=== PATIENT | male | born 1935 | race Caucasian/White ===

== ENCOUNTER 2020-09-09 11:55 | Inpatient (IN) ==
--- NOTE | 2020-09-09 12:26 | Emergency Department Note ---
History of Present Illness General Chief complaint: Shortness of Breath/Dyspnea Stated complaint: SOB, WHEEZING, FEET SWOLLEN, BP 200/84 Time Seen by Provider: 09/09/20 12:05 Source: patient and family (Daughter who is at the bedside) Mode of arrival: ambulatory Limitations: no limitations History of Present Illness This patient comes in after being sent over from Dr. Murphy's office after he has had shortness of breath and lower extremity edema. He does not have a history of CHF. He does have a history of kidney disease and has been followed in [place]. He is a chronic Malagon in which is had normal output with clear urine. He has had lower extremity edema and weight gain over the last several weeks. His blood pressure in the office today was 200/89, he felt short of breath mostly dyspnea on exertion. He is short of breath when he lays flat and has to sleep sitting up. No fever he had a dry cough. He has not had the Covid vaccine or any known Covid illness. No Covid-like symptoms. Normal bowel movements without blood or melena. No focal numbness or weakness. Home Medications Medication Instructions Recorded Confirmed Type rosuvastatin [Crestor] 20 mg PO HS 02/26/19 09/09/20 History acetaminophen [Tylenol Extra 500 mg PO TID 09/09/20 09/09/20 History Strength] cyanocobalamin (vitamin B-12) 1,000 mcg PO QAM 09/09/20 09/09/20 History [Vitamin B-12] sodium bicarbonate 650 mg PO BID 09/09/20 09/09/20 History Allergies Allergy/AdvReac Type Severity Reaction Status Date / Time No Known Allergies Allergy Unverified 09/09/20 13:50 Past Med/Surg History Medical History (Updated 09/09/20 @ 16:32 by Vini Theodore MD) Anemia of chronic disease CKD (chronic kidney disease), stage IV Colon cancer Dyslipidemia Malagon catheter in place Hyperlipemia Urinary retention Surgical History Hx of tonsillectomy S/P right colectomy Family History Other Colorectal cancer Kidney disease Social History (Updated 09/09/20 @ 15:33 by Gunjan Padron PA-C) Smoking Status: Former smoker Years Smoked: 22; Smoking End Date: 1975; Hx Alcohol Use: No Hx Substance Use: No Preferred Language: Latvian marital status: / Feels Safe at Home: Yes Immunizations: Past medical historykidney disease. Denies cardiac disease. Colon cancer. Social history- he lives independently [place] and is followed by Dr. Murphy Review of Systems A total of 10 systems reviewed and were otherwise negative Physical Exam Vital Signs Vital Signs - 24 hr 09/09/20 12:00 09/09/20 12:58 09/09/20 14:15 Temperature 36.2 C L Temperature Source Temporal Artery Scan Pulse Rate 90 Pulse Rate [Left] 84 Pulse Rhythm [Left] Regular Pulse Strength [Left] Normal Respiratory Rate 24 18 Respiratory Effort / Characteristics SOB on Exertion Non-Labored Spontaneous Respiratory Depth Normal Blood Pressure 200/93 H Blood Pressure [Right Arm] 200/84 H Blood Pressure Mean 128 Blood Pressure Mean [Right Arm] 122 Blood Pressure Position Sitting Blood Pressure Position [Right Arm] Lying Pulse Oximetry 99 96 Oxygen Delivery Method Room Air Room Air Room Air Sepsis Recent Fever Within 48 Hours No Sepsis New/Unexplained Change in Mental Status No Sepsis Action Taken by Nursing No Action Required 09/09/20 15:31 09/09/20 16:02 Temperature Temperature Source Pulse Rate 71 Pulse Rate [Left] 78 Pulse Rhythm [Left] Pulse Strength [Left] Respiratory Rate 19 20 Respiratory Effort / Characteristics Respiratory Depth Blood Pressure 197/85 H Blood Pressure [Right Arm] 205/102 H Blood Pressure Mean Blood Pressure Mean [Right Arm] 136 Blood Pressure Position Blood Pressure Position [Right Arm] Pulse Oximetry 94 94 Oxygen Delivery Method Room Air Sepsis Recent Fever Within 48 Hours Sepsis New/Unexplained Change in Mental Status Sepsis Action Taken by Nursing General: Well developed well nourished older male who in no acute distress, breathing comfortably on room air. Normal speech HEENT: Normal cephalic atraumatic. Pupils are equal round and reactive to light . Extraocular movements are intact. Oropharynx is pink with moist mucous membranes. No swelling of the mouth lips or tongue. Neck: Supple with a midline trachea. No meningeal signs or stiffness, no JVD or bruits. No Stridor. Chest: Clear to auscultation bilaterally. No wheezes or rhonchi. No increased work of breathing. Heart: Regular rate and rhythm without murmurs or gallops. Abdomen: Soft nontender, nondistended without rebound guarding or rigidity. He has ventral hernias from previous incisions which are not red or tender they do reduce and he says that are unchanged. Malagon catheter in place with yellow clear urine in bag. Extremities: No cyanosis clubbing. he has 1-2+ bilateral lower extremity edema. No calf tenderness or assymetry Spine/Back. Non tender to palpation. No CVA tenderness Skin: Good turgor without rashes. Neurologic exam: Cranial nerves two through 12 are intact. Motor and sensation are intact and symmetrical throughout. Course Administered Medications Discontinued Medications Furosemide (Furosemide 40 Mg/4 Ml Vial) 80 mg IV ONE STA Stop: 09/09/20 15:22 Last Admin: 09/09/20 15:30 Dose: 80 mg Documented by: [id number] Labetalol HCl (Labetalol Hcl Iv 5 Mg/Ml 20ml) Confirm Administered Dose 5 mg IV .STK-MED ONE Stop: 09/09/20 14:29 Last Admin: 09/09/20 15:07 Dose: 5 mg Documented by: [id number] Cosigned by: [id number] Labetalol HCl (Labetalol Hcl Iv 5 Mg/Ml 20ml) 5 mg IV NOW STA Stop: 09/09/20 14:54 Last Admin: 09/09/20 15:07 Dose: Not Given Documented by: [id number] Labetalol HCl (Labetalol Hcl 100 Mg Tab) 100 mg PO ONE STA Stop: 09/09/20 15:22 Last Admin: 09/09/20 15:30 Dose: 100 mg Documented by: [id number] Medical Decision Making Differential Diagnosis CHF, kidney disease, electrolyte or metabolic abnormality, acute coronary syndrome, infection, thyroid disease, electrolyte or metabolic abnormality Medical Records Attestation: I reviewed the patient's medical records. Home Medications Current Medication List: was personally reviewed by me Laboratory Data Attestation: I reviewed the patient's lab results. Result diagrams: 09/09/20 13:00 09/09/20 13:00 Lab Results 09/09/20 09/09/20 09/09/20 Range/Units 13:00 13:00 14:10 WBC 6.71 (4.8-10.8) K/uL RBC 2.81 L (4.7-6.1) M/uL Hgb 8.9 L (14.0-18.0) g/dL Hct 26.5 L (42-52) % MCV 94.3 (80-100) fL MCH 31.7 (25-34) pg MCHC 33.6 (32-36) g/dL RDW Std Deviation 48.5 H (36.4-46.3) fL RDW Coeff of Zev 14.0 (11.5-14.5) % Plt Count 162 (130-400) K/uL MPV 11.7 H (7.4-10.4) fL Immature Gran % (Auto) 0.3 % Neut % (Auto) 76.1 % Lymph % (Auto) 13.6 % [place] % (Auto) 7.5 % Eos % (Auto) 1.9 % Baso % (Auto) 0.6 % Neut # (Auto) 5.11 (1.4-6.5) K/uL Lymph # (Auto) 0.91 L (1.2-3.4) K/uL [place] # (Auto) 0.50 (0.11-0.59) K/uL Eos # (Auto) 0.13 (0-0.5) K/uL Baso # (Auto) 0.04 (0-0.2) K/uL Immature Gran # (Auto) 0.02 (0.00-0.02) K/uL Sodium 142 (136-145) mmol/L Potassium 3.8 (3.5-5.1) mmol/L Chloride 114 H (98-107) mmol/L Carbon Dioxide 19 L (21-32) mmol/L Anion Gap 9.0 (3-11) BUN 59 H (7-18) mg/dl Creatinine 4.19 H (0.6-1.4) mg/dl Est Cr Clr Drug Dosing 13.4 ml/min Est GFR ( Amer) 14.2 Est GFR (Non-Af Amer) 12.3 BUN/Creatinine Ratio 14.1 (10-20) Glucose 93 (70-99) mg/dl Calcium 8.0 L (8.5-10.1) mg/dl Total Bilirubin 0.4 (0.2-1) mg/dl AST 13 L (15-37) U/L ALT 17 (12-78) U/L Alkaline Phosphatase 56 (45-117) U/L Troponin I < 0.015 (0-0.045) ng/ml NT-Pro-B Natriuret Pep 24237 H (0-1800) pg/ml Total Protein 7.0 (6.4-8.2) gm/dl Albumin 3.4 (3.4-5.0) gm/dl Globulin 3.6 (2.5-4.0) gm/dl Albumin/Globulin Ratio 0.9 (0.9-2) TSH 2.850 (0.300-4.500) uIu/ml COVID-19 Eval Order CovFluRsv at [facility] SARS-CoV-2 (PCR) (Negative) Influenza Type A (PCR) (Neg) Influenza Type B (PCR) (Neg) RSV (RT-PCR) (Neg) 09/09/20 Range/Units 14:10 WBC (4.8-10.8) K/uL RBC (4.7-6.1) M/uL Hgb (14.0-18.0) g/dL Hct (42-52) % MCV (80-100) fL MCH (25-34) pg MCHC (32-36) g/dL RDW Std Deviation (36.4-46.3) fL RDW Coeff of Zev (11.5-14.5) % Plt Count (130-400) K/uL MPV (7.4-10.4) fL Immature Gran % (Auto) % Neut % (Auto) % Lymph % (Auto) % [place] % (Auto) % Eos % (Auto) % Baso % (Auto) % Neut # (Auto) (1.4-6.5) K/uL Lymph # (Auto) (1.2-3.4) K/uL [place] # (Auto) (0.11-0.59) K/uL Eos # (Auto) (0-0.5) K/uL Baso # (Auto) (0-0.2) K/uL Immature Gran # (Auto) (0.00-0.02) K/uL Sodium (136-145) mmol/L Potassium (3.5-5.1) mmol/L Chloride (98-107) mmol/L Carbon Dioxide (21-32) mmol/L Anion Gap (3-11) BUN (7-18) mg/dl Creatinine (0.6-1.4) mg/dl Est Cr Clr Drug Dosing ml/min Est GFR ( Amer) Est GFR (Non-Af Amer) BUN/Creatinine Ratio (10-20) Glucose (70-99) mg/dl Calcium (8.5-10.1) mg/dl Total Bilirubin (0.2-1) mg/dl AST (15-37) U/L ALT (12-78) U/L Alkaline Phosphatase (45-117) U/L Troponin I (0-0.045) ng/ml NT-Pro-B Natriuret Pep (0-1800) pg/ml Total Protein (6.4-8.2) gm/dl Albumin (3.4-5.0) gm/dl Globulin (2.5-4.0) gm/dl Albumin/Globulin Ratio (0.9-2) TSH (0.300-4.500) uIu/ml COVID-19 Eval Order SARS-CoV-2 (PCR) NEGATIVE (Negative) Influenza Type A (PCR) Negative (Neg) Influenza Type B (PCR) Negative (Neg) RSV (RT-PCR) Negative (Neg) Imaging Data Attestation: I personally reviewed and interpreted this imaging study as follows: My Impression: Chest x-rayfindings consistent with CHF with effusions on the left greater than right base Radiologist's Impression: SINGLE VIEW CHEST CLINICAL HISTORY: Atypical chest pain FINDINGS: An AP, portable, upright chest radiograph is compared to study dated 02/26/2019. The heart is mildly enlarged noting atherosclerotic calcification of the thoracic aorta. There is prominence of the pulmonary vasculature. There are left larger than right pleural effusions with bibasilar consolidation. No pneumothorax is seen. The skeletal structures are osteopenic. The bony thorax is grossly intact. IMPRESSION: 1. There are left larger than right pleural effusions with bibasilar consolidation. Correlate quickly for evidence of pneumonia/aspiration pneumonitis. Radiographic follow-up to resolution is recommended. 2. Cardiomegaly with prominence of the pulmonary vasculature. Correlate clinically for evidence of mild congestive failure. ECG Data Attestation: I personally reviewed and interpreted this ECG as follows: Indication: + SOB/dyspnea Rate (beats per minute): 83 Rhythm: + normal sinus ECG Intervals/blocks: + Normal QRS, + Prolonged QT (Mildly prolonged with a QTC of 470) and + Normal ME ECG [place]: + Normal ECG ST segments: + Normal ST segments ECG Findings: + Other (Nonspecific T waves with some diffuse T wave flattening); no PACs and no PVCs Comparison ECG Date: from (02/26/19) Change: the following changes noted (Rate has increased and also T waves are nonspecific) MDM Narrative This patient comes in as described above he has had dyspnea on exertion orthopnea weight gain and weakness all concerning for possible CHF he does have underlying kidney disease which could also be causing the symptoms. He had extensive work-up done. IV asked established was placed on a cruise coordinator chest x-ray EKG and multiple blood testing was obtained I also order urinalysis and culture. He was reassessed frequently. His creatinine was elevated greater than 4. His chest x-ray does look like he has a CHF component and his BNP is elevated as well. His troponin is normal and his EKG does not show any ischemic changes. His blood pressure has been elevated likely related to the CHF. I do think he needs to be admitted and have further cardiac and renal work-up. He may also need some diuresis but with a creatinine greater than 4, Lasix could also make that worse. I have consulted the [facility] hospitalist to see him in the ER for these measures. Continuous cardiac monitoring: Order was placed in EMR for continuous cardiac monitoring. The patient was noted to be normal sinus rhythm with a rate of 90. Impression & Plan CHF (congestive heart failure), Renal failure, Hypertension, Weakness Discharge Plan Visit Data Chief Complaint: Shortness of Breath/Dyspnea Stated Complaint: SOB, WHEEZING, FEET SWOLLEN, BP 200/84 ED Provider: Vini Theodore Discharge Problem: CHF (congestive heart failure), Renal failure, Hypertension, Weakness Discharge Instructions Interventions: ED Discharge Assessment Last Done: 09/09/20 16:02 Forms Stand Alone Forms: My [employer] Prescriptions Prescriptions: No Action rosuvastatin [Crestor] 20 mg Tablet 20 mg PO HS RF: 0 cyanocobalamin (vitamin B-12) [Vitamin B-12] 1,000 mcg Tablet 1,000 mcg PO QAM RF: 0 acetaminophen [Tylenol Extra Strength] 500 mg Tablet 500 mg PO TID RF: 0 sodium bicarbonate 650 mg tablet 650 mg PO BID RF: 0 Referrals Referrals: Onofre Brown MD [Primary Care Provider] - Discharge Problem: CHF (congestive heart failure) Qualifiers: Heart failure type: combined systolic and diastolic Heart failure chronicity: acute Qualified Code(s): I50.41 - Acute combined systolic (congestive) and diastolic (congestive) heart failure Renal failure Qualifiers: Renal failure chronicity: acute on chronic Acute renal failure type: unspecified Chronic kidney disease stage: unspecified stage Qualified Code(s): N17.9 - Acute kidney failure, unspecified Hypertension Qualifiers: Hypertension type: unspecified Qualified Code(s): I10 - Essential (primary) hypertension
--- NOTE | 2020-09-09 13:03 | XRay Report ---
SINGLE VIEW CHEST CLINICAL HISTORY: Atypical chest pain FINDINGS: An AP, portable, upright chest radiograph is compared to study dated 02/26/2019. The heart i s mildly enlarged noting atherosclerotic calcification of the thoracic aorta. There is prominence of the pulmonary vasculature. There are left larger than right pleural effusions with bibasilar consolid ation. No pneumothorax is seen. The skeletal structures are osteopenic. The bony thorax is grossly in tact. IMPRESSION: 1. There are left larger than right pleural effusions with bibasilar consolidation. Correlate quickly for evidence of pneumonia/aspiration pneumonitis. Radiographic follow-up to resolution is recommende d. 2. Cardiomegaly with prominence of the pulmonary vasculature. Correlate clinically for evidence of mi ld congestive failure. ACT 112: Negative or not required by law. Electronically signed by: Farooq Villanueva M.D. 09/09/2020 1:02 PM
[2020-09-09 13:19] LABS: Basophils # (auto) 0.04 K/uL (0-0.2); Basophils % (auto) 0.6 %; Eosinophils # (auto) 0.13 K/uL (0-0.5); Eosinophils % (auto) 1.9 %; Hematocrit (blood only) 26.5 % (42-52); Hemoglobin 8.9 g/dL (14.0-18.0); Immature Granulocytes # (auto) 0.02 K/uL (0.00-0.02); Immature Granulocytes % (auto) 0.3 %; Lymphocytes # (auto) 0.91 K/uL (1.2-3.4); Lymphocytes % (auto) 13.6 %; Mean Corpuscular Hemoglobin 31.7 pg (25-34); Mean Corpuscular Hgb Conc 33.6 g/dL (32-36); Mean Corpuscular Volume 94.3 fL (80-100); Mean Platelet Volume 11.7 fL (7.4-10.4); Monocytes % (auto) 7.5 %; Neutrophils # (auto) 5.11 K/uL (1.4-6.5); Neutrophils % (auto) 76.1 %; Platelet Count 162 K/uL (130-400); RDW Standard Deviation 48.5 fL (36.4-46.3); Red Blood Count 2.81 M/uL (4.7-6.1); White Blood Count 6.71 K/uL (4.8-10.8)
[2020-09-09 13:37] LABS: Alanine Aminotransferase 17 U/L (12-78); Albumin Level 3.4 gm/dl (3.4-5.0); Aspartate Aminotransferase 13 U/L (15-37); BUN Creatinine Ratio 14.1 (10-20); Blood Urea Nitrogen 59 mg/dl (7-18); Carbon Dioxide 19 mmol/L (21-32); Chloride 114 mmol/L (98-107); Creatinine Clr Calc Pharmacy 13.4 ml/min; Est GFR (African American) 14.2; Est GFR (Non-African American) 12.3; Glucose 93 mg/dl (70-99); Potassium 3.8 mmol/L (3.5-5.1); Sodium 142 mmol/L (136-145)
[2020-09-09 13:48] LABS: Albumin Globulin Ratio 0.9 (0.9-2); Alkaline Phosphatase 56 U/L (45-117); Bilirubin,Total 0.4 mg/dl (0.2-1); Globulin 3.6 gm/dl (2.5-4.0); NT Pro B Type Natriuretic Pept 30998 pg/ml (0-1800); Troponin I < 0.015 ng/ml (0-0.045)
--- NOTE | 2020-09-09 14:26 | History & Physical Report ---
Date of Service September 09, 2020 Assessment & Plan (1) Acute kidney injury superimposed on chronic kidney disease: (2) CKD (chronic kidney disease), stage IV: This is an 85-year-old male with PMH of CKD 4, history of BPH and urinary retention with Carlson catheter in place, anemia of chronic disease, history of colon cancer status post right colectomy, dyslipidemia and other medical problems as below who presents with dyspnea on exertion x2 weeks and was found to have DINORAH on CKD, volume overload and hypertensive urgency. Creatinine 4.19 (recent baseline ~3.3). BUN 59. Follows with Dr. Acharya Evidence of significant volume overload on exam, BNP >30,000 Discussed diuretic dosing with Dr. Acharya - will start with IV Lasix 80mg TID Still making urine, has carlson catheter in place Low sodium diet, fluid restriction 1.5 L, continue sodium bicarb (3) Volume overload: In setting of DINORAH on CKD, evidence of volume overload although no formal diagnosis of CHF in the past - echo in 10/26 with preserved EF, aortic sclerosis CXR with pleural effusions L>R with bibasilar consolidation and cardiomegaly with prominence of the pulmonary vasculature BNP >30,000 Saturating at 94% on room air Diuresing with IV Lasix 80mg TID, per nephro. Strict I&Os, daily weight TTE ordered (4) Hypertensive urgency: BP 215/100 when evaluated for admission - H/o labile HTN. Previously on HCTZ, lisinopril but discontinued after ARF admission to [facility] last September. BP has been stable per clinic visits without medication Denies visual changes, headache, chest pain, nausea. CT head wo contrast given uncontrolled BP Given stat IV Labetalol, started on IV lasix in ED. Starting labetalol 100mg BID as well with PRN IV Labetalol as needed (5) BPH (benign prostatic hyperplasia): (6) Urinary retention: Carlson catheter in place (7) Dyslipidemia: Continue statin (8) Anemia of chronic disease: Hgb 8.9. Following with nephro DVT Ppx: SCDs for now, will add SQ heparin if CT head results w/o evidence of bleed Code status: FULL PCP: [facility] Dispo: Admitted to PCU. Plan to return home once medically stable. Patient seen in collaboration with Dr. Sol. Please see addendum. History of Present Illness Chief Complaint: Dyspnea on exertion, weight gain Primary Care Provider: Onofre Brown MD This is an 85-year-old male with PMH of CKD 4, history of BPH and urinary retention with Carlson catheter in place, anemia of chronic disease, history of colon cancer status post right colectomy, dyslipidemia and other medical problems as below who presents with dyspnea on exertion x2 weeks. Patient has noticed increased difficulty with breathing with activity, but daughter also notices when he is at rest and short of breath talking on the phone. Endorses weight gain and swelling of bilateral ankles as well as dry cough. Has been unable to sleep flat, endorsing orthopnea and PND. Has been sleeping in recliner for the past week. Denies any lightheadedness, headache or chest pain. Has normal urinary output in Carlson bag. No fever or chills. Denies headache, sore throat, palpitations, nausea, vomiting, abdominal pain, dysuria, diarrhea constipation. Was seen earlier today at [facility] but due to hypertension and worsening renal function was sent to ED for further evaluation. Initial BP 200/84. Creatinine 4.19 (recent baseline ~3.3). BUN 59. BNP elevated at >30,000. CXR with pleural effusions L>R with bibasilar consolidation and cardiomegaly with prominence of the pulmonary vasculature. Follows with Dr. Acharya of nephrology. 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 HCTZ, lasix and lisinopril all discontinued upon discharge. Has not required additional BP meds since then. Allergies Allergy/AdvReac Type Severity Reaction Status Date / Time No Known Allergies Allergy Unverified 09/09/20 13:50 Home Medications Medication Instructions Recorded Confirmed Type rosuvastatin [Crestor] 20 mg PO HS 02/26/19 09/09/20 History acetaminophen [Tylenol Extra 500 mg PO TID 09/09/20 09/09/20 History Strength] cyanocobalamin (vitamin B-12) 1,000 mcg PO QAM 09/09/20 09/09/20 History [Vitamin B-12] sodium bicarbonate 650 mg PO BID 09/09/20 09/09/20 History Past Med/Surg History Medical History (Updated 09/09/20 @ 16:32 by Vini Theodore MD) Anemia of chronic disease CKD (chronic kidney disease), stage IV Colon cancer Dyslipidemia Carlson catheter in place Hyperlipemia Urinary retention Surgical History Hx of tonsillectomy S/P right colectomy Family History Other Colorectal cancer Kidney disease Social History (Updated 09/09/20 @ 15:33 by Gunjan Padron PA-C) Smoking Status: Former smoker Years Smoked: 22; Smoking End Date: 1975; Hx Alcohol Use: No Hx Substance Use: No Preferred Language: Frisian Communication Ability: Effective Mattress Stripper Required: No Beliefs That Will Affect Care: None marital status: / Current Living Situation: Alone Feels Safe at Home: Yes Assistive Devices: Denture - Upper, Denture - Lower and Glasses Review of Systems Review of Systems: At least ten systems reviewed and negative except as noted in the HPI. Physical Exam Physical Exam: General Appearance: WD/WN, vitals as above, NAD, sitting up in bed, pleasant, conversational dyspnea Head: normocephalic, atraumatic Eyes: normal inspection, PERRL, conjunctivae normal, anicteric sclerae ENT: external ear and nose normal, oropharynx normal Neck: normal visual inspection, trachea midline, no thyromegaly Respiratory: normal respiratory effort, bibasilar rales, no wheeze or rhonchi. No accessory muscle use Cardiovascular: regular rate, rhythm, no murmur appreciated, normal peripheral pulses, 2+ BLE edema. Vessels: no JVD Chest: normal inspection of chest Abdomen/GI: normal bowel sounds, soft, nontender, no hepatosplenomegaly Extremities/Musculoskeletal: no cyanosis or clubbing, extremities motor strength 5/5 Neurologic: PERRL, EOMI, accommodation nl, no face palsy, no dysarthria, CN's II-XI intact bilaterally and moves all extremities Psychiatric: A+Ox3, euthymic affect Skin: no rashes, normal color, warm/dry Results & Data Results & Data ([facility]) Vital Signs (Past 12 Hours) Vital Signs Temp Pulse Pulse Resp BP BP Pulse Ox 09/09/20 14:15 84 18 200/84 H 96 09/09/20 12:00 36.2 C L 90 24 200/93 H 99 Laboratory Results Short CBC 09/09/20 Range/Units 13:00 WBC 6.71 (4.8-10.8) K/uL Hgb 8.9 L (14.0-18.0) g/dL Hct 26.5 L (42-52) % Plt Count 162 (130-400) K/uL BMP 09/09/20 13:00 Sodium 142 Potassium 3.8 Chloride 114 H Carbon Dioxide 19 L BUN 59 H Creatinine 4.19 H Glucose 93 Calcium 8.0 L Cardiac Enzymes 09/09/20 Range/Units 13:00 Troponin I < 0.015 (0-0.045) ng/ml Liver Function 09/09/20 Range/Units 13:00 Total Bilirubin 0.4 (0.2-1) mg/dl AST 13 L (15-37) U/L ALT 17 (12-78) U/L Alkaline Phosphatase 56 (45-117) U/L Albumin 3.4 (3.4-5.0) gm/dl Diagnostic Findings CXR: IMPRESSION: 1. There are left larger than right pleural effusions with bibasilar consolidation. Correlate quickly for evidence of pneumonia/aspiration pneumonitis. Radiographic follow-up to resolution is recommended. 2. Cardiomegaly with prominence of the pulmonary vasculature. Correlate clinically for evidence of mild congestive failure. Supervising Physician Co-Signing Physician Notes Patient is a 85-year-old male with history of CKD stage IV, BPH and other medical problems presents with history of dyspnea on exertion which has been gradually worsening since last 2 weeks duration. He also states having orthopnea, PND and unable to lay flat at bedtime. He also admits to have worsening lower extremity edema, weight gain and has dry cough. Please review HPI for complete details of presentation. He was noted to have elevated blood pressure while in ED, but denies any headache, blurry vision, dizziness. His x- ray suggestive of bilateral pleural effusion with bibasilar consolidation and findings suggestive of possible aspiration pneumonitis. On exam patient is thin, frail, chronically appearing, no apparent distress, normocephalic atraumatic, lungs-normal breath sounds, decreased at bases, no crackles heard, S1-S2, no murmur, abdomen soft, nontender, normal bowel sounds, alert, awake, oriented, grossly no focal deficits, + bilateral lower extremity edema noted. Patient is admitted for management of volume overload: Likely multifactorial secondary to DINORAH, to rule out CHF. Currently saturating well on room air. We will start him on IV diuretics, place him on fluid and salt restriction. Will obtain echo and consult nephrology. CT head showed no acute findings. Will control his blood pressure for hypertensive urgency. Will bladder scan as needed to rule out urinary retention. Will check procalcitonin and consider antibiotics if needed. Urinary studies ordered. Noted chronic anemia, hemoglobin low from baseline likely dilutional. Monitor CBC. I personally reviewed the record. Patient is interviewed and examined at bedside. Patient's care is coordinated with Gunjan Padron PA-C. Please refer to the documentation above for details of patient's presentation and for discussion of other issues.
[2020-09-09] MEDS ORDERED: LABETALOL HCL IV 5 MG/ML 20ML IV ONE (14:28)
[2020-09-09] MEDS ORDERED: LABETALOL HCL IV 5 MG/ML 20ML IV STA (14:53)
[2020-09-09 15:04] LABS: Influenza A virus by PCR Negative (Neg); Influenza B virus by PCR Negative (Neg); RSV by PCR Negative (Neg); SARS CoV2 RNA(COVID-19) InHosp NEGATIVE (Negative)
[2020-09-09] MEDS ORDERED: LABETALOL HCL 100 MG TAB PO STA (15:21)
[2020-09-09] MEDS ORDERED: FUROSEMIDE 40 MG/4 ML VIAL IV STA (15:21)
--- NOTE | 2020-09-09 16:26 | CT Scan Report ---
CT OF THE HEAD WITHOUT CONTRAST CLINICAL HISTORY: Hypertensive urgency. COMPARISON STUDY: No previous studies for comparison. CT DOSE: 945.80 mGy.cm TECHNIQUE: Helical axial images of the head were obtained without IV contrast. Automated exposure con trol was utilized for the study. A dose lowering technique was utilized adhering to the principles o f ALARA. FINDINGS: No acute intracranial hemorrhage, midline shift or mass effect is present. Basal cisterns a re patent. No extra axial fluid collections are present. Prominence of the extra-axial spaces is due to atrophy. Ventricular system is unremarkable. There are no findings to suggest acute dural sinus th rombosis or acute territorial infarct. A 1.5 cm subcortical hypodensity within the left parietal lobe is noted. Mild white matter hypodensity suggests small vessel disease. There is no calvarial fractur e. IMPRESSION: 1. No acute intracranial hemorrhage or mass effect. 2. 1.5 cm subcortical hypodensity within the left parietal lobe. This represents age indeterminate, b ut likely chronic, ischemic change. ACT 112: Negative or not required by law. Electronically signed by: Armando Fernandez M.D. 09/09/2020 4:24 PM
[2020-09-09] MEDS ORDERED: ONDANSETRON INJ 2 MG/ML 2 ML VIAL IV PRN (16:40)
[2020-09-09] MEDS ORDERED: ACETAMINOPHEN 325 MG TAB PO PRN (16:40)
[2020-09-09] MEDS: SODIUM BICARBONATE 650 MG TAB PO SCH (20:09)
[2020-09-09] MEDS: ROSUVASTATIN CALCIUM 20 MG TAB PO SCH (20:09)
[2020-09-09] MEDS: ACETAMINOPHEN 500 MG TAB PO SCH (20:10)
[2020-09-09] MEDS: LABETALOL HCL 100 MG TAB PO SCH (20:38)
[2020-09-09] MEDS: HEPARIN SOD 5,000 UNIT/0.5 ML VIAL SQ SCH (20:38)
[2020-09-09 20:51] LABS: Appearance Urine Clear (Clear); Bacteria Urine Automated 1+ (Negative); Bilirubin Urine Negative (Negative); Blood Urine 2+ (Negative); Color Urine Yellow; Glucose Urine UA Negative (Negative); Ketones Urine Negative (Negative); Leukocyte Esterase Urine 1+ (Negative); Nitrite Urine Positive (Negative); Protein Urine 2+ (Negative); Specific Gravity Urine 1.009 (1.000-1.030); Urobilinogen Urine Negative (Negative)
[2020-09-09 21:24] LABS: Creatinine Urine Random 19.4 mg/dl; Protein Creatinine Ratio Urine 5.3 (0-0.2); Total Protein Urine Random 102.7 mg/dl (0-11.9)
[2020-09-09] MEDS: FUROSEMIDE 80 MG in SYRINGE 0 ML IV SCH (22:06)
--- NOTE | 2020-09-10 05:48 | Electrocardiogram Report ---
Test Reason : Blood Pressure : / mmHG Vent. Rate : 083 BPM Atrial Rate : 083 BPM P-R Int : 152 ms QRS Dur : 092 ms QT Int : 400 ms P-R-T Axes : 051 048 223 degrees QTc Int : 470 ms Normal sinus rhythm Nonspecific T wave abnormality Prolonged QT Abnormal ECG When compared with ECG of 26-FEB-2019 17:29, Nonspecific T wave abnormality now evident in Inferior leads Nonspecific T wave abnormality now evident in Lateral leads Confirmed by Jim Saldana ([id number]) on 09/10/2020 5:48:09 AM Referred By: REFERRED SELF Confirmed By:Jim Saldana
[2020-09-10 05:58] LABS: Hematocrit (blood only) 23.1 % (42-52); Hemoglobin 7.5 g/dL (14.0-18.0); Mean Corpuscular Hemoglobin 30.7 pg (25-34); Mean Corpuscular Hgb Conc 32.5 g/dL (32-36); Mean Corpuscular Volume 94.7 fL (80-100); Mean Platelet Volume 11.6 fL (7.4-10.4); Platelet Count 143 K/uL (130-400); RDW Standard Deviation 48.3 fL (36.4-46.3); Red Blood Count 2.44 M/uL (4.7-6.1); White Blood Count 5.05 K/uL (4.8-10.8)
[2020-09-10] MEDS: FUROSEMIDE 80 MG in SYRINGE 0 ML IV SCH ×2 (06:02→15:04)
[2020-09-10 07:01] LABS: BUN Creatinine Ratio 14.4 (10-20); Calcium 7.5 mg/dl (8.5-10.1); Est GFR (African American) 12.5; Est GFR (Non-African American) 10.8; Magnesium 2.1 mg/dl (1.8-2.4); Potassium 3.8 mmol/L (3.5-5.1)
[2020-09-10] MEDS: LABETALOL HCL 100 MG TAB PO SCH ×2 (07:51→20:54)
[2020-09-10] MEDS: HEPARIN SOD 5,000 UNIT/0.5 ML VIAL SQ SCH (07:52)
[2020-09-10] MEDS: CYANOCOBALAMIN 500 MCG TABLET (VITAMIN B-12) PO SCH (07:52)
[2020-09-10] MEDS: SODIUM BICARBONATE 650 MG TAB PO SCH ×2 (07:53→20:53)
[2020-09-10] MEDS: ACETAMINOPHEN 500 MG TAB PO SCH ×3 (07:55→20:53)
--- NOTE | 2020-09-10 08:25 | Hospitalist Progress Note ---
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 Creatinine 4.19 (recent baseline ~3.3). BUN 59. Patient has noticed increased difficulty with breathing with activity, but daughter also notices when he is at rest and short of breath talking on the phone. Endorses weight gain and swelling of bilateral ankles as well as dry cough. Has been unable to sleep flat, endorsing orthopnea and PND. Has been sleeping in recliner for the past week. Denies any lightheadedness, headache or chest pain. Has normal urinary output in Carlson bag. No fever or chills. Denies headache, sore throat, palpitations, nausea, vomiting, abdominal pain, dysuria, diarrhea constipation. Was seen earlier today at [facility] but due to hypertension and worsening renal function was sent to ED for further evaluation. Initial BP 200/84. Creatinine 4.19 (recent baseline ~3.3). BUN 59. BNP elevated at >30,000. CXR with pleural effusions L>R with bibasilar consolidation and cardiomegaly with prominence of the pulmonary vasculature. Follows with Dr. Acharya of nephrology. 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 HCTZ, lasix and lisinopril all discontinued upon discharge. Has not required additional BP meds since then. 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 Creatinine 4.19 (recent baseline ~3.3). BUN 59. Follows with Dr. Acharya Evidence of significant volume overload on exam, BNP >30,000 Discussed diuretic dosing with Dr. Acharya - started on admission with IV Lasix 80mg TID Still making urine, has carlson catheter in place Low sodium diet, fluid restriction 1.5 L, continue sodium bicarb Patient diuresed well, clinically much improved on 3/5 AM Nephrology consulted, and following, appreciate their input - lower Lasix IV to 60 IV twice daily, continue labetalol, hydralazine (3) Volume overload: In setting of DINORAH on CKD, evidence of volume overload although no formal diagnosis of CHF in the past - echo in 10/26 with preserved EF, aortic sclerosis CXR with pleural effusions L>R with bibasilar consolidation and cardiomegaly with prominence of the pulmonary vasculature BNP >30,000 Saturating at 94% on room air Diuresing with IV Lasix 80mg TID, per nephro. Strict I&Os, daily weight TTE obtained -LV wall motion is normal. EF 55 to 60%. Mild concentric LVH. Mild mitral regurg. Mild tricuspid regurg. Moderate pulmonary hypertension is present. Pulmonary artery systolic pressure estimated to be 50 to 55 mmHg. G rade 2 diastolic dysfunction. Standing weights, I's and O's (4) Hypertensive urgency: BP 215/100 when evaluated for admission - H/o labile HTN. Previously on HCTZ, lisinopril but discontinued after ARF admission to [facility] last September. BP has been stable per clinic visits without medication Denies visual changes, headache, chest pain, nausea. CT head wo contrast given uncontrolled BP Given stat IV Labetalol, started on IV lasix in ED. 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 Following with nephro Current hemoglobin down around 8 No signs of bleeding, however will obtain FOBT, hold heparin DVT Ppx: SCDs for now, will add SQ heparin if Hgb stable Code status: FULL PCP: Dr. Brown Dispo: Admitted to PCU. Plan to return home once medically stable. Admission and Anticipated Discharge Date Admission Date: September 09, 2020 Subjective Patient seen in follow-up of DINORAH on CKD, fluid overload Currently lying in bed, in no acute distress, stating that he feels much better now and is breathing better He is currently on room air Denies any chest pain, abdominal pain, nausea vomiting fevers chills Hemoglobin down this AM, repeat hemoglobin ordered, seems stable, no gross bleeding noted, patient denies any blood in the stool or hematuria Review of Systems Review of Systems: All systems reviewed & are unremarkable except as noted in HPI & below Constitutional: no fever and no chills Respiratory: + dyspnea (much improved) Cardiovascular: + edema; no chest pain and no palpitations Gastrointestinal: no abdominal pain, no nausea and no vomiting Physical Exam Physical Exam: General Appearance: WD/WN, sitting up in bed,in NAD, breathing comfortably on room air Head: normocephalic, atraumatic Eyes: normal inspection, PERRL, EOMI, conjunctivae normal, anicteric sclerae ENT: external ear and nose normal, oropharynx normal Neck: normal visual inspection, trachea midline, no thyromegaly Respiratory: normal respiratory effort, bibasilar rales, no wheeze or rhonchi. No accessory muscle use Cardiovascular: regular rate, rhythm, no murmur appreciated, normal peripheral pulses, 2+ BLE edema. Vessels: no JVD Chest: normal inspection of chest Abdomen/GI: normal bowel sounds, soft, nontender Extremities/Musculoskeletal: no cyanosis or clubbing, extremities motor strength 5/5 Neurologic: PERRL, EOMI, no face palsy, no dysarthria, CN's II-XI intact bilaterally and moves all extremities Psychiatric: A+Ox3, euthymic affect Skin: no rashes, normal color, warm/dry Results & Data Results & Data ([facility]) Vital Signs (Past 12 Hours) Vital Signs Temp Pulse Pulse Resp BP Pulse Ox 09/10/20 07:20 36.8 C 69 18 183/77 H 96 09/10/20 06:42 170/77 H 09/10/20 03:27 37.0 C 59 L 18 177/77 H 96 09/10/20 02:00 72 09/09/20 23:33 36.8 C 68 19 172/70 H 94 09/09/20 22:33 72 Laboratory Results 09/10/20 09/10/20 09/10/20 Range/Units 07:19 05:38 05:38 WBC 5.05 (4.8-10.8) K/uL RBC 2.44 L (4.7-6.1) M/uL Hgb 7.5 L (14.0-18.0) g/dL Hct 23.1 L (42-52) % MCV 94.7 (80-100) fL MCH 30.7 (25-34) pg MCHC 32.5 (32-36) g/dL RDW Std Deviation 48.3 H (36.4-46.3) fL RDW Coeff of Zev 14.0 (11.5-14.5) % Plt Count 143 (130-400) K/uL MPV 11.6 H (7.4-10.4) fL Immature Gran % (Auto) % Neut % (Auto) % Lymph % (Auto) % [place] % (Auto) % Eos % (Auto) % Baso % (Auto) % Neut # (Auto) (1.4-6.5) K/uL Lymph # (Auto) (1.2-3.4) K/uL [place] # (Auto) (0.11-0.59) K/uL Eos # (Auto) (0-0.5) K/uL Baso # (Auto) (0-0.2) K/uL Immature Gran # (Auto) (0.00-0.02) K/uL Sodium (136-145) mmol/L Potassium (3.5-5.1) mmol/L Chloride (98-107) mmol/L Carbon Dioxide (21-32) mmol/L Anion Gap (3-11) BUN (7-18) mg/dl Creatinine (0.6-1.4) mg/dl Est Cr Clr Drug Dosing ml/min Est GFR ( Amer) Est GFR (Non-Af Amer) BUN/Creatinine Ratio (10-20) Glucose (70-99) mg/dl POC Glucose 100 H (70-99) mg/dl Calcium (8.5-10.1) mg/dl Magnesium (1.8-2.4) mg/dl Total Bilirubin (0.2-1) mg/dl AST (15-37) U/L ALT (12-78) U/L Alkaline Phosphatase (45-117) U/L Troponin I (0-0.045) ng/ml NT-Pro-B Natriuret Pep (0-1800) pg/ml Total Protein (6.4-8.2) gm/dl Albumin (3.4-5.0) gm/dl Globulin (2.5-4.0) gm/dl Albumin/Globulin Ratio (0.9-2) Procalcitonin 0.14 (0-0.5) ng/ml TSH (0.300-4.500) uIu/ml Urine Color Urine Appearance (Clear) Urine pH (4.5-7.5) Ur Specific [place] (1.000-1.030) Urine Protein (Negative) Urine Glucose (UA) (Negative) Urine Ketones (Negative) Urine Blood (Negative) Urine Nitrite (Negative) Urine Bilirubin (Negative) Urine Urobilinogen (Negative) Ur Leukocyte Esterase (Negative) Urine WBC (Auto) (0-5) /hpf Urine RBC (Auto) (0-4) /hpf U Hyaline Cast (Auto) (0-5) /lpf U Epithel Cells (Auto) (0-5) /lpf Urine Bacteria (Auto) (Negative) Ur Random Creatinine mg/dl U Random Total Protein (0-11.9) mg/dl Protein/Creatinin Ratio (0-0.2) COVID-19 Eval Order SARS-CoV-2 (PCR) (Negative) Influenza Type A (PCR) (Neg) Influenza Type B (PCR) (Neg) RSV (RT-PCR) (Neg) 09/10/20 09/09/20 09/09/20 Range/Units 05:38 20:36 20:29 WBC (4.8-10.8) K/uL RBC (4.7-6.1) M/uL Hgb (14.0-18.0) g/dL Hct (42-52) % MCV (80-100) fL MCH (25-34) pg MCHC (32-36) g/dL RDW Std Deviation (36.4-46.3) fL RDW Coeff of Zev (11.5-14.5) % Plt Count (130-400) K/uL MPV (7.4-10.4) fL Immature Gran % (Auto) % Neut % (Auto) % Lymph % (Auto) % [place] % (Auto) % Eos % (Auto) % Baso % (Auto) % Neut # (Auto) (1.4-6.5) K/uL Lymph # (Auto) (1.2-3.4) K/uL [place] # (Auto) (0.11-0.59) K/uL Eos # (Auto) (0-0.5) K/uL Baso # (Auto) (0-0.2) K/uL Immature Gran # (Auto) (0.00-0.02) K/uL Sodium 143 (136-145) mmol/L Potassium 3.8 (3.5-5.1) mmol/L Chloride 114 H (98-107) mmol/L Carbon Dioxide 21 (21-32) mmol/L Anion Gap 8.0 (3-11) BUN 67 H (7-18) mg/dl Creatinine 4.66 H* D (0.6-1.4) mg/dl Est Cr Clr Drug Dosing 12.0 ml/min Est GFR ( Amer) 12.5 Est GFR (Non-Af Amer) 10.8 BUN/Creatinine Ratio 14.4 (10-20) Glucose 84 (70-99) mg/dl POC Glucose 129 H (70-99) mg/dl Calcium 7.5 L (8.5-10.1) mg/dl Magnesium 2.1 (1.8-2.4) mg/dl Total Bilirubin (0.2-1) mg/dl AST (15-37) U/L ALT (12-78) U/L Alkaline Phosphatase (45-117) U/L Troponin I (0-0.045) ng/ml NT-Pro-B Natriuret Pep (0-1800) pg/ml Total Protein (6.4-8.2) gm/dl Albumin (3.4-5.0) gm/dl Globulin (2.5-4.0) gm/dl Albumin/Globulin Ratio (0.9-2) Procalcitonin (0-0.5) ng/ml TSH (0.300-4.500) uIu/ml Urine Color Urine Appearance (Clear) Urine pH (4.5-7.5) Ur Specific [place] (1.000-1.030) Urine Protein (Negative) Urine Glucose (UA) (Negative) Urine Ketones (Negative) Urine Blood (Negative) Urine Nitrite (Negative) Urine Bilirubin (Negative) Urine Urobilinogen (Negative) Ur Leukocyte Esterase (Negative) Urine WBC (Auto) (0-5) /hpf Urine RBC (Auto) (0-4) /hpf U Hyaline Cast (Auto) (0-5) /lpf U Epithel Cells (Auto) (0-5) /lpf Urine Bacteria (Auto) (Negative) Ur Random Creatinine 19.4 mg/dl U Random Total Protein 102.7 H (0-11.9) mg/dl Protein/Creatinin Ratio 5.3 H (0-0.2) COVID-19 Eval Order SARS-CoV-2 (PCR) (Negative) Influenza Type A (PCR) (Neg) Influenza Type B (PCR) (Neg) RSV (RT-PCR) (Neg) 09/09/20 09/09/20 09/09/20 Range/Units 20:25 14:10 14:10 WBC (4.8-10.8) K/uL RBC (4.7-6.1) M/uL Hgb (14.0-18.0) g/dL Hct (42-52) % MCV (80-100) fL MCH (25-34) pg MCHC (32-36) g/dL RDW Std Deviation (36.4-46.3) fL RDW Coeff of Zev (11.5-14.5) % Plt Count (130-400) K/uL MPV (7.4-10.4) fL Immature Gran % (Auto) % Neut % (Auto) % Lymph % (Auto) % [place] % (Auto) % Eos % (Auto) % Baso % (Auto) % Neut # (Auto) (1.4-6.5) K/uL Lymph # (Auto) (1.2-3.4) K/uL [place] # (Auto) (0.11-0.59) K/uL Eos # (Auto) (0-0.5) K/uL Baso # (Auto) (0-0.2) K/uL Immature Gran # (Auto) (0.00-0.02) K/uL Sodium (136-145) mmol/L Potassium (3.5-5.1) mmol/L Chloride (98-107) mmol/L Carbon Dioxide (21-32) mmol/L Anion Gap (3-11) BUN (7-18) mg/dl Creatinine (0.6-1.4) mg/dl Est Cr Clr Drug Dosing ml/min Est GFR ( Amer) Est GFR (Non-Af Amer) BUN/Creatinine Ratio (10-20) Glucose (70-99) mg/dl POC Glucose (70-99) mg/dl Calcium (8.5-10.1) mg/dl Magnesium (1.8-2.4) mg/dl Total Bilirubin (0.2-1) mg/dl AST (15-37) U/L ALT (12-78) U/L Alkaline Phosphatase (45-117) U/L Troponin I (0-0.045) ng/ml NT-Pro-B Natriuret Pep (0-1800) pg/ml Total Protein (6.4-8.2) gm/dl Albumin (3.4-5.0) gm/dl Globulin (2.5-4.0) gm/dl Albumin/Globulin Ratio (0.9-2) Procalcitonin (0-0.5) ng/ml TSH (0.300-4.500) uIu/ml Urine Color Yellow Urine Appearance Clear (Clear) Urine pH 6.0 (4.5-7.5) Ur Specific [place] 1.009 (1.000-1.030) Urine Protein 2+ H (Negative) Urine Glucose (UA) Negative (Negative) Urine Ketones Negative (Negative) Urine Blood 2+ H (Negative) Urine Nitrite Positive A (Negative) Urine Bilirubin Negative (Negative) Urine Urobilinogen Negative (Negative) Ur Leukocyte Esterase 1+ H (Negative) Urine WBC (Auto) 5-10 H (0-5) /hpf Urine RBC (Auto) 5-10 H (0-4) /hpf U Hyaline Cast (Auto) 1-5 (0-5) /lpf U Epithel Cells (Auto) 10-20 H (0-5) /lpf Urine Bacteria (Auto) 1+ H (Negative) Ur Random Creatinine mg/dl U Random Total Protein (0-11.9) mg/dl Protein/Creatinin Ratio (0-0.2) COVID-19 Eval Order CovFluRsv at [facility] SARS-CoV-2 (PCR) NEGATIVE (Negative) Influenza Type A (PCR) Negative (Neg) Influenza Type B (PCR) Negative (Neg) RSV (RT-PCR) Negative (Neg) 09/09/20 09/09/20 Range/Units 13:00 13:00 WBC 6.71 (4.8-10.8) K/uL RBC 2.81 L (4.7-6.1) M/uL Hgb 8.9 L (14.0-18.0) g/dL Hct 26.5 L (42-52) % MCV 94.3 (80-100) fL MCH 31.7 (25-34) pg MCHC 33.6 (32-36) g/dL RDW Std Deviation 48.5 H (36.4-46.3) fL RDW Coeff of Zev 14.0 (11.5-14.5) % Plt Count 162 (130-400) K/uL MPV 11.7 H (7.4-10.4) fL Immature Gran % (Auto) 0.3 % Neut % (Auto) 76.1 % Lymph % (Auto) 13.6 % [place] % (Auto) 7.5 % Eos % (Auto) 1.9 % Baso % (Auto) 0.6 % Neut # (Auto) 5.11 (1.4-6.5) K/uL Lymph # (Auto) 0.91 L (1.2-3.4) K/uL [place] # (Auto) 0.50 (0.11-0.59) K/uL Eos # (Auto) 0.13 (0-0.5) K/uL Baso # (Auto) 0.04 (0-0.2) K/uL Immature Gran # (Auto) 0.02 (0.00-0.02) K/uL Sodium 142 (136-145) mmol/L Potassium 3.8 (3.5-5.1) mmol/L Chloride 114 H (98-107) mmol/L Carbon Dioxide 19 L (21-32) mmol/L Anion Gap 9.0 (3-11) BUN 59 H (7-18) mg/dl Creatinine 4.19 H (0.6-1.4) mg/dl Est Cr Clr Drug Dosing 13.4 ml/min Est GFR ( Amer) 14.2 Est GFR (Non-Af Amer) 12.3 BUN/Creatinine Ratio 14.1 (10-20) Glucose 93 (70-99) mg/dl POC Glucose (70-99) mg/dl Calcium 8.0 L (8.5-10.1) mg/dl Magnesium (1.8-2.4) mg/dl Total Bilirubin 0.4 (0.2-1) mg/dl AST 13 L (15-37) U/L ALT 17 (12-78) U/L Alkaline Phosphatase 56 (45-117) U/L Troponin I < 0.015 (0-0.045) ng/ml NT-Pro-B Natriuret Pep 23437 H (0-1800) pg/ml Total Protein 7.0 (6.4-8.2) gm/dl Albumin 3.4 (3.4-5.0) gm/dl Globulin 3.6 (2.5-4.0) gm/dl Albumin/Globulin Ratio 0.9 (0.9-2) Procalcitonin (0-0.5) ng/ml TSH 2.850 (0.300-4.500) uIu/ml Urine Color Urine Appearance (Clear) Urine pH (4.5-7.5) Ur Specific [place] (1.000-1.030) Urine Protein (Negative) Urine Glucose (UA) (Negative) Urine Ketones (Negative) Urine Blood (Negative) Urine Nitrite (Negative) Urine Bilirubin (Negative) Urine Urobilinogen (Negative) Ur Leukocyte Esterase (Negative) Urine WBC (Auto) (0-5) /hpf Urine RBC (Auto) (0-4) /hpf U Hyaline Cast (Auto) (0-5) /lpf U Epithel Cells (Auto) (0-5) /lpf Urine Bacteria (Auto) (Negative) Ur Random Creatinine mg/dl U Random Total Protein (0-11.9) mg/dl Protein/Creatinin Ratio (0-0.2) COVID-19 Eval Order SARS-CoV-2 (PCR) (Negative) Influenza Type A (PCR) (Neg) Influenza Type B (PCR) (Neg) RSV (RT-PCR) (Neg) Medications Administered Current Inpatient Medications Acetaminophen (Acetaminophen 500 Mg Tab) 500 mg PO TID JUAN JOSE Stop: 10/09/20 20:59 Last Admin: 09/10/20 07:55 Dose: 500 mg Documented by: Cyanocobalamin (Cyanocobalamin 500 Mcg Tablet (Vitamin B-12)) 1,000 mcg PO QAM [facility] Stop: 10/10/20 08:59 Last Admin: 09/10/20 07:52 Dose: 1,000 mcg Documented by: Heparin Sodium (Porcine) (Heparin Sod 5,000 Unit/0.5 Ml Vial) 5,000 units SQ Q12 JUAN JOSE Stop: 10/09/20 20:59 Last Admin: 09/10/20 07:52 Dose: 5,000 units Documented by: Furosemide 80 mg/ Syringe 8 mls @ 4 mls/min IV Q8H JUAN JOSE Stop: 10/09/20 21:59 Last Admin: 09/10/20 06:02 Dose: 4 mls/min Documented by: Labetalol HCl (Labetalol Hcl 100 Mg Tab) 100 mg PO BID JUAN JOSE Stop: 10/09/20 20:59 Last Admin: 09/10/20 07:51 Dose: 100 mg Documented by: Labetalol HCl (Labetalol Hcl Iv 5 Mg/Ml 20ml) 5 mg IV Q6H PRN PRN Reason: SBP > 170 Stop: 10/09/20 16:39 Ondansetron HCl (Ondansetron Inj 2 Mg/Ml 2 Ml Vial) 4 mg IV Q6H PRN PRN Reason: Nausea Stop: 10/09/20 16:39 Polyethylene Glycol (Polyethylene (Miralax) 17 Gm Pack) 17 gm PO DAILY PRN PRN Reason: Constipation Stop: 10/09/20 16:39 Rosuvastatin Calcium (Rosuvastatin Calcium 20 Mg Tab) 20 mg PO HS JUAN JOSE Stop: 10/09/20 20:59 Last Admin: 09/09/20 20:09 Dose: 20 mg Documented by: Sodium Bicarbonate (Sodium Bicarbonate 650 Mg Tab) 650 mg PO BID JUAN JOSE Stop: 10/09/20 20:59 Last Admin: 09/10/20 07:53 Dose: 650 mg Documented by:
[2020-09-10 09:08] LABS: Hematocrit (blood only) 23.9 % (42-52); Hemoglobin 8.1 g/dL (14.0-18.0)
--- NOTE | 2020-09-10 09:15 | Nephrology Consultation ---
Date of Consultation September 10, 2020 Assessment & Plan (1) Acute kidney injury superimposed on chronic kidney disease: long hx of advanced CKD 4 and prior resistant HTN, severe DINORAH 09/2019. now 09/10 admitted with voluem overload, HTN urgency, creat 4.1. -daily STANDING wt pls -cont fluid/sodium limits -cont sodium bicarb -cannot rule out need for dialysis this admission -- he would do dialysis if he must but is adamant that he wants to see how if we can avoid it Present on Admission?: Yes (2) Hypertensive urgency: with volume overload; past resistant HTN but in past year has weaned off all meds. sBP 170-180s today > presented in 200s; goal is sbp 150-160s. -lowered lasix to 60 mg IV bid -cont labetalol current doses including prn -started hydralazine 25 mg tid po, w/ parameters to hold for sbp <150 -f/u TTE >> mild CLV[facility] only; preserved EF; moderate plm HTN Present on Admission?: Yes (3) Anemia of chronic disease: followed in past / [facility] general surgery Dr Cole (though last note I see in Epic is 2017). follows w/ anemia clinic as OP through our office -get last colonoscopy and gen surg note (order in w/ this request) -trend hgb Present on Admission?: Yes History of Present Illness Reason for Consultation: Dinorah on CKD 4, HTN urgency Requesting Physician: Dr Sol Attending Physician: Armando Joseph MD History of Present Illness 85 y/o M whom I'm asked to see for DINORAH on CKD and HTN urgency was admitted yesterday for same after presenting with about 2 wks of sx of progressive volume overload. PMH includes hypertension though blood pressures have been quite labile in the past year, hyperlipidemia, colon cancer status post February 2013 right colectomy, severe prostatic hypertrophy catheter dependent, right calf DVT summer 2018. Also with episode of severe acute kidney injury September 2019 from acute on chronic obstructive renal failure and complicated by Klebsiella bacteremia and pyelonephritis with presenting creatinine 13. With conservative measures patient recovered to creatinine in the low threes. He makes about a thousand-1200 mL of urine daily at least. He follows with me in CKD clinic. He has advanced CKD 4 at baseline with creatinine in the low threes for the past year. Also with significant anemia at baseline, followed by the anemia clinic. Note no formal heart failure or cardiac diagnosis previously. He was sent from primary cre clinic d/t HTN, vol OL sx. On presentation here yesterday his creatinine was 4.2 and blood pressure 215/100. No chest pain confusion visual changes or nausea emesis or flank pain. Did have significant exertional dyspnea and orthopnea, weight gain, dry cough. Has been sleeping in a recliner for a week prior to admission. Admitting team and I discussed yadiel leiva's care: He was started on labetalol 100 mg twice daily as well as as needed labetalol IV; also Lasix 80 mg 3 times daily. TTE is pending; no ECG changes. This aM creatinien is up to 4.7; anemia not much an issue with hemoglobin in the low 8s. he is 1.5L negative. His standing weight at admission was 79.7 kg. he tells me that he feels much improved as though he could walk or run w/o issue with orthopnea, cough, edema, dyspnea improved. States he stopped following up for colon ca after his gen surgeon retired > not sure but believes last visit was [id number]. Allergies Allergy/AdvReac Type Severity Reaction Status Date / Time No Known Allergies Allergy Unverified 09/09/20 13:50 Home Medications Medication Instructions Recorded Confirmed Type rosuvastatin [Crestor] 20 mg PO HS 02/26/19 09/09/20 History acetaminophen [Tylenol Extra 500 mg PO TID 09/09/20 09/09/20 History Strength] cyanocobalamin (vitamin B-12) 1,000 mcg PO QAM 09/09/20 09/09/20 History [Vitamin B-12] sodium bicarbonate 650 mg PO BID 09/09/20 09/09/20 History Patient History Medical History Anemia of chronic disease CKD (chronic kidney disease), stage IV Colon cancer Dyslipidemia Carlson catheter in place Hyperlipemia Urinary retention Surgical History Hx of tonsillectomy S/P right colectomy Family History Other Colorectal cancer Kidney disease Social History Smoking Status: Former smoker Years Smoked: 22; Smoking End Date: 1975; Hx Alcohol Use: No Hx Substance Use: No Preferred Language: Korean Communication Ability: Effective Comb Setter Required: No Beliefs That Will Affect Care: None marital status: / Current Living Situation: Alone Feels Safe at Home: Yes Assistive Devices: Walker Review of Systems Review of Systems: All systems reviewed & are unremarkable except as noted in HPI & below Physical Exam Constitutional: well developed, well nourished and cooperative; no acute distress Eyes: EOM intact bilaterally ENMT: Ears: no external ear abnormality Nose: no external nose abnormality Mouth: + dry oral mucous membranes Neck: no nuchal rigidity Respiratory: normal respiratory effort and able to speak in complete sentences (but slightly dyspneic after several sentences) Auscultation: + diminished lung sounds Cardiovascular: Rate/Rhythm: regular rate and regular rhythm Extremities: + edema (2+ BLE) Gastrointestinal (Abdomen): Inspection/Auscultation: normal bowel sounds Percussion/Palpation: abdomen soft; abdomen nontender Musculoskeletal: Extremities: strength 5/5 throughout Skin: no rashes, warm and dry Neurologic: fernandez, fluent speech, no tremor Psychiatric: Orientation: alert and oriented x 3 Speech: normal rate/rhythm/volume of speech Genitourinary: carlson w/ ample urine Results & Data ([facility]) Vital Signs (Past 12 Hours) Vital Signs Temp Pulse Pulse Resp BP Pulse Ox Pulse Ox 09/10/20 08:26 68 09/10/20 08:00 96 09/10/20 07:20 36.8 C 69 18 183/77 H 96 09/10/20 06:42 170/77 H 09/10/20 03:27 37.0 C 59 L 18 177/77 H 96 09/10/20 02:00 72 09/09/20 23:33 36.8 C 68 19 172/70 H 94 09/09/20 22:33 72 Laboratory Results 09/10/20 08:55 09/10/20 05:38
[2020-09-10] MEDS: ROSUVASTATIN CALCIUM 20 MG TAB PO SCH (20:54)
[2020-09-11 06:28] LABS: Hematocrit (blood only) 24.4 % (42-52); Hemoglobin 8.2 g/dL (14.0-18.0); Mean Corpuscular Hemoglobin 31.8 pg (25-34); Mean Corpuscular Hgb Conc 33.6 g/dL (32-36); Mean Corpuscular Volume 94.6 fL (80-100); Mean Platelet Volume 11.5 fL (7.4-10.4); Platelet Count 128 K/uL (130-400); RDW Coefficient of Variation 14.2 % (11.5-14.5); RDW Standard Deviation 49.1 fL (36.4-46.3); Red Blood Count 2.58 M/uL (4.7-6.1); White Blood Count 5.51 K/uL (4.8-10.8)
[2020-09-11 07:05] LABS: BUN Creatinine Ratio 12.7 (10-20); Calcium 8.1 mg/dl (8.5-10.1); Creatinine Clr Calc Pharmacy 10.2 ml/min; Est GFR (African American) 10.5; Est GFR (Non-African American) 9.1; Phosphorus 5.6 mg/dl (2.5-4.9); Potassium 3.9 mmol/L (3.5-5.1)
--- NOTE | 2020-09-11 07:18 | Hospitalist Progress Note ---
Date of Service September 11, 2020 Assessment & Plan (1) Acute kidney injury superimposed on chronic kidney disease: DINORAH on CKD stage IV Hypertensive crisis Fluid overload This is an 85-year-old male with PMH of CKD 4, history of BPH and urinary retention with Carlson catheter in place, anemia of chronic disease, history of colon cancer status post right colectomy, dyslipidemia and other medical problems as below who presents with dyspnea on exertion x2 weeks and was found to have DINORAH on CKD and volume overload. Creatinine 4.19 (recent baseline ~3.3). BUN 59. Patient has noticed increased difficulty with breathing with activity, but daughter also notices when he is at rest and short of breath talking on the phone. Endorses weight gain and swelling of bilateral ankles as well as dry cough. Has been unable to sleep flat, endorsing orthopnea and PND. Has been sleeping in recliner for the past week. Denies any lightheadedness, headache or chest pain. Has normal urinary output in Carlson bag. No fever or chills. Denies headache, sore throat, palpitations, nausea, vomiting, abdominal pain, dysuria, diarrhea constipation. Was seen earlier today at [facility] but due to hypertension and worsening renal function was sent to ED for further evaluation. Initial BP 200/84. Creatinine 4.19 (recent baseline ~3.3). BUN 59. BNP elevated at >30,000. CXR with pleural effusions L>R with bibasilar consolidation and cardiomegaly with prominence of the pulmonary vasculature. Follows with Dr. Acharya of nephrology. History of admission to [facility] [place] last [place] for GN bacteremia and acute on chronic renal failure. HCTZ, lasix and lisinopril all discontinued upon discharge. Has not required additional BP meds since then. 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 Creatinine 4.19 (recent baseline ~3.3). BUN 59. Follows with Dr. Acharya Evidence of significant volume overload on exam, BNP >30,000 Discussed diuretic dosing with Dr. Acharya - started on admission with IV Lasix 80mg TID Still making urine, has carlson catheter in place Low sodium diet, fluid restriction 1.5 L, continue sodium bicarb Patient diuresed well, clinically much improved on 35 AM Nephrology consulted, and following, appreciate their input - lower Lasix IV to 60 IV twice daily, continue labetalol, hydralazine Hold lasix today (09/11) (3) Volume overload: In setting of DINORAH on CKD, evidence of volume overload although no formal diagnosis of CHF in the past - echo in 10/26 with preserved EF, aortic sclerosis CXR with pleural effusions L>R with bibasilar consolidation and cardiomegaly with prominence of the pulmonary vasculature BNP >30,000 Saturating at 94% on room air Diuresing with IV Lasix 80mg TID, per nephro. Strict I&Os, daily weight TTE obtained -LV wall motion is normal. EF 55 to 60%. Mild concentric LVH. Mild mitral regurg. Mild tricuspid regurg. Moderate pulmonary hypertension is present. Pulmonary artery systolic pressure estimated to be 50 to 55 mmHg. Grade 2 diastolic dysfunction. Standing weights, I's and O's (4) Hypertensive urgency: BP 215/100 when evaluated for admission - H/o labile HTN. Previously on HCTZ, lisinopril but discontinued after ARF admission to [facility] [place] last [place]. BP has been stable per clinic visits without medication Denies visual changes, headache, chest pain, nausea. CT head wo contrast given uncontrolled BP Given stat IV Labetalol, started on IV lasix in ED. Starting labetalol 100mg BID as well with PRN IV Labetalol as needed Continue labetalol, hydralazine, diuresing with Lasix Hold lasix now (09/11) (5) BPH (benign prostatic hyperplasia): (6) Urinary retention: Carlson catheter in place (7) Dyslipidemia: Continue statin (8) Anemia of chronic disease: Hgb 8.9. Following with nephro /anemia clinic Current hemoglobin down 8.2 No signs of bleeding, however checked FOBT - negative, hold heparin DVT Ppx: SCDs for now, will add SQ heparin if Hgb stable Code status: FULL PCP: Dr. Brown Dispo: Admitted to PCU. Plan to return home once medically stable. Admission and Anticipated Discharge Date Admission Date: September 09, 2020 Subjective Patient seen in follow-up of DINORAH on CKD, fluid overload Currently lying in bed, in no acute distress, stating that he feels much better now and is breathing better, denies any shortness of breath He is currently on room air Denies any chest pain, abdominal pain, nausea vomiting fevers chills Review of Systems Review of Systems: All systems reviewed & are unremarkable except as noted in HPI & below Constitutional: no fever and no chills Respiratory: no cough and no dyspnea Cardiovascular: + edema (improved); no chest pain and no palpitations Gastrointestinal: no abdominal pain, no nausea and no vomiting Physical Exam Physical Exam: General Appearance: WD/WN, sitting up in bed,in NAD, breathing comfortably on room air Head: normocephalic, atraumatic Eyes: normal inspection, PERRL, EOMI, conjunctivae normal, anicteric sclerae ENT: external ear and nose normal, oropharynx normal Neck: normal visual inspection, trachea midline, no thyromegaly Respiratory: normal respiratory effort, bibasilar rales, no wheeze or rhonchi. No accessory muscle use Cardiovascular: regular rate, rhythm, no murmur appreciated, normal peripheral pulses, 2+ BLE edema. Vessels: no JVD Chest: normal inspection of chest Abdomen/GI: normal bowel sounds, soft, nontender Extremities/Musculoskeletal: no cyanosis or clubbing, extremities motor strength 5/5 Neurologic: PERRL, EOMI, no face palsy, no dysarthria, CN's II-XI intact bilaterally and moves all extremities Psychiatric: A+Ox3, euthymic affect Skin: no rashes, normal color, warm/dry Results & Data Results & Data ([facility]) Vital Signs (Past 12 Hours) Vital Signs Temp Pulse Pulse Resp BP Pulse Ox 09/11/20 04:06 66 09/11/20 04:02 36.9 C 72 18 168/71 H 95 09/10/20 22:18 36.7 C 75 18 180/64 H 95 09/10/20 19:45 36.6 C 74 19 181/85 H 97 Laboratory Results 09/11/20 09/11/20 09/10/20 Range/Units 06:04 06:04 Unknown WBC 5.51 (4.8-10.8) K/uL RBC 2.58 L (4.7-6.1) M/uL Hgb 8.2 L (14.0-18.0) g/dL Hct 24.4 L (42-52) % MCV 94.6 (80-100) fL MCH 31.8 (25-34) pg MCHC 33.6 (32-36) g/dL RDW Std Deviation 49.1 H (36.4-46.3) fL RDW Coeff of Zev 14.2 (11.5-14.5) % Plt Count 128 L (130-400) K/uL MPV 11.5 H (7.4-10.4) fL Sodium 142 (136-145) mmol/L Potassium 3.9 (3.5-5.1) mmol/L Chloride 111 H (98-107) mmol/L Carbon Dioxide 23 (21-32) mmol/L Anion Gap 8.0 (3-11) BUN 68 H (7-18) mg/dl Creatinine 5.37 H* D (0.6-1.4) mg/dl Est Cr Clr Drug Dosing 10.2 ml/min Est GFR ( Amer) 10.5 Est GFR (Non-Af Amer) 9.1 BUN/Creatinine Ratio 12.7 (10-20) Glucose 89 (70-99) mg/dl POC Glucose (70-99) mg/dl Calcium 8.1 L (8.5-10.1) mg/dl Phosphorus 5.6 H (2.5-4.9) mg/dl Magnesium 2.0 (1.8-2.4) mg/dl Stool Occult Bld Scrn Negative (Negative) 09/10/20 09/10/20 09/10/20 Range/Units 20:32 14:51 11:34 WBC (4.8-10.8) K/uL RBC (4.7-6.1) M/uL Hgb (14.0-18.0) g/dL Hct (42-52) % MCV (80-100) fL MCH (25-34) pg MCHC (32-36) g/dL RDW Std Deviation (36.4-46.3) fL RDW Coeff of Zev (11.5-14.5) % Plt Count (130-400) K/uL MPV (7.4-10.4) fL Sodium (136-145) mmol/L Potassium (3.5-5.1) mmol/L Chloride (98-107) mmol/L Carbon Dioxide (21-32) mmol/L Anion Gap (3-11) BUN (7-18) mg/dl Creatinine (0.6-1.4) mg/dl Est Cr Clr Drug Dosing ml/min Est GFR ( Amer) Est GFR (Non-Af Amer) BUN/Creatinine Ratio (10-20) Glucose (70-99) mg/dl POC Glucose 147 H 138 H 134 H (70-99) mg/dl Calcium (8.5-10.1) mg/dl Phosphorus (2.5-4.9) mg/dl Magnesium (1.8-2.4) mg/dl Stool Occult Bld Scrn (Negative) 09/10/20 09/10/20 Range/Units 08:55 07:19 WBC (4.8-10.8) K/uL RBC (4.7-6.1) M/uL Hgb 8.1 L (14.0-18.0) g/dL Hct 23.9 L (42-52) % MCV (80-100) fL MCH (25-34) pg MCHC (32-36) g/dL RDW Std Deviation (36.4-46.3) fL RDW Coeff of Zev (11.5-14.5) % Plt Count (130-400) K/uL MPV (7.4-10.4) fL Sodium (136-145) mmol/L Potassium (3.5-5.1) mmol/L Chloride (98-107) mmol/L Carbon Dioxide (21-32) mmol/L Anion Gap (3-11) BUN (7-18) mg/dl Creatinine (0.6-1.4) mg/dl Est Cr Clr Drug Dosing ml/min Est GFR ( Amer) Est GFR (Non-Af Amer) BUN/Creatinine Ratio (10-20) Glucose (70-99) mg/dl POC Glucose 100 H (70-99) mg/dl Calcium (8.5-10.1) mg/dl Phosphorus (2.5-4.9) mg/dl Magnesium (1.8-2.4) mg/dl Stool Occult Bld Scrn (Negative) Medications Administered Current Inpatient Medications Acetaminophen (Acetaminophen 500 Mg Tab) 500 mg PO TID JUAN JOSE Stop: 10/09/20 20:59 Last Admin: 09/10/20 20:53 Dose: 500 mg Documented by: Cyanocobalamin (Cyanocobalamin 500 Mcg Tablet (Vitamin B-12)) 1,000 mcg PO QAM JUAN JOSE Stop: 10/10/20 08:59 Last Admin: 09/10/20 07:52 Dose: 1,000 mcg Documented by: Heparin Sodium (Porcine) (Heparin Sod 5,000 Unit/0.5 Ml Vial) 5,000 units SQ Q12 JUAN JOSE Stop: 10/09/20 20:59 Last Admin: 09/10/20 07:52 Dose: 5,000 units Documented by: Furosemide 80 mg/ Syringe 8 mls @ 4 mls/min IV Q8H JUAN JOSE Stop: 10/09/20 21:59 Last Admin: 09/10/20 15:04 Dose: 4 mls/min Documented by: Labetalol HCl (Labetalol Hcl 100 Mg Tab) 100 mg PO BID JUAN JOSE Stop: 10/09/20 20:59 Last Admin: 09/10/20 20:54 Dose: 100 mg Documented by: Labetalol HCl (Labetalol Hcl Iv 5 Mg/Ml 20ml) 5 mg IV Q6H PRN PRN Reason: SBP > 170 Stop: 10/09/20 16:39 Ondansetron HCl (Ondansetron Inj 2 Mg/Ml 2 Ml Vial) 4 mg IV Q6H PRN PRN Reason: Nausea Stop: 10/09/20 16:39 Polyethylene Glycol (Polyethylene (Miralax) 17 Gm Pack) 17 gm PO DAILY PRN PRN Reason: Constipation Stop: 10/09/20 16:39 Rosuvastatin Calcium (Rosuvastatin Calcium 20 Mg Tab) 20 mg PO HS JUAN JOSE Stop: 10/09/20 20:59 Last Admin: 09/10/20 20:54 Dose: 20 mg Documented by: Sodium Bicarbonate (Sodium Bicarbonate 650 Mg Tab) 650 mg PO BID JUAN JOSE Stop: 10/09/20 20:59 Last Admin: 09/10/20 20:53 Dose: 650 mg Documented by:
[2020-09-11] MEDS: ACETAMINOPHEN 500 MG TAB PO SCH ×3 (08:09→20:28)
[2020-09-11] MEDS: LABETALOL HCL 100 MG TAB PO SCH ×2 (08:09→20:31)
[2020-09-11] MEDS: CYANOCOBALAMIN 500 MCG TABLET (VITAMIN B-12) PO SCH (08:09)
[2020-09-11] MEDS: SODIUM BICARBONATE 650 MG TAB PO SCH ×2 (08:09→20:27)
--- NOTE | 2020-09-11 18:29 | Nephrology Progress Note ---
Date of Service September 11, 2020 Assessment & Plan (1) Acute kidney injury superimposed on chronic kidney disease: long hx of advanced CKD 4 and prior resistant HTN, severe DINORAH 09/2019. now / admitted with volume overload, HTN urgency, creat 4.1. - Creatinine has further risen to 5.3 , however UOP continues to be good, and Lytes are safe. Volume status has improved. weight dowm to 75.5 from 76.6 yesterday. - Continue to hold lasix for 1 more day. - No indication for dialysis at the present. -daily STANDING wt pls -cont fluid/sodium limits -cont sodium bicarb (2) Hypertensive urgency: with volume overload; past resistant HTN but in past year has weaned off all meds. sBP 170-180s today > presented in 200s; goal is sbp 150-160s. -cont labetalol current doses including prn -started hydralazine 25 mg tid po, w/ parameters to hold for sbp <150 -f/u TTE >> mild [facility] only; preserved EF; moderate plm HTN (3) Anemia of chronic disease: followed in past / [facility] general surgery Dr Cole (though last note I see in Epic is 2017). follows w/ anemia clinic as OP through our office -get last colonoscopy and gen surg note (order in w/ this request) -trend hgb Admission and Anticipated Discharge Date Admission Date: September 09, 2020 Subjective Patient seen for follow-up of DINORAH on CKD and fluid overload Currently on room air in no distress,breathing better, Review of Systems Review of Systems: All systems reviewed & are unremarkable except as noted in HPI & below Physical Exam Physical Exam: Constitutional:In no acute distress, Comfortable Eyes: PERRL, EOMI, conjunctivae normal, anicteric sclerae Respiratory: nonlabored breathing, on supplemental oxygen, CTAB, no wheezing Cardiovascular: RRR, s1/s2, b/l +2 lower ext edema Abdomen: normal bowel sounds, soft, nontender Musculoskeletal: moves extremities spontaneously Skin: no rashes, warm and dry normal turgor Neurologic:N focal neurology, moves all extremities Psychiatric: A+Ox3 Results & Data ([facility]) Vital Signs (Past 12 Hours) Vital Signs Temp Pulse Pulse Resp BP BP Pulse Ox 09/11/20 16:04 36.7 C 57 L 18 182/70 H 98 09/11/20 15:16 72 09/11/20 11:34 36.8 C 75 20 170/79 H 97 09/11/20 10:05 72 09/11/20 07:20 37.0 C 77 20 177/78 H 95 Laboratory Results 09/11/20 06:04 09/11/20 06:04
[2020-09-11] MEDS: LABETALOL HCL IV 5 MG/ML 20ML IV PRN (19:04)
[2020-09-11] MEDS: ROSUVASTATIN CALCIUM 20 MG TAB PO SCH (20:29)
--- NOTE | 2020-09-12 07:54 | Hospitalist Progress Note ---
Date of Service September 12, 2020 Assessment & Plan (1) Acute kidney injury superimposed on chronic kidney disease: DINORAH on CKD stage IV Hypertensive crisis Fluid overload This is an 85-year-old male with PMH of CKD 4, history of BPH and urinary retention with Carlson catheter in place, anemia of chronic disease, history of colon cancer status post right colectomy, dyslipidemia and other medical problems as below who presents with dyspnea on exertion x2 weeks and was found to have DINORAH on CKD and volume overload. Creatinine 4.19 (recent baseline ~3.3). BUN 59. Patient has noticed increased difficulty with breathing with activity, but daughter also notices when he is at rest and short of breath talking on the phone. Endorses weight gain and swelling of bilateral ankles as well as dry cough. Has been unable to sleep flat, endorsing orthopnea and PND. Has been sleeping in recliner for the past week prior to admission. Denies any lightheadedness, headache or chest pain. Has normal urinary output in Carlson bag. No fever or chills. Denies headache, sore throat, palpitations, nausea, vomiting, abdominal pain, dysuria, diarrhea constipation. Was seen at [facility] but due to hypertension and worsening renal function was sent to ED for further evaluation. Initial BP 200/84. Creatinine 4.19 (recent baseline ~3.3). BUN 59. BNP elevated at >30,000. CXR with pleural effusions L>R with bibasilar consolidation and cardiomegaly with prominence of the pulmonary vasculature. Follows with Dr. Acharya of nephrology. History of admission to 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 HCTZ, lasix and lisinopril all discontinued upon discharge. Has not required additional BP meds since then. 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 Creatinine 4.19 (recent baseline ~3.3). BUN 59. Follows with Dr. Acharya Evidence of significant volume overload on exam, BNP >30,000 Discussed diuretic dosing with Dr. Acharya - started on admission with IV Lasix 80mg TID Still making urine, has carlson catheter in place Low sodium diet, fluid restriction 1.5 L, continue sodium bicarb Patient diuresed well, clinically much improved on 3 AM Nephrology consulted, and following, appreciate their input - lower Lasix IV to 60 IV twice daily, continue labetalol, hydralazine Held lasix (09/11) Lasix 80 IV twice daily resumed (09/12) (3) Volume overload: In setting of DINORAH on CKD, evidence of volume overload although no formal diagnosis of CHF in the past - echo in 10/26 with preserved EF, aortic sclerosis CXR with pleural effusions L>R with bibasilar consolidation and cardiomegaly with prominence of the pulmonary vasculature BNP >30,000 Saturating at 94% on room air Diuresing with IV Lasix 80mg TID, per nephro. Strict I&Os, daily weight TTE obtained -LV wall motion is normal. EF 55 to 60%. Mild concentric LVH. Mild mitral regurg. Mild tricuspid regurg. Moderate pulmonary hypertension is present. Pulmonary artery systolic pressure estimated to be 50 to 55 mmHg. Grade 2 diastolic dysfunction. Standing weights, I's and O's (4) Hypertensive urgency: BP 215/100 when evaluated for admission - H/o labile HTN. Previously on HCTZ, lisinopril but discontinued after ARF admission to [facility] last September. BP has been stable per clinic visits without medication Denies visual changes, headache, chest pain, nausea. CT head wo contrast given uncontrolled BP Given stat IV Labetalol, started on IV lasix in ED. Starting labetalol 100mg BID as well with PRN IV Labetalol as needed Continue labetalol, hydralazine, diuresing with Lasix Hold lasix now (09/11) Lasix resumed 80 IV twice daily (09/12) (5) BPH (benign prostatic hyperplasia): (6) Urinary retention: Carlson catheter in place (7) Dyslipidemia: Continue statin (8) Anemia of chronic disease: Hgb 8.9. Following with nephro /anemia clinic Current hemoglobin down 8.2 No signs of bleeding, however checked FOBT - negative, hold heparin DVT Ppx: SCDs for now, will add SQ heparin if Hgb stable Code status: FULL PCP: Dr. Brown Dispo: Admitted to PCU. Plan to return home once medically stable. Admission and Anticipated Discharge Date Admission Date: September 09, 2020 Subjective Patient seen in follow-up of DINORAH on CKD, fluid overload Currently sitting up in bed, in no acute distress, denies any shortness of breath, edema also much improved He is currently on room air Review of Systems Review of Systems: All systems reviewed & are unremarkable except as noted in HPI & below Constitutional: no fever and no chills Respiratory: no cough and no dyspnea Cardiovascular: + edema (much improved); no chest pain and no palpitations Gastrointestinal: no abdominal pain, no nausea and no vomiting Physical Exam Physical Exam: General Appearance: WD/WN, sitting up in bed,in NAD, breathing comfortably on room air Head: normocephalic, atraumatic Eyes: normal inspection, PERRL, EOMI, conjunctivae normal, anicteric sclerae ENT: external ear and nose normal, oropharynx normal Neck: normal visual inspection, trachea midline, no thyromegaly Respiratory: normal respiratory effort, CTAB, mild, no wheeze or rhonchi. No accessory muscle use Cardiovascular: regular rate, rhythm, no murmur appreciated, normal peripheral pulses, 1+ BLE edema (much improved). Vessels: no JVD Chest: normal inspection of chest Abdomen/GI: normal bowel sounds, soft, nontender Extremities/Musculoskeletal: no cyanosis or clubbing, extremities motor strength 5/5 Neurologic: PERRL, EOMI, no face palsy, no dysarthria, CN's II-XI intact bilaterally and moves all extremities Psychiatric: A+Ox3, euthymic affect Skin: no rashes, normal color, warm/dry Results & Data Results & Data ([facility]) Vital Signs (Past 12 Hours) Vital Signs Temp Pulse Pulse Resp BP Pulse Ox 09/12/20 07:37 36.5 C 77 18 165/69 H 95 09/12/20 04:18 36.7 C 71 16 170/67 H 95 09/12/20 00:18 64 09/11/20 23:23 36.7 C 66 18 169/66 H 97 09/11/20 20:14 36.6 C 75 18 178/75 H 96 09/11/20 20:06 72 Laboratory Results 09/12/20 09/12/2021 Range/Units 07:51 07:51 20:36 WBC 5.69 (4.8-10.8) K/uL RBC 2.66 L (4.7-6.1) M/uL Hgb 8.4 L (14.0-18.0) g/dL Hct 25.4 L (42-52) % MCV 95.5 (80-100) fL MCH 31.6 (25-34) pg MCHC 33.1 (32-36) g/dL RDW Std Deviation 48.3 H (36.4-46.3) fL RDW Coeff of Zev 13.9 (11.5-14.5) % Plt Count 135 (130-400) K/uL MPV 11.3 H (7.4-10.4) fL Sodium 142 (136-145) mmol/L Potassium 3.9 (3.5-5.1) mmol/L Chloride 111 H (98-107) mmol/L Carbon Dioxide 23 (21-32) mmol/L Anion Gap 9.0 (3-11) BUN 69 H (7-18) mg/dl Creatinine 5.30 H* (0.6-1.4) mg/dl Est Cr Clr Drug Dosing 10.3 ml/min Est GFR ( Amer) 10.7 Est GFR (Non-Af Amer) 9.2 BUN/Creatinine Ratio 13.1 (10-20) Glucose 92 (70-99) mg/dl POC Glucose 114 H (70-99) mg/dl Calcium 7.7 L (8.5-10.1) mg/dl Phosphorus 4.9 (2.5-4.9) mg/dl Magnesium 2.1 (1.8-2.4) mg/dl 09/11/20 Range/Units 16:28 WBC (4.8-10.8) K/uL RBC (4.7-6.1) M/uL Hgb (14.0-18.0) g/dL Hct (42-52) % MCV (80-100) fL MCH (25-34) pg MCHC (32-36) g/dL RDW Std Deviation (36.4-46.3) fL RDW Coeff of Zev (11.5-14.5) % Plt Count (130-400) K/uL MPV (7.4-10.4) fL Sodium (136-145) mmol/L Potassium (3.5-5.1) mmol/L Chloride (98-107) mmol/L Carbon Dioxide (21-32) mmol/L Anion Gap (3-11) BUN (7-18) mg/dl Creatinine (0.6-1.4) mg/dl Est Cr Clr Drug Dosing ml/min Est GFR ( Amer) Est GFR (Non-Af Amer) BUN/Creatinine Ratio (10-20) Glucose (70-99) mg/dl POC Glucose 107 H (70-99) mg/dl Calcium (8.5-10.1) mg/dl Phosphorus (2.5-4.9) mg/dl Magnesium (1.8-2.4) mg/dl Medications Administered Current Inpatient Medications Acetaminophen (Acetaminophen 500 Mg Tab) 500 mg PO TID JUAN JOSE Stop: 10/09/20 20:59 Last Admin: 09/12/20 14:07 Dose: 500 mg Documented by: Cyanocobalamin (Cyanocobalamin 500 Mcg Tablet (Vitamin B-12)) 1,000 mcg PO QAM JUAN JOSE Stop: 10/10/20 08:59 Last Admin: 09/12/20 08:32 Dose: 1,000 mcg Documented by: Heparin Sodium (Porcine) (Heparin Sod 5,000 Unit/0.5 Ml Vial) 5,000 units SQ Q12 JUAN JOSE Stop: 10/09/20 20:59 Last Admin: 09/10/20 07:52 Dose: 5,000 units Documented by: Furosemide 80 mg/ Syringe 8 mls @ 4 mls/min IV BID JUAN JOSE Stop: 10/12/20 11:14 Last Admin: 09/12/20 11:56 Dose: 4 mls/min Documented by: Labetalol HCl (Labetalol Hcl 100 Mg Tab) 100 mg PO BID JUAN JOSE Stop: 10/09/20 20:59 Last Admin: 09/12/20 08:32 Dose: 100 mg Documented by: Labetalol HCl (Labetalol Hcl Iv 5 Mg/Ml 20ml) 5 mg IV Q6H PRN PRN Reason: SBP > 170 Stop: 10/09/20 16:39 Last Admin: 09/11/20 19:04 Dose: 5 mg Documented by: Ondansetron HCl (Ondansetron Inj 2 Mg/Ml 2 Ml Vial) 4 mg IV Q6H PRN PRN Reason: Nausea Stop: 10/09/20 16:39 Polyethylene Glycol (Polyethylene (Miralax) 17 Gm Pack) 17 gm PO DAILY PRN PRN Reason: Constipation Stop: 10/09/20 16:39 Rosuvastatin Calcium (Rosuvastatin Calcium 20 Mg Tab) 20 mg PO [facility] Stop: 10/09/20 20:59 Last Admin: 09/11/20 20:29 Dose: 20 mg Documented by: Sodium Bicarbonate (Sodium Bicarbonate 650 Mg Tab) 650 mg PO BID [facility] Stop: 10/09/20 20:59 Last Admin: 09/12/20 08:32 Dose: 650 mg Documented by:
[2020-09-12 08:01] LABS: Hematocrit (blood only) 25.4 % (42-52); Hemoglobin 8.4 g/dL (14.0-18.0); Mean Corpuscular Hemoglobin 31.6 pg (25-34); Mean Corpuscular Hgb Conc 33.1 g/dL (32-36); Mean Corpuscular Volume 95.5 fL (80-100); Mean Platelet Volume 11.3 fL (7.4-10.4); Platelet Count 135 K/uL (130-400); RDW Coefficient of Variation 13.9 % (11.5-14.5); RDW Standard Deviation 48.3 fL (36.4-46.3); Red Blood Count 2.66 M/uL (4.7-6.1); White Blood Count 5.69 K/uL (4.8-10.8)
[2020-09-12] MEDS: ACETAMINOPHEN 500 MG TAB PO SCH ×3 (08:31→20:06)
[2020-09-12] MEDS: LABETALOL HCL 100 MG TAB PO SCH ×2 (08:32→20:05)
[2020-09-12] MEDS: CYANOCOBALAMIN 500 MCG TABLET (VITAMIN B-12) PO SCH (08:32)
[2020-09-12] MEDS: SODIUM BICARBONATE 650 MG TAB PO SCH ×2 (08:32→20:05)
[2020-09-12 08:50] LABS: BUN Creatinine Ratio 13.1 (10-20); Calcium 7.7 mg/dl (8.5-10.1); Creatinine Clr Calc Pharmacy 10.3 ml/min; Est GFR (African American) 10.7; Est GFR (Non-African American) 9.2; Magnesium 2.1 mg/dl (1.8-2.4); Phosphorus 4.9 mg/dl (2.5-4.9); Potassium 3.9 mmol/L (3.5-5.1)
--- NOTE | 2020-09-12 08:55 | Nephrology Progress Note ---
Date of Service September 12, 2020 Assessment & Plan (1) Acute kidney injury superimposed on chronic kidney disease: long hx of advanced CKD 4 and prior resistant HTN, severe DINORAH 09/2019. now 09/10 admitted with volume overload, HTN urgency, creat 4.1. - Creatinine has risen to 5.3 on 09/11, 5.3 again today UOP has decreased , weight up again 76.6 --->75.5--->76.8 - Need to restart furosemdide at 80 mg IV bid . - No indication for dialysis at the present. -daily STANDING wt pls -cont fluid/sodium limits -cont sodium bicarb (2) Hypertensive urgency: -with volume overload; past resistant HTN but in past year has weaned off all meds. sBP 170-180s today > presented in 200s; goal is sbp 150-160s. -cont labetalol current doses including prn -largely improved but still above target, I expect it to improve with furosemide, if not start on hydralazine 25 mg TID. -f/u TTE >> mild CLVH only; preserved EF; moderate plm HTN (3) Anemia of chronic disease: followed in past / [facility] general surgery Dr Cole (though last note I see in Epic is 2017). follows w/ anemia clinic as OP through our office -get last colonoscopy and gen surg note (order in w/ this request) -trend hgb Admission and Anticipated Discharge Date Admission Date: September 09, 2020 Subjective Patient seen in follow-up of DINORAH on CKD, fluid overload Currently lying in bed, in no acute distress, denies any shortness of breath He is currently on room air Review of Systems Review of Systems: All systems reviewed & are unremarkable except as noted in HPI & below Physical Exam Physical Exam: Constitutional:In no acute distress, Comfortable Eyes: PERRL, EOMI, conjunctivae normal, anicteric sclerae Respiratory: nonlabored breathing, on supplemental oxygen, CTAB, no wheezing Cardiovascular: RRR, s1/s2, b/l +2 lower ext edema Abdomen: normal bowel sounds, soft, nontender Musculoskeletal: moves extremities spontaneously Skin: no rashes, warm and dry normal turgor Neurologic:N focal neurology, moves all extremities Psychiatric: A+Ox3 Results & Data ([facility]) Vital Signs (Past 12 Hours) Vital Signs Temp Pulse Pulse Resp BP Pulse Ox 09/12/20 07:37 36.5 C 77 18 165/69 H 95 09/12/20 07:00 63 09/12/20 04:18 36.7 C 71 16 170/67 H 95 09/12/20 00:18 64 09/11/20 23:23 36.7 C 66 18 169/66 H 97 Laboratory Results 09/12/20 07:51 09/12/20 07:51
[2020-09-12] MEDS: FUROSEMIDE 80 MG in SYRINGE 0 ML IV SCH ×2 (11:56→20:04)
[2020-09-12] MEDS: ROSUVASTATIN CALCIUM 20 MG TAB PO SCH (20:06)
[2020-09-13 06:33] LABS: Hematocrit (blood only) 24.8 % (42-52); Hemoglobin 8.2 g/dL (14.0-18.0); Mean Corpuscular Hemoglobin 31.2 pg (25-34); Mean Corpuscular Hgb Conc 33.1 g/dL (32-36); Mean Corpuscular Volume 94.3 fL (80-100); Mean Platelet Volume 11.3 fL (7.4-10.4); Platelet Count 135 K/uL (130-400); RDW Coefficient of Variation 13.9 % (11.5-14.5); RDW Standard Deviation 48.3 fL (36.4-46.3); Red Blood Count 2.63 M/uL (4.7-6.1); White Blood Count 5.68 K/uL (4.8-10.8)
[2020-09-13 07:20] LABS: Calcium 7.7 mg/dl (8.5-10.1); Creatinine Clr Calc Pharmacy 8.9 ml/min; Est GFR (African American) 9.9; Est GFR (Non-African American) 8.5; Phosphorus 5.5 mg/dl (2.5-4.9)
--- NOTE | 2020-09-13 08:24 | Hospitalist Progress Note ---
Date of Service September 13, 2020 Assessment & Plan (1) Acute kidney injury superimposed on chronic kidney disease: DINORAH on CKD stage IV Hypertensive crisis Fluid overload This is an 85-year-old male with PMH of CKD 4, history of BPH and urinary retention with Carlson catheter in place, anemia of chronic disease, history of colon cancer status post right colectomy, dyslipidemia and other medical problems as below who presents with dyspnea on exertion x2 weeks and was found to have DINORAH on CKD and volume overload. Creatinine 4.19 (recent baseline ~3.3). BUN 59. Patient has noticed increased difficulty with breathing with activity, but daughter also notices when he is at rest and short of breath talking on the phone. Endorses weight gain and swelling of bilateral ankles as well as dry cough. Has been unable to sleep flat, endorsing orthopnea and PND. Has been sleeping in recliner for the past week prior to admission. Denies any lightheadedness, headache or chest pain. Has normal urinary output in Carlson bag. No fever or chills. Denies headache, sore throat, palpitations, nausea, vomiting, abdominal pain, dysuria, diarrhea constipation. Was seen at [facility] but due to hypertension and worsening renal function was sent to ED for further evaluation. Initial BP 200/84. Creatinine 4.19 (recent baseline ~3.3). BUN 59. BNP elevated at >30,000. CXR with pleural effusions L>R with bibasilar consolidation and cardiomegaly with prominence of the pulmonary vasculature. Follows with Dr. Acharya of nephrology. 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 HCTZ, lasix and lisinopril all discontinued upon discharge. Has not required additional BP meds since then. 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 Creatinine 4.19 (recent baseline ~3.3). BUN 59. Follows with Dr. Acharya Evidence of significant volume overload on exam, BNP >30,000 Discussed diuretic dosing with Dr. Acharya - started on admission with IV Lasix 80mg TID Still making urine, has carlson catheter in place Low sodium diet, fluid restriction 1.5 L, continue sodium bicarb Patient diuresed well, clinically much improved on 3 AM Nephrology consulted, and following, appreciate their input - lower Lasix IV to 60 IV twice daily, continued labetalol, hydralazine Held lasix (09/11) Lasix 80 IV twice daily resumed (09/12) Appreciate nephrology input (3) Volume overload: In setting of DINORAH on CKD, evidence of volume overload although no formal diagnosis of CHF in the past - echo in 10/26 with preserved EF, aortic sclerosis CXR with pleural effusions L>R with bibasilar consolidation and cardiomegaly with prominence of the pulmonary vasculature BNP >30,000 Saturating at 94% on room air Diuresing with IV Lasix 80mg TID, per nephro. Strict I&Os, daily weight TTE obtained -LV wall motion is normal. EF 55 to 60%. Mild concentric LVH. Mild mitral regurg. Mild tricuspid regurg. Moderate pulmonary hypertension is present. Pulmonary artery systolic pressure estimated to be 50 to 55 mmHg. Grade 2 diastolic dysfunction. Standing weights, I's and O's (4) Hypertensive urgency: BP 215/100 when evaluated for admission - H/o labile HTN. Previously on HCTZ, lisinopril but discontinued after ARF admission to [facility] last September. BP has been stable per clinic visits without medication Denies visual changes, headache, chest pain, nausea. CT head wo contrast given uncontrolled BP Given stat IV Labetalol, started on IV lasix in ED. Starting labetalol 100mg BID as well with PRN IV Labetalol as needed Continue labetalol, hydralazine, diuresing with Lasix Hold lasix on (09/11) Lasix resumed 80 IV twice daily (09/12) Switch labetolol to carvedilol, to improve BP control (09/13) NSVT -Noted on tele overnight around 2 AM (09/13) -Asymptomatic -Echo obtained on this admission- preserved LV systolic function, no significant valvular abnormality, + pulmonary hypertension -Continue coreg -Monitor and manage electrolytes -will check nocturnal puls ox for poss. hypoxia (5) BPH (benign prostatic hyperplasia): (6) Urinary retention: Carlson catheter in place (7) Dyslipidemia: Continue statin (8) Anemia of chronic disease: Hgb 8.9. Following with nephro /anemia clinic Current hemoglobin down 8.2 No signs of bleeding, however checked FOBT - negative, hold heparin DVT Ppx: SCDs for now, will add SQ heparin if Hgb stable, encourage ambulation Code status: FULL PCP: Dr. Brown Dispo: PCU. Plan to return home once medically stable. Admission and Anticipated Discharge Date Admission Date: September 09, 2020 Subjective Patient seen in follow-up of DINORAH on CKD, fluid overload Currently sitting up in bed, in no acute distress, denies any shortness of breath, edema much improved/ resolved He is currently on room air Overnight NSVT noted on tele Review of Systems Review of Systems: All systems reviewed & are unremarkable except as noted in HPI & below Constitutional: no fever and no chills Respiratory: no cough and no dyspnea Cardiovascular: no chest pain, no palpitations and no edema Gastrointestinal: no abdominal pain, no nausea and no vomiting Physical Exam Physical Exam: General Appearance: WD/WN, sitting up in bed,in NAD, breathing comfortably on room air Head: normocephalic, atraumatic Eyes: normal inspection, PERRL, EOMI, conjunctivae normal, anicteric sclerae ENT: external ear and nose normal, oropharynx normal Neck: normal visual inspection, trachea midline, no thyromegaly Respiratory: normal respiratory effort, CTAB, mild, no wheeze or rhonchi. No accessory muscle use Cardiovascular: regular rate, rhythm, no murmur appreciated, normal peripheral pulses, trace BLE edema (much improved). Vessels: no JVD Chest: normal inspection of chest Abdomen/GI: normal bowel sounds, soft, nontender Extremities/Musculoskeletal: no cyanosis or clubbing, extremities motor strength 5/5 Neurologic: PERRL, EOMI, no face palsy, no dysarthria, CN's II-XI intact bilaterally and moves all extremities Psychiatric: A+Ox3, euthymic affect Skin: no rashes, normal color, warm/dry Results & Data Results & Data ([facility]) Vital Signs (Past 12 Hours) Vital Signs Temp Pulse Pulse Resp BP BP Pulse Ox 09/13/20 07:19 36.9 C 74 18 173/76 H 96 09/13/20 07:00 70 09/13/20 03:40 36.6 C 72 18 157/67 H 93 09/13/20 00:48 63 09/12/20 23:30 36.6 C 68 16 162/71 H 96 Laboratory Results 09/13/20 09/13/20 09/12/20 Range/Units 06:14 06:14 07:51 WBC 5.68 (4.8-10.8) K/uL RBC 2.63 L (4.7-6.1) M/uL Hgb 8.2 L (14.0-18.0) g/dL Hct 24.8 L (42-52) % MCV 94.3 (80-100) fL MCH 31.2 (25-34) pg MCHC 33.1 (32-36) g/dL RDW Std Deviation 48.3 H (36.4-46.3) fL RDW Coeff of Zev 13.9 (11.5-14.5) % Plt Count 135 (130-400) K/uL MPV 11.3 H (7.4-10.4) fL Sodium 142 142 (136-145) mmol/L Potassium 4.0 3.9 (3.5-5.1) mmol/L Chloride 107 111 H (98-107) mmol/L Carbon Dioxide 23 23 (21-32) mmol/L Anion Gap 11.0 9.0 (3-11) BUN 63 H 69 H (7-18) mg/dl Creatinine 5.67 H* D 5.30 H* (0.6-1.4) mg/dl Est Cr Clr Drug Dosing 8.9 10.3 ml/min Est GFR ( Amer) 9.9 10.7 Est GFR (Non-Af Amer) 8.5 9.2 BUN/Creatinine Ratio 11.0 13.1 (10-20) Glucose 83 92 (70-99) mg/dl Calcium 7.7 L 7.7 L (8.5-10.1) mg/dl Phosphorus 5.5 H 4.9 (2.5-4.9) mg/dl Magnesium 2.0 2.1 (1.8-2.4) mg/dl Medications Administered Current Inpatient Medications Acetaminophen (Acetaminophen 500 Mg Tab) 500 mg PO TID JUAN JOSE Stop: 10/09/20 20:59 Last Admin: 09/12/20 20:06 Dose: 500 mg Documented by: Cyanocobalamin (Cyanocobalamin 500 Mcg Tablet (Vitamin B-12)) 1,000 mcg PO QAM JUAN JOSE Stop: 10/10/20 08:59 Last Admin: 09/12/20 08:32 Dose: 1,000 mcg Documented by: Heparin Sodium (Porcine) (Heparin Sod 5,000 Unit/0.5 Ml Vial) 5,000 units SQ Q12 JUAN JOSE Stop: 10/09/20 20:59 Last Admin: 09/10/20 07:52 Dose: 5,000 units Documented by: Furosemide 80 mg/ Syringe 8 mls @ 4 mls/min IV BID JUAN JOSE Stop: 10/12/20 11:14 Last Admin: 09/12/20 20:04 Dose: 4 mls/min Documented by: Labetalol HCl (Labetalol Hcl 100 Mg Tab) 100 mg PO BID JUAN JOSE Stop: 10/09/20 20:59 Last Admin: 09/12/20 20:05 Dose: 100 mg Documented by: Labetalol HCl (Labetalol Hcl Iv 5 Mg/Ml 20ml) 5 mg IV Q6H PRN PRN Reason: SBP > 170 Stop: 10/09/20 16:39 Last Admin: 09/11/20 19:04 Dose: 5 mg Documented by: Ondansetron HCl (Ondansetron Inj 2 Mg/Ml 2 Ml Vial) 4 mg IV Q6H PRN PRN Reason: Nausea Stop: 10/09/20 16:39 Polyethylene Glycol (Polyethylene (Miralax) 17 Gm Pack) 17 gm PO DAILY PRN PRN Reason: Constipation Stop: 10/09/20 16:39 Rosuvastatin Calcium (Rosuvastatin Calcium 20 Mg Tab) 20 mg PO HS JUAN JOSE Stop: 10/09/20 20:59 Last Admin: 09/12/20 20:06 Dose: 20 mg Documented by: Sodium Bicarbonate (Sodium Bicarbonate 650 Mg Tab) 650 mg PO BID JUAN JOSE Stop: 10/09/20 20:59 Last Admin: 09/12/20 20:05 Dose: 650 mg Documented by:
--- NOTE | 2020-09-13 08:29 | Nephrology Progress Note ---
Date of Service September 13, 2020 Assessment & Plan (1) Acute kidney injury superimposed on chronic kidney disease: long hx of advanced CKD 4 and prior resistant HTN, severe DINORAH 09/2019. now 09/10 admitted with volume overload, HTN urgency, creat 4.1. previous baseline creatinine had been low 3's. - Creatinine has risen to 5.7 after resuming Lasix to address weight gain and decreased urine output his admission weight was 79.7 (first standing weight): Today he weighed 73.5 kg. -Held furosemide this morning but did order to restart at lower dose 60 mg IV bid this evening - No indication for dialysis at the present but cannot rule out need this admission if we cannot control his bp, chemistries, and voluem status w/o meds alone -daily STANDING wt pls -cont fluid/sodium limits -cont sodium bicarb, dose appropriate (2) Hypertensive urgency: -with volume overload; past resistant HTN but in past year has weaned off all OP meds. SBP remains 160-170s today > presented in 200s; goal is sbp 150s. ->>>Changed labetalol to Coreg 12.5 mg bid, started amlodipine 5 mg at bedtime to start this evening -largely improved but still above target/stable. He will need diuresis -- as above -f/u TTE >> mild CLVH only; preserved EF; moderate plm HTN (3) Anemia of chronic disease: followed in past / [facility] general surgery Dr Cole (though last note I see in Epic is 2017): plan was for 6 mo f/u at that time. follows w/ anemia clinic as OP through our office -recommend he reest [facility] or [facility] >> may need further f/u/ scopes after remote colon ca; he struggles w/ travel so local in [place] may be better -trend hgb Admission and Anticipated Discharge Date Admission Date: September 09, 2020 Subjective seen on rounds this am at 900; walking halls short distances, no marked sob; no edema; no chest pain or focal weakness; eating well; did have 7 beat rn of asx complex ventricular ectopy on monitor ON Review of Systems Review of Systems: All systems reviewed & are unremarkable except as noted in Subjective Physical Exam Constitutional: well developed, well nourished and cooperative; no acute distress Eyes: EOM intact bilaterally ENMT: Ears: no external ear abnormality Nose: no external nose abnormality Mouth: + dry oral mucous membranes Neck: no nuchal rigidity Respiratory: normal respiratory effort and able to speak in complete sentences Auscultation: lungs clear to auscultation bilaterally and + diminished lung sounds (chris BL bases) Cardiovascular: Rate/Rhythm: regular rate and regular rhythm Extremities: + edema (trace at most) Gastrointestinal (Abdomen): Inspection/Auscultation: normal bowel sounds Percussion/Palpation: abdomen soft; abdomen nontender Musculoskeletal: Extremities: strength 5/5 throughout Skin: no rashes, warm and dry Psychiatric: Orientation: alert and oriented x 3 Speech: normal rate/rhythm/volume of speech Genitourinary: carlson w/ ample urine Results & Data ([facility]) Vital Signs (Past 12 Hours) Vital Signs Temp Pulse Pulse Resp BP BP Pulse Ox 09/13/20 07:19 36.9 C 74 18 173/76 H 96 09/13/20 07:00 70 09/13/20 03:40 36.6 C 72 18 157/67 H 93 09/13/20 00:48 63 09/12/20 23:30 36.6 C 68 16 162/71 H 96 Laboratory Results 09/13/20 06:14 09/13/20 06:14
[2020-09-13] MEDS: CYANOCOBALAMIN 500 MCG TABLET (VITAMIN B-12) PO SCH (08:33)
[2020-09-13] MEDS: SODIUM BICARBONATE 650 MG TAB PO SCH ×2 (08:34→20:23)
[2020-09-13] MEDS: ACETAMINOPHEN 500 MG TAB PO SCH ×3 (08:34→20:23)
[2020-09-13] MEDS: carvediloL 12.5 MG TAB PO SCH ×2 (09:59→20:22)
--- NOTE | 2020-09-13 11:35 | Cardiology Consultation ---
Date of Consultation September 13, 2020 Assessment & Plan (1) Ventricular ectopic complex: Patient is an 85-year-old male with history of chronic renal insufficiency stage IV presented with signs and symptoms of volume overload and hypertensive urgency who has responded appropriately to medical therapies. Telemetry last night routinely demonstrated a 7 beat run of asymptomatic complex ventricular ectopy. Findings have occurred in the setting of preserved LV systolic function and no prior ischemic heart or significant valvular disease History is notable for preserved LV systolic function no acute EKG change other than mildly prolonged QT interval Recommendations: Patient already begun on beta-brittany this morning for hypertension and hypertensive issues with carvedilol. Given nocturnal presentation and elevated pulmonary pressures on echocardiogram we will check nocturnal oximetry. Renal insufficiency and electrolyte abnormalities already being addressed. (2) Hypertensive urgency: (3) Acute kidney injury superimposed on chronic kidney disease: History of Present Illness Reason for Consultation: Ventricular arrhythmia Requesting Physician: Dr. Joseph Attending Physician: Armando Joseph MD History of Present Illness Patient is an 85-year-old male with chronic stage IV CKD, longstanding hypertension but no prior history of cardiac disease or arrhythmia who was admitted for hypertensive urgency and increased volume overload secondary to worsening renal insufficiency. Patient has responded nicely to IV diuretics with substantial improvement presenting symptoms. He denies any history of chest pain, tachypalpitations, syncope or near syncope. No history of rheumatic fever scarlet fever. No history of TIA or stroke. Blood pressures have trended towards better control since admission. Excellent response to IV diuretic greater than 9 kg weight loss. Renal function however remains marginal. No significant electrolyte lab normal Last night while on routine telemetry was noted to have a 7 beat run of complex ventricular ectopy asymptomatically. Patient remains asymptomatic this morning admitting complaints of dyspnea have substantially improved. No chest pains or discomfort. No acute changes on EKG. No noted hypoxia Allergies Allergy/AdvReac Type Severity Reaction Status Date / Time No Known Allergies Allergy Unverified 09/09/20 13:50 Home Medications Medication Instructions Recorded Confirmed Type rosuvastatin [Crestor] 20 mg PO HS 02/26/19 09/09/20 History acetaminophen [Tylenol Extra 500 mg PO TID 09/09/20 09/09/20 History Strength] cyanocobalamin (vitamin B-12) 1,000 mcg PO QAM 09/09/20 09/09/20 History [Vitamin B-12] sodium bicarbonate 650 mg PO BID 09/09/20 09/09/20 History Patient History Medical History Anemia of chronic disease CKD (chronic kidney disease), stage IV Colon cancer Dyslipidemia Malagon catheter in place Hyperlipemia Urinary retention Surgical History Hx of tonsillectomy S/P right colectomy Family History Other Colorectal cancer Kidney disease Social History Smoking Status: Former smoker Years Smoked: 22; Smoking End Date: 1975; Hx Alcohol Use: No Hx Substance Use: No Preferred Language: Salvadorean Communication Ability: Effective Rn Appeals Required: No Beliefs That Will Affect Care: None marital status: / Current Living Situation: Alone Feels Safe at Home: Yes Assistive Devices: Glasses Review of Systems Review of Systems: All systems reviewed & are unremarkable except as noted in HPI & below Physical Exam Constitutional: WD/WN, vitals as above + thin; no acute distress Eyes: PERRL, conjunctivae normal, anicteric sclerae ENMT: external ear and nose normal, oropharynx normal Neck: trachea midline, no thyromegaly Respiratory: normal respiratory effort, lungs clear to auscultation Cardiovascular: Rate/Rhythm: regular rate and regular rhythm Heart Sounds: normal S1 and normal S2; no gallop and no murmur Palpation: normal PMI Vessels: normal carotid upstroke and radial pulses present; no JVD and no ca rotid bruit Extremities: no edema Gastrointestinal (Abdomen): normal bowel sounds, soft, nontender, no hepatosplenomegaly Musculoskeletal: no cyanosis or clubbing, extremities motor strength 5/5 Skin: no rashes, warm and dry Neurologic: PERRL, EOMI, accommodation nl, no face palsy, no dysarthria Psychiatric: A+Ox3, euthymic affect Results & Data ([facility]) Vital Signs (Past 12 Hours) Vital Signs Temp Pulse Pulse Resp BP BP Pulse Ox 09/13/20 11:23 36.5 C 78 18 162/72 H 98 09/13/20 07:19 36.9 C 74 18 173/76 H 96 09/13/20 07:00 70 09/13/20 03:40 36.6 C 72 18 157/67 H 93 09/13/20 00:48 63 Laboratory Results Laboratory Results - last 24 hr 09/13/20 09/13/20 06:14 06:14 WBC 5.68 RBC 2.63 L Hgb 8.2 L Hct 24.8 L MCV 94.3 MCH 31.2 MCHC 33.1 RDW Std Deviation 48.3 H RDW Coeff of Zev 13.9 Plt Count 135 MPV 11.3 H Sodium 142 Potassium 4.0 Chloride 107 Carbon Dioxide 23 Anion Gap 11.0 BUN 63 H Creatinine 5.67 H* D Est Cr Clr Drug Dosing 8.9 Est GFR ( Amer) 9.9 Est GFR (Non-Af Amer) 8.5 BUN/Creatinine Ratio 11.0 Glucose 83 Calcium 7.7 L Phosphorus 5.5 H Magnesium 2.0 ECG Additional Comments: 13-SEP-2020 09:52:15 [facility] ROUTINE RETRIEVAL Normal sinus rhythm ST & T wave abnormality, consider lateral ischemia Prolonged QT, QTC 471 abnormal ECG When compared with ECG of 09-SEP-2020 12:58, No significant change was found
--- NOTE | 2020-09-13 13:22 | Electrocardiogram Report ---
Test Reason : Blood Pressure : / mmHG Vent. Rate : 069 BPM Atrial Rate : 069 BPM P-R Int : 154 ms QRS Dur : 088 ms QT Int : 440 ms P-R-T Axes : 063 053 209 degrees QTc Int : 471 ms Normal sinus rhythm Prolonged QT Abnormal ECG When compared with ECG of 09-SEP-2020 12:58, No significant change was found Confirmed by Donis Johnston ([id number]) on 09/13/2020 1:22:03 PM Referred By: REFERRED SELF Confirmed By:Donis Johnston
[2020-09-13] MEDS: LABETALOL HCL IV 5 MG/ML 20ML IV PRN ×2 (16:01→23:48)
[2020-09-13] MEDS: ROSUVASTATIN CALCIUM 20 MG TAB PO SCH (20:23)
[2020-09-13] MEDS: amLODIPine BESYLATE 5 MG TAB PO SCH (20:23)
[2020-09-13] MEDS ORDERED: FUROSEMIDE 60 MG in SYRINGE 0 ML IV SCH (21:00)
[2020-09-14 07:07] LABS: Hematocrit (blood only) 25.2 % (42-52); Hemoglobin 8.4 g/dL (14.0-18.0); Mean Corpuscular Hemoglobin 31.9 pg (25-34); Mean Corpuscular Hgb Conc 33.3 g/dL (32-36); Mean Corpuscular Volume 95.8 fL (80-100); Mean Platelet Volume 12.2 fL (7.4-10.4); Platelet Count 144 K/uL (130-400); RDW Coefficient of Variation 13.9 % (11.5-14.5); RDW Standard Deviation 48.3 fL (36.4-46.3); Red Blood Count 2.63 M/uL (4.7-6.1); White Blood Count 5.31 K/uL (4.8-10.8)
[2020-09-14 08:05] LABS: BUN Creatinine Ratio 13.4 (10-20); Calcium 7.8 mg/dl (8.5-10.1); Creatinine Clr Calc Pharmacy 9.2 ml/min; Est GFR (African American) 10.3; Est GFR (Non-African American) 8.9; Magnesium 2.1 mg/dl (1.8-2.4); Phosphorus 5.3 mg/dl (2.5-4.9); Potassium 4.1 mmol/L (3.5-5.1)
--- NOTE | 2020-09-14 08:12 | Nephrology Progress Note ---
Date of Service September 14, 2020 Assessment & Plan (1) Acute kidney injury superimposed on chronic kidney disease: long hx of advanced CKD 4 and prior resistant HTN, severe DINORAH 09/2019. now 09/10 admitted with volume overload, HTN urgency, creat 4.1. previous baseline creatinine had been low 3's. - Creatinine at 5.4, improved after holding Lasix to address weight gain and decreased urine output his admission weight was 79.7 (first standing weight): Today he weighed 72.6 kg. -had 60 mg IV lasix thsi am; lowered to 40 mg IV bid starting this evening -bp meds as below - continued concern he will need dialysis this admission if we cannot control his bp, chemistries, and volume status w/ meds alone >> he is doing better today on bp control, chemistries ok; volume status and overall renal function/creat still fairly concerning -daily STANDING wt pls continue -cont fluid/sodium limits -cont sodium bicarb, dose appropriate (2) Hypertensive urgency: -with volume overload; past resistant HTN but in past year has weaned off all OP meds. SBP improved today > presented in 200s; goal is sbp 150s. ->>>increased coreg to 25 mg bid w/ routine hold parameters; cont amlodipine 5 mg at bedtime (but amlodipine w/ hold for sbp <140) -lowered lasix dose today -cardiology signed off ->>>recheck CXR ordered >> still w/ BL L>R pl effusions and mild congestion (3) Anemia of chronic disease: followed in past / [facility] general surgery Dr Cole (though last note I see in Epic is 2017): plan was for 6 mo f/u at that time. follows w/ anemia clinic as OP through our office -recommend he reest [facility] or [facility] >> may need further f/u/ scopes after remote colon ca; he struggles w/ travel so local in [place] may be better -trend hgb -note that uncontrolled HTN is a contraindication to epo Admission and Anticipated Discharge Date Admission Date: September 09, 2020 Subjective feels great; walking; no sob; no chest pain; wts cont to down trend;eating ok; still anxious for d/c Review of Systems Review of Systems: All systems reviewed & are unremarkable except as noted in Subjective Physical Exam Constitutional: well developed, well nourished and cooperative; no acute distress Eyes: EOM intact bilaterally ENMT: Ears: no external ear abnormality Nose: no external nose abnormality Mouth: + dry oral mucous membranes Neck: no nuchal rigidity Respiratory: normal respiratory effort and able to speak in complete sentences Auscultation: lungs clear to auscultation bilaterally and + diminished lung sounds (chris BL bases) Cardiovascular: Rate/Rhythm: regular rate and regular rhythm Extremities: + edema (trace at most again) Gastrointestinal (Abdomen): Inspection/Auscultation: normal bowel sounds Percussion/Palpation: abdomen soft; abdomen nontender Musculoskeletal: Extremities: strength 5/5 throughout Skin: no rashes, warm and dry Neurologic: fernandez, fluent speech, no tremor; [place] Psychiatric: Orientation: alert and oriented x 3 Speech: normal rate/rhythm/volume of speech Results & Data ([facility]) Vital Signs (Past 12 Hours) Vital Signs Temp Pulse Pulse Resp BP Pulse Ox Pulse Ox 09/14/20 07:53 36.9 C 88 16 178/94 H 94 09/14/20 03:42 36.9 C 71 18 152/65 H 98 09/14/20 02:20 70 93 09/14/20 00:27 60 96 09/13/20 23:30 37.1 C 69 19 171/77 H 96 09/13/20 22:00 67 95 Laboratory Results 09/14/20 06:36 09/14/20 06:36
[2020-09-14] MEDS: carvediloL 25 MG TAB PO SCH ×2 (08:32→20:05)
[2020-09-14] MEDS: SODIUM BICARBONATE 650 MG TAB PO SCH ×2 (08:33→20:04)
[2020-09-14] MEDS: CYANOCOBALAMIN 500 MCG TABLET (VITAMIN B-12) PO SCH (08:33)
[2020-09-14] MEDS: ACETAMINOPHEN 500 MG TAB PO SCH ×3 (08:33→20:03)
--- NOTE | 2020-09-14 08:51 | Hospitalist Progress Note ---
Date of Service September 14, 2020 Assessment & Plan (1) Acute kidney injury superimposed on chronic kidney disease: DINORAH on CKD stage IV Hypertensive crisis Fluid overload This is an 85-year-old male with PMH of CKD 4, history of BPH and urinary retention with Carlson catheter in place, anemia of chronic disease, history of colon cancer status post right colectomy, dyslipidemia and other medical problems as below who presents with dyspnea on exertion x2 weeks and was found to have DINORAH on CKD and volume overload. Creatinine 4.19 (recent baseline ~3.3). BUN 59. Patient has noticed increased difficulty with breathing with activity, but daughter also notices when he is at rest and short of breath talking on the phone. Endorses weight gain and swelling of bilateral ankles as well as dry cough. Has been unable to sleep flat, endorsing orthopnea and PND. Has been sleeping in recliner for the past week prior to admission. Denies any lightheadedness, headache or chest pain. Has normal urinary output in Carlson bag. No fever or chills. Denies headache, sore throat, palpitations, nausea, vomiting, abdominal pain, dysuria, diarrhea constipation. Was seen at [facility] but due to hypertension and worsening renal function was sent to ED for further evaluation. Initial BP 200/84. Creatinine 4.19 (recent baseline ~3.3). BUN 59. BNP elevated at >30,000. CXR with pleural effusions L>R with bibasilar consolidation and cardiomegaly with prominence of the pulmonary vasculature. Follows with Dr. Acharya of nephrology. 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 HCTZ, lasix and lisinopril all discontinued upon discharge. Has not required additional BP meds since then. 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 Creatinine 4.19 (recent baseline ~3.3). BUN 59. Follows with Dr. Acharya Evidence of significant volume overload on exam, BNP >30,000 Discussed diuretic dosing with Dr. Acharya - started on admission with IV Lasix 80mg TID Still making urine, has carlson catheter in place Low sodium diet, fluid restriction 1.5 L, continue sodium bicarb Patient diuresed well, clinically much improved on 3 AM Nephrology consulted, and following, appreciate their input - lower Lasix IV to 60 IV twice daily, continued labetalol, hydralazine Held lasix (09/11) Lasix 80 IV twice daily resumed (09/12) Appreciate nephrology input (3) Volume overload: In setting of DINORAH on CKD, evidence of volume overload although no formal diagnosis of CHF in the past - echo in 10/26 with preserved EF, aortic sclerosis CXR with pleural effusions L>R with bibasilar consolidation and cardiomegaly with prominence of the pulmonary vasculature BNP >30,000 Saturating at 94% on room air Diuresing with IV Lasix 80mg TID, per nephro. Strict I&Os, daily weight TTE obtained -LV wall motion is normal. EF 55 to 60%. Mild concentric LVH. Mild mitral regurg. Mild tricuspid regurg. Moderate pulmonary hypertension is present. Pulmonary artery systolic pressure estimated to be 50 to 55 mmHg. Grade 2 diastolic dysfunction. Standing weights, I's and O's (4) Hypertensive urgency: BP 215/100 when evaluated for admission - H/o labile HTN. Previously on HCTZ, lisinopril but discontinued after ARF admission to [facility] last September. BP has been stable per clinic visits without medication Denies visual changes, headache, chest pain, nausea. CT head wo contrast given uncontrolled BP Given stat IV Labetalol, started on IV lasix in ED. Starting labetalol 100mg BID as well with PRN IV Labetalol as needed Continue labetalol, hydralazine, diuresing with Lasix Hold lasix on (09/11) Lasix resumed 80 IV twice daily (09/12) Switch labetolol to carvedilol, to improve BP control (09/13) Ventricular ectopic complex -Noted on tele overnight around 2 AM (09/13) -Asymptomatic -Echo obtained on this admission- preserved LV systolic function, no significant valvular abnormality, + pulmonary hypertension -Continue coreg -Monitor and manage electrolytes -checked nocturnal puls ox for poss. hypoxia -appreciate cardiology input (5) BPH (benign prostatic hyperplasia): (6) Urinary retention: Carlson catheter in place (7) Dyslipidemia: Continue statin (8) Anemia of chronic disease: Hgb 8.9. Following with nephro /anemia clinic Current hemoglobin down 8.2 No signs of bleeding, however checked FOBT - negative, hold heparin DVT Ppx: SCDs for now, will add SQ heparin if Hgb stable, encourage ambulation Code status: FULL PCP: Dr. Brown Dispo: PCU. Plan to return home once medically stable. Admission and Anticipated Discharge Date Admission Date: September 09, 2020 Subjective Pt seen in follow up of volume overload, shortness of breath, in the setting of CKD Currently laying in bed, in NAD Denies any chest pain, shortness of breath, edema Nephrology following Review of Systems Review of Systems: All systems reviewed & are unremarkable except as noted in HPI & below Constitutional: no fever and no chills Respiratory: no cough and no dyspnea Cardiovascular: no chest pain and no palpitations Gastrointestinal: no abdominal pain, no nausea and no vomiting Physical Exam Physical Exam: General Appearance: WD/WN, sitting up in bed,in NAD, breathing comfortably on room air Head: normocephalic, atraumatic Eyes: normal inspection, PERRL, EOMI, conjunctivae normal, anicteric sclerae ENT: external ear and nose normal, oropharynx normal Neck: normal visual inspection, trachea midline, no thyromegaly Respiratory: normal respiratory effort, CTAB, mild, no wheeze or rhonchi. No accessory muscle use Cardiovascular: regular rate, rhythm, no murmur appreciated, normal peripheral pulses, trace BLE edema (much improved). Vessels: no JVD Chest: normal inspection of chest Abdomen/GI: normal bowel sounds, soft, nontender Extremities/Musculoskeletal: no cyanosis or clubbing, extremities motor strength 5/5 Neurologic: PERRL, EOMI, no face palsy, no dysarthria, CN's II-XI intact bilaterally and moves all extremities Psychiatric: A+Ox3, euthymic affect Skin: no rashes, normal color, warm/dry Results & Data Results & Data ([facility]) Vital Signs (Past 12 Hours) Vital Signs Temp Pulse Pulse Resp BP Pulse Ox Pulse Ox 09/14/20 07:53 36.9 C 88 16 178/94 H 94 09/14/20 03:42 36.9 C 71 18 152/65 H 98 09/14/20 02:20 70 93 09/14/20 00:27 60 96 09/13/20 23:30 37.1 C 69 19 171/77 H 96 09/13/20 22:00 67 95 Laboratory Results 09/14/20 09/14/20 Range/Units 06:36 06:36 WBC 5.31 (4.8-10.8) K/uL RBC 2.63 L (4.7-6.1) M/uL Hgb 8.4 L (14.0-18.0) g/dL Hct 25.2 L (42-52) % MCV 95.8 (80-100) fL MCH 31.9 (25-34) pg MCHC 33.3 (32-36) g/dL RDW Std Deviation 48.3 H (36.4-46.3) fL RDW Coeff of Zev 13.9 (11.5-14.5) % Plt Count 144 (130-400) K/uL MPV 12.2 H (7.4-10.4) fL Sodium 141 (136-145) mmol/L Potassium 4.1 (3.5-5.1) mmol/L Chloride 110 H (98-107) mmol/L Carbon Dioxide 24 (21-32) mmol/L Anion Gap 8.0 (3-11) BUN 73 H (7-18) mg/dl Creatinine 5.48 H* (0.6-1.4) mg/dl Est Cr Clr Drug Dosing 9.2 ml/min Est GFR ( Amer) 10.3 Est GFR (Non-Af Amer) 8.9 BUN/Creatinine Ratio 13.4 (10-20) Glucose 88 (70-99) mg/dl Calcium 7.8 L (8.5-10.1) mg/dl Phosphorus 5.3 H (2.5-4.9) mg/dl Magnesium 2.1 (1.8-2.4) mg/dl Medications Administered Current Inpatient Medications Acetaminophen (Acetaminophen 500 Mg Tab) 500 mg PO TID JUAN JOSE Stop: 10/09/20 20:59 Last Admin: 09/14/20 08:33 Dose: 500 mg Documented by: Amlodipine Besylate (Amlodipine Besylate 5 Mg Tab) 5 mg PO HS JUAN JOSE Stop: 10/13/20 20:59 Last Admin: 09/13/20 20:23 Dose: 5 mg Documented by: Carvedilol (Carvedilol 25 Mg Tab) 25 mg PO BID JUAN JOSE Stop: 10/14/20 08:59 Last Admin: 09/14/20 08:32 Dose: 25 mg Documented by: Cyanocobalamin (Cyanocobalamin 500 Mcg Tablet (Vitamin B-12)) 1,000 mcg PO QAM JUAN JOSE Stop: 10/10/20 08:59 Last Admin: 09/14/20 08:33 Dose: 1,000 mcg Documented by: Heparin Sodium (Porcine) (Heparin Sod 5,000 Unit/0.5 Ml Vial) 5,000 units SQ Q12 JUAN JOSE Stop: 10/09/20 20:59 Last Admin: 09/10/20 07:52 Dose: 5,000 units Documented by: Furosemide 60 mg/ Syringe 6 mls @ 4 mls/min IV BID JUAN JOSE Stop: 10/13/20 20:59 Labetalol HCl (Labetalol Hcl Iv 5 Mg/Ml 20ml) 5 mg IV Q6H PRN PRN Reason: SBP > 170 Stop: 10/09/20 16:39 Last Admin: 09/13/20 23:48 Dose: 5 mg Documented by: Ondansetron HCl (Ondansetron Inj 2 Mg/Ml 2 Ml Vial) 4 mg IV Q6H PRN PRN Reason: Nausea Stop: 10/09/20 16:39 Polyethylene Glycol (Polyethylene (Miralax) 17 Gm Pack) 17 gm PO DAILY PRN PRN Reason: Constipation Stop: 10/09/20 16:39 Rosuvastatin Calcium (Rosuvastatin Calcium 20 Mg Tab) 20 mg PO HS JUAN JOSE Stop: 10/09/20 20:59 Last Admin: 09/13/20 20:23 Dose: 20 mg Documented by: Sodium Bicarbonate (Sodium Bicarbonate 650 Mg Tab) 650 mg PO BID JUAN JOSE Stop: 10/09/20 20:59 Last Admin: 09/14/20 08:33 Dose: 650 mg Documented by:
--- NOTE | 2020-09-14 09:59 | XRay Report ---
SINGLE VIEW CHEST CLINICAL HISTORY: Pleural effusions. FINDINGS: An AP, portable, upright chest radiograph is compared to study dated 09/09/2020. The examinat ion is degraded by portable technique and apical lordotic positioning. The heart is enlarged noting a therosclerotic calcification of the thoracic aorta. There is mild pulmonary vascular congestion. Ther e are left larger than right pleural effusions with bibasilar consolidation. No pneumothorax is seen. The skeletal structures are osteopenic. The bony thorax is grossly intact. IMPRESSION: 1. Cardiomegaly with mild pulmonary vascular congestion. 2. Left larger than right pleural effusions with bibasilar consolidation is similar in appearance to 09/09/2020. ACT 112: Negative or not required by law. Electronically signed by: Farooq Villanueva M.D. 09/14/2020 9:57 AM
--- NOTE | 2020-09-14 12:17 | Cardiology Progress Note ---
Date of Service September 14, 2020 Assessment & Plan (1) Ventricular ectopic complex: Patient is an 85-year-old male with history of chronic renal insufficiency stage IV presented with signs and symptoms of volume overload and hypertensive urgency who has responded appropriately to medical therapies. Telemetry last night routinely demonstrated a 7 beat run of asymptomatic complex ventricular ectopy. Findings have occurred in the setting of preserved LV systolic function and no prior ischemic heart or significant valvular disease History is notable for preserved LV systolic function no acute EKG change other than mildly prolonged QT interval Recommendations: Patient on appropriate therapies. No further arrhythmias. Completely asymptomatic with preserved LV function. Volume status and underlying issues being managed appropriately via nephrology. We will sign off (2) Hypertensive urgency: (3) Acute kidney injury superimposed on chronic kidney disease: Admission and Anticipated Discharge Date Admission Date: September 09, 2020 Subjective Patient was seen and examined, chart, medications, telemetry reviewed. No specific complaints today. No arrhythmias on telemetry. Blood pressure trending towards better control on current therapies. Volume status being managed via nephrology Physical Exam Constitutional: WD/WN, vitals as above + thin; no acute distress Eyes: PERRL, conjunctivae normal, anicteric sclerae ENMT: external ear and nose normal, oropharynx normal Neck: trachea midline, no thyromegaly Respiratory: normal respiratory effort, lungs clear to auscultation Cardiovascular: Rate/Rhythm: regular rate and regular rhythm Heart Sounds: normal S1 and normal S2; no gallop and no murmur Palpation: normal PMI Vessels: normal carotid upstroke and radial pulses present; no JVD and no carotid bruit Extremities: no edema Gastrointestinal (Abdomen): normal bowel sounds, soft, nontender, no hepatosplenomegaly Musculoskeletal: no cyanosis or clubbing, extremities motor strength 5/5 Skin: no rashes, warm and dry Neurologic: PERRL, EOMI, accommodation nl, no face palsy, no dysarthria Psychiatric: A+Ox3, euthymic affect Results & Data ([facility]) Vital Signs (Past 12 Hours) Vital Signs Temp Pulse Pulse Pulse Resp BP Pulse Ox 09/14/20 12:01 36.8 C 79 16 149/69 H 98 09/14/20 09:00 66 09/14/20 07:53 36.9 C 88 16 178/94 H 94 09/14/20 03:42 36.9 C 71 18 152/65 H 98 09/14/20 02:20 70 09/14/20 00:27 60 Pulse Ox 09/14/20 12:01 09/14/20 09:00 09/14/20 07:53 09/14/20 03:42 09/14/20 02:20 93 09/14/20 00:27 96
[2020-09-14] MEDS: ROSUVASTATIN CALCIUM 20 MG TAB PO SCH (20:04)
[2020-09-14] MEDS: amLODIPine BESYLATE 5 MG TAB PO SCH (20:05)
[2020-09-14] MEDS ORDERED: FUROSEMIDE 40 MG in SYRINGE 0 ML IV SCH (21:00)
[2020-09-15 08:01] LABS: Hematocrit (blood only) 24.9 % (42-52); Hemoglobin 8.4 g/dL (14.0-18.0); Mean Corpuscular Hemoglobin 31.9 pg (25-34); Mean Corpuscular Hgb Conc 33.7 g/dL (32-36); Mean Corpuscular Volume 94.7 fL (80-100); Mean Platelet Volume 12.5 fL (7.4-10.4); Platelet Count 141 K/uL (130-400); RDW Coefficient of Variation 13.7 % (11.5-14.5); RDW Standard Deviation 47.6 fL (36.4-46.3); Red Blood Count 2.63 M/uL (4.7-6.1); White Blood Count 5.27 K/uL (4.8-10.8)
[2020-09-15 08:02] LABS: BUN Creatinine Ratio 14.9 (10-20); Calcium 7.7 mg/dl (8.5-10.1); Creatinine Clr Calc Pharmacy 9.4 ml/min; Est GFR (African American) 10.5; Est GFR (Non-African American) 9.1; Potassium 4.5 mmol/L (3.5-5.1)
[2020-09-15] MEDS: CYANOCOBALAMIN 500 MCG TABLET (VITAMIN B-12) PO SCH (08:14)
[2020-09-15] MEDS: ACETAMINOPHEN 500 MG TAB PO SCH ×3 (08:14→20:06)
[2020-09-15] MEDS: carvediloL 25 MG TAB PO SCH ×2 (08:14→20:07)
[2020-09-15] MEDS: SODIUM BICARBONATE 650 MG TAB PO SCH ×2 (08:14→20:07)
--- NOTE | 2020-09-15 10:00 | Nephrology Progress Note ---
Date of Service September 15, 2020 Assessment & Plan (1) Acute kidney injury superimposed on chronic kidney disease: long hx of advanced CKD 4 and prior resistant HTN, severe DINORAH 09/2019. now ESRD after he was 09/10 admitted with volume overload, HTN urgency, creat 4.1. previous baseline creatinine had been low 3's. he has plateau'd in mid 5's w/ climbing BUN. feeling well his admission weight was 79.7 (first standing weight): Today he gained a bit of weight up to 74.2 kg >>>changed IV lasix to torsemide 100 mg po bid -other bp meds as below >>>palliative consult ordered: I had a long talk w/ pt about goals of care; he is very close to needing dialysis at this time; he had been saying he would start when it was time but now he feels less sure whether to start or do conservative measures; historically he has stated in clinic over past year and during this admission he would start when time comes though we had deferred AVF creation d/t pandemic/ d/t being walker dependent after hospital d/c last year >>>one of his concerns is not having family here to talk through goals of care and challenges of talking to them on phone; I offered to call one family member to discuss >> he asks that I call Svetlana Barajas for 2 things; one is to go through goals of care; the other is he is very concerned about costs of dialysis and losing his home to pay for it; I tried to reassure him that while pts pay some for dialysis most is covered through insurance and other programs (though I do not have specifics) and that pts w/ even very modest means to dialysis; he is still concerned so will have Svetlana get in touch w/ [facility] to discuss >>lowered sodium bicarb dose a bit >>either we start dialysis as inpatient this admission or he is discharged but basically immediately in the process of starting dialysis after d/c or he opts for conservative measures -daily STANDING wt pls continue -cont fluid/sodium limits (2) Hypertensive urgency: -with volume overload; past resistant HTN but in past year has weaned off all OP meds. SBP improved today > presented in 200s; goal is sbp 150s. recheck CXR >> still w/ BL L>R pl effusions and mild congestion ->>>cont increased coreg to 25 mg bid w/ routine hold parameters; cont amlodipine 5 mg at bedtime (but amlodipine w/ hold for sbp <140) -diuretics as above (3) Anemia of chronic disease: followed in past [facility] general surgery Dr Cole (though last note I see in Epic is 2017): plan was for 6 mo f/u at that time. follows w/ anemia clinic as OP through our office -recommend he reest [facility] or [facility] >> may need further f/u/ scopes after remote colon ca; he struggles w/ travel so local in [place] may be better -trend hgb -note that uncontrolled HTN is a contraindication to epo Admission and Anticipated Discharge Date Admission Date: September 09, 2020 Subjective lots of questions about d/c and what life would/ would not mean w/o dialysis; no sob, no n/v, no carlson issues; no edema. Review of Systems Review of Systems: All systems reviewed & are unremarkable except as noted in Subjective Physical Exam Constitutional: well developed, well nourished and cooperative; no acute distress Eyes: EOM intact bilaterally ENMT: Ears: no external ear abnormality Nose: no external nose abnormality Mouth: + dry oral mucous membranes Neck: no nuchal rigidity Respiratory: normal respiratory effort and able to speak in complete sentences Auscultation: lungs clear to auscultation bilaterally and + diminished lung sounds (chris BL bases) Cardiovascular: Rate/Rhythm: regular rate and regular rhythm Extremities: + edema (trace at most again) Gastrointestinal (Abdomen): Inspection/Auscultation: normal bowel sounds Percussion/Palpation: abdomen soft; abdomen nontender Musculoskeletal: Extremities: strength 5/5 throughout Skin: no rashes, warm and dry Psychiatric: Orientation: alert and oriented x 3 Speech: normal rate/rhythm/volume of speech Results & Data ([facility]) Vital Signs (Past 12 Hours) Vital Signs Temp Pulse Pulse Resp BP Pulse Ox 09/15/20 09:00 61 09/15/20 07:03 36.7 C 68 19 164/72 H 98 09/15/20 03:26 36.9 C 62 20 157/68 H 96 09/15/20 00:01 57 L 09/14/20 23:07 36.9 C 60 20 157/68 H 92 Laboratory Results 09/15/20 06:40 09/15/20 06:40
[2020-09-15] MEDS: TORSEMIDE 100 MG TAB PO SCH ×2 (12:07→20:07)
--- NOTE | 2020-09-15 15:37 | Palliative Care Consultation ---
Date of Consultation September 15, 2020 Assessment & Plan (1) Palliative care patient: I met with Mr. Iverson and his daughter, Svetlana, at bedside. He tells me that he lives alone, with his son nearby. He has been independent with his ADLs and had even been mowing his own lawn last fall. His daughter says that he is active and goes many places and has been very independent. He feels that he has a good quality of life and that spending time with his family is the thing that provides the most meaning to his life. He has considered whether he would want dialysis and at this time feels that because his quality of life has been good prior to this, he would want to do dialysis. He has also said that if he tried this and didn't feel that it was maintaining his quality of life, he would consider stopping. He indicated that his daughter, Svetlana Barajas, and his son, Bang Iverson, would be his surrogate decision makers. Svetlana indicates that she very much wants him to try dialysis and that she and her brother are comfortable with decision making and confident that they would agree on what's best for their father. Palliative care will follow and address further goals, such as code status. Thank you for allowing us to participate in his care. (2) CHF (congestive heart failure): Heart failure chronicity: acute Heart failure type: combined systolic and diastolic Qualified Code(s): I50.41 - Acute combined systolic (congestive) and diastolic (congestive) heart failure (3) Acute kidney injury superimposed on chronic kidney disease: (4) Ventricular ectopic complex: (5) Urinary retention: (6) BPH (benign prostatic hyperplasia): History of Present Illness Reason for Consultation: goals of care Requesting Physician: Dr. Acharya Attending Physician: Napoleon Sol MD History of Present Illness 85 yo gentleman with history of stage IV CKD, BPH and urinary retention with chronic indwelling Malagon catheter. He was admitted with a two week history of progressive shortness of breath, weight gain of approximately 20lbs and significant lower extremity edema. He was found to have hypertensive urgency and BNP of greater than 30,000 with creatinine of 4.19 and pleural effusions. He has had diuresis with torsemide and IV lasix with weight loss, decreased edema and resolution of dyspnea. Unfortunately, he has had progressive renal failure with creatinine in the 5's, GFR of 9 and rising BUN, currently at 80. He has had a discussion with Dr. Acharya about potentially starting dialysis and we have been consulted to assist with goals of care. Allergies Allergy/AdvReac Type Severity Reaction Status Date / Time No Known Allergies Allergy Unverified 09/09/20 13:50 Home Medications Medication Instructions Recorded Confirmed Type rosuvastatin [Crestor] 20 mg PO HS 02/26/19 09/09/20 History acetaminophen [Tylenol Extra 500 mg PO TID 09/09/20 09/09/20 History Strength] cyanocobalamin (vitamin B-12) 1,000 mcg PO QAM 09/09/20 09/09/20 History [Vitamin B-12] sodium bicarbonate 650 mg PO BID 09/09/20 09/09/20 History Patient History Medical History Anemia of chronic disease CKD (chronic kidney disease), stage IV Colon cancer Dyslipidemia Malagon catheter in place Hyperlipemia Urinary retention Surgical History Hx of tonsillectomy S/P right colectomy Family History Other Colorectal cancer Kidney disease Social History Smoking Status: Former smoker Years Smoked: 22; Smoking End Date: 1975; Hx Alcohol Use: No Hx Substance Use: No Preferred Language: Puerto Rican Communication Ability: Effective Gaming Cage Worker Required: No Beliefs That Will Affect Care: None marital status: / Current Living Situation: Alone Feels Safe at Home: Yes Assistive Devices: Hearing Aid - Bilateral Review of Systems Review of Systems: Burke Symptom Assessment Scale Pain 0/3 Dyspnea 0/3 Nausea 0/3 Fatigue 1/3 Drowsiness 0/3 Anorexia 0/3 Palliative Performance Score 60% Physical Exam Constitutional: no acute distress ENMT: external ear and nose normal, oropharynx normal Respiratory: normal respiratory effort; no labored breathing Cardiovascular: Rate/Rhythm: regular rate and regular rhythm Gastrointestinal (Abdomen): Inspection/Auscultation: abdomen not distended Musculoskeletal: Extremities: extremities normal to inspection Neurologic: no focal motor deficits and not confused Psychiatric: A+Ox3, euthymic affect Results & Data ([facility]) Vital Signs (Past 12 Hours) Vital Signs Temp Pulse Pulse Resp BP Pulse Ox 09/15/20 15:12 98.2 F 66 17 163/70 H 97 09/15/20 11:23 97.7 F 63 20 153/61 H 96 09/15/20 09:00 61 09/15/20 07:03 98.1 F 68 19 164/72 H 98 PG Care Time/CCT Total # of Minutes Spent Total Time Spent with Patient: Total time spent is greater than 50% in coordination of care (as documented) at patient's floor/unit and/or counseling patient: Total time spent was 60 minutes with more than 50% of time spent on goals of care, surrogate decision maker, patient and family education. Coding Level of Care Code 17631 Inpt Consult Level 3 Diagnoses Palliative care patient Z51.5 CHF (congestive heart failure) I50.41 Heart failure chronicity: acute Heart failure type: combined systolic and diastolic Acute kidney injury superimposed on chronic kidney disease N17.9; N18.9 Ventricular ectopic complex I49.3 Urinary retention R33.9 BPH (benign prostatic hyperplasia) N40.0
--- NOTE | 2020-09-15 16:54 | Hospitalist Progress Note ---
Date of Service September 15, 2020 Assessment & Plan (1) Acute kidney injury superimposed on chronic kidney disease: Patient is an 85 yr male with H/O CKD IV, BPH and urinary retention with Malagon catheter in place, anemia of chronic disease, history of colon cancer status post right colectomy, dyslipidemia and other medical problems as below who presents with dyspnea on exertion x2 weeks and was found to have DINORAH on CKD and volume overload. DINORAH on CKD IV Currently ESRD Volume overload Hypertensive urgency Baseline creatinine low threes Cr:5.37 CXR with pleural effusions L>R with bibasilar consolidation and cardiomegaly with prominence of the pulmonary vasculature. IV Lasix transition to torsemide 100 mg twice daily Volume status improved Appreciate nephrology input Palliative care consulted to address goals of care Patient will likely need to be started on dialysis Vs option for conservative measures Continue fluid, sodium restriction Monitor volume status (2) CKD (chronic kidney disease), stage IV: Management as above (3) Volume overload: In setting of DINORAH on CKD --TTE obtained -LV wall motion is normal. EF 55 to 60%. Mild concentric LVH. Mild mitral regurg. Mild tricuspid regurg. Moderate pulmonary hypertension is present. Pulmonary artery systolic pressure estimated to be 50 to 55 mmHg. Grade 2 diastolic dysfunction. --CXR with pleural effusions L>R with bibasilar consolidation and cardiomegaly with prominence of the pulmonary vasculature BNP >30,000 Saturating well on room air Volume status managed with diuretics Monitor I's and O's, daily weight (4) Hypertensive urgency: Was weaned off of antihypertensives in the past year Started on Coreg 25 mg twice daily Also started on amlodipine 5 mg daily monitor NSVT Asymptomatic Echo as above Continue coreg Monitor and replace electrolytes as needed Appreciate cardiology input (5) BPH (benign prostatic hyperplasia): (6) Urinary retention: Malagon catheter in place (7) Dyslipidemia: Continue statin (8) Anemia of chronic disease: Following with nephro /anemia clinic Negative FOBT Hb Stable Monitor DVT Px: Heparin SQ Code status: FULL PCP: Dr. Brown Disposition: Plan to return home once medically stable. Admission and Anticipated Discharge Date Admission Date: September 09, 2020 Subjective Patient is a and examined at bedside States feeling better today Offers no complaints Reports that his leg swelling is much improved Denies dyspnea, chest pain, dizziness, nausea, abdominal pain Discussed with nephrology today Review of Systems Review of Systems: All systems reviewed & are unremarkable except as noted in HPI & below Physical Exam Physical Exam: Physical Exam: Vitals signs as noted above General Appearance:Moderately built and nourished, no apparent distress Head: normocephalic, Atraumatic Eyes: normal inspection, EOMI Neck: supple, Trachea midline Respiratory/Chest: Normal breath sounds, CTA Cardiovascular: S1, S2, No murmur Abdomen/GI:Soft, Non tender, Bowel sounds present Extremities/Musculoskelatal:normal inspection, no edema Neurologic/Psych:AAOX3, grossly no focal neurological deficits Skin: normal color, warm Results & Data Results & Data ([facility]) Vital Signs (Past 12 Hours) Vital Signs Temp Pulse Pulse Resp BP Pulse Ox 09/15/20 15:12 36.8 C 66 17 163/70 H 97 09/15/20 11:23 36.5 C 63 20 153/61 H 96 09/15/20 09:00 61 09/15/20 07:03 36.7 C 68 19 164/72 H 98 Laboratory Results Short CBC 09/15/20 Range/Units 06:40 WBC 5.27 (4.8-10.8) K/uL Hgb 8.4 L (14.0-18.0) g/dL Hct 24.9 L (42-52) % Plt Count 141 (130-400) K/uL BMP 09/15/20 06:40 Sodium 142 Potassium 4.5 Chloride 110 H Carbon Dioxide 26 BUN 80 H Creatinine 5.37 H* Glucose 84 Calcium 7.7 L
[2020-09-15] MEDS: ROSUVASTATIN CALCIUM 20 MG TAB PO SCH (20:07)
[2020-09-15] MEDS: amLODIPine BESYLATE 5 MG TAB PO SCH (20:07)
[2020-09-15] MEDS: HEPARIN SOD 5,000 UNIT/0.5 ML VIAL SQ SCH (20:10)
--- NOTE | 2020-09-15 20:22 | Communication Note ---
Date of Service: September 15, 2020 At pt's request I called his daughter Svetlana Barajas to update on his condition. She was not available; I left a message on [employer] that had reviewed joe oquendo consult from earlier today. Also left # for [facility] [phone] so that she can all to speak to SW there to try to get some preliminary sense of costs involved. Let dialysis unit know she would be calling. also left [facility] call back #.
[2020-09-16 06:41] LABS: Hemoglobin 8.6 g/dL (14.0-18.0)
[2020-09-16 07:19] LABS: BUN Creatinine Ratio 15.2 (10-20); Creatinine Clr Calc Pharmacy 8.7 ml/min; Est GFR (African American) 9.6; Est GFR (Non-African American) 8.3; Magnesium 2.3 mg/dl (1.8-2.4); Potassium 4.1 mmol/L (3.5-5.1)
[2020-09-16] MEDS: SODIUM BICARBONATE 650 MG TAB PO SCH (08:36)
[2020-09-16] MEDS: CYANOCOBALAMIN 500 MCG TABLET (VITAMIN B-12) PO SCH (08:36)
[2020-09-16] MEDS: ACETAMINOPHEN 500 MG TAB PO SCH ×3 (08:36→20:12)
[2020-09-16] MEDS: carvediloL 25 MG TAB PO SCH ×2 (08:36→20:11)
[2020-09-16] MEDS: TORSEMIDE 100 MG TAB PO SCH (08:36)
[2020-09-16] MEDS: HEPARIN SOD 5,000 UNIT/0.5 ML VIAL SQ SCH ×2 (08:38→20:12)
[2020-09-16 09:31] LABS: Hepatitis B Surface Ab Quant < 3.10 mIU/mL (>or=10mIU/mL Immune); Hepatitis B Surface Antibody Non-Immune
[2020-09-16 09:42] LABS: Hepatitis B Surf Ag Rflx Conf Neg (Neg)
[2020-09-16 11:14] LABS: Prothrombin Time 10.2 Seconds (9.0-12.0)
--- NOTE | 2020-09-16 11:41 | Palliative Care Progress Note ---
Date of Service September 16, 2020 Assessment & Plan (1) Palliative care encounter: I talked with Mr. Iverson at bedside. He is awaiting access for start of hemodialysis. He again offers that since he feels well and doesn't have a lot of chronic medical problems like other people that he knows on dialysis, he would want to pursue treatment. He has been independent with good functional capacity. He has clarified that his son and daughter would be his surrogate decision makers in the event that he was unable to make decisions for himself regarding his medical care. We did discuss his thoughts on CPR. He tells me that he would not want to be kept alive on machines but would want CPR and intubation if it would help him. We reviewed statistics regarding successful CPR and subsequent return to function which would be less that 5% likelihood in his case. He understands this. We did also discuss the burden on his family to make decision for withdrawing care if CPR were not successful. I encouraged him to discuss this with his son and daughter and consider a time frame that he would be willing to be on support before he would want to withdraw care. He will consider this. Palliative care will follow peripherally. (2) Renal failure: (3) CHF (congestive heart failure): (4) Hypertensive urgency: (5) Ventricular ectopic complex: Admission and Anticipated Discharge Date Admission Date: September 09, 2020 Subjective No complaints. Denies dyspnea or pain. He has been walking the length of the hallway several times daily. Review of Systems Review of Systems: Jay Symptom Assessment Scale Pain 0/3 Dyspnea 0/3 Nausea 0/3 Anorexia 0/3 Anxiety 1/3 Fatigue 0/3 Drowsiness 0/3 Palliative Performance Score 60% Physical Exam Constitutional: comfortable; no acute distress ENMT: external ear and nose normal, oropharynx normal Respiratory: normal respiratory effort; no labored breathing Gastrointestinal (Abdomen): Inspection/Auscultation: abdomen not distended Musculoskeletal: Extremities: extremities normal to inspection Neurologic: awake; no focal motor deficits and not confused Psychiatric: Orientation: alert and oriented x 3 Results & Data ([facility]) Vital Signs (Past 12 Hours) Vital Signs Temp Pulse Pulse Resp BP BP Pulse Ox 09/16/20 09:00 80 09/16/20 07:11 98.1 F 65 18 162/70 H 96 09/16/20 03:26 98.2 F 63 18 160/70 H 96 09/15/20 23:32 98.1 F 61 16 131/69 95 PG Care Time/CCT Total # of Minutes Spent Total Time Spent with Patient: Total time spent is greater than 50% in coordination of care (as documented) at patient's floor/unit and/or counseling patient: Total time spent 35 minutes with more than 50% of time spent on goals of care, code status, patient education and support Coding Level of Care Code 00333 Subseq Hosp Care Lvl 3 Diagnoses Palliative care encounter Z51.5 Renal failure N17.9; N18.9 Acute renal failure type: unspecified Chronic kidney disease stage: unspecified stage Renal failure chronicity: acute on chronic CHF (congestive heart failure) I50.41 Heart failure chronicity: acute Heart failure type: combined systolic and diastolic Hypertensive urgency I16.0 Ventricular ectopic complex I49.3 (1) Renal failure Acute renal failure type: unspecified Chronic kidney disease stage: unspecified stage Renal failure chronicity: acute on chronic Qualified Code(s): N17.9 - Acute kidney failure, unspecified; N18.9 - Chronic kidney disease, unspecified (2) CHF (congestive heart failure) Heart failure chronicity: acute Heart failure type: combined systolic and diastolic Qualified Code(s): I50.41 - Acute combined systolic (congestive) and diastolic (congestive) heart failure
--- NOTE | 2020-09-16 11:55 | Nephrology Progress Note ---
Date of Service September 16, 2020 Assessment & Plan (1) Acute kidney injury superimposed on chronic kidney disease: now ESRD after he was 09/10 admitted with volume overload, HTN urgency, creat 4.1. 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 previous baseline creatinine had been low 3's. Both creatinine and BUN are worsening but thankfully so far no florid uremic symptoms apart from volume overload and uncontrolled hypertension his admission weight was 79.7 (first standing weight): Today he gained a bit of weight up to 74.2 kg -I spent more than 20 minutes discussing discuss benefits and indications for guarding in center hemodialysis with this patient today. Consent obtained. Case discussed with vascular surgery and consult placed for dialysis catheter tatiana son. Will run for first treatment 2 hours today if line can be placed afternoon. Plan another treatment tomorrow and possible discharge on Sunday. Have asked case management to arrange [place] [facility] Lowered torsemide 100 mg po daily >> Stopped sodium bicarbonate -other bp meds as below >>>palliative consult much appreciated; I attempted to reach his daughter last evening and have asked the nurse to contact me if and when she comes in today. we had deferred AVF creation d/t pandemic/ d/t being walker dependent after hospital d/c last year; also asked her to contact [facility] to discuss more specifics on costs given his concerns but I again reassured him that these should be mostly manageable -cont fluid/sodium limits Care coordinated with Dr. Sol (2) Hypertensive urgency: -with volume overload; past resistant HTN but in past year has weaned off all OP meds. SBP improved today > presented in 200s; goal is sbp 150s. recheck CXR still w/ BL L>R pl effusions and mild congestion ->>>cont coreg 25 mg bid w/ routine hold parameters; cont amlodipine 5 mg at bedtime (but amlodipine w/ hold for sbp <140) -diuretics as above (3) Anemia of chronic disease: followed in past / [facility] general surgery Dr Cole (though last note I see in [facility] is 2017): plan was for 6 mo f/u at that time. follows w/ anemia clinic as OP through our office -recommend he reest / [facility] or [facility] >> may need further f/u/ scopes after remote colon ca; he struggles w/ travel so local in [place] may be better -trend hgb -note that uncontrolled HTN is a contraindication to epo Admission and Anticipated Discharge Date Admission Date: September 09, 2020 Subjective Continues to feel well. No shortness of breath. Edema has resolved. Eating well sleeping well ambulating hallways. Renal function has worsened with resumption of diuretics Review of Systems Review of Systems: All systems reviewed & are unremarkable except as noted in Subjective Physical Exam Constitutional: well developed, well nourished and cooperative; no acute distress Eyes: EOM intact bilaterally ENMT: Ears: no external ear abnormality Nose: no external nose abnormality Mouth: + dry oral mucous membranes Neck: no nuchal rigidity Respiratory: normal respiratory effort and able to speak in complete sentences Auscultation: lungs clear to auscultation bilaterally and + diminished lung sounds (chris BL bases) Cardiovascular: Rate/Rhythm: regular rate and regular rhythm Extremities: no edema Gastrointestinal (Abdomen): Inspection/Auscultation: normal bowel sounds Percussion/Palpation: abdomen soft; abdomen nontender Musculoskeletal: Extremities: strength 5/5 throughout Skin: no rashes, warm and dry Neurologic: Hard of hearing, moves all extremities, fluent speech, no tremor Psychiatric: Orientation: alert and oriented x 3 Speech: normal rate/rhythm/volume of speech Genitourinary: Malagon with ample urine Results & Data ([facility]) Vital Signs (Past 12 Hours) Vital Signs Temp Pulse Pulse Resp BP BP Pulse Ox 09/16/20 09:00 80 09/16/20 07:11 36.7 C 65 18 162/70 H 96 09/16/20 03:26 36.8 C 63 18 160/70 H 96 Laboratory Results 09/16/20 06:26 09/16/20 06:26
[2020-09-16] MEDS ORDERED: SODIUM CHLORIDE 0.9% 1000ML 1,000 ML IV PRN (12:03)
--- NOTE | 2020-09-16 12:39 | Consultation ---
Date of Consultation September 16, 2020 Assessment & Plan (1) Acute kidney injury superimposed on chronic kidney disease: Patient for a permcath insertion. I have discussed the risks options and benefits of the procedure with the patient. The patient understands the risks options and benefits and agrees to the procedure. History of Present Illness Reason for Consultation: acute kidney injury Attending Physician: Napoleon Sol MD History of Present Illness Patient is an 85yo male who was admitted with HTN urgency with chronic renal disease and fluid overload. Subsequently has developed acute kidney injury in need of dialysis Allergies Allergy/AdvReac Type Severity Reaction Status Date / Time No Known Allergies Allergy Unverified 09/09/20 13:50 Home Medications Medication Instructions Recorded Confirmed Type rosuvastatin [Crestor] 20 mg PO HS 02/26/19 09/09/20 History acetaminophen [Tylenol Extra 500 mg PO TID 09/09/20 09/09/20 History Strength] cyanocobalamin (vitamin B-12) 1,000 mcg PO QAM 09/09/20 09/09/20 History [Vitamin B-12] sodium bicarbonate 650 mg PO BID 09/09/20 09/09/20 History Patient History Medical History Anemia of chronic disease CKD (chronic kidney disease), stage IV Colon cancer Dyslipidemia Malagon catheter in place Hyperlipemia Urinary retention Surgical History Hx of tonsillectomy S/P right colectomy Family History Other Colorectal cancer Kidney disease Social History Smoking Status: Former smoker Years Smoked: 22; Smoking End Date: 1975; Hx Alcohol Use: No Hx Substance Use: No Preferred Language: Khmer Communication Ability: Effective Editing Internship Required: No Beliefs That Will Affect Care: None marital status: / Current Living Situation: Alone Feels Safe at Home: Yes Assistive Devices: Hearing Aid - Bilateral Review of Systems Review of Systems: All systems reviewed & are unremarkable except as noted in HPI & below Physical Exam Constitutional: WD/WN, vitals as above Respiratory: normal respiratory effort, lungs clear to auscultation Cardiovascular: Rate/Rhythm: regular rate and regular rhythm Vessels: femoral pulses present and radial pulses present Extremities: normal capillary refill; no edema Gastrointestinal (Abdomen): Inspection/Auscultation: abdomen normal to inspection; abdomen not distended Percussion/Palpation: abdomen soft; abdomen nontender Musculoskeletal: no cyanosis or clubbing, extremities motor strength 5/5 Neurologic: CN's II-XI intact bilaterally Psychiatric: Orientation: alert and oriented x 3 Results & Data ([facility]) Vital Signs (Past 12 Hours) Vital Signs Temp Pulse Pulse Resp BP BP Pulse Ox 09/16/20 09:00 80 09/16/20 07:11 36.7 C 65 18 162/70 H 96 09/16/20 03:26 36.8 C 63 18 160/70 H 96
[2020-09-16] MEDS ORDERED: ceFAZolin 1000MG 1,000 MG/7.5 ML SYR IV SCH (13:00)
[2020-09-16] MEDS ORDERED: MIDAZOLAM HCL 1 MG/ML 2ML VIAL ONE (13:21)
[2020-09-16] MEDS ORDERED: fentaNYL citrate 100 MCG/2 ML VIAL ONE (13:21)
--- NOTE | 2020-09-16 13:23 | Pre Anesthesia Assessment ---
Date of Service September 16, 2020 Pre Sedation Assessment Vital Signs Temp Pulse Pulse Resp BP BP Pulse Ox 09/16/20 12:42 36.7 C 70 18 164/79 H 99 09/16/20 12:34 36.6 C 64 19 169/74 H 98 09/16/20 09:00 80 09/16/20 07:11 36.7 C 65 18 162/70 H 96 09/16/20 03:26 36.8 C 63 18 160/70 H 96 09/15/20 23:32 36.7 C 61 16 131/69 95 09/15/20 19:22 36.7 C 70 18 155/61 H 96 09/15/20 17:59 70 09/15/20 15:12 36.8 C 66 17 163/70 H 97 Cardiovascular RRR, no murmur, no edema Respiratory normal respiratory effort, lungs clear to auscultation Pre-Sedation Airway Assessment Smoking Status: Former smoker Hx Sleep Apnea: No Short, Thick Neck: No Thyromental Distance: > or= 3.5 Finger Breadths Oral Cavity: + WNL Mallampati Class: I ASA: ASA4 NPO Status Date of Last Intake of Fluids: 09/16/20 Time of Last Intake of Fluids: 08:00 Date of Last Intake of Solid Food: 09/15/20 Time of Last Intake of Solid Foods: 18:00 Procedure Planning Contraindications for Sedation: none Current Medications Reviewed: Yes Notes The planned sedation has been discussed with the patient. Informed Consent was obtained. I have identified the patient, determined the appropriateness of sedation and have assessed the patient immediately prior to the procedure. All medicine(s) and interventions are by my order.
[2020-09-16] MEDS ORDERED: HEPARIN SOD (PORCINE) 5,000 UNITS/ML VIAL ONE (13:29)
[2020-09-16] MEDS ORDERED: LIDOCAINE HCL 1% 20 ML VIAL ONE (13:29)
--- NOTE | 2020-09-16 13:59 | Post Operative Brief Note ---
Immediate Post Op Note v1 Date of Surgery September 16, 2020 Pre & Post Diagnosis Operation Date: 09/16/20 13:00 Pre-Op Diagnosis: Acute kidney injury superimposed on chronic kidney disease Post-Op Diagnosis: Acute kidney injury superimposed on chronic kidney disease I identified the patient and participated in the time-out.: Yes Procedure Operation Date: 09/16/20 13:00 Actual Procedures p Perm Catheter Insertion, Right Jugular Vein, Ultrasound Localization of Right Jugular Vein, Fluoroscopy for Positioning, Moderate Sedation [id number](Right) - Anish Santana MD Surgeon Anish Santana MD Bulk Clerk MD Arlin Estimated Blood Loss 5 Findings Consistent with Post-Op Diagnosis Anesthesia Type RN Sedation Complications none Disposition Accompanied Patient To Recovery: No Disposition: Recovery Room
--- NOTE | 2020-09-16 14:02 | Procedure Note ---
Angiogram Post Procedure Fluoroscopy Time (minutes): 1.1 Radiation (mGy): 6 Post Operative Report Pre & Post Diagnosis Operation Date: 09/16/20 13:00 Pre-Op Diagnosis: Acute kidney injury superimposed on chronic kidney disease Post-Op Diagnosis: Acute kidney injury superimposed on chronic kidney disease I identified the patient and participated in the time-out.: Yes Procedure Operation Date: 09/16/20 13:00 Actual Procedures p Perm Catheter Insertion, Right Jugular Vein, Ultrasound Localization of Right Jugular Vein, Fluoroscopy for Positioning, Moderate Sedation [id number](Right) - Anish Santana MD Surgeon Anish Santana MD Office Professional MD Arlin Estimated Blood Loss 5 Findings See Below Specimens None Anesthesia Type MAC Complications none Disposition Accompanied Patient To Recovery: No Disposition: Recovery Room Indications Need for long-term intravenous access. Description of Procedure Patient was taken to the angio suite and placed in the supine position. The right side of the neck and chest wall were prepped and draped in a sterile manner. Local anesthesia was then administered to the appropriate areas of the neck and chest wall. Ultrasound was then used to locate the right internal jugular vein. The vein compressed easily, had no filing defects, and was patent. The vein was then punctured under direct ultrasound imaging. A guidewire was then passed centrally under fluoroscopic imaging. A stab wound was then made in the anterior chest wall and a 19 cm permcath was passed from the stab wound on the chest wall to the puncture site on the neck. The puncture site was then dilated till the 14Fr peel away sheath was inserted. The permcath was then inserted through the sheath to a central position in the distal superior vena cava. The peel away sheath was then removed. The catheter was then sutured in place using nylon sutures. The puncture was then closed using a 4-0 Vicryl subcuticular suture. Dermabond was used for a dressing on the puncture site. Both ports aspirated and flushed easily and were then packed with heparin. A sterile dressing was applied to the catheter. The patient left the angio suite in good condition and tolerated the procedure well. Dr. Santana was present and scrubbed for the entire procedure. I attest to the content of the Intraoperative Record and any orders documented therein. Any exceptions are noted below.
--- NOTE | 2020-09-16 14:14 | Post Anesthesia Assessment ---
Date of Service September 16, 2020 Post Sedation Assessment Vital Signs Temp Pulse Pulse Resp BP BP Pulse Ox 09/16/20 14:10 68 15 161/72 H 94 09/16/20 14:05 67 15 144/87 H 95 09/16/20 14:02 66 15 146/67 H 98 09/16/20 13:57 63 15 137/65 100 09/16/20 13:52 66 15 147/68 H 100 09/16/20 13:47 68 15 159/70 H 100 09/16/20 13:42 65 15 154/68 H 100 09/16/20 13:37 65 15 163/66 H 99 09/16/20 13:32 66 15 175/67 H 98 09/16/20 13:26 64 15 167/78 H 99 09/16/20 12:42 36.7 C 70 18 164/79 H 99 09/16/20 12:34 36.6 C 64 19 169/74 H 98 09/16/20 09:00 80 09/16/20 07:11 36.7 C 65 18 162/70 H 96 09/16/20 03:26 36.8 C 63 18 160/70 H 96 09/15/20 23:32 36.7 C 61 16 131/69 95 09/15/20 19:22 36.7 C 70 18 155/61 H 96 09/15/20 17:59 70 09/15/20 15:12 36.8 C 66 17 163/70 H 97 Recovery Score Activity: Moves 4 extremities Respiration: Deep Breath/Cough Circulation: +/-20% PreAnes Value Consciousness: Fully Awake Oxygen Saturation: > 92% On Room Air Post Anesthesia Score: 10 Discharge Sedation Level of Care: Fast Track Phase II Post Sedation Plan On clinical assessment, the patient appears to have tolerated the sedation without complications. Patient is recovering as anticipated. Patient will continue to be monitored by nursing and may be discharged when sedation discharge criteria are met per below protocol. Upon Completions of procedure up to 15 minutes continue every 5 minute vital signs and the P.A.R. score; then discharge to a Phase I or Fast Track to Phase II per the following guidelines: * Discharge Patient to appropriate Phase II area if PAR is 8 or greater or return to pre- procedure baseline. The post - procedure orders will be as directed. * If PAR score is less than 8 or not return to pre-procedure baseline then patient will follow Phase I monitoring till PAR is reached for Phase II. The Phase I may be done in procedure room or may call to secure a Phase I area. * If naloxone or flumazenil are used for reversal, hold in Phase I for continued monitoring from when last reversal dose was given for a minimum of 60 minutes or longer pending the nurse and/or physician discretion of patient condition before discharge to Phase II. Please call the Sedation Physician to re-evaluate and complete post-note for discharge to Phase II area. Do NOT discharge from procedure sedation or Phase 1 until post- sedation evaluation note is complete by procedure /sedation MD Sedation Discharge Instructions to be given to the patient at discharge to home.
--- NOTE | 2020-09-16 14:55 | Hospitalist Progress Note ---
Date of Service September 16, 2020 Assessment & Plan (1) Acute kidney injury superimposed on chronic kidney disease: Patient is an 85 yr male with H/O CKD IV, BPH and urinary retention with Malagon catheter in place, anemia of chronic disease, history of colon cancer status post right colectomy, dyslipidemia and other medical problems as below who presents with dyspnea on exertion x2 weeks and was found to have DINORAH on CKD and volume overload. DINORAH on CKD IV Currently ESRD Volume overload Hypertensive urgency Baseline creatinine low threes Cr:5.8 CXR with pleural effusions L>R with bibasilar consolidation and cardiomegaly with prominence of the pulmonary vasculature. IV Lasix transition to torsemide 100 mg daily Volume status improved Appreciate nephrology/vascular surgery input Continue fluid, sodium restriction Monitor volume status Plan for dialysis catheter placement today Hemodialysis as per Nephrology (2) CKD (chronic kidney disease), stage IV: Management as above (3) Volume overload: In setting of DINORAH on CKD --TTE obtained -LV wall motion is normal. EF 55 to 60%. Mild concentric LVH. Mild mitral regurg. Mild tricuspid regurg. Moderate pulmonary hypertension is present. Pulmonary artery systolic pressure estimated to be 50 to 55 mmHg. Grade 2 diastolic dysfunction. --CXR with pleural effusions L>R with bibasilar consolidation and cardiomegaly with prominence of the pulmonary vasculature BNP >30,000 Saturating well on room air Volume status managed with diuretics Monitor I's and O's, daily weight Continue diuretics (4) Hypertensive urgency: Was weaned off of antihypertensives in the past year Continue Coreg, amlodipine monitor NSVT Asymptomatic Echo as above Continue coreg Monitor and replace electrolytes as needed Appreciate cardiology input (5) BPH (benign prostatic hyperplasia): (6) Urinary retention: Malagon catheter in place (7) Dyslipidemia: Continue statin (8) Anemia of chronic disease: Following with nephro /anemia clinic Negative FOBT Hb Stable Monitor DVT Px: Heparin SQ Code status: FULL PCP: Dr. Brown Disposition: Plan to return home once medically stable. Admission and Anticipated Discharge Date Admission Date: September 09, 2020 Subjective Patient is a and examined at bedside No new complaints Planned for dialysis catheter placement today Discussed with nephrology today Denies dyspnea, chest pain, dizziness, nausea, abdominal pain Review of Systems Review of Systems: All systems reviewed & are unremarkable except as noted in HPI & below Physical Exam Physical Exam: Physical Exam: Vitals signs as noted above General Appearance:Moderately built and nourished, no apparent distress Head: normocephalic, Atraumatic Eyes: normal inspection, EOMI Neck: supple, Trachea midline Respiratory/Chest: Normal breath sounds, CTA Cardiovascular: S1, S2, No murmur Abdomen/GI:Soft, Non tender, Bowel sounds present Extremities/Musculoskelatal:normal inspection, no edema Neurologic/Psych:AAOX3, grossly no focal neurological deficits Skin: normal color, warm Results & Data Results & Data ([facility]) Vital Signs (Past 12 Hours) Vital Signs Temp Pulse Pulse Pulse Resp BP BP 09/16/20 14:34 36.5 C 68 68 160/76 H 09/16/20 14:10 68 15 161/72 H 09/16/20 14:05 67 15 144/87 H 09/16/20 14:02 66 15 146/67 H 09/16/20 13:57 63 15 137/65 09/16/20 13:52 66 15 147/68 H 09/16/20 13:47 68 15 159/70 H 09/16/20 13:42 65 15 154/68 H 09/16/20 13:37 65 15 163/66 H 09/16/20 13:32 66 15 175/67 H 09/16/20 13:26 64 15 167/78 H 09/16/20 12:42 36.7 C 70 18 164/79 H 09/16/20 12:34 36.6 C 64 19 09/16/20 09:00 80 09/16/20 07:11 36.7 C 65 18 09/16/20 03:26 36.8 C 63 18 160/70 H BP Pulse Ox 09/16/20 14:34 09/16/20 14:10 94 09/16/20 14:05 95 09/16/20 14:02 98 09/16/20 13:57 100 09/16/20 13:52 100 09/16/20 13:47 100 09/16/20 13:42 100 09/16/20 13:37 99 09/16/20 13:32 98 09/16/20 13:26 99 09/16/20 12:42 99 09/16/20 12:34 169/74 H 98 09/16/20 09:00 09/16/20 07:11 162/70 H 96 09/16/20 03:26 96 Laboratory Results Short CBC 09/16/20 Range/Units 06:26 Hgb 8.6 L (14.0-18.0) g/dL Hct 26.0 L (42-52) % BMP 09/16/20 06:26 Sodium 141 Potassium 4.1 Chloride 108 H Carbon Dioxide 25 BUN 88 H Creatinine 5.80 H* D Glucose 95 Calcium 8.0 L
[2020-09-16] MEDS ORDERED: oxyCODONE/ACETAMINOPHEN 5mg/325mg TAB PO ONE (17:57)
[2020-09-16] MEDS: ROSUVASTATIN CALCIUM 20 MG TAB PO SCH (20:11)
[2020-09-16] MEDS: amLODIPine BESYLATE 5 MG TAB PO SCH (20:12)
[2020-09-17] MEDS: oxyCODONE/ACETAMINOPHEN 5mg/325mg TAB PO PRN ×2 (04:33→13:33)
[2020-09-17 07:53] LABS: BUN Creatinine Ratio 13.2 (10-20); Calcium 7.7 mg/dl (8.5-10.1); Creatinine Clr Calc Pharmacy 10.1 ml/min; Est GFR (African American) 11.5; Est GFR (Non-African American) 9.9; Potassium 3.8 mmol/L (3.5-5.1)
[2020-09-17] MEDS ORDERED: HEPARIN SOD (PORCINE) 1000 UNIT/ML IV ONE (07:53)
[2020-09-17] MEDS ORDERED: SODIUM CHLORIDE 0.9% 1000ML 1,000 ML IV PRN ×2 (07:53→09:18)
[2020-09-17] MEDS: CYANOCOBALAMIN 500 MCG TABLET (VITAMIN B-12) PO SCH (08:32)
[2020-09-17] MEDS: ACETAMINOPHEN 500 MG TAB PO SCH ×3 (08:33→19:25)
[2020-09-17] MEDS: HEPARIN SOD 5,000 UNIT/0.5 ML VIAL SQ SCH (08:33)
[2020-09-17] MEDS: TORSEMIDE 100 MG TAB PO SCH (08:33)
[2020-09-17 09:02] LABS: Hematocrit (blood only) 24.6 % (42-52); Mean Corpuscular Hemoglobin 30.7 pg (25-34); Mean Corpuscular Hgb Conc 32.5 g/dL (32-36); Mean Corpuscular Volume 94.3 fL (80-100); Mean Platelet Volume 12.3 fL (7.4-10.4); Platelet Count 128 K/uL (130-400); RDW Coefficient of Variation 13.7 % (11.5-14.5); RDW Standard Deviation 47.2 fL (36.4-46.3); Red Blood Count 2.61 M/uL (4.7-6.1); White Blood Count 5.79 K/uL (4.8-10.8)
[2020-09-17] MEDS ORDERED: EPOETIN ALFA 10,000 UNITS/ML VIAL IV ONE (09:18)
[2020-09-17] MEDS ORDERED: IRON SUCROSE 100 MG in SYRINGE 0 ML IV ONE (09:45)
[2020-09-17] MEDS: HEPARIN SOD (PORCINE) 1000 UNIT/ML IV SCH ×3 (10:06→17:53)
--- NOTE | 2020-09-17 13:02 | Dialysis Progress Note ---
Date of Service September 17, 2020 Assessment & Plan (1) Acute kidney injury superimposed on chronic kidney disease: now ESRD after he was 3 admitted with volume overload, HTN urgency, creat 4.1. 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 previous baseline creatinine had been low 3's. Both creatinine and BUN are worsening (prior to starting dialysis which is reflected in today's labs) but thankfully so far no florid uremic symptoms apart from volume overload and uncontrolled hypertension his admission weight was 79.7 (first standing weight): Today's wt not accurate/bedweight -CM in process of arrnaging intake at [facility] >>>cont lowered torsemide 100 mg po daily -other bp meds as below >>>palliative consult much appreciated -cont fluid/sodium limits (2) Hypertensive urgency: -with volume overload; past resistant HTN but in past year has weaned off all OP meds. SBP improved today > presented in 200s; goal is sbp 130-140s. recheck CXR still w/ BL L>R pl effusions and mild congestion -coreg stopped and will cont amlodipine -diuretics as above (3) Anemia of chronic disease: followed in past / [facility] general surgery Dr Cole (though last note I see in Epic is 2017): plan was for 6 mo f/u at that time. follows w/ anemia clinic as OP through our office -recommend he reest / [facility] or [facility] >> may need further f/u/ scopes after remote colon ca; he struggles w/ travel so local in [place] may be better -trend hgb -started venofer load; gave epo 10K Admission and Anticipated Discharge Date Admission Date: September 09, 2020 Subjective seen on dialysis at about 10 am; no sob, no chest pain. di dhave some pain at TDC site last evening; did have some N late in tx yesterday. TDC is touchy/positional/did not help running reversed Review of Systems Review of Systems: All systems reviewed & are unremarkable except as noted in Subjective Physical Exam Constitutional: well developed, well nourished and cooperative; no acute distress Eyes: EOM intact bilaterally ENMT: Ears: no external ear abnormality Nose: no external nose abnormality Mouth: + dry oral mucous membranes Neck: no nuchal rigidity Respiratory: normal respiratory effort and able to speak in complete sentences Auscultation: lungs clear to auscultation bilaterally Cardiovascular: Rate/Rhythm: regular rate and regular rhythm Extremities: no edema Gastrointestinal (Abdomen): Inspection/Auscultation: normal bowel sounds Percussion/Palpation: abdomen soft; abdomen nontender Musculoskeletal: Extremities: strength 5/5 throughout Skin: no rashes, warm and dry Psychiatric: Orientation: alert and oriented x 3 Speech: normal r ate/rhythm/volume of speech Genitourinary: chronic carlson Results & Data ([facility]) Vital Signs (Past 12 Hours) Vital Signs Temp Pulse Pulse Pulse Resp BP BP 09/17/20 12:00 36.8 C 69 15 137/56 L 09/17/20 11:40 61 117/51 L 09/17/20 11:20 58 L 104/47 L 09/17/20 11:00 57 L 105/55 L 09/17/20 10:40 58 L 113/50 L 09/17/20 10:20 53 L 111/49 L 09/17/20 10:00 56 L 114/54 L 09/17/20 09:40 60 124/57 L 09/17/20 09:20 63 144/68 H 09/17/20 09:03 37.0 C 68 09/17/20 07:46 36.6 C 66 20 139/55 L 09/17/20 07:09 59 L 09/17/20 04:30 36.5 C 88 16 153/57 H Pulse Ox 09/17/20 12:00 94 09/17/20 11:40 09/17/20 11:20 09/17/20 11:00 09/17/20 10:40 09/17/20 10:20 09/17/20 10:00 09/17/20 09:40 09/17/20 09:20 09/17/20 09:03 09/17/20 07:46 94 09/17/20 07:09 09/17/20 04:30 96 Laboratory Results 09/17/20 06:53 09/17/20 06:53
--- NOTE | 2020-09-17 15:58 | Hospitalist Progress Note ---
Date of Service September 17, 2020 Assessment & Plan (1) Acute kidney injury superimposed on chronic kidney disease: Patient is an 85 yr male with H/O CKD IV, BPH and urinary retention with Malagon catheter in place, anemia of chronic disease, history of colon cancer status post right colectomy, dyslipidemia and other medical problems as below who presents with dyspnea on exertion x2 weeks and was found to have DINORAH on CKD and volume overload. DINORAH on CKD IV Currently ESRD Volume overload--Resolved Hypertensive urgency Baseline creatinine low threes Cr:5.8>4.9 CXR with pleural effusions L>R with bibasilar consolidation and cardiomegaly with prominence of the pulmonary vasculature. IV Lasix transition to torsemide 100 mg daily Volume status managed through dialysis Appreciate nephrology/vascular surgery input Continue fluid, sodium restriction Continue dialysis as per Nephrology Received Venofer, Epo today (2) CKD (chronic kidney disease), stage IV: Management as above (3) Volume overload: In setting of DINORAH on CKD --TTE obtained -LV wall motion is normal. EF 55 to 60%. Mild concentric LVH. Mild mitral regurg. Mild tricuspid regurg. Moderate pulmonary hypertension is present. Pulmonary artery systolic pressure estimated to be 50 to 55 mmHg. Grade 2 diastolic dysfunction. --CXR with pleural effusions L>R with bibasilar consolidation and cardiomegaly with prominence of the pulmonary vasculature BNP >30,000 Saturating well on room air Volume status managed with diuretics/HD Monitor I's and O's, daily weight Continue diuretics (4) Hypertensive urgency: Was weaned off of antihypertensives in the past year Continue amlodipine Coreg discontinued monitor NSVT Asymptomatic Echo as above Monitor and replace electrolytes as needed Appreciate cardiology input Coreg DCed, BP relatively low intermittently Restart BB if needed (5) BPH (benign prostatic hyperplasia): (6) Urinary retention: Malagon catheter in place (7) Dyslipidemia: Continue statin (8) Anemia of chronic disease: Follows with Nephro /anemia clinic Negative FOBT Hb Stable Received Venofer, Epo DVT Px: Heparin SQ Code status: FULL PCP: Dr. Brown Disposition: Plan to return home once medically stable. Admission and Anticipated Discharge Date Admission Date: September 09, 2020 Subjective Patient is a and examined at bedside Got HD earlier today Denies chest pain, dyspnea, dizziness, nausea, abdominal pain Received IV Venofer, Epo today Review of Systems Review of Systems: All systems reviewed & are unremarkable except as noted in HPI & below Physical Exam Physical Exam: Physical Exam: Vitals signs as noted above General Appearance:Moderately built and nourished, no apparent distress Head: normocephalic, Atraumatic Eyes: normal inspection, EOMI Neck: supple, Trachea midline Respiratory/Chest: Normal breath sounds, CTA Cardiovascular: S1, S2, No murmur Abdomen/GI:Soft, Non tender, Bowel sounds present Extremities/Musculoskelatal:normal inspection, no edema Neurologic/Psych:AAOX3, grossly no focal neurological deficits Skin: normal color, warm Results & Data Results & Data ([facility]) Vital Signs (Past 12 Hours) Vital Signs Temp Pulse Pulse Pulse Resp BP BP 09/17/20 15:24 37.1 C 65 20 142/61 H 09/17/20 15:00 66 09/17/20 12:30 37.2 C 71 126/63 09/17/20 12:00 36.8 C 62 69 15 99/55 L 137/56 L 09/17/20 11:40 61 117/51 L 09/17/20 11:20 58 L 104/47 L 09/17/20 11:00 57 L 105/55 L 09/17/20 10:40 58 L 113/50 L 09/17/20 10:20 53 L 111/49 L 09/17/20 10:00 56 L 114/54 L 09/17/20 09:40 60 124/57 L 09/17/20 09:20 63 144/68 H 09/17/20 09:03 37.0 C 68 09/17/20 07:46 36.6 C 66 20 139/55 L 09/17/20 07:09 59 L 09/17/20 04:30 36.5 C 88 16 153/57 H Pulse Ox 09/17/20 15:24 92 09/17/20 15:00 09/17/20 12:30 09/17/20 12:00 94 09/17/20 11:40 09/17/20 11:20 09/17/20 11:00 09/17/20 10:40 09/17/20 10:20 09/17/20 10:00 09/17/20 09:40 09/17/20 09:20 09/17/20 09:03 09/17/20 07:46 94 09/17/20 07:09 09/17/20 04:30 96 Laboratory Results Short CBC 09/17/20 Range/Units 06:53 WBC 5.79 (4.8-10.8) K/uL Hgb 8.0 L (14.0-18.0) g/dL Hct 24.6 L (42-52) % Plt Count 128 L (130-400) K/uL BMP 09/17/20 06:53 Sodium 139 Potassium 3.8 Chloride 105 Carbon Dioxide 25 BUN 66 H Creatinine 4.99 H* D Glucose 88 Calcium 7.7 L
[2020-09-17] MEDS ORDERED: DOCUSATE SODIUM/SENNA 50/8.6MG TAB PO PRN (17:56)
[2020-09-17] MEDS ORDERED: SODIUM CHLORIDE 0.9% 250 ML IV PRN (18:38)
[2020-09-17] MEDS: ROSUVASTATIN CALCIUM 20 MG TAB PO SCH (19:25)
[2020-09-17] MEDS: amLODIPine BESYLATE 5 MG TAB PO SCH (19:25)
[2020-09-17 20:57] LABS: Hematocrit (blood only) 25.7 % (42-52); Hemoglobin 8.6 g/dL (14.0-18.0)
[2020-09-18 06:32] LABS: Hematocrit (blood only) 24.6 % (42-52); Hemoglobin 8.1 g/dL (14.0-18.0); Mean Corpuscular Hemoglobin 31.4 pg (25-34); Mean Corpuscular Hgb Conc 32.9 g/dL (32-36); Mean Corpuscular Volume 95.3 fL (80-100); RDW Coefficient of Variation 13.7 % (11.5-14.5); RDW Standard Deviation 47.8 fL (36.4-46.3); Red Blood Count 2.58 M/uL (4.7-6.1)
[2020-09-18 06:55] LABS: Mean Platelet Volume 11.9 fL (7.4-10.4); Platelet Count 86 K/uL (130-400)
[2020-09-18 06:56] LABS: Platelet Estimate Decreased (Normal)
[2020-09-18 07:00] LABS: BUN Creatinine Ratio 10.4 (10-20); Calcium 7.8 mg/dl (8.5-10.1); Creatinine Clr Calc Pharmacy 11.7 ml/min; Est GFR (African American) 13.7; Est GFR (Non-African American) 11.8; Potassium 3.6 mmol/L (3.5-5.1)
[2020-09-18] MEDS: ACETAMINOPHEN 500 MG TAB PO SCH ×3 (07:16→20:02)
[2020-09-18] MEDS: TORSEMIDE 100 MG TAB PO SCH (07:16)
[2020-09-18] MEDS: CYANOCOBALAMIN 500 MCG TABLET (VITAMIN B-12) PO SCH (07:16)
[2020-09-18] MEDS ORDERED: SODIUM CHLORIDE 0.9% 1000ML 1,000 ML IV PRN (12:31)
--- NOTE | 2020-09-18 16:14 | Hospitalist Progress Note ---
Date of Service September 18, 2020 Assessment & Plan (1) Acute kidney injury superimposed on chronic kidney disease: Patient is an 85 yr male with H/O CKD IV, BPH and urinary retention with Malagon catheter in place, anemia of chronic disease, history of colon cancer status post right colectomy, dyslipidemia and other medical problems as below who presents with dyspnea on exertion x2 weeks and was found to have DINORAH on CKD and volume overload. DINORAH on CKD IV Now ESRD Volume overload--Resolved Hypertensive urgency Baseline creatinine low threes Cr:5.8>4.9>4.3 CXR with pleural effusions L>R with bibasilar consolidation and cardiomegaly with prominence of the pulmonary vasculature. IV Lasix transition to torsemide 100 mg daily Volume status managed through dialysis Appreciate nephrology/vascular surgery input Continue fluid, sodium restriction Continue dialysis as per Nephrology Received Venofer, Epo Has bleeding issues at catheter site--Heparin SQ held, Monitor H&H Will need Vascular to re-eval Cath Needs Outpatient dialysis arranged prior to discharge (2) CKD (chronic kidney disease), stage IV: Management as above (3) Volume overload: In setting of DINORAH on CKD --TTE obtained -LV wall motion is normal. EF 55 to 60%. Mild concentric LVH. Mild mitral regurg. Mild tricuspid regurg. Moderate pulmonary hypertension is present. Pulmonary artery systolic pressure estimated to be 50 to 55 mmHg. Grade 2 diastolic dysfunction. --CXR with pleural effusions L>R with bibasilar consolidation and cardiomegaly with prominence of the pulmonary vasculature BNP >30,000 Saturating well on room air Volume status managed with diuretics/HD Monitor I's and O's, daily weight Continue diuretics (4) Hypertensive urgency: Was weaned off of antihypertensives in the past year Continue amlodipine Coreg discontinued monitor Chronic Thrombocytopenia Heparin discontinued Monitor NSVT Asymptomatic Echo as above Monitor and replace electrolytes as needed Appreciate cardiology input Coreg DCed, BP relatively low intermittently Restart BB if needed (5) BPH (benign prostatic hyperplasia): (6) Urinary retention: Malagon catheter in place (7) Dyslipidemia: Continue statin (8) Anemia of chronic disease: Follows with Nephro /anemia clinic Negative FOBT Hb Stable Received Venofer, Epo DVT Px: SCDs re: Bleeding Cath site, Anemia, Thrombocytopenia Code status: FULL PCP: Dr. Brown Disposition: Plan to return home once medically stable. Admission and Anticipated Discharge Date Admission Date: September 09, 2020 Subjective Patient is a and examined at bedside Offers no complaints Had Catheter problem with dialysis today Denies chest pain, dyspnea, dizziness, nausea, abdominal pain Discussed with Nephrology today Review of Systems Review of Systems: All systems reviewed & are unremarkable except as noted in HPI & below Physical Exam Physical Exam: Physical Exam: Vitals signs as noted above General Appearance:Moderately built and nourished, no apparent distress Head: normocephalic, Atraumatic Eyes: normal inspection, EOMI Neck: supple, Trachea midline Respiratory/Chest: Normal breath sounds, CTA Cardiovascular: S1, S2, No murmur Abdomen/GI:Soft, Non tender, Bowel sounds present Extremities/Musculoskelatal:normal inspection, no edema Neurologic/Psych:AAOX3, grossly no focal neurological deficits Skin: normal color, warm Results & Data Results & Data ([facility]) Vital Signs (Past 12 Hours) Vital Signs Temp Pulse Pulse Pulse Resp BP BP 09/18/20 15:45 37.3 C 61 66 103/49 L 128/67 09/18/20 15:00 64 116/57 L 09/18/20 14:45 66 128/61 09/18/20 14:40 64 125/60 09/18/20 14:20 61 113/58 L 09/18/20 14:01 37.3 C 69 69 143/67 H 09/18/20 11:32 37.0 C 67 18 154/63 H 09/18/20 08:00 62 09/18/20 07:05 36.8 C 84 18 142/57 H 09/18/20 04:44 37.2 C 64 18 154/60 H Pulse Ox 09/18/20 15:45 09/18/20 15:00 09/18/20 14:45 09/18/20 14:40 09/18/20 14:20 09/18/20 14:01 09/18/20 11:32 94 09/18/20 08:00 09/18/20 07:05 95 09/18/20 04:44 94 Laboratory Results Short CBC 09/17/20 09/18/20 Range/Units 20:27 05:58 WBC 6.00 (4.8-10.8) K/uL Hgb 8.6 L 8.1 L (14.0-18.0) g/dL Hct 25.7 L 24.6 L (42-52) % Plt Count 86 L (130-400) K/uL BMP 09/18/20 05:58 Sodium 138 Potassium 3.6 Chloride 103 Carbon Dioxide 28 BUN 45 H Creatinine 4.33 H D Glucose 91 Calcium 7.8 L
[2020-09-18] MEDS: POLYETHYLENE (MIRALAX) 17 GM PACK PO PRN (16:37)
--- NOTE | 2020-09-18 18:45 | Dialysis Progress Note ---
Date of Service September 18, 2020 Assessment & Plan (1) Acute kidney injury superimposed on chronic kidney disease: now ESRD after he was 09/10 admitted with volume overload, HTN urgency, creat 4.1. 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 previous baseline creatinine had been low 3's. Both creatinine and BUN are worsening (prior to starting dialysis which is reflected in today's labs) but thankfully so far no florid uremic symptoms apart from volume overload and uncontrolled hypertension his admission weight was 79.7 (first standing weight): Today's wt not accurate/bedweight -CM in process of arrnaging intake at [facility] >> he is tentatively (not officially) accepted there for next >>>cont lowered torsemide 100 mg po daily -other bp meds as below >>>palliative consult much appreciated -cont fluid/sodium limits (2) Hypertensive urgency: -with volume overload; past resistant HTN but in past year has weaned off all OP meds. SBP improved today > presented in 200s; goal is sbp 130-140s. recheck CXR still w/ BL L>R pl effusions and mild congestion -coreg stopped and will cont amlodipine -diuretics as above -BP well controlled today (3) Anemia of chronic disease: followed in past [facility] general surgery Dr Cole (though last note I see in Epic is 2017): plan was for 6 mo f/u at that time. follows w/ anemia clinic as OP through our office -recommend he reest [facility] or [facility] >> may need further f/u/ scopes after remote colon ca; he struggles w/ travel so local in [place] may be better -trend hgb -started venofer load; gave epo 10K (4) Complications, dialysis, catheter, mechanical: extremely positional; treatment cut short today after 1.5 hrs b/c of so m any alarms, added time; also w/ bleeding > will ask vascular to reassess on 09/20 Present on Admission?: Yes (5) Thrombocytopenia: plts dropped from 140> 86; he had heparin yesterday w/ tx, none on first tx or today; hospitalist aware -daily cbc; hold further heparin; low threshold for HIT panel Present on Admission?: Yes Admission and Anticipated Discharge Date Admission Date: September 09, 2020 Subjective seen on dialysis at about 1430; daughter Svetlana at bedside; pt anxious and depressed to still be inpatient; catheter bled yesterday > needed 3 dressing changes per report after tx yesterday; has pressure dressing on now; still very positional. acceptance to OP dialysis unit in works. no sob, no pain, no n/v, else as above. Review of Systems Review of Systems: All systems reviewed & are unremarkable except as noted in Subjective Physical Exam Constitutional: well developed, well nourished and cooperative; no acute distress Eyes: EOM intact bilaterally ENMT: Ears: no external ear abnormality Nose: no external nose abnormality Mouth: + dry oral mucous membranes Neck: no nuchal rigidity Respiratory: normal respiratory effort and able to speak in complete sentences Auscultation: lungs clear to auscultation bilaterally Cardiovascular: Rate/Rhythm: regular rate and regular rhythm Extremities: no edema Gastrointestinal (Abdomen): Inspection/Auscultation: normal bowel sounds Percussion/Palpation: abdomen soft; abdomen nontender Musculoskeletal: Extremities: strength 5/5 throughout Skin: no rashes, warm and dry Neurologic: fernandez, fluent speech (though hardly talks d/t dialysis alarms when he does), no tremor Psychiatric: Orientation: alert and oriented x 3 Speech: normal rate/rhy thm/volume of speech Genitourinary: carlson w/ ample urine Results & Data ([facility]) Vital Signs (Past 12 Hours) Vital Signs Temp Pulse Pulse Pulse Resp BP BP 09/18/20 16:22 36.7 C 66 19 119/56 L 09/18/20 16:00 62 09/18/20 15:45 37.3 C 61 66 103/49 L 128/67 09/18/20 15:00 64 116/57 L 09/18/20 14:45 66 128/61 09/18/20 14:40 64 125/60 09/18/20 14:20 61 113/58 L 09/18/20 14:01 37.3 C 69 69 143/67 H 09/18/20 11:32 37.0 C 67 18 154/63 H 09/18/20 08:00 62 09/18/20 07:05 36.8 C 84 18 142/57 H Pulse Ox 09/18/20 16:22 96 09/18/20 16:00 09/18/20 15:45 09/18/20 15:00 09/18/20 14:45 09/18/20 14:40 09/18/20 14:20 09/18/20 14:01 09/18/20 11:32 94 09/18/20 08:00 09/18/20 07:05 95 Laboratory Results 09/18/20 05:58 09/18/20 05:58
[2020-09-18] MEDS: amLODIPine BESYLATE 5 MG TAB PO SCH (20:01)
[2020-09-18] MEDS: ROSUVASTATIN CALCIUM 20 MG TAB PO SCH (20:02)
[2020-09-19 06:10] LABS: Hemoglobin 8.6 g/dL (14.0-18.0); Mean Corpuscular Hgb Conc 33.1 g/dL (32-36); Mean Corpuscular Volume 96.7 fL (80-100); Mean Platelet Volume 12.5 fL (7.4-10.4); Platelet Count 81 K/uL (130-400); RDW Coefficient of Variation 13.6 % (11.5-14.5); RDW Standard Deviation 47.8 fL (36.4-46.3); Red Blood Count 2.69 M/uL (4.7-6.1); White Blood Count 6.04 K/uL (4.8-10.8)
[2020-09-19 06:43] LABS: BUN Creatinine Ratio 9.4 (10-20); Calcium 7.8 mg/dl (8.5-10.1); Creatinine Clr Calc Pharmacy 12.1 ml/min; Est GFR (African American) 14.2; Est GFR (Non-African American) 12.3; Potassium 3.7 mmol/L (3.5-5.1)
[2020-09-19] MEDS: TORSEMIDE 100 MG TAB PO SCH (08:47)
[2020-09-19] MEDS: ACETAMINOPHEN 500 MG TAB PO SCH ×3 (08:47→20:04)
[2020-09-19] MEDS: CYANOCOBALAMIN 500 MCG TABLET (VITAMIN B-12) PO SCH (08:47)
--- NOTE | 2020-09-19 13:14 | Nephrology Progress Note ---
Date of Service September 19, 2020 Assessment & Plan (1) ESRD (end stage renal disease) on dialysis: now ESRD after he was 09/10 admitted with volume overload, HTN urgency, creat 4.1. 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 previous baseline creatinine had been low 3's. Both creatinine and BUN are worsening (prior to starting dialysis which is reflected in today's labs) but thankfully so far no florid uremic symptoms apart from volume overload and uncontrolled hypertension his admission weight was 79.7 (first standing weight): Today's wt not accurate/bedweight -CM in process of arrnaging intake at [facility] >> he is tentatively (not officially) accepted there for next >>>cont lowered torsemide 100 mg po daily -other bp meds as below >>>palliative consult much appreciated -cont fluid/sodium limits >>likely treatment tomorrow after HD cath issues addressed > if runs ok, he could be d/c thereafter Present on Admission?: Yes (2) Hypertensive urgency: -with volume overload; past resistant HTN but in past year has weaned off all OP meds. SBP improved today > presented in 200s; goal is sbp 1340s-150s. recheck CXR still w/ BL L>R pl effusions and mild congestion -BP acceptably controlled today on amlodipine and torsemide (3) Anemia of chronic disease: followed in past / [facility] general surgery Dr Cole (though last note I see in Epic is 2017): plan was for 6 mo f/u at that time. follows w/ anemia clinic as OP through our office -recommend he reest / [facility] or [facility] >> may need further f/u/ scopes after remote colon ca; he struggles w/ travel so local in [place] may be better -trend hgb -started venofer load; gave epo 10K on tx (4) Complications, dialysis, catheter, mechanical: extremely positional; treatment cut short today after 1.5 hrs b/c of so many alarms, added time; also w/ bleeding > will ask vascular to reassess on 09/20 (5) Thrombocytopenia: plts dropped from 140> 86>81; he had heparin yesterday w/ tx, none on first tx or today; hospitalist aware -daily cbc; hold further heparin; low threshold for HIT panel Admission and Anticipated Discharge Date Admission Date: September 09, 2020 Subjective no dressing changes needed on TDC this am; constipated; else no concerns; + abmulation w/o asst Review of Systems Review of Systems: All systems reviewed & are unremarkable except as noted in Subjective Physical Exam Constitutional: well developed, well nourished and cooperative; no acute distr ess Eyes: EOM intact bilaterally ENMT: Ears: no external ear abnormality Nose: no external nose abnormality Mouth: + dry oral mucous membranes Neck: no nuchal rigidity Respiratory: normal respiratory effort and able to speak in complete sentences Auscultation: lungs clear to auscultation bilaterally Cardiovascular: Rate/Rhythm: regular rate and regular rhythm Extremities: no edema Gastrointestinal (Abdomen): Inspection/Auscultation: normal bowel sounds Percussion/Palpation: abdomen soft; abdomen nontender Musculoskeletal: Extremities: strength 5/5 throughout Skin: no rashes, warm and dry Neurologic: fernandez, fluent speech, no tremor, amb w/o asst Psychiatric: Orientation: alert and oriented x 3 Speech: normal rate/rhythm/volume of speech Genitourinary: carlson w/ ample urine Results & Data ([facility]) Vital Signs (Past 12 Hours) Vital Signs Temp Pulse Pulse Resp BP Pulse Ox 09/19/20 11:57 36.4 C L 69 18 160/55 H 97 09/19/20 07:20 36.8 C 68 17 139/53 L 96 09/19/20 04:06 37.0 C 63 18 145/67 H 95 Laboratory Results 09/19/20 05:52 09/19/20 05:52
--- NOTE | 2020-09-19 15:34 | Hospitalist Progress Note ---
Date of Service September 19, 2020 Assessment & Plan (1) Acute kidney injury superimposed on chronic kidney disease: Patient is an 85 yr male with H/O CKD IV, BPH and urinary retention with Malagon catheter in place, anemia of chronic disease, history of colon cancer status post right colectomy, dyslipidemia and other medical problems as below who presents with dyspnea on exertion x2 weeks and was found to have DINORAH on CKD and volume overload. DINORAH on CKD IV Now ESRD Volume overload--Resolved Hypertensive urgency Baseline creatinine low threes Cr:5.8>4.9>4.1 CXR with pleural effusions L>R with bibasilar consolidation and cardiomegaly with prominence of the pulmonary vasculature. IV Lasix transition to torsemide 100 mg daily Volume status managed through dialysis Appreciate nephrology/vascular surgery input Continue fluid, sodium restriction Continue dialysis as per Nephrology Received Venofer, Epo Has bleeding issues at catheter site--Heparin SQ held, Monitor H&H Will need Vascular to re-eval Catheter tomorrow Needs Outpatient dialysis arranged prior to discharge Renal function stable (2) CKD (chronic kidney disease), stage IV: Management as above (3) Volume overload: In setting of DINORAH on CKD --TTE obtained -LV wall motion is normal. EF 55 to 60%. Mild concentric LVH. Mild mitral regurg. Mild tricuspid regurg. Moderate pulmonary hypertension is present. Pulmonary artery systolic pressure estimated to be 50 to 55 mmHg. Grade 2 diastolic dysfunction. --CXR with pleural effusions L>R with bibasilar consolidation and cardiomegaly with prominence of the pulmonary vasculature BNP >30,000 Saturating well on room air Volume status managed with diuretics/HD Monitor I's and O's, daily weight Continue Torsemide (4) Hypertensive urgency: Was weaned off of antihypertensives in the past year Continue amlodipine Coreg discontinued monitor Chronic Thrombocytopenia Heparin discontinued Monitor NSVT Asymptomatic Echo as above Monitor and replace electrolytes as needed Appreciate cardiology input Coreg DCed, BP relatively low intermittently Restart BB if needed (5) BPH (benign prostatic hyperplasia): (6) Urinary retention: Malagon catheter in place (7) Dyslipidemia: Continue statin (8) Anemia of chronic disease: Follows with Nephro /anemia clinic Negative FOBT Hb Stable Received Venofer, Epo DVT Px: SCDs re: Bleeding Cath site, Anemia, Thrombocytopenia Code status: FULL PCP: Dr. Brown Disposition: Plan to return home once medically stable. Admission and Anticipated Discharge Date Admission Date: September 09, 2020 Subjective Patient is a and examined at bedside States having some pain at catheter site Denies chest pain, dyspnea, dizziness, nausea, abdominal pain Offers no other complaints Review of Systems Review of Systems: All systems reviewed & are unremarkable except as noted in HPI & below Physical Exam Physical Exam: Physical Exam: Vitals signs as noted above General Appearance:Moderately built and nourished, no apparent distress Head: normocephalic, Atraumatic Eyes: normal inspection, EOMI Neck: supple, Trachea midline Respiratory/Chest: Normal breath sounds, CTA Cardiovascular: S1, S2, No murmur Abdomen/GI:Soft, Non tender, Bowel sounds present Extremities/Musculoskelatal:normal inspection, no edema Neurologic/Psych:AAOX3, grossly no focal neurological deficits Skin: normal color, warm Results & Data Results & Data ([facility]) Vital Signs (Past 12 Hours) Vital Signs Temp Pulse Pulse Resp BP Pulse Ox 09/19/20 15:13 36.7 C 65 18 137/58 L 99 09/19/20 11:57 36.4 C L 69 18 160/55 H 97 09/19/20 07:20 36.8 C 68 17 139/53 L 96 09/19/20 04:06 37.0 C 63 18 145/67 H 95 Laboratory Results Short CBC 09/19/20 Range/Units 05:52 WBC 6.04 (4.8-10.8) K/uL Hgb 8.6 L (14.0-18.0) g/dL Hct 26.0 L (42-52) % Plt Count 81 L (130-400) K/uL BMP 09/19/20 05:52 Sodium 139 Potassium 3.7 Chloride 103 Carbon Dioxide 29 BUN 39 H Creatinine 4.18 H Glucose 93 Calcium 7.8 L
[2020-09-19] MEDS: ROSUVASTATIN CALCIUM 20 MG TAB PO SCH (20:04)
[2020-09-19] MEDS: amLODIPine BESYLATE 5 MG TAB PO SCH (20:04)
[2020-09-20] MEDS: POLYETHYLENE (MIRALAX) 17 GM PACK PO PRN (05:34)
[2020-09-20 07:14] LABS: Hematocrit (blood only) 27.8 % (42-52); Hemoglobin 9.1 g/dL (14.0-18.0); Mean Corpuscular Hemoglobin 31.6 pg (25-34); Mean Corpuscular Hgb Conc 32.7 g/dL (32-36); Mean Corpuscular Volume 96.5 fL (80-100); Mean Platelet Volume 11.7 fL (7.4-10.4); Platelet Count 103 K/uL (130-400); RDW Coefficient of Variation 13.4 % (11.5-14.5); RDW Standard Deviation 46.5 fL (36.4-46.3); Red Blood Count 2.88 M/uL (4.7-6.1); White Blood Count 7.77 K/uL (4.8-10.8)
[2020-09-20 08:00] LABS: Potassium 4.1 mmol/L (3.5-5.1)
[2020-09-20 08:04] LABS: BUN Creatinine Ratio 9.2 (10-20); Creatinine Clr Calc Pharmacy 9.8 ml/min; Est GFR (Non-African American) 9.5
[2020-09-20] MEDS: TORSEMIDE 100 MG TAB PO SCH (08:21)
[2020-09-20] MEDS: CYANOCOBALAMIN 500 MCG TABLET (VITAMIN B-12) PO SCH (08:21)
[2020-09-20] MEDS: ACETAMINOPHEN 500 MG TAB PO SCH ×3 (08:22→23:30)
--- NOTE | 2020-09-20 11:19 | Progress Notes ---
DATE: 09/20/2020 NEPHROLOGY PROGRESS NOTE SUBJECTIVE: No new symptoms overnight. His last dialysis was complicated by nonfunctioning catheter. It kept alarming a lot and dialysis was shortened by about an hour and a half. Denies any nausea, vomiting, or shortness of breath. OBJECTIVE: VITAL SIGNS: Blood pressure 134/84, pulse rate 69, temperature 36.9, 97% on room air. HEENT: Mucous membranes moist. NECK: Supple. No jugular venous distention. CHEST: Bilaterally clear to auscultation. CARDIOVASCULAR: S1, S2 regular. ABDOMEN: Soft, nontender. EXTREMITIES: Show no edema. LABORATORY TEST: From this morning shows creatinine went up to 5.18 from yesterday. BUN is 49. Otherwise, no electrolyte issues. Hemoglobin is 9.1, platelet count went up to 103. ASSESSMENT AND PLAN: An 85-year-old male with chronic kidney disease IV, now admitted with acute on chronic renal failure and has been declared as end-stage renal disease. End-stage renal disease: He had dialysis on 09/16 and then attempted on 09/18 again. At this time, there are significant issues with the catheter not working properly. Given this, I would like to try dialysis again, but we will be using a TPA to help dissolve the micro clot if any. We will also check heparin-associated antibody to know for sure whether he has a heparin-induced thrombocytopenia or not. Given that the heparin count went up from yesterday, I do not really think he has heparin-induced thrombocytopenia syndrome. RADD
[2020-09-20] MEDS ORDERED: ALTEPLASE, RECOMBINANT 1 MG/ML 2ML VIAL INSTIL ONE (13:30)
--- NOTE | 2020-09-20 17:59 | Hospitalist Progress Note ---
Date of Service September 20, 2020 Assessment & Plan (1) Acute kidney injury superimposed on chronic kidney disease: Patient is an 85 yr male with H/O CKD IV, BPH and urinary retention with Malagon catheter in place, anemia of chronic disease, history of colon cancer status post right colectomy, dyslipidemia and other medical problems as below who presents with dyspnea on exertion x2 weeks and was found to have DINORAH on CKD and volume overload. DINORAH on CKD IV Now ESRD Volume overload--Resolved Hypertensive urgency Baseline creatinine low threes Cr:5.8>4.9>4.1>5.18 CXR with pleural effusions L>R with bibasilar consolidation and cardiomegaly with prominence of the pulmonary vasculature. IV Lasix transition to torsemide 100 mg daily Volume status managed through dialysis and diuretics Appreciate nephrology/vascular surgery input Continue fluid, sodium restriction Continue dialysis as per Nephrology Received Venofer, Epo Has bleeding issues at catheter site--Heparin SQ held, Monitor H&H Outpatient dialysis arranged prior to discharge Vascular surgery was requested to reevaluate for catheter malfunction Nephrology follow (2) CKD (chronic kidney disease), stage IV: Management as above (3) Volume overload: In setting of DINORAH on CKD --TTE obtained -LV wall motion is normal. EF 55 to 60%. Mild concentric LVH. Mild mitral regurg. Mild tricuspid regurg. Moderate pulmonary hypertension is present. Pulmonary artery systolic pressure estimated to be 50 to 55 mmHg. Grade 2 diastolic dysfunction. --CXR with pleural effusions L>R with bibasilar consolidation and cardiomegaly with prominence of the pulmonary vasculature BNP >30,000 Saturating well on room air Volume status managed with diuretics/HD Monitor I's and O's, daily weight Continue Torsemide (4) Hypertensive urgency: Was weaned off of antihypertensives in the past year Continue amlodipine Coreg discontinued monitor Chronic Thrombocytopenia Heparin discontinued Platelet count better today Monitor NSVT Asymptomatic Echo as above Monitor and replace electrolytes as needed Appreciate cardiology input Coreg DCed, BP relatively low intermittently Restart BB if needed (5) BPH (benign prostatic hyperplasia): (6) Urinary retention: Malagon catheter in place (7) Dyslipidemia: Continue statin (8) Anemia of chronic disease: Follows with Nephro /anemia clinic Negative FOBT Hb Stable Received Venofer, Epo DVT Px: SCDs re: Bleeding Cath site, Anemia, Thrombocytopenia Code status: FULL PCP: Dr. Brown Disposition: Plan to return home once medically stable. Admission and Anticipated Discharge Date Admission Date: September 09, 2020 Subjective Patient is a and examined at bedside Discussed about malfunctioning catheter with vascular surgery today Patient had persistent discomfort at catheter site Denies chest pain, dyspnea, dizziness, nausea, abdominal pain Review of Systems Review of Systems: All systems reviewed & are unremarkable except as noted in HPI & below Physical Exam Physical Exam: Physical Exam: Vitals signs as noted above General Appearance:Moderately built and nourished, no apparent distress Head: normocephalic, Atraumatic Eyes: normal inspection, EOMI Neck: supple, Trachea midline Respiratory/Chest: Normal breath sounds, CTA Cardiovascular: S1, S2, No murmur Abdomen/GI:Soft, Non tender, Bowel sounds present Extremities/Musculoskelatal:normal inspection, no edema Neurologic/Psych:AAOX3, grossly no focal neurological deficits Skin: normal color, warm Results & Data Results & Data ([facility]) Vital Signs (Past 12 Hours) Vital Signs Temp Pulse Pulse Resp BP BP Pulse Ox 09/20/20 17:47 36.9 C 69 157/73 H 09/20/20 17:46 64 147/71 H 09/20/20 17:20 68 138/67 09/20/20 17:00 70 139/65 09/20/20 16:40 69 109/64 09/20/20 16:20 67 132/66 09/20/20 16:00 67 129/59 L 09/20/20 15:40 67 104/60 09/20/20 15:20 65 94/48 L 09/20/20 15:00 69 102/55 L 09/20/20 14:40 72 126/62 09/20/20 14:27 73 166/74 H 09/20/20 14:20 36.9 C 72 09/20/20 11:05 36.9 C 73 19 157/65 H 98 09/20/20 07:12 36.9 C 69 19 134/84 97 Laboratory Results Short CBC 09/20/20 Range/Units 06:52 WBC 7.77 (4.8-10.8) K/uL Hgb 9.1 L (14.0-18.0) g/dL Hct 27.8 L (42-52) % Plt Count 103 L (130-400) K/uL BMP 09/20/20 06:52 Sodium 137 Potassium 4.1 Chloride 102 Carbon Dioxide 26 BUN 49 H Creatinine 5.18 H* D Glucose 166 H Calcium 8.0 L
[2020-09-20] MEDS: ROSUVASTATIN CALCIUM 20 MG TAB PO SCH (20:53)
[2020-09-20] MEDS: amLODIPine BESYLATE 5 MG TAB PO SCH (20:53)
[2020-09-21 07:13] LABS: Hematocrit (blood only) 26.7 % (42-52); Hemoglobin 8.9 g/dL (14.0-18.0); Mean Corpuscular Hemoglobin 31.9 pg (25-34); Mean Corpuscular Hgb Conc 33.3 g/dL (32-36); Mean Corpuscular Volume 95.7 fL (80-100); Mean Platelet Volume 12.1 fL (7.4-10.4); Platelet Count 95 K/uL (130-400); RDW Coefficient of Variation 13.5 % (11.5-14.5); Red Blood Count 2.79 M/uL (4.7-6.1); White Blood Count 6.12 K/uL (4.8-10.8)
[2020-09-21 07:40] LABS: BUN Creatinine Ratio 8.9 (10-20); Creatinine Clr Calc Pharmacy 13.2 ml/min; Est GFR (African American) 15.8; Est GFR (Non-African American) 13.7; Magnesium 2.4 mg/dl (1.8-2.4); Potassium 3.7 mmol/L (3.5-5.1)
[2020-09-21] MEDS: TORSEMIDE 100 MG TAB PO SCH (08:00)
[2020-09-21] MEDS: ACETAMINOPHEN 500 MG TAB PO SCH ×3 (08:00→22:05)
[2020-09-21] MEDS: CYANOCOBALAMIN 500 MCG TABLET (VITAMIN B-12) PO SCH (08:00)
--- NOTE | 2020-09-21 10:17 | Progress Notes ---
DATE: 09/21/2020 NEPHROLOGY PROGRESS NOTE SUBJECTIVE: Overnight, no new issues. He had dialysis yesterday with his current dialysis catheter without any problem at all. However, he did get TPA prior to dialysis. We still did not give heparin. Denies any nausea, vomiting, chest pain, shortness of breath. OBJECTIVE: VITAL SIGNS: Blood pressure 152/66, pulse rate 67, temperature 37, 95% on room air. HEENT: Mucous membranes moist. NECK: Supple. No jugular venous distention. CHEST: Bilateral clear to auscultation. CARDIOVASCULAR: S1, S2 regular. ABDOMEN: Soft, nontender. EXTREMITIES: Shows no edema. LABORATORY TESTS: From this morning was reviewed, shows BUN is down to 34, creatinine is 3.83. Normal electrolytes. Platelet count is still low at 95,000, but is relatively stable for the last 4 days. ASSESSMENT AND PLAN: An 85-year-old male with chronic kidney disease stage 4, now admitted with acute on chronic renal failure and has been declared as end-stage renal disease. End-stage renal disease: He had dialysis yesterday without significant problem after using TPA. His heparin is low, but stable and we did send for heparin antibody which is still pending. However, I do not feel this is a case of HIT antibody syndrome, but we will continue to hold heparin until we had the antibody results back. RECOMMENDATIONS: We will plan for dialysis tomorrow through his current dialysis catheter. If there is no problem, he can be discharged with outpatient dialysis in [place] on a TTS schedule.
--- NOTE | 2020-09-21 15:21 | Hospitalist Progress Note ---
Date of Service September 21, 2020 Assessment & Plan (1) Acute kidney injury superimposed on chronic kidney disease: Patient is an 85 yr male with H/O CKD IV, BPH and urinary retention with Malagon catheter in place, anemia of chronic disease, history of colon cancer status post right colectomy, dyslipidemia and other medical problems as below who presents with dyspnea on exertion x2 weeks and was found to have DINORAH on CKD and volume overload. DINORAH on CKD IV Now ESRD Volume overload--Resolved Hypertensive urgency Baseline creatinine low threes Cr:5.8>4.9>4.1>5.18>3.83 CXR with pleural effusions L>R with bibasilar consolidation and cardiomegaly with prominence of the pulmonary vasculature. IV Lasix transition to torsemide 100 mg daily Volume status managed through dialysis and diuretics Appreciate nephrology/vascular surgery input Continue fluid, sodium restriction Continue dialysis as per Nephrology Received Venofer, Epo Has bleeding issues at catheter site--Heparin SQ held, Monitor H&H Outpatient dialysis arranged prior to discharge Vascular surgery was requested to reevaluate catheter site Patient had HD yesterday with out issues after administration of tpa Planned for repeat HD tomorrow Next dialysis will be on Sunday if patient gets dialyzed tomorrow (2) CKD (chronic kidney disease), stage IV: Management as above (3) Volume overload: In setting of DINORAH on CKD --TTE obtained -LV wall motion is normal. EF 55 to 60%. Mild concentric LVH. Mild mitral regurg. Mild tricuspid regurg. Moderate pulmonary hypertension is present. Pulmonary artery systolic pressure estimated to be 50 to 55 mmHg. Grade 2 diastolic dysfunction. --CXR with pleural effusions L>R with bibasilar consolidation and cardiomegaly with prominence of the pulmonary vasculature BNP >30,000 Saturating well on room air Volume status managed with diuretics/HD Monitor I's and O's, daily weight Continue Torsemide (4) Hypertensive urgency: Was weaned off of antihypertensives in the past year Continue amlodipine Coreg discontinued monitor Chronic Thrombocytopenia Heparin discontinued Platelet count better today Monitor NSVT Asymptomatic Echo as above Monitor and replace electrolytes as needed Appreciate cardiology input Coreg DCed, BP relatively low intermittently Restart BB if needed (5) BPH (benign prostatic hyperplasia): (6) Urinary retention: Malagon catheter in place (7) Dyslipidemia: Continue statin (8) Anemia of chronic disease: Follows with Nephro /anemia clinic Negative FOBT Hb Stable Received Venofer, Epo DVT Px: SCDs re: Bleeding Cath site, Anemia, Thrombocytopenia Code status: FULL PCP: Dr. Brown Disposition: Plan to return home once medically stable. Admission and Anticipated Discharge Date Admission Date: September 09, 2020 Subjective Patient is seen and examined at bedside Had used dialysis catheter after tPA for HD yesterday without issues Discussed with Nephrology today Reports mild discomfort at catheter site Denies chest pain, dyspnea, dizziness, nausea, abdominal pain Planned for repeat HD tomorrow Review of Systems Review of Systems: All systems reviewed & are unremarkable except as noted in HPI & below Physical Exam Physical Exam: Physical Exam: Vitals signs as noted above General Appearance:Moderately built and nourished, no apparent distress Head: normocephalic, Atraumatic Eyes: normal inspection, EOMI Neck: supple, Trachea midline Respiratory/Chest: Normal breath sounds, CTA Cardiovascular: S1, S2, No murmur Abdomen/GI:Soft, Non tender, Bowel sounds present Extremities/Musculoskelatal:normal inspection, no edema Neurologic/Psych:AAOX3, grossly no focal neurological deficits Skin: normal color, warm Results & Data Results & Data ([facility]) Vital Signs (Past 12 Hours) Vital Signs Temp Pulse Pulse Resp BP BP Pulse Ox 09/21/20 13:40 37.0 C 75 16 149/75 H 100 09/21/20 07:07 37.0 C 67 17 152/66 H 95 09/21/20 04:01 36.6 C 67 16 145/73 H 94 Laboratory Results Short CBC 09/21/20 Range/Units 06:49 WBC 6.12 (4.8-10.8) K/uL Hgb 8.9 L (14.0-18.0) g/dL Hct 26.7 L (42-52) % Plt Count 95 L (130-400) K/uL BMP 09/21/20 06:49 Sodium 140 Potassium 3.7 Chloride 103 Carbon Dioxide 32 BUN 34 H Creatinine 3.83 H D Glucose 95 Calcium 8.0 L
[2020-09-21] MEDS: amLODIPine BESYLATE 5 MG TAB PO SCH (22:05)
[2020-09-21] MEDS: ROSUVASTATIN CALCIUM 20 MG TAB PO SCH (22:05)
[2020-09-22] MEDS ORDERED: SODIUM CHLORIDE 0.9% 1000ML 1,000 ML IV PRN (07:00)
[2020-09-22 07:54] LABS: Hematocrit (blood only) 26.6 % (42-52); Hemoglobin 8.9 g/dL (14.0-18.0); Mean Corpuscular Hemoglobin 32.1 pg (25-34); Mean Corpuscular Hgb Conc 33.5 g/dL (32-36); Mean Platelet Volume 12.4 fL (7.4-10.4); Platelet Count 128 K/uL (130-400); RDW Coefficient of Variation 13.7 % (11.5-14.5); RDW Standard Deviation 47.4 fL (36.4-46.3); Red Blood Count 2.77 M/uL (4.7-6.1); White Blood Count 7.32 K/uL (4.8-10.8)
[2020-09-22 08:41] LABS: BUN Creatinine Ratio 9.3 (10-20); Calcium 8.6 mg/dl (8.5-10.1); Creatinine Clr Calc Pharmacy 9.6 ml/min; Est GFR (African American) 10.8; Est GFR (Non-African American) 9.3; Magnesium 2.4 mg/dl (1.8-2.4); Potassium 4.2 mmol/L (3.5-5.1)
[2020-09-22] MEDS: TORSEMIDE 100 MG TAB PO SCH (08:50)
[2020-09-22] MEDS: CYANOCOBALAMIN 500 MCG TABLET (VITAMIN B-12) PO SCH (08:51)
[2020-09-22] MEDS: ACETAMINOPHEN 500 MG TAB PO SCH ×3 (08:51→20:37)
--- NOTE | 2020-09-22 08:56 | Urology Consultation ---
Date of Consultation September 22, 2020 Assessment & Plan (1) Urinary retention: (2) BPH (benign prostatic hyperplasia): (3) Acute kidney injury superimposed on chronic kidney disease: 85 year-old male patient, with multiple comorbidities, admitted September 09 with acute kidney injury on CKD and volume overload. -Plan of care reviewed with Dr. Nails. -Patient with prior chronic indwelling carlson catheter since September 2019 due to urinary retention. -During attempt for catheter exchange, nursing unable to replace carlson catheter. -He is afebrile. -Labs reviewed - white count normal, creatinine elevated. Patient undergoing dialysis during admission. -Urinalysis nitrate positive on 09/09, culture with high counts of multiple organisms, repeat culture now. -Will check PSA. -Start Finasteride, 5 mg daily - side effects of medication discussed. -Given spontaneous void after catheter removal with acceptable PVR, okay to continue with trial of void. -Recommend bladder scan Q shift and PRN bladder pain/pressure. -If patient symptomatic and/or PVR >400 cc, recommend reinsertion of carlson catheter. -Will continue to follow while inpatient. Supervising Physician Co-Signing Physician Notes Pt appears to be voiding . Agree with above plan. Follow psa and start finasteride . History of Present Illness Reason for Consultation: Difficult carlson catheter placement Attending Physician: Joyce Wick MD History of Present Illness 85 year-old male patient with past medical history of CKD stage 4, history of BPH and urinary retention with chronic catheter, anemia of chronic disease, history of colon cancer status post right colectomy, dyslipidemia and other medical problems as below who was admitted to [facility] on 09/09 with complaints of dyspnea on exertion x2 weeks. Past medical and surgical history reviewed, patient originally had carlson catheter placed in September 2019 after hospitalization where he was found to have DINORAH, bladder obstruction with bilateral hydronephrosis on CT scan. He also had UTI at that time. Carlson catheter was placed and has been maintained with monthly catheter changes since that time. Last evening, patient requested his carlson catheter be exchanged. Catheter removed and nursing was unable to re-insert new carlson catheter. Spoke with nursing who reported they had 3 attempts and met resistance. Urology consulted for evaluation of difficult catheter insertion. Patient known to [facility], followed with Dr. Nails last in in August 2020. Chart review: Afebrile Wbc 7.32 Hgb 8.9 Creatinine 5.26 (previously 3.93). Plans for dialysis today. Urinalysis 3/4 nitrate positive, +1 leukocytes, 5-10 wbc, 5-10 rbc, +1 bacteria. Urine culture 3/ with more than three types of organisms present, all high counts. No imaging to review during this admission. Patient seen and examined at bedside. He is alert, awake, comfortable. Sitting up eating breakfast. States he did not wake up overnight to urinate. Has been voiding spontaneously since catheter removal. Does state home health was changing his catheters on a monthly basis prior to admission. Did note some hematuria once with his first void after catheter attempts x3 but states this has since resolved. Denies dysuria. Denies urinary frequency/urgency. Feels his bladder is currently empty. Denies bladder pain or pressure. Denies abdominal or flank pain. No associated fevers or chills. Denies nausea or vomiting. Spoke with nursing who reported his most recent bladder scan overnight was 90 cc urine. Plans for dialysis today. Denies additional urologic concerns today. Allergies Allergy/AdvReac Type Severity Reaction Status Date / Time No Known Allergies Allergy Unverified 09/09/20 13:50 Home Medications Medication Instructions Recorded Confirmed Type rosuvastatin [Crestor] 20 mg PO HS 02/26/19 09/09/20 History acetaminophen [Tylenol Extra 500 mg PO TID 09/09/20 09/09/20 History Strength] cyanocobalamin (vitamin B-12) 1,000 mcg PO QAM 09/09/20 09/09/20 History [Vitamin B-12] sodium bicarbonate 650 mg PO BID 09/09/20 09/09/20 History Patient History Medical History Anemia of chronic disease CKD (chronic kidney disease), stage IV Colon cancer Dyslipidemia Carlson catheter in place Hyperlipemia Urinary retention Surgical History Hx of tonsillectomy S/P right colectomy Family History Other Colorectal cancer Kidney disease Social History Smoking Status: Former smoker Years Smoked: 22; Smoking End Date: 1975; Hx Alcohol Use: No Hx Substance Use: No Preferred Language: Kuwaiti Communication Ability: Effective Field Marketing Director Required: No Beliefs That Will Affect Care: None marital status: / Current Living Situation: Alone Feels Safe at Home: Yes Assistive Devices: Denture - Upper and Denture - Lower Review of Systems Constitutional: as per Subjective / HPI; no fever and no chills Eyes: no problem reported Ear, Nose, Mouth, Throat: no dizziness Respiratory: no cough and no dyspnea Cardiovascular: no chest pain and no edema Gastrointestinal: as per Subjective / HPI; no nausea and no vomiting Genitourinary: + as per Subjective / HPI Musculoskeletal: as per Subjective / HPI Neurologic: no dizziness Endocrine: no fatigue Hematologic / Lymphatic: no easy bleeding and no easy bruising Physical Exam Constitutional: well developed and well nourished; no acute distress and not ill appearing ENMT: Ears: no external ear abnormality Nose: no external nose abnormality Neck: normal visual inspection and trachea midline Respiratory: normal respiratory effort and able to speak in complete sentences; no respiratory distress and no audible wheezes Cardiovascular: Extremities: no calf tenderness and no edema Gastrointestinal (Abdomen): Inspection/Auscultation: abdomen normal to inspection; abdomen not distended Percussion/Palpation: abdomen soft; abdomen nontender and no guarding Musculoskeletal: Moves all extremities without difficulty. Skin: No visible rashes, lesions, or wounds noted. Neurologic: moves all extremities and awake Psychiatric: Orientation: alert, oriented x 3 and cooperative Affect: euthymic affect Genitourinary: no CVA tenderness Uncircumcised. No penile abnormality on exam. Results & Data ([facility]) Vital Signs (Past 12 Hours) Vital Signs Temp Pulse Resp BP BP Pulse Ox 09/22/20 07:10 36.8 C 68 18 119/68 96 09/21/20 22:00 37.0 C 69 16 145/65 H 97 PG Care Time/CCT Total # of Minutes Spent Total Time Spent with Patient: Total time spent is greater than 50% in coordination of care (as documented) at patient's floor/unit and/or counseling patient: Coding Level of Care Code 75183 Initial Inpt Care Lvl 3 Diagnoses Urinary retention R33.9 BPH (benign prostatic hyperplasia) N40.0 Acute kidney injury superimposed on chronic kidney disease N17.9; N18.9
--- NOTE | 2020-09-22 10:22 | Dialysis Progress Note ---
Date of Service September 22, 2020 Assessment & Plan Admission and Anticipated Discharge Date Admission Date: September 09, 2020 Subjective NEPHROLOGY DIALYSIS NOTE SUBJECTIVE: Seen during Dialysis. dialysis catheter without any problem but is positional. Denies any nausea, vomiting, chest pain, shortness of breath. OBJECTIVE: HEENT: Mucous membranes moist. NECK: Supple. No jugular venous distention. CHEST: Bilateral clear to auscultation. CARDIOVASCULAR: S1, S2 regular. ABDOMEN: Soft, nontender. EXTREMITIES: Shows no edema. LABORATORY TESTS: reviewed. ASSESSMENT AND PLAN: An 85-year-old male with chronic kidney disease stage 4, now admitted with acute on chronic renal failure and has been declared as end-stage renal disease. End-stage renal disease: Conitnue Dialysis as per orders. 3hrs 1/2 kilo off. His heparin is low, but stable and we did send for heparin antibody which is still pending. However, I do not feel this is a case of HIT antibody syndrome, but we will continue to hold heparin until we had the antibody results back. RECOMMENDATIONS: He can be discharged with outpatient dialysis in [place] on a TTS schedule. Next Dialysis Can be Sunday. No heparin till HIT antibody back Results & Data ([facility]) Vital Signs (Past 12 Hours) Vital Signs Temp Pulse Pulse Pulse Resp BP BP 09/22/20 10:00 79 100/49 L 09/22/20 09:40 79 98/57 L 09/22/20 09:25 79 143/64 H 09/22/20 09:20 36.9 C 79 09/22/20 07:10 36.8 C 68 18 119/68 Pulse Ox 09/22/20 10:00 09/22/20 09:40 09/22/20 09:25 09/22/20 09:20 09/22/20 07:10 96
[2020-09-22 13:48] LABS: Plt Ab, Heparin Induced Negative (Negative)
--- NOTE | 2020-09-22 16:32 | Hospitalist Progress Note ---
Date of Service September 22, 2020 Assessment & Plan (1) Acute kidney injury superimposed on chronic kidney disease: Patient is an 85 yr male with H/O CKD IV, BPH and urinary retention with Malagon catheter in place, anemia of chronic disease, history of colon cancer status post right colectomy, dyslipidemia and other medical problems as below who presents with dyspnea on exertion x2 weeks and was found to have DINORAH on CKD and volume overload. DINORAH on CKD IV Now ESRD Volume overload/Hypertensive urgency-solved after starting on dialysis Appreciate nephrology/vascular surgery input-status post dialysis catheter placed during this hospital admission Continue fluid, sodium restriction Continue dialysis as per Nephrology Received Venofer, Epo Patient will need continued/chronic dialysis, appreciate case management input for outpatient dialysis set up (2) CKD (chronic kidney disease), stage IV: Management as above (3) Volume overload: In setting of DINORAH on CKD -symptom corrected after dialysis --TTE obtained -LV wall motion is normal. EF 55 to 60%. Mild concentric LVH. Mild mitral regurg. Mild tricuspid regurg. Moderate pulmonary hypertension is present. Pulmonary artery systolic pressure estimated to be 50 to 55 mmHg. Grade 2 diastolic dysfunction. --CXR with pleural effusions L>R with bibasilar consolidation and cardiomegaly w ith prominence of the pulmonary vasculature BNP >30,000 Saturating well on room air Volume status managed with diuretics/HD Monitor I's and O's, daily weight Continue Torsemide (4) Hypertensive urgency: Due to volume overload/renal failure, Blood pressure improved after dialysis Continue amlodipine Chronic Thrombocytopenia Heparin discontinued NSVT Asymptomatic Echo as above Appreciate cardiology input Coreg DCed, BP relatively low intermittently (5) BPH (benign prostatic hyperplasia): (6) Urinary retention: Malagon catheter in place Appreciate your input from urology (7) Dyslipidemia: Continue statin (8) Anemia of chronic disease: Follows with Nephro /anemia clinic Negative FOBT Hb Stable Received Venofer, Epo DVT Px: SCDs re: Bleeding Cath site, Anemia, Thrombocytopenia Code status: FULL PCP: Dr. Brown Disposition: Plan to discharge home when medically stable outpatient dialysis set up done patient will need continued follow-up with nephrology and urology in the clinic Admission and Anticipated Discharge Date Admission Date: September 09, 2020 Subjective Patient is seen and examined at bedside Underwent dialysis today without any complication, Patient offers no new complain no fever or chills no shortness of breath or ort hopnea Review of Systems Review of Systems: All systems reviewed & are unremarkable except as noted in Subjective Physical Exam Physical Exam: Physical Exam Constitutional :well developed and well nourished; no acute distress and not ill appearing Respiratory :normal respiratory effort and able to speak in complete sentences; no respiratory distress and no audible wheezes Gastrointestinal (Abdomen) :Inspection/Auscultation: abdomen normal to inspection; abdomen not distended Psychiatric :Orientation: alert, oriented x 3 and cooperative Affect: euthymic affect Genitourinary :no CVA tenderness Malagon catheter intact draining clear yellow urine with pink sediment. Constitutional: well developed and well nourished; no acute distress and not ill appearing Respiratory: normal respiratory effort and able to speak in complete sentences; no respiratory distress and no audible wheezes Gastrointestinal (Abdomen): Inspection/Auscultation: abdomen normal to inspection; abdomen not distended Percussion/Palpation: abdomen soft; abdomen nontender and no guarding Psychiatric: Orientation: alert, oriented x 3 and cooperative Affect: euthymic affect Genitourinary: no CVA tenderness Malagon catheter intact draining clear yellow urine with pink sediment. Results & Data Results & Data ([facility]) Vital Signs (Past 12 Hours) Vital Signs Temp Pulse Pulse Pulse Resp BP BP 09/22/20 16:06 37.1 C 82 18 116/54 L 09/22/20 12:54 37.1 C 76 124/68 09/22/20 12:00 70 121/57 L 09/22/20 11:40 72 129/60 09/22/20 11:20 68 105/54 L 09/22/20 11:00 70 112/56 L 09/22/20 10:40 70 97/52 L 09/22/20 10:20 76 91/50 L 09/22/20 10:00 79 100/49 L 09/22/20 09:40 79 98/57 L 09/22/20 09:25 79 143/64 H 09/22/20 09:20 36.9 C 79 09/22/20 07:10 36.8 C 68 18 119/68 Pulse Ox 09/22/20 16:06 95 09/22/20 12:54 09/22/20 12:00 09/22/20 11:40 09/22/20 11:20 09/22/20 11:00 09/22/20 10:40 09/22/20 10:20 09/22/20 10:00 09/22/20 09:40 09/22/20 09:25 09/22/20 09:20 09/22/20 07:10 96
--- NOTE | 2020-09-22 18:19 | Urology Progress Note ---
Date of Service September 22, 2020 Assessment & Plan (1) Urinary retention: leave carlson indwelling and change monthly as before discussed pt status with daughter Admission and Anticipated Discharge Date Admission Date: September 09, 2020 Subjective Pt requested carlson changes and 3 nurses last night could not replace . 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 Nurse practitioner unable to pass a coude today . I came in annd was able to pass a flexible cystoscopy at the bedside but it was not clear if there was a stricture . Got scope into the bladder and passed a 0.35 guide wire and then a [place] tip catheter 14 slovenian over this into the bladder. Psa pending Physical Exam Genitourinary: prostate 40 gram with firmness on the right lateral aspect of the prostate Results & Data ([facility]) Vital Signs (Past 12 Hours) Vital Signs Temp Pulse Pulse Pulse Resp BP BP 09/22/20 16:06 37.1 C 82 18 116/54 L 09/22/20 12:54 37.1 C 76 124/68 09/22/20 12:00 70 121/57 L 09/22/20 11:40 72 129/60 09/22/20 11:20 68 105/54 L 09/22/20 11:00 70 112/56 L 09/22/20 10:40 70 97/52 L 09/22/20 10:20 76 91/50 L 09/22/20 10:00 79 100/49 L 09/22/20 09:40 79 98/57 L 09/22/20 09:25 79 143/64 H 09/22/20 09:20 36.9 C 79 09/22/20 07:10 36.8 C 68 18 119/68 Pulse Ox 09/22/20 16:06 95 09/22/20 12:54 09/22/20 12:00 09/22/20 11:40 09/22/20 11:20 09/22/20 11:00 09/22/20 10:40 09/22/20 10:20 09/22/20 10:00 09/22/20 09:40 09/22/20 09:25 09/22/20 09:20 09/22/20 07:10 96 PG Care Time/CCT Total # of Minutes Spent Total Time Spent with Patient: Total time spent is greater than 50% in coordination of care (as documented) at patient's floor/unit and/or counseling patient: Coding Level of Care Code 73810 Subseq Hosp Care Lvl 3 Diagnoses Urinary retention R33.9 Time Spent (min) 70 Comment used cystoscope and wire to place carlson urgently
[2020-09-22] MEDS: ROSUVASTATIN CALCIUM 20 MG TAB PO SCH (20:37)
[2020-09-22] MEDS: amLODIPine BESYLATE 5 MG TAB PO SCH (20:37)
--- NOTE | 2020-09-23 08:21 | Urology Progress Note ---
Date of Service September 23, 2020 Assessment & Plan (1) Urinary retention: (2) BPH (benign prostatic hyperplasia): (3) Acute kidney injury superimposed on chronic kidney disease: 85 year-old male patient, with multiple comorbidities, admitted September 09 with acute kidney injury on CKD and volume overload. -Patient with prior chronic indwelling carlson catheter since September 2019 due to urinary retention. -Catheter re-inserted 09/[address] Nails, now intact and draining. -He is afebrile. -Urinalysis nitrate positive on 09/09, culture with high counts of multiple organisms. -Repeat urine culture pending, treat if indicated. -PSA 3.190, reviewed results with patient. -Continue Finasteride as directed. -Recommend maintaining carlson catheter on discharge, will plan for monthly catheter changes as outpatient. -Will arrange follow-up with urology service as outpatient for continued care. -Expected clinical course reviewed with patient, all questions answered. Thank you for allowing us to participate in the acute care of Mr. Iverson. Please reconsult us with additional questions, concerns or changes in patient status. Admission and Anticipated Discharge Date Admission Date: September 09, 2020 Subjective Patient seen and examined at bedside. He is alert, awake, comfortable. Carlson catheter was placed last night by Dr. Nails. Tolerating catheter well. Carlson patent, draining clear yellow urine with pink sediment. Denies dysuria, noted some pink urine last evening. Denies bladder pain or pressure. Denies abdominal or flank pain. No associated fevers or chills. Denies nausea or vomiting. Overall, feeling better from standpoint. Chart review: Afebrile. Labs 08/25 - Wbc 7.32 Hgb 8.9 Creatinine 5.26 - dialysis completed 09/22 PSA 3.190 Urine culture pending. Denies additional urologic concerns today. Review of Systems Constitutional: as per Subjective / HPI; no fever and no chills Gastrointestinal: as per Subjective / HPI; no nausea and no vomiting Genitourinary: + as per Subjective / HPI Physical Exam Constitutional: well developed and well nourished; no acute distress and not ill appearing Respiratory: normal respiratory effort and able to speak in complete sentences; no respiratory distress and no audible wheezes Gastrointestinal (Abdomen): Inspection/Auscultation: abdomen normal to insp ection; abdomen not distended Percussion/Palpation: abdomen soft; abdomen nontender and no guarding Psychiatric: Orientation: alert, oriented x 3 and cooperative Affect: euthymic affect Genitourinary: no CVA tenderness Carlson catheter intact draining clear yellow urine with pink sediment. Results & Data ([facility]) Vital Signs (Past 12 Hours) Vital Signs Temp Pulse Pulse Resp BP BP Pulse Ox 09/23/20 07:24 36.6 C 77 16 118/52 L 97 09/22/20 23:10 36.9 C 68 17 123/69 96 09/22/20 20:38 74 127/63 PG Care Time/CCT Total # of Minutes Spent Total Time Spent with Patient: Total time spent is greater than 50% in coordination of care (as documented) at patient's floor/unit and/or counseling patient: Coding Level of Care Code 89797 Subseq Hosp Care Lvl 2 Diagnoses Urinary retention R33.9 BPH (benign prostatic hyperplasia) N40.0 Acute kidney injury superimposed on chronic kidney disease N17.9; N18.9
[2020-09-23] MEDS: ACETAMINOPHEN 500 MG TAB PO SCH ×3 (08:56→20:25)
[2020-09-23] MEDS: CYANOCOBALAMIN 500 MCG TABLET (VITAMIN B-12) PO SCH (08:56)
[2020-09-23] MEDS: FINASTERIDE 5 MG TAB PO SCH (08:56)
[2020-09-23] MEDS: TORSEMIDE 100 MG TAB PO SCH (09:58)
--- NOTE | 2020-09-23 18:30 | Hospitalist Progress Note ---
Date of Service September 23, 2020 Assessment & Plan (1) Acute kidney injury superimposed on chronic kidney disease: Patient is an 85 yr male with H/O CKD IV, BPH and urinary retention with Malagno catheter in place, anemia of chronic disease, history of colon cancer status post right colectomy, dyslipidemia and other medical problems as below who presents with dyspnea on exertion x2 weeks and was found to have DINORAH on CKD and volume overload. DINORAH on CKD IV Now ESRD Volume overload/Hypertensive urgency-solved after starting on dialysis Appreciate nephrology/vascular surgery input-status post dialysis catheter placed during this hospital admission Continue fluid, sodium restriction Continue dialysis as per Nephrology Received Venofer, Epo Patient will need continued/chronic dialysis, appreciate case management input for outpatient dialysis set up (2) CKD (chronic kidney disease), stage IV: Management as above (3) Volume overload: In setting of DINORAH on CKD -symptom corrected after dialysis --TTE obtained -LV wall motion is normal. EF 55 to 60%. Mild concentric LVH. Mild mitral regurg. Mild tricuspid regurg. Moderate pulmonary hypertension is present. Pulmonary artery systolic pressure estimated to be 50 to 55 mmHg. Grade 2 diastolic dysfunction. --CXR with pleural effusions L>R with bibasilar consolidation and cardiomegaly w ith prominence of the pulmonary vasculature BNP >30,000 Saturating well on room air Volume status managed with diuretics/HD Monitor I's and O's, daily weight Continue Torsemide (4) Hypertensive urgency: Due to volume overload/renal failure, Blood pressure improved after dialysis Continue amlodipine Chronic Thrombocytopenia Heparin discontinued NSVT Asymptomatic Echo as above Appreciate cardiology input Coreg DCed, BP relatively low intermittently (5) BPH (benign prostatic hyperplasia): (6) Urinary retention: Malagon catheter in place Appreciate your input from urology (7) Dyslipidemia: Continue statin (8) Anemia of chronic disease: Follows with Nephro /anemia clinic Negative FOBT Hb Stable Received Venofer, Epo DVT Px: SCDs re: Bleeding Cath site, Anemia, Thrombocytopenia Code status: FULL PCP: Dr. Brown Disposition: Plan to discharge home tomorrow after dialysis Admission and Anticipated Discharge Date Admission Date: September 09, 2020 Subjective Patient is seen and examined at bedside Patient offers no new complain no fever or chills no shortness of breath or orthopnea Review of Systems Review of Systems: All systems reviewed & are unremarkable except as noted in Subjective Physical Exam Physical Exam: Physical Exam Constitutional :well developed and well nourished; no acute distress and not ill appearing Respiratory :normal respiratory effort and able to speak in complete sentences; no respiratory distress and no audible wheezes Gastrointestinal (Abdomen) :Inspection/Auscultation: abdomen normal to inspection; abdomen not distended Psychiatric :Orientation: alert, oriented x 3 and cooperative Affect: euthymic affect Genitourinary :no CVA tenderness Malagon catheter intact draining clear yellow urine with pink sediment. Results & Data Results & Data ([facility]) Vital Signs (Past 12 Hours) Vital Signs Temp Pulse Resp BP Pulse Ox 09/23/20 15:17 36.8 C 72 18 149/54 H 97 09/23/20 07:24 36.6 C 77 16 118/52 L 97
[2020-09-23] MEDS: amLODIPine BESYLATE 5 MG TAB PO SCH (20:24)
[2020-09-23] MEDS: ROSUVASTATIN CALCIUM 20 MG TAB PO SCH (20:25)
[2020-09-24] MEDS ORDERED: SODIUM CHLORIDE 0.9% 1000ML 1,000 ML IV PRN (07:00)
[2020-09-24] MEDS ORDERED: HEPARIN SOD (PORCINE) 1000 UNIT/ML IV ONE (07:00)
[2020-09-24] MEDS ORDERED: EPOETIN ALFA 10,000 UNITS/ML VIAL IV ONE (07:00)
[2020-09-24] MEDS: ACETAMINOPHEN 500 MG TAB PO SCH ×2 (09:10→14:49)
[2020-09-24] MEDS: CYANOCOBALAMIN 500 MCG TABLET (VITAMIN B-12) PO SCH (09:11)
[2020-09-24] MEDS: FINASTERIDE 5 MG TAB PO SCH (09:11)
[2020-09-24] MEDS: TORSEMIDE 100 MG TAB PO SCH (09:11)
[2020-09-24] MEDS: HEPARIN SOD (PORCINE) 1000 UNIT/ML IV SCH (10:15)
--- NOTE | 2020-09-24 10:32 | Dialysis Progress Note ---
Date of Service September 24, 2020 Assessment & Plan Admission and Anticipated Discharge Date Admission Date: September 09, 2020 Subjective Date of Service September 24, 2020 Assessment & Plan Admission and Anticipated Discharge Date Admission Date: September 09, 2020 Subjective NEPHROLOGY DIALYSIS NOTE SUBJECTIVE: Seen during Dialysis. dialysis catheter working without any problem. Denies any nausea, vomiting, chest pain, shortness of breath. OBJECTIVE: HEENT: Mucous membranes moist. NECK: Supple. No jugular venous distention. CHEST: Bilateral clear to auscultation. CARDIOVASCULAR: S1, S2 regular. ABDOMEN: Soft, nontender. EXTREMITIES: Shows no edema. LABORATORY TESTS: reviewed. ASSESSMENT AND PLAN: An 85-year-old male with chronic kidney disease stage 4, now admitted with acute on chronic renal failure and has been declared as end-stage renal disease. End-stage renal disease: Continue Dialysis as per orders. 4hrs 1/2 to 1 kilo off. His heparin is low, but stable and we did send for heparin antibody which came back negative. We will use heparin today. Also epo 71441 units RECOMMENDATIONS: He can be discharged with outpatient dialysis in [place] on a TTS schedule. Next Dialysis outpt Can be Sunday. Can use heparin Results & Data ([facility]) Vital Signs (Past 12 Hours) Vital Signs Temp Pulse Resp BP Pulse Ox 09/24/20 07:41 37.0 C 68 18 135/65 96
--- NOTE | 2020-09-24 15:37 | Discharge Summary ---
Date of Service September 24, 2020 Admission HPI Per Admitting Provider This is an 85-year-old male with PMH of CKD 4, history of BPH and urinary retention with Malagon catheter in place, anemia of chronic disease, history of colon cancer status post right colectomy, dyslipidemia and other medical problems as below who presents with dyspnea on exertion x2 weeks. Patient has noticed increased difficulty with breathing with activity, but daughter also notices when he is at rest and short of breath talking on the phone. Endorses weight gain and swelling of bilateral ankles as well as dry cough. Has been unable to sleep flat, endorsing orthopnea and PND. Has been sleeping in recliner for the past week. Denies any lightheadedness, headache or chest pain. Has normal urinary output in Malagon bag. No fever or chills. Denies headache, sore throat, palpitations, nausea, vomiting, abdominal pain, dysuria, diarrhea constipation. Was seen earlier today at [facility] but due to hypertension and worsening renal function was sent to ED for further evaluation. Initial BP 200/84. Creatinine 4.19 (recent baseline ~3.3). BUN 59. BNP elevated at >30,000. CXR with pleural effusions L>R with bibasilar consolidation and cardiomegaly with prominence of the pulmonary vasculature. Follows with Dr. Healy of nephrology. 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 HCTZ, lasix and lisinopril all discontinued upon discharge. Has not required additional BP meds since then. Principal Diagnosis End-stage renal disease on dialysis Urinary retention Thrombocytopenia Discharge Exam Physical exam: General: No acute distress, alert awake oriented x3 HEENT: PERRLA, EOMI, Heart: Regular S1-S2, no carotid bruit, no JVD, no lower extremity edema Lungs: Clear to auscultate, no wheeze or rales Abdomen: Soft nontender, no organomegaly Extremity: rt upper chest wall tunnel catheter present Neuro: No focal neurological deficit normal speech, normal visual field, Motor strength : normal both upper and lower extremity, sensation intact Psych: Alert awake oriented x3, normal affect Discharge Data Allergies Allergy/AdvReac Type Severity Reaction Status Date / Time No Known Allergies Allergy Unverified 09/09/20 13:50 Consultations 09/09/20 13:57 ED Decision to Admit Stat 09/09/20 16:40 Consult Nephrology Routine 09/13/20 09:35 Consult Cardiology Routine 09/15/20 10:48 Consult Palliative Care Routine 09/16/20 08:09 Consult Vascular Surgery Routine 09/21/20 23:14 Consult Urology Routine Procedures Performed Operation Date: 09/16/20 13:00 Actual Procedures p Perm Catheter Insertion, Right Jugular Vein, Ultrasound Localization of Right Jugular Vein, Fluoroscopy for Positioning, Moderate Sedation [id number](Right) - Anish Santana MD Operation Date: 09/21/20 13:10 <No data on this case meets the specified criteria> Ordered Studies 09/09/20 15:15 CT head/brain wo con Routine 09/16/20 13:00 EV cvc insrt tunnel wo prt/television repair teacher Routine 09/16/20 13:38 US EV guide vascular access Routine Hospital Course (1) Acute kidney injury superimposed on chronic kidney disease: Patient is an 85 yr male with H/O CKD IV, BPH and urinary retention with Malagon catheter in place, anemia of chronic disease, history of colon cancer status post right colectomy, dyslipidemia and other medical problems as below who presents with dyspnea on exertion x2 weeks and was found to have DINORAH on CKD and volume overload. DINORAH on CKD IV Now ESRD Volume overload/Hypertensive urgency-solved after starting on dialysis Appreciate nephrology/vascular surgery input-status post dialysis catheter placed during this hospital admission Continue fluid, sodium restriction Continue dialysis as per Nephrology Received Venofer, Epo Patient will need continued/chronic dialysis, appreciate case management input for outpatient dialysis set up (2) CKD (chronic kidney disease), stage IV: Management as above (3) Volume overload: In setting of DINORAH on CKD -symptom corrected after dialysis --TTE obtained -LV wall motion is normal. EF 55 to 60%. Mild concentric LVH. Mild mitral regurg. Mild tricuspid regurg. Moderate pulmonary hypertension is present. Pulmonary artery systolic pressure estimated to be 50 to 55 mmHg. Grade 2 diastolic dysfunction. --CXR with pleural effusions L>R with bibasilar consolidation and cardiomegaly with prominence of the pulmonary vasculature BNP >30,000 Saturating well on room air Volume status managed with diuretics/HD Monitor I's and O's, daily weight Continue Torsemide (4) Hypertensive urgency: Due to volume overload/renal failure, Blood pressure improved after dialysis Continue amlodipine Chronic Thrombocytopenia Heparin discontinued NSVT Asymptomatic Echo as above Appreciate cardiology input Coreg DCed, BP relatively low intermittently (5) BPH (benign prostatic hyperplasia): (6) Urinary retention: Malagon catheter in place Appreciate input from urology (7) Dyslipidemia: Continue statin (8) Anemia of chronic disease: Follows with Nephro /anemia clinic Negative FOBT Hb Stable Received Venofer, Epo DVT Px: SCDs re: Bleeding Cath site, Anemia, Thrombocytopenia Code status: FULL PCP: Dr. Brown Disposition: had dialysis today, doing well post dialysis stable to be discharged home Plan of care discussed with daughter all question answered Total Time Total Time Spent Total Time Spent (In Minutes): 35 minutes Total Time Includes: Examination of the Patient, Discharge Planning and Medication Reconciliation Discharge Plan Discharge Items Patient Disposition: Home - Home Health Services Reason For Visit: DYSPNEA ON EXERTION Discharge Diagnosis: End-stage renal disease on dialysis Urinary retention Thrombocytopenia Activity: As commented below Activity Comment: As tolerated Non-emergency contact: Primary Care Provider Call non-emergency contact if: you have any medication questions Follow-up/Referrals: Leela Healy MD, PhD [Physician] - (PLEASE SCHEDULE WITH DR. HEALY OR RIAZ JONES @ [facility] NEPHROLOGY PER DR. MOSHER'S ORDER.) Onofre Brown MD [Primary Care Provider] - (Date & Time 09/29/2020 3:00 PM Provider Onofre Brown MD Department Internal Medicine [facility] ) Diet: Dialysis Renal Addtl Attending Provider Instructions: Please take all medications as instructed on discharge list below. It is recommended that you follow-up with your primary care physician within 1-2 weeks of hospital discharge to ensure you are still doing well. Please call if you have any questions or problems. You can reach a [facility] hospitalist on duty at [facility] 24 hours a day by calling [phone] Addtl Outpatient Clerk Provider Instructions: Your first appointment at [facility] will be on Thursday 09/28 at 11:15am. Please arrive at 10:30am and bring your insurance card, photo ID, list of medications and walker if needed. If you have any other questions, call [facility] at [phone]. Pending Studies at Discharge: No Stand-Alone Forms: My [facility], Smoking Cessation Medications and DC Order Prescriptions: New amlodipine [Norvasc] 5 mg Tablet 5 mg PO HS 30 Days Qty: 30 RF: 0 torsemide 100 mg Tablet 100 mg PO DAILY Qty: 30 RF: 0 finasteride [Proscar] 5 mg Tablet 5 mg PO QAM 30 Days Qty: 30 RF: 0 Continued rosuvastatin [Crestor] 20 mg Tablet 20 mg PO HS RF: 0 cyanocobalamin (vitamin B-12) [Vitamin B-12] 1,000 mcg Tablet 1,000 mcg PO QAM RF: 0 acetaminophen [Tylenol Extra Strength] 500 mg Tablet 500 mg PO TID RF: 0 sodium bicarbonate 650 mg tablet 650 mg PO BID RF: 0 Discharge Orders: Discharge Order (Routine); Ordered 09/24/20 Ordered By: Joyce Galicia/Other Patient Handouts: Kidney Disease Reducing Potassium, Kidney Disease Calcium Phosphorus, Kidney Disease Protein, Kidney Disease Avoid High Sodium, Limiting Fluids Dc Admission Data Admit Date/Time: 09/09/20 14:29 Attending Provider: Joyce Wick Admit Provider: Napoleon Sol Primary Care Provider: Onofre Brown Other Providers: Ian Polanco [facility] ; Napoleon Sol ; Leela Healy ; Efrain Ramos ; Jennyfer Saeed ; Anish Santana ; Donis Nails ; Manfred Hernandez ; Ulices Mendoza ; Sarah Pennington ; Wilmer Wynn ; Rosa Silva ; Liz Rangel ; Sydni Zuniga ; Efrain Torres ; Kendra Matthew ; Hyacinth Pike Other Interventions: Discharge Summary Assessment (RN) Last Done: 09/24/20 15:49
== END 2020-09-24 16:52 | disposition home health service (06) | DRG 683 ==
LOC: ED 11:55 → 2S 14:29 → SUATTDRO 14:29 → 2S 16:02 → 3N 09-21 14:09

== ENCOUNTER 2023-09-19 06:56 | Inpatient (IN) ==
[2023-09-19 08:20] LABS: Basophils # (auto) 0.03 K/uL (0.00-0.20); Basophils % (auto) 0.5 %; Eosinophils # (auto) 0.06 K/uL (0.00-0.50); Hematocrit (blood only) 31.6 % (42.0-52.0); Hemoglobin 10.3 g/dl (14.0-18.0); Immature Granulocytes # (auto) 0.03 K/uL (0.01-0.20); Immature Granulocytes % (auto) 0.5 %; Lymphocytes # (auto) 0.78 K/uL (1.20-3.40); Lymphocytes % (auto) 13.4 %; Mean Corpuscular Hemoglobin 33.9 pg (25.0-34.0); Mean Corpuscular Hgb Conc 32.6 g/dL (32.0-36.0); Mean Corpuscular Volume 103.9 fL (80.0-100.0); Mean Platelet Volume 12.5 fL (9.4-12.4); Monocytes # (auto) 0.48 K/uL (0.11-0.59); Monocytes % (auto) 8.3 %; Neutrophils # (auto) 4.43 K/uL (1.40-6.50); Neutrophils % (auto) 76.3 %; Platelet Count 114 K/uL (130-400); RDW Coefficient of Variation 14.6 % (11.5-14.5); Red Blood Count 3.04 M/uL (4.70-6.10); White Blood Count 5.81 K/ul (4.8-10.8)
--- NOTE | 2023-09-19 08:36 | Emergency Department Note ---
Impression & Plan Bleeding at insertion site, ESRD (end stage renal disease) on dialysis, Acute hyperkalemia ED Provider Note Provider: Chriss Rosario MD DATE OF SERVICE: 09/19/2023 CHIEF COMPLAINT: Referred due to bleeding around permacath site. HISTORY OF PRESENT ILLNESS: Patient is a 88-year-old gentleman end-stage renal disease on HD presenting here today referred from dialysis. Patient had a permacath placed by vascular surgery yesterday here and is experience of bleeding around the permacath site in the right upper chest. Was seen here last evening and bandaging was changed. Overnight soaked through the bandaging but also soaked through his shirt overnight. Went to dialysis this morning and they would not do dialysis due to bleeding around the permacath site. Came here with daughter. Denies significant dizziness or lightheadedness. Denies significant swelling. Some very slight soreness in the right neck. Denies body cramps. Has not had dialysis for several days related to failure of his left fistula requiring the permacath placement. No use of anticoagulants or aspirin or Plavix. Denies any pain or difficulty breathing. Denies neck swelling. PAST MEDICAL HISTORY: As noted above MEDICATIONS: Reviewed home medications SOCIAL HISTORY: Lives at home in [place] PHYSICAL EXAM: GENERAL: alert and oriented in no acute distress on stretcher Head: normocephalic and atraumatic EYES: No injection, discharge or icterus. EOMI. NECK: Trachea midline. Supple. Without swelling or tenderness of the neck. ENT: Mucous membranes pink and moist. Pharynx without erythema or exudate. LUNGS: Airway patent. No retractions. Breath sounds clear with good air entry bilaterally. HEART: Regular rate and rhythm. No chest wall tenderness with bandaging in place and permacath site of the right upper chest. Under the bandaging there is an area of gauze with soaked red blood throat but no active trickle or bleeding noted. No purulence noted. ABDOMEN: Soft and non-tender, without guarding or rebound. SKIN: Acyanotic, warm, dry, without rashes EXTREMITIES: Without swelling, tenderness or deformity with fistula noted in the left upper extremity. NEUROLOGICAL: No focal deficits. No aphasia. No facial droop or slurred speech. Ambulatory. Patient's laboratory studies and imaging reviewed. Differential includes hematoma, bleeding, infection, electrolyte abnormality, neck injury, bleeding disorder, as well as others were considered IMPRESSION/MEDICAL DECISION MAKING: Patient well-appearing and denies significant symptoms of anemia. Has had bleeding through dialysis site placed in the right upper chest permacath last evening required changing and again this morning. Fairly soaked but no active bleeding noted. Blow-by team take down the full dressing and reassess. Basic blood work obtained given that he is missed some dialysis sessions due to the failed fist fistula and required placement as well as blood loss. I doubt is infected at this time. Denies other infective symptoms. No significant swelling of the neck and doubt any issue here. Appears to be some localized subacute bleeding has occurred around the dialysis catheter. Blood work here without significant cytosis. Chronic slight thrombocytopenia of 114 and stable mild anemia of 10.4. No indication for transfusion. Blood work returns with mild hyperkalemia 5.3. No anion gap. Elevated BUN and creatinine consistent with end-stage renal disease. IV team change the dressing and put a little bit of additional gauze packing around but no significant bleeding site was noted. Did reach out and discussed briefly with vascular surgery as well as nephrology here. Patient was to have a session of dialysis today since he has not had dialysis since last and is normally on a Sunday schedule. No acute intervention discussion with vascular surgery given his stability without active bleeding at this time. Discussed with nephrology and given his hyperkalemia and missed sessions will bring into the hospital for dialysis today. We can monitor the site for bleeding as well as he is here. Hospitalist team contacted. Patient and family agreeable. DIAGNOSIS: Hyperkalemia, end-stage renal disease on dialysis midsection, permacath bleeding DISPOSITION: Hospitalist will evaluate Patient was agreeable with this plan. Past Med/Surg History Medical History Chronic back pain ARTHRITIS Pulmonary hypertension AVF (arteriovenous fistula) LUE Kidney stones Umbilical hernia present since colectomy DVT (deep venous thrombosis) RLE (3 yrs ago), unknown etiology, previously on AC (since discontinued) CHF (congestive heart failure) Bladder cancer Hypertension Intolerant to previously trialed meds (dizzy) BPH (benign prostatic hyperplasia) Dialysis patient [facility] in [place] Tu//Sat Anemia of chronic disease Dyslipidemia Urinary retention CKD (chronic kidney disease), stage IV Follows with Dr. Ramya Gudino Hyperlipemia Colon cancer 2012 > colectomy Surgical History Hx laparoscopic cholecystectomy Lap cholecystectomy (11/28/21): Grade 1 natalie, Ferrer #2, ETT 7.5 at [facility]. No issues noted per post-op anesthesia progress note. 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 Beliefs That Will Affect Care: None marital status: / Current Living Situation: Alone current occupational status: retired Feels Safe at Home: Yes Assistive Devices: Denture - Upper, Denture - Lower and Glasses Allergies Allergies Allergy/AdvReac Type Severity Reaction Status Date / Time No Known Allergies Allergy Verified 09/18/23 09:51 Home Meds Home Medications Medication Instructions Recorded Confirmed rosuvastatin 20 mg tablet (Crestor) 10 mg PO HS 02/26/19 09/19/23 acetaminophen 500 mg tablet 500 mg PO TID PRN Pain 09/09/20 09/19/23 (Tylenol Extra Strength) vitamin B complex-vitamin C-folic 1 tab PO DAILY 07/11/23 09/19/23 acid 0.8 mg tablet (Nephro Vitamins) Liquacel 1 oz PO DIRECTED 09/18/23 09/19/23 iron sucrose 50 mg iron/2.5 mL 50 mg IV WK 09/18/23 09/19/23 intravenous solution (Venofer) Results & Data (ED) Vital Signs Vital Signs - 24 hr 09/19/23 07:02 09/19/23 09:49 Temperature 37.0 C Temperature Source Oral Pulse Rate 79 Pulse Rate [Right Finger] 73 Pulse Rhythm Regular Pulse Strength Normal Respiratory Rate 20 18 Respiratory Effort / Characteristics Non-Labored Spontaneous Non-Labored Spontaneous Respiratory Depth Normal Normal Respiratory Pattern Regular Regular Blood Pressure 133/76 Blood Pressure [Right Arm] 215/93 H Blood Pressure Mean 95 Blood Pressure Mean [Right Arm] 133 Pulse Oximetry 95 97 Oxygen Delivery Method Room Air Room Air Sepsis New/Unexplained Change in Mental Status N/A Sepsis Action Taken by Nursing No Action Required Laboratory Data 09/19/23 07:56 09/19/23 07:56 Lab Results 09/19/23 09/19/23 Range/Units 07:56 09:45 WBC 5.81 (4.8-10.8) K/ul RBC 3.04 L (4.70-6.10) M/uL Hgb 10.3 L (14.0-18.0) g/dl Hct 31.6 L (42.0-52.0) % MCV 103.9 H (80.0-100.0) fL MCH 33.9 (25.0-34.0) pg MCHC 32.6 (32.0-36.0) g/dL RDW Std Deviation 56.0 H (36.4-46.3) fL RDW Coeff of Zev 14.6 H (11.5-14.5) % Plt Count 114 L (130-400) K/uL MPV 12.5 H (9.4-12.4) fL Immature Gran % (Auto) 0.5 % Neut % (Auto) 76.3 % Lymph % (Auto) 13.4 % [place] % (Auto) 8.3 % Eos % (Auto) 1.0 % Baso % (Auto) 0.5 % Neut # (Auto) 4.43 (1.40-6.50) K/uL Lymph # (Auto) 0.78 L (1.20-3.40) K/uL [place] # (Auto) 0.48 (0.11-0.59) K/uL Eos # (Auto) 0.06 (0.00-0.50) K/uL Baso # (Auto) 0.03 (0.00-0.20) K/uL Immature Gran # (Auto) 0.03 (0.01-0.20) K/uL Sodium 142 (136-145) mmol/L Potassium 5.3 H (3.5-5.1) mmol/L Chloride 112 H (98-107) mmol/L Carbon Dioxide 20 L (21-32) mmol/L Anion Gap 10 (3-11) BUN 86 H (6-23) mg/dl Creatinine 7.67 H* (0.6-1.4) mg/dl Est Cr Clr Drug Dosing 5.6 ml/min Est GFR ( Amer) 6.7 ml/min Est GFR (Non-Af Amer) 5.8 ml/min BUN/Creatinine Ratio 11.2 (10-20) Glucose 104 H (70-99(Fasting)) mg/dl Calcium 8.0 L (8.6-10.3) mg/dl Magnesium 2.4 (1.7-2.4) mg/dl Total Bilirubin 0.4 (0.2-1.0) mg/dl AST 29 (13-39) U/L ALT 9 (7-52) U/L Alkaline Phosphatase 52 (34-104) U/L Total Protein 6.4 (6.0-8.3) gm/dl Albumin 3.8 (3.4-5.0) gm/dl Globulin 2.6 (2.5-4.0) gm/dl Albumin/Globulin Ratio 1.5 (0.9-2) SARS-CoV-2, RNA, NAAT NEGATIVE (NEGATIVE) Blood Type A Positive Antibody Screen NEGATIVE Imaging Data Radiologist's Impression: Chest X-Ray 09/19/23 07:50 XR chest 1V portable CLINICAL HISTORY: permacath bleeding, missed HD TECHNIQUE: Single frontal radiograph of the chest was obtained. Comparison: Comparison is made to chest radiograph 09/14/2020 FINDINGS: Dual lumen catheter is seen in the right with its tip in the mid SVC. Calcified aortic knob is seen. The lungs are clear. No evidence of pleural effusion or pneumothorax. IMPRESSION: Satisfactory appearance of dual lumen venous catheter. Previously noted pleural effusions are no longer seen. ACT 112: Negative or not required by law. Electronically signed by: Shawn Medina M.D. 09/19/2023 9:01 AM Discharge Plan Visit Data Chief Complaint: Bleeding Stated Complaint: BLEEDING ED Provider: Chriss Rosario Discharge Problem: Bleeding at insertion site, ESRD (end stage renal disease) on dialysis, Acute hyperkalemia Patient Disposition: Admitted As Inpatient Discharge Instructions Interventions: ED Discharge Assessment Last Done: 09/19/23 11:03
[2023-09-19 08:37] LABS: Albumin Globulin Ratio 1.5 (0.9-2); Albumin Level 3.8 gm/dl (3.4-5.0); BUN Creatinine Ratio 11.2 (10-20); Bilirubin,Total 0.4 mg/dl (0.2-1.0); Creatinine Clr Calc Pharmacy 5.6 ml/min; Est GFR (African American) 6.7 ml/min; Est GFR (Non-African American) 5.8 ml/min; Globulin 2.6 gm/dl (2.5-4.0); Magnesium 2.4 mg/dl (1.7-2.4); Potassium 5.3 mmol/L (3.5-5.1); Total Protein 6.4 gm/dl (6.0-8.3)
--- NOTE | 2023-09-19 09:02 | XRay Report ---
XR chest 1V portable CLINICAL HISTORY: permacath bleeding, missed HD TECHNIQUE: Single frontal radiograph of the chest was obtained. Comparison: Comparison is made to chest radiograph 09/14/2020 FINDINGS: Dual lumen catheter is seen in the right with its tip in the mid SVC. Calcified aortic knob is seen. The lungs are clear. No evidence of pleural effusion or pneumothorax. IMPRESSION: Satisfactory appearance of dual lumen venous catheter. Previously noted pleural effusions are no long er seen. ACT 112: Negative or not required by law. Electronically signed by: Shawn Medina M.D. 09/19/2023 9:01 AM
--- NOTE | 2023-09-19 09:39 | History & Physical Report ---
Date of Service September 19, 2023 Assessment & Plan (1) ESRD (end stage renal disease) on dialysis: (2) Anemia of chronic disease: (3) Hyperlipemia: (4) DVT (deep venous thrombosis): (5) Bleeding at insertion site: (6) Dialysis AV fistula malfunction: Plan 88 y/o male that presented to the ED from outpatient dialysis center for persistent bleeding at the permacath site in the right upper chest wall.. He has ESRD and typically receives hemodialysis Sunday, , Sunday and is a patient of Dr. Ramya Acharya. His last HD was 09/12. His left fistula failed and he was seen by vascular and received a permacath yesterday 09/18/2023. Last evening he presented to the ED with bleeding noted around the site of his upper chest wall. He was evaluated and received a dressing change and was released from the ED. Additional past medical history includes history of DVT, HTN, BPH, HLD, and anemia of chronic disease. Does not take any anticoagulation or antiplatelet medications. H/O DVT and was on anticoagulants for 3 months but that has been discontinued. Today's creatinine 7.67; baseline 4-5. He is hypertensive and hyperkalemic; suspect both will improve with dialysis session. Nephrology and dialysis aware; plan for dialysis session today, tomorrow pending toleration at permacath site. Vascular aware; hold consult for now but if continued bleeding re-involve their service. ESRD: AV fistula malfunction: Bleeding at insertion site: Follows with Dr. Ramya Acharya with Nephrology; typically receives HD T/R/Sa. Last HD 09/12 L fistula failed; permacath placed by vascular 09/17; bleeding at site patient to receive dialysis session today and tomorrow 09/19 creatinine 7.67; baseline 4-5 Nephrology consult placed Hyperkalemia: acute serum K+ 5.3; suspect will improve with dialysis session; trend BMP at 2100 History of DVT: Chronic, was on anticoagulation x 3 months; has since been discontinued Anemia of chronic disease: Chronic Hgb 10.3; baseline 10-11; trend CBC at 2100 after dialysis session; sooner if any anemia symptoms arise HLD: Chronic takes rosuvastatin; continue Last lipid panel 11/09/2022; TG 102, HDL, 57 LDL 72 Disposition: PCP: Dr. Murphy Code Status: Full code VTE Prohylaxis: Teds + SCDs for now I spent a total of 87 minutes coordinating, documenting, and providing care for this patient excluding time spent in the performance of separately billed serv ices. All of the aforementioned completed while collaborating with the assigned attending physician for a full treatment plan. Please see their addendum for further details. History of Present Illness Chief Complaint: ESRD Primary Care Provider: NO PCP Mr. Iverson is an 88 year old male that presented to the ED from outpatient dialysis center for persistent bleeding at the permacath site in the right upper chest wall. He has ESRD and typically receives hemodialysis Sunday, , Sunday and is a patient of Dr. Ramya Acharya. His last hemodialysis was 09/12. He does make urine. His left fistula failed and he was seen by a vascular and received a permacath yesterday 09/18/2023. After the Permacath insertion yesterday he was discharged and went to eat lunch at a diner. The bleeding seemed to start reportedly about 2 hours after he left the hospital. Last evening he presented to the ED with bleeding noted around the site of his upper chest wall. He was evaluated and received a dressing change and was released from the ED. Additional past medical history includes history of DVT, HTN, BPH, HLD, and anemia of chronic disease. He does not take any anticoagulation or antiplatelet medications. He does have a history of DVT more than 5 years ago and was on anticoagulants for 3 months but that has been discontinued. Today's creatinine 7.67; baseline 4-5. He is hypertensive SBP > 200; suspect this to improve with hemodialysis. Patient denies tobacco, alcohol, or recreational drug use. Pt denies FERNANDEZ, dizziness, SOB, chest pain, palpitations, abdominal pain or tenderness, hematuria, hematochezia, recent falls or trauma. Pt sitting upright in hospital bed in no apparent distress. He is able to answer all questions; despite being [place]. He does not have any chest wall tenderness and bandaging is clean diet and intact. No chest wall tenderness with pressure bandaging in place and permacath site of the right upper chest. I was able to speak with dialysis suite who plans to perform a dialysis session today and tomorrow. Due to patients hyperkalemia, permacath insertion site and need for dialysis; patient will be admitted for such; re-involve vascular if no bleeding improvement. Please see A/P for further details. Allergies Allergy/AdvReac Type Severity Reaction Status Date / Time No Known Allergies Allergy Verified 09/18/23 09:51 Home Medications Medication Instructions Recorded Confirmed Type rosuvastatin 20 mg tablet (Crestor) 10 mg PO HS 02/26/19 09/19/23 History acetaminophen 500 mg tablet 500 mg PO TID PRN Pain 09/09/20 09/19/23 History (Tylenol Extra Strength) vitamin B complex-vitamin C-folic 1 tab PO DAILY 07/11/23 09/19/23 History acid 0.8 mg tablet (Nephro Vitamins) Liquacel 1 oz PO DIRECTED 09/18/23 09/19/23 History iron sucrose 50 mg iron/2.5 mL 50 mg IV WK 09/18/23 09/19/23 History intravenous solution (Venofer) Past Med/Surg History Medical History (Updated 09/19/23 @ 09:32 by ANDREZ Iqbal) Chronic back pain ARTHRITIS Pulmonary hypertension AVF (arteriovenous fistula) LUE Kidney stones Umbilical hernia present since colectomy DVT (deep venous thrombosis) RLE (3 yrs ago), unknown etiology, previously on AC (since discontinued) CHF (congestive heart failure) Bladder cancer Hypertension Intolerant to previously trialed meds (dizzy) BPH (benign prostatic hyperplasia) Dialysis patient [facility] in [place] Tues/Thurs/Sat Anemia of chronic disease Dyslipidemia Urinary retention CKD (chronic kidney disease), stage IV Follows with Dr. Ramya Gudino Hyperlipemia Colon cancer 2012 > colectomy Surgical History Hx laparoscopic cholecystectomy Lap cholecystectomy (11/28/21): Grade 1 view, Ferrer #2, ETT 7.5 at [facility]. No issues noted per post-op anesthesia progress note. History of ERCP with stent to bile duct History of cystoscopy History of colonoscopy History of cataract surgery bilat History of tooth extraction History of vascular access device removed October 10, 2021 Hx of tonsillectomy S/P right colectomy no colostomy Family History Mother Colorectal cancer Other Kidney disease Social History Smoking Status: Unknown if ever smoked Second Hand Exposure: No; Do You Dip or Chew Tobacco: No; Hx Alcohol Use: No Hx Substance Use: No Preferred Language: Mohawk Communication Ability: Effective Hearing Ability: Use of Hearing Aid Hooker Off Required: No Beliefs That Will Affect Care: None marital status: / Current Living Situation: Alone current occupational status: retired Feels Safe at Home: Yes Assistive Devices: Denture - Upper, Denture - Lower and Glasses Review of Systems Review of Systems: Neuro: (-) Falls, trauma, slurred speech HEENT: (-) FERNANDEZ, dizziness, dysphagia, visual or auditory changes CV: (-) CP, palpitations, swelling Resp: (-) SOB GI: (-) appetite changes, N/V/D, bowel changes : (-) urinary changes Skin: (-) rashes Psych: (-) anxiety, depression Physical Exam Physical Exam: Neuro: AAOx4, PERRLA, no aphagia, memory changes, CNII-XII grossly intact HEENT: head normocephalic, moist mucus membranes CV: S1/S2, (-) M/G/R, (-) edema, cap refill < 3 seconds Resp: Lungs CTA in all [place]. On RA GI: Abdomen S/NT/ND, Ax4 bowel sounds, (-) CVA tenderness Musculoskeletal: 5/5 B/L UE strength, 5/5 B/L LE strength. No gait disturbance Skin: (-) rashes , (-) erythema. Psych: euthymic mood Results & Data Results & Data Vital Signs (Past 12 Hours) Vital Signs Temp Pulse Resp BP Pulse Ox O2 Del Method 09/19/23 07:02 37.0 C 79 20 133/76 95 Room Air Laboratory Results Short CBC 09/19/23 Range/Units 07:56 WBC 5.81 (4.8-10.8) K/ul Hgb 10.3 L (14.0-18.0) g/dl Hct 31.6 L (42.0-52.0) % Plt Count 114 L (130-400) K/uL BMP 09/19/23 07:56 Sodium 142 Potassium 5.3 H Chloride 112 H Carbon Dioxide 20 L BUN 86 H Creatinine 7.67 H* Glucose 104 H Calcium 8.0 L Liver Function 09/19/23 Range/Units 07:56 Total Bilirubin 0.4 (0.2-1.0) mg/dl AST 29 (13-39) U/L ALT 9 (7-52) U/L Alkaline Phosphatase 52 (34-104) U/L Albumin 3.8 (3.4-5.0) gm/dl Diagnostic Findings Chest X-Ray 09/19/23 07:50 XR chest 1V portable CLINICAL HISTORY: permacath bleeding, missed HD TECHNIQUE: Single frontal radiograph of the chest was obtained. Comparison: Comparison is made to chest radiograph 09/14/2020 FINDINGS: Dual lumen catheter is seen in the right with its tip in the mid SVC. Calcified aortic knob is seen. The lungs are clear. No evidence of pleural effusion or pneumothorax. IMPRESSION: Satisfactory appearance of dual lumen venous catheter. Previously noted pleural effusions are no longer seen. ACT 112: Negative or not required by law. Electronically signed by: Shawn Medina M.D. 09/19/2023 9:01 AM Code Status & VTE Plan Code Status Full code in the event of cardiac or respiratory arrest VTE Prophylaxis Plan VTE Prophylaxis will be ordered: Yes Supervising Physician Co-Signing Physician Notes Pt was seen and examined by myself, Jennifer Gil MD on the day of service. Care was coordinated with ANDREZ Felix. 88yoM with PMHx significant for ESRD, receiving dialysis on TTSa schedule presenting for further evaluation after uncontrollable bleeding s/p permCath placement yesterday due to failure of his fistula. Pt seen while undergoing dialysis on the 4th floor. On exam AAO, no noted bleeding at permCath site after dressing change in the ED. RRR, abdomen nontender, no noted swelling in lower extremities. BP 215/93, HR 73 Hgb 10.3, Platelets 114, K+ 5.3, Cr 7.67, Glucose of 104 HTN- likely due to fluid overload, pt has not had dialysis for 4 days. Anticipate will be lower after dialysis. Continue to monitor Anemia- macrocytic, likely anemia of chronic disease. B12, folate, Iron panel, ferritin pending with AM labs. Thrombocytopenia- peripheral smear ordered Hyperkalemia- dialysis today, repeat after dialysis. Continue to monitor Hyperglycemia- AM [id number] pending. Otherwise as above. I spent a total [id number] coordinating, documenting, and providing care for this patient excluding time spent in the performance of separately billed services
[2023-09-19] MEDS ORDERED: LIQUACEL PO SCH (10:30)
[2023-09-19] MEDS ORDERED: IRON SUCROSE IV SCH (10:30)
--- NOTE | 2023-09-19 11:32 | Nephrology Consultation ---
Date of Consultation September 19, 2023 Assessment & Plan (1) ESRD (end stage renal disease) on dialysis: has Slightly high K but no overt CHF. last dialysis was . Will do him tomorrow also. CVC is working fine without alarm at qb of 350. BP was very high at start but with some UF already down t the 150 range. Not on any BP meds--was told no need of any by dialysis. If No major issues with Bleeding tomorrow discharge after dialysis tomorrow. (2) Bleeding at insertion site: Seems bleeding has stopped for now. No Blood thinners of any type. hgb for now stable and acceptable at 10.3 . check hgb again in AM. History of Present Illness Reason for Consultation: ESRD on Dialysis Attending Physician: Jennifer Gil MD History of Present Illness 88/M presented to the ED from outpatient dialysis center for persistent bleeding at the permacath site in the right upper chest wall that was placed Jut yesterday. He receives hemodialysis Sunday, , Sunday and is a patient of Dr. Ramya Acharya. His last hemodialysis was 09/12. He does make urine. His left fistula failed and he was seen by a vascular and received a permacath yesterday 09/18/2023. After the Permacath insertion yesterday he was discharged and went to eat lunch at a diner. The bleeding restarted after he left the hospital. He was evaluated and received a dressing change and was released from the ED. Thn he went to the diialysis unit but because of Severe Bleeding around the cath site patient sent to ED. No bleeding now. we are doing dialysis. CAth is working fine. He does not take any anticoagulation or antiplatelet medications. He is hypertensive SBP > 200--says was told to stop all BP meds by Dialysis. K 5.3 and CXR did not show severe Pulm Congestion. ROS--other than bleeding, 12 Systems reviewed and negative Physical Exam Physical Exam Awake and alert. PERRLA, HEENT: head normocephalic, moist mucus membranes CV: S1/S2, (-) M/G/R, (-) edema Resp: Lungs CTA in all tierney. On RA GI: Abdomen S/NT/ND, Ax4 bowel sounds, (-) CVA tenderness Musculoskeletal: 11/10 B/L UE strength, 5/5 B/L LE strength. No gait disturbance Skin: (-) rashes , (-) erythema. Psych: euthymic mood Access--clotted AVF left Upper arm. Rt Chest CVC. No bleeding around now. Allergies Allergy/AdvReac Type Severity Reaction Status Date / Time No Known Allergies Allergy Verified 09/18/23 09:51 Home Medications Medication Instructions Recorded Confirmed Type rosuvastatin 20 mg tablet (Crestor) 10 mg PO HS 02/26/19 09/19/23 History acetaminophen 500 mg tablet 500 mg PO TID PRN Pain 09/09/20 09/19/23 History (Tylenol Extra Strength) vitamin B complex-vitamin C-folic 1 tab PO DAILY 07/11/23 09/19/23 History acid 0.8 mg tablet (Nephro Vitamins) Liquacel 1 oz PO DIRECTED 09/18/23 09/19/23 History iron sucrose 50 mg iron/2.5 mL 50 mg IV WK 09/18/23 09/19/23 History intravenous solution (Venofer) Patient History Medical History Chronic back pain ARTHRITIS Pulmonary hypertension AVF (arteriovenous fistula) LUE Kidney stones Umbilical hernia present since colectomy DVT (deep venous thrombosis) RLE (3 yrs ago), unknown etiology, previously on AC (since discontinued) CHF (congestive heart failure) Bladder cancer Hypertension Intolerant to previously trialed meds (dizzy) BPH (benign prostatic hyperplasia) Dialysis patient [facility] in [place] Tues/Thurs/Sat Anemia of chronic disease Dyslipidemia Urinary retention CKD (chronic kidney disease), stage IV Follows with Dr. Ramya Gudino Hyperlipemia Colon cancer 2012 > colectomy Surgical History Hx laparoscopic cholecystectomy Lap cholecystectomy (11/28/21): Grade 1 view, Ferrer #2, ETT 7.5 at [facility]. No issues noted per post-op anesthesia progress note. History of ERCP with stent to bile duct History of cystoscopy History of colonoscopy History of cataract surgery bilat History of tooth extraction History of vascular access device removed October 10, 2021 Hx of tonsillectomy S/P right colectomy no colostomy Family History Mother Colorectal cancer Other Kidney disease Social History Smoking Status: Unknown if ever smoked Second Hand Exposure: No; Do You Dip or Chew Tobacco: No; Hx Alcohol Use: No Hx Substance Use: No Preferred Language: Sami Communication Ability: Effective Hearing Ability: Use of Hearing Aid Medicine Assistant Required: No Beliefs That Will Affect Care: None marital status: / Current Living Situation: Alone current occupational status: retired Feels Safe at Home: Yes Assistive Devices: Denture - Upper, Denture - Lower and Glasses Results & Data Vital Signs (Past 12 Hours) Vital Signs Temp Pulse Pulse Resp BP BP Pulse Ox 09/19/23 11:18 15 09/19/23 11:00 09/19/23 09:49 73 18 215/93 H 97 09/19/23 07:02 37.0 C 79 20 133/76 95 O2 Del Method 09/19/23 11:18 09/19/23 11:00 Room Air 09/19/23 09:49 Room Air 09/19/23 07:02 Room Air Laboratory Results reveiwed. Diagnostic Findings CXr--No CHF
[2023-09-19 14:05] LABS: Macrocytosis Present; Ovalocytes 1+
[2023-09-19] MEDS: ACETAMINOPHEN 325 MG TAB PO PRN (15:18)
[2023-09-19] MEDS: ROSUVASTATIN CALCIUM 10 MG TAB PO SCH (21:14)
[2023-09-19 21:51] LABS: Calcium 8.5 mg/dl (8.6-10.3); Hematocrit (blood only) 33.8 % (42.0-52.0); Hemoglobin 10.9 g/dl (14.0-18.0); Mean Corpuscular Hemoglobin 33.3 pg (25.0-34.0); Mean Corpuscular Hgb Conc 32.2 g/dL (32.0-36.0); Mean Corpuscular Volume 103.4 fL (80.0-100.0); Mean Platelet Volume 11.8 fL (9.4-12.4); Platelet Count 117 K/uL (130-400); Potassium 4.5 mmol/L (3.5-5.1); RDW Coefficient of Variation 14.3 % (11.5-14.5); RDW Standard Deviation 54.6 fL (36.4-46.3); Red Blood Count 3.27 M/uL (4.70-6.10); White Blood Count 6.26 K/ul (4.8-10.8)
[2023-09-19 22:01] LABS: BUN Creatinine Ratio 8.1 (10-20); Creatinine Clr Calc Pharmacy 9.4 ml/min; Est GFR (African American) 12.5 ml/min; Est GFR (Non-African American) 10.7 ml/min
[2023-09-19] MEDS: LABETALOL HCL IV 5 MG/ML 20ML IV PRN (22:47)
[2023-09-20] MEDS: LABETALOL HCL IV 5 MG/ML 20ML IV STA (00:47)
[2023-09-20 06:02] LABS: Hematocrit (blood only) 33.9 % (42.0-52.0); Hemoglobin 10.9 g/dl (14.0-18.0); Mean Corpuscular Hemoglobin 33.6 pg (25.0-34.0); Mean Corpuscular Hgb Conc 32.2 g/dL (32.0-36.0); Mean Corpuscular Volume 104.6 fL (80.0-100.0); Mean Platelet Volume 12.3 fL (9.4-12.4); Platelet Count 118 K/uL (130-400); RDW Coefficient of Variation 14.3 % (11.5-14.5); RDW Standard Deviation 54.9 fL (36.4-46.3); Red Blood Count 3.24 M/uL (4.70-6.10)
[2023-09-20] MEDS: hydrALAZINE HCL 20 MG/ML VIAL IV STA (06:15)
[2023-09-20 06:17] LABS: Albumin Globulin Ratio 1.2 (0.9-2); Albumin Level 3.7 gm/dl (3.4-5.0); BUN Creatinine Ratio 8.5 (10-20); Bilirubin,Total 0.4 mg/dl (0.2-1.0); Calcium 8.4 mg/dl (8.6-10.3); Est GFR (African American) 10.7 ml/min; Est GFR (Non-African American) 9.3 ml/min; Globulin 3.2 gm/dl (2.5-4.0); Potassium 5.1 mmol/L (3.5-5.1); Total Protein 6.9 gm/dl (6.0-8.3)
[2023-09-20 06:36] LABS: Ferritin 1069.6 ng/ml (8-388)
[2023-09-20 06:40] LABS: Estimated Average Glucose 88 mg/dl; Folate (Folic Acid),Ser orPlas > 22.30 ng/ml (>5.38); Hemoglobin A1C 4.7 % (4.5-5.6)
[2023-09-20 06:41] LABS: Vitamin B12 484 pg/ml (180-914)
[2023-09-20] MEDS ORDERED: SODIUM CHLORIDE 0.9% 1,000 ML IV PRN (07:00)
--- NOTE | 2023-09-20 07:37 | Hospitalist Progress Note ---
Date of Service September 20, 2023 Assessment & Plan (1) ESRD (end stage renal disease) on dialysis: (2) Anemia of chronic disease: (3) Hyperlipemia: (4) DVT (deep venous thrombosis): (5) Bleeding at insertion site: (6) Dialysis AV fistula malfunction: Plan 88 y/o male that presented to the ED from outpatient dialysis center for persistent bleeding at the permacath site in the right upper chest wall.. He has ESRD and typically receives hemodialysis Sunday, , Sunday and is a patient of Dr. Ramya Acharya. His last HD was 09/12. His left fistula failed and he was seen by vascular and received a permacath yesterday 09/18/2023. Last evening he presented to the ED with bleeding noted around the site of his upper chest wall. He was evaluated and received a dressing change and was released from the ED. Additional past medical history includes history of DVT, HTN, BPH, HLD, and anemia of chronic disease. Does not take any anticoagulation or antiplatelet medications. H/O DVT and was on anticoagulants for 3 months but that has been discontinued. Today's creatinine 7.67; baseline 4-5. He is hypertensive and hyperkalemic; suspect both will improve with dialysis session. Nephrology and dialysis aware; plan for dialysis session today, tomorrow [facility]. Vascular aware; hold consult for now but if continued bleeding re-involve their service. #Bleeding at PermCath site #ESRD on HD, TThrSa #AVF malfunction Follows with Dr. Ramya Acharya with Nephrology; typically receives HD T/R/Sa. Last HD 09/12 L fistula failed; permacath placed by vascular 09/17; bleeding at site Plan for dialysis today Nephrology following -hold blood thinners #Hyperkalemia *improved acute, iso ESRD serum K+ 5.3; suspect will improve with dialysis session; trend BMP at 2100 #History of DVT: Chronic, was on anticoagulation x 3 months; has since been discontinued #Anemia of chronic disease: Chronic Hgb 10.3; baseline 10-11; Remains at baseline #HLD: Chronic takes rosuvastatin; continue Last lipid panel 11/09/2022; TG 102, HDL, 57 LDL 72 Disposition: PCP: Dr. Onaka Code Status: Full code VTE Prohylaxis: Teds + SCDs for now Admission and Anticipated Discharge Date Admission Date: September 19, 2023 Results & Data Results & Data Vital Signs (Past 12 Hours) Vital Signs Temp Pulse Pulse Pulse Resp BP BP 09/20/23 07:25 58 L 09/20/23 06:48 186/78 H 09/20/23 06:07 61 198/78 H 09/20/23 05:41 66 220/80 H 09/20/23 03:00 36.6 C 64 18 178/80 H 09/20/23 02:37 63 16 187/77 H 09/20/23 01:34 65 170/86 H 09/20/23 00:47 70 181/102 H 09/20/23 00:02 70 212/90 H 09/20/23 00:00 82 18 212/90 H 09/19/23 23:09 67 09/19/23 22:47 69 205/93 H 09/19/23 21:10 72 18 198/104 H Pulse Ox O2 Del Method 09/20/23 07:25 09/20/23 06:48 09/20/23 06:07 09/20/23 05:41 09/20/23 03:00 98 Room Air 09/20/23 02:37 96 Room Air 09/20/23 01:34 09/20/23 00:47 09/20/23 00:02 09/20/23 00:00 94 Room Air 09/19/23 23:09 09/19/23 22:47 09/19/23 21:10 96 Room Air Laboratory Results Short CBC 09/19/23 09/19/23 09/20/23 Range/Units 07:56 21:15 05:22 WBC 5.81 6.26 6.50 (4.8-10.8) K/ul Hgb 10.3 L 10.9 L 10.9 L (14.0-18.0) g/dl Hct 31.6 L 33.8 L 33.9 L (42.0-52.0) % Plt Count 114 L 117 L 118 L (130-400) K/uL BMP 09/19/23 09/19/23 09/20/23 07:56 21:15 05:22 Sodium 142 140 140 Potassium 5.3 H 4.5 5.1 Chloride 112 H 105 105 Carbon Dioxide 20 L 27 28 BUN 86 H 37 H D 44 H Creatinine 7.67 H* 4.59 H* D 5.19 H* D Glucose 104 H 92 98 Calcium 8.0 L 8.5 L 8.4 L Liver Function 09/19/23 09/20/23 Range/Units 07:56 05:22 Total Bilirubin 0.4 0.4 (0.2-1.0) mg/dl AST 29 27 (13-39) U/L ALT 9 4 L (7-52) U/L Alkaline Phosphatase 52 56 (34-104) U/L Albumin 3.8 3.7 (3.4-5.0) gm/dl Medications Administered Home Medications Medication Instructions Recorded Confirmed Last Taken rosuvastatin 20 mg tablet (Crestor) 10 mg PO HS 02/26/19 09/19/23 09/17/23 20:00 acetaminophen 500 mg tablet 500 mg PO TID PRN Pain 09/09/20 09/19/23 09/17/23 20:00 (Tylenol Extra Strength) vitamin B complex-vitamin C-folic 1 tab PO DAILY 07/11/23 09/19/23 09/18/23 08:00 acid 0.8 mg tablet (Nephro Vitamins) Liquacel 1 oz PO DIRECTED 09/18/23 09/19/23 Unknown iron sucrose 50 mg iron/2.5 mL 50 mg IV WK 09/18/23 09/19/23 Unknown intravenous solution (Venofer) Active Medications Generic Name Dose Route Start Last Admin Trade Name Edq PRN Reason Stop Dose Admin Acetaminophen 650 mg 09/19/23 09:16 09/19/23 15:18 Acetaminophen 325 Mg Tab PO 10/19/23 09:15 650 mg Q4H PRN Administration Pain or Fever Labetalol HCl 10 mg 09/19/23 22:04 09/20/23 05:41 Labetalol Hcl Iv 5 Mg/Ml 20ml IV 10/19/23 22:03 10 mg Q4H PRN Administration Hypertension Rosuvastatin Calcium 10 mg 09/19/23 21:00 09/19/23 21:14 Rosuvastatin Calcium 10 Mg Tab PO 10/19/23 20:59 10 mg HS JUAN JOSE Administration
[2023-09-20] MEDS: hydrALAZINE HCL 20 MG/ML VIAL IV ONE (08:17)
[2023-09-20] MEDS: NEPHROCAPS PO SCH (08:50)
[2023-09-20] MEDS: IRON SUCROSE 100 MG in SYRINGE 0 ML IV ONE (12:25)
[2023-09-20] MEDS: EPOETIN ALFA 10,000 UNITS/ML VIAL IV ONE (12:26)
--- NOTE | 2023-09-20 14:33 | Discharge Summary ---
Discharge Summary Date of Service September 20, 2023 Notes For Next Care Provider Medication Changes From Visit none Admission HPI Per Admitting Provider Mr. Iverson is an 88 year old male that presented to the ED from outpatient dialysis center for persistent bleeding at the permacath site in the right upper chest wall. He has ESRD and typically receives hemodialysis Sunday, , Sunday and is a patient of Dr. Ramya Acharya. His last hemodialysis was 09/12. He does make urine. His left fistula failed and he was seen by a vascular and received a permacath yesterday 09/18/2023. After the Permacath insertion yesterday he was discharged and went to eat lunch at a diner. The bleeding seemed to start reportedly about 2 hours after he left the hospital. Last evening he presented to the ED with bleeding noted around the site of his upper chest wall. He was evaluated and received a dressing change and was released from the ED. Additional past medical history includes history of DVT, HTN, BPH, HLD, and anemia of chronic disease. He does not take any anticoagulation or antiplatelet medications. He does have a history of DVT more than 5 years ago and was on anticoagulants for 3 months but that has been discontinued. Today's creatinine 7.67; baseline 4-5. He is hypertensive SBP > 200; suspect this to improve with hemodialysis. Patient denies tobacco, alcohol, or recreational drug use. Pt denies FERNANDEZ, dizziness, SOB, chest pain, palpitations, abdominal pain or tenderness, hematuria, hematochezia, recent falls or trauma. Pt sitting upright in hospital bed in no apparent distress. He is able to answer all questions; despite being WILTON. He does not have any chest wall tenderness and bandaging is clean diet and intact. No chest wall tenderness with pressure bandaging in place and permacath site of the right upper chest. I was able to speak with dialysis suite who plans to perform a dialysis session today and tomorrow. Due to patients hyperkalemia, permacath insertion site and need for dialysis; patient will be admitted for such; re-involve vascular if no bleeding improvement. Please see A/P for further details. Principal Dx & Hospital Course #1 = Principal Diagnosis (1) ESRD (end stage renal disease) on dialysis: (2) Anemia of chronic disease: (3) Hyperlipemia: (4) DVT (deep venous thrombosis): (5) Bleeding at insertion site: (6) Dialysis AV fistula malfunction: Plan 88 y/o male that presented to the ED from outpatient dialysis center for persistent bleeding at the permacath site in the right upper chest wall.. He has ESRD and typically receives hemodialysis Sunday, , Sunday and is a patient of Dr. Ramya Acharya. His last HD was 09/12. His left fistula failed and he was seen by vascular and received a permacath yesterday 09/18/2023. Last evening he presented to the ED with bleeding noted around the site of his upper chest wall. He was evaluated and received a dressing change and was released from the ED. Additional past medical history includes history of DVT, HTN, BPH, HLD, and anemia of chronic disease. Does not take any anticoagulation or antiplatelet medications. H/O DVT and was on anticoagulants for 3 months but that has been discontinued. Today's creatinine 7.67; baseline 4-5. He is hypertensive and hyperkalemic; suspect both will improve with dialysis session. Nephrology and dialysis aware; plan for dialysis session today, tomorrow pending toleration at permacath site. Vascular aware; hold consult for now but if continued bleeding re-involve their service. #Bleeding at PermCath site #ESRD on HD, TThrSa #AVF malfunction Follows with Dr. Ramya Acharya with Nephrology; typically receives HD T/R/Sa. Last HD 09/12 L fistula failed; permacath placed by vascular 09/17; bleeding at site Plan for dialysis today, tolerated on 09/19 Nephrology following -clear for discharge, resume home HD sessions as scheduled #Hyperkalemia *improved acute, iso ESRD serum K+ 5.3; resolved #History of DVT: Chronic, was on anticoagulation x 3 months; has since been discontinued #Anemia of chronic disease: Chronic Hgb 10.3; baseline 10-11; Remains at baseline #HLD: Chronic takes rosuvastatin; continue Last lipid panel 11/09/2022; TG 102, HDL, 57 LDL 72 On day of discharge, patient was eating well and denied any acute concerns. Patient states that he is ready for dispo home and denied any signs of further bleeding from permcath site. Discharge Exam Constitutional WD/WN, vitals as above Respiratory normal respiratory effort, lungs clear to auscultation Cardiovascular RRR, no murmur, no edema Skin hematoma over right permacath, clean dressing in place no signs of active oozing/bleeding Updated Medication List Medication Instructions Recorded Confirmed Type rosuvastatin 20 mg tablet (Crestor) 10 mg PO HS 02/26/19 09/19/23 History acetaminophen 500 mg tablet 500 mg PO TID PRN Pain 09/09/20 09/19/23 History (Tylenol Extra Strength) vitamin B complex-vitamin C-folic 1 tab PO DAILY 07/11/23 09/19/23 History acid 0.8 mg tablet (Nephro Vitamins) Liquacel 1 oz PO DIRECTED 09/18/23 09/19/23 History iron sucrose 50 mg iron/2.5 mL 50 mg IV WK 09/18/23 09/19/23 History intravenous solution (Venofer) Hospital Stay Data Consultations 09/19/23 08:52 Consult Nephrology Routine 09/19/23 09:13 ED Decision to Admit Stat Pending Results Patient Have Any Pending Studies at Discharge: No Discharge Instructions Given to Patient (Per Discharging Provider) You were admitted for observation of permcath site bleeding. Your blood levels remained stable. You tolerated dialysis through the permcath without issue. Continue your dialysis sessions as scheduled. Total Time Total Time Spent Total Time Spent (In Minutes): 45
== END 2023-09-20 15:03 | disposition home or self-care (01) | DRG 314 ==
LOC: ED 06:56 → EDINP 06:56 → SUATTDRO 10:32 → OBSVTOIN 10:32 → 2W 11:03

== ENCOUNTER 2025-02-12 16:03 | Inpatient (IN) ==
--- NOTE | 2025-02-12 16:14 | Emergency Department Note ---
History of Present Illness General Chief complaint: Trauma Time Seen by Provider: 02/12/25 16:05 History of Present Illness Provider complaint: Fall 89-year-old male end-stage renal disease on hemodialysis Sunday presents emergency department for fall. Patient is reporting pain in his left hip. Patient did get a full set of dialysis done yesterday. Home Medications Medication Instructions Recorded Confirmed Type rosuvastatin 20 mg tablet (Crestor) 10 mg PO HS 02/26/19 02/12/25 History acetaminophen 500 mg tablet 500 mg PO TID PRN Pain 09/09/20 02/12/25 History (Tylenol Extra Strength) protein supplement 1 oz PO [id number] ##0 09/18/23 02/12/25 History vitamin B complex-vitamin C-folic 1 tab PO DAILY 02/12/25 02/12/25 History acid 0.8 mg tablet (Carol Ann-Sonido) Allergies Allergy/AdvReac Type Severity Reaction Status Date / Time No Known Allergies Allergy Verified 02/12/25 16:53 Past Med/Surg History Problem List (Updated 02/12/25 @ 18:30 by Stefan Carrington MD) Left bundle branch block (Acute) End-stage renal disease (ESRD) (Acute) HTN (hypertension) (Acute) Closed hip fracture (Acute) Asymptomatic bacteriuria Transient weakness of right lower extremity Bleeding at insertion site (Acute) Dialysis AV fistula malfunction BPH (benign prostatic hyperplasia) Urinary retention Malagon catheter in place Acute kidney injury superimposed on chronic kidney disease Volume overload Hypertensive urgency CHF (congestive heart failure) (Acute) Renal failure (Acute) Hypertension (Acute) Weakness (Acute) Ventricular ectopic complex Palliative care patient Palliative care encounter Complications, dialysis, catheter, mechanical Thrombocytopenia ESRD (end stage renal disease) on dialysis (Acute) FP (false passage in the urethra) Bladder mass Transitional cell bladder cancer Encounter for pre-operative examination Central venous catheter in place Jaundice Encounter for pre-operative examination Choledocholithiasis Dialysis AV fistula malfunction Arteriovenous fistula thrombosis Anemia of chronic disease Dyslipidemia Urinary retention CKD (chronic kidney disease), stage IV Follows with Dr. Ramya Gudino Hyperlipemia Medical History Acute hyperkalemia Chronic back pain ARTHRITIS Pulmonary hypertension AVF (arteriovenous fistula) LUE Kidney stones Umbilical hernia present since colectomy DVT (deep venous thrombosis) RLE (3 yrs ago), unknown etiology, previously on AC (since discontinued) CHF (congestive heart failure) Bladder cancer Hypertension Intolerant to previously trialed meds (dizzy) BPH (benign prostatic hyperplasia) Dialysis patient [facility] in [place] Tues/Thurs/Sat Colon cancer 2012 > colectomy Surgical History Hx laparoscopic cholecystectomy Lap cholecystectomy (11/28/21): Grade 1 view, Ferrer #2, ETT 7.5 at [facility]. No issues noted per post-op anesthesia progress note. History of ERCP with stent to bile duct History of cystoscopy History of colonoscopy History of cataract surgery bilat History of tooth extraction History of vascular access device removed October 10, 2021 Hx of tonsillectomy S/P right colectomy no colostomy Family History Mother Colorectal cancer Other Kidney disease Social History Smoking Status: Unknown if ever smoked Tobacco Type: Cigarettes Second Hand Exposure: No; Do You Dip or Chew Tobacco: No; Hx Alcohol Use: No Hx Substance Use: No Preferred Language: Lithuanian Communication Ability: Effective Hearing Ability: Use of Hearing Aid Cardiology Fellow Required: No Beliefs That Will Affect Care: None marital status: / Current Living Situation: Alone Current Living Situation Comment: home alone current occupational status: retired Feels Safe at Home: Yes Assistive Devices: Cane, Denture - Upper, Denture - Lower, Glasses and Hearing Aid - Bilateral Physical Exam Vital Signs Vital Signs - 24 hr 02/12/25 16:04 02/12/25 16:08 02/12/25 16:19 Temperature 36.9 C 36.9 C 36.9 C Temperature Source Oral Oral Pulse Rate 81 81 Pulse Rate [Right Finger] 81 Pulse Rate from SpO2 Sensor Pulse Strength [Bilateral] Normal Respiratory Rate 18 18 18 Respiratory Effort / Characteristics Non-Labored Spontaneous Non-Labored Spontaneous Respiratory Depth Normal Normal Respiratory Pattern Regular Regular Blood Pressure 245/114 H 245/114 H Blood Pressure [Right Arm] 245/114 H Blood Pressure Mean 157 Blood Pressure Mean [Right Arm] 157 Blood Pressure Position Lying Blood Pressure Position [Right Arm] Lying Pulse Oximetry 96 96 96 Oxygen Delivery Method Room Air Room Air Room Air Oxygen Flow Rate 0 Sepsis Recent Fever Within 48 Hours No Sepsis New/Unexplained Change in Mental Status N/A Sepsis Action Taken by Nursing No Action Required 02/12/25 16:36 02/12/25 16:41 02/12/25 16:48 Temperature Temperature Source Pulse Rate 81 Pulse Rate [Right Finger] Pulse Rate from SpO2 Sensor Pulse Strength [Bilateral] Respiratory Rate Respiratory Effort / Characteristics Respiratory Depth Respiratory Pattern Blood Pressure 229/105 H Blood Pressure [Right Arm] Blood Pressure Mean 186 Blood Pressure Mean [Right Arm] Blood Pressure Position Blood Pressure Position [Right Arm] Pulse Oximetry 96 Oxygen Delivery Method Room Air Oxygen Flow Rate Sepsis Recent Fever Within 48 Hours Sepsis New/Unexplained Change in Mental Status Sepsis Action Taken by Nursing 02/12/25 16:54 02/12/25 17:03 02/12/25 17:07 Temperature Temperature Source Pulse Rate 85 Pulse Rate [Right Finger] Pulse Rate from SpO2 Sensor 81 84 Pulse Strength [Bilateral] Respiratory Rate Respiratory Effort / Characteristics Respiratory Depth Respiratory Pattern Blood Pressure 243/108 H Blood Pressure [Right Arm] Blood Pressure Mean 160 Blood Pressure Mean [Right Arm] Blood Pressure Position Blood Pressure Position [Right Arm] Pulse Oximetry 93 91 Oxygen Delivery Method Oxygen Flow Rate Sepsis Recent Fever Within 48 Hours Sepsis New/Unexplained Change in Mental Status Sepsis Action Taken by Nursing 02/12/25 17:07 02/12/25 17:07 02/12/25 17:21 Temperature Temperature Source Pulse Rate Pulse Rate [Right Finger] Pulse Rate from SpO2 Sensor Pulse Strength [Bilateral] Respiratory Rate Respiratory Effort / Characteristics Respiratory Depth Respiratory Pattern Blood Pressure 243/108 H 243/108 H 217/95 H Blood Pressure [Right Arm] Blood Pressure Mean 160 160 162 Blood Pressure Mean [Right Arm] Blood Pressure Position Blood Pressure Position [Right Arm] Pulse Oximetry Oxygen Delivery Method Oxygen Flow Rate Sepsis Recent Fever Within 48 Hours Sepsis New/Unexplained Change in Mental Status Sepsis Action Taken by Nursing 02/12/25 17:25 02/12/25 17:30 02/12/25 17:30 Temperature Temperature Source Pulse Rate Pulse Rate [Right Finger] 89 Pulse Rate from SpO2 Sensor Pulse Strength [Bilateral] Respiratory Rate 16 Respiratory Effort / Characteristics Non-Labored Spontaneous Respiratory Depth Normal Respiratory Pattern Regular Blood Pressure 232/103 H 232/103 H Blood Pressure [Right Arm] 232/103 H Blood Pressure Mean 131 131 Blood Pressure Mean [Right Arm] 146 Blood Pressure Position Blood Pressure Position [Right Arm] Lying Pulse Oximetry 93 Oxygen Delivery Method Room Air Oxygen Flow Rate Sepsis Recent Fever Within 48 Hours Sepsis New/Unexplained Change in Mental Status Sepsis Action Taken by Nursing 02/12/25 17:33 02/12/25 17:45 02/12/25 17:57 Temperature Temperature Source Pulse Rate 88 86 85 Pulse Rate [Right Finger] Pulse Rate from SpO2 Sensor 88 86 85 Pulse Strength [Bilateral] Respiratory Rate 14 7 L 19 Respiratory Effort / Characteristics Respiratory Depth Respiratory Pattern Blood Pressure Blood Pressure [Right Arm] Blood Pressure Mean Blood Pressure Mean [Right Arm] Blood Pressure Position Blood Pressure Position [Right Arm] Pulse Oximetry 92 92 88 L Oxygen Delivery Method Oxygen Flow Rate Sepsis Recent Fever Within 48 Hours Sepsis New/Unexplained Change in Mental Status Sepsis Action Taken by Nursing 02/12/25 18:03 02/12/25 18:27 02/12/25 18:28 Temperature Temperature Source Pulse Rate 87 87 Pulse Rate [Right Finger] Pulse Rate from SpO2 Sensor 86 86 Pulse Strength [Bilateral] Respiratory Rate 17 7 L Respiratory Effort / Characteristics Respiratory Depth Respiratory Pattern Blood Pressure 221/104 H Blood Pressure [Right Arm] Blood Pressure Mean 137 Blood Pressure Mean [Right Arm] Blood Pressure Position Blood Pressure Position [Right Arm] Pulse Oximetry 94 95 Oxygen Delivery Method Oxygen Flow Rate Sepsis Recent Fever Within 48 Hours Sepsis New/Unexplained Change in Mental Status Sepsis Action Taken by Nursing 02/12/25 18:29 02/12/25 18:29 02/12/25 18:30 Temperature Temperature Source Pulse Rate Pulse Rate [Right Finger] 86 Pulse Rate from SpO2 Sensor Pulse Strength [Bilateral] Respiratory Rate 16 18 Respiratory Effort / Characteristics Respiratory Depth Respiratory Pattern Blood Pressure 229/93 H Blood Pressure [Right Arm] 221/104 H Blood Pressure Mean 165 Blood Pressure Mean [Right Arm] 143 Blood Pressure Position Blood Pressure Position [Right Arm] Pulse Oximetry 92 Oxygen Delivery Method Room Air Oxygen Flow Rate Sepsis Recent Fever Within 48 Hours Sepsis New/Unexplained Change in Mental Status Sepsis Action Taken by Nursing 02/12/25 18:30 02/12/25 18:30 02/12/25 18:30 Temperature Temperature Source Pulse Rate 85 Pulse Rate [Right Finger] Pulse Rate from SpO2 Sensor 85 Pulse Strength [Bilateral] Respiratory Rate 8 L Respiratory Effort / Characteristics Respiratory Depth Respiratory Pattern Blood Pressure 229/93 H 229/93 H Blood Pressure [Right Arm] Blood Pressure Mean 165 165 Blood Pressure Mean [Right Arm] Blood Pressure Position Blood Pressure Position [Right Arm] Pulse Oximetry 89 L Oxygen Delivery Method Oxygen Flow Rate Sepsis Recent Fever Within 48 Hours Sepsis New/Unexplained Change in Mental Status Sepsis Action Taken by Nursing 02/12/25 18:42 02/12/25 18:43 02/12/25 19:00 Temperature Temperature Source Pulse Rate 83 Pulse Rate [Right Finger] 83 64 Pulse Rate from SpO2 Sensor 84 Pulse Strength [Bilateral] Respiratory Rate 26 H 16 18 Respiratory Effort / Characteristics Respiratory Depth Respiratory Pattern Blood Pressure Blood Pressure [Right Arm] 217/93 H Blood Pressure Mean Blood Pressure Mean [Right Arm] 134 Blood Pressure Position Blood Pressure Position [Right Arm] Pulse Oximetry 91 94 Oxygen Delivery Method Nasal Cannula Oxygen Flow Rate 2 Sepsis Recent Fever Within 48 Hours Sepsis New/Unexplained Change in Mental Status Sepsis Action Taken by Nursing Primary Survey Airway: Intact Breathing: Normal, breath sounds equal bilaterally Circulation: Skin warm, distal pulses 2+, capillary refill less than 2 seconds Disability Pupils: Equal and reactive to light, 2 mm, brisk GCS: 15, E = 4 V=5 M= 6 Motor Function: Moves all extremities. Sensory: No deficits Secondary Survey GEN: Well developed and well-nourished HEAD: Normocephallic atruamatic EYES: Pupils round reactive to light, conjunctiva clear, extraocular movements intact, no raccoons eyes ENT: no yarbrough's sign, nares patent, oropharynx clear NECK: No JVD, midline trachea, no cervical spine tenderness HEART: Regular rate and rhythm LUNGS: Clear to auscultation bilaterally. CHEST: Chest wall non-tender, no bruising/deformity. Permacath present in the patient's right chest. ABD: soft, non-tender, no rebound or guarding, MUSC: Pain on palpation of the left hip. Left lower extremity shortened and externally rotated. NEURO: CNII-XII grossly intact, no sensory deficits Course Course 1605: The patient was evaluated in room B4. A complete history and physical exam was performed Cardiac monitoring: An order was placed for continuous cardiac monitoring. The monitor shows a rate of 80 with sinus rhythm interpreted by oh Trauma alert activated. 1625: X-ray viewed by oh confirms left-sided hip fracture. Chest x-ray shows no pneumothorax. Patient be taken to CT scan. 1740: Vital signs show an elevated blood pressure. Patient does have a history of hypertension and the family at bedside states that the patient's systolic blood pressure usually runs in the 200s. She states that they do not give him any hypertensive medications because that is caused his blood pressure to bottom out in the past. Patient does have a new left bundle branch block on EKG however is not reporting any chest pain. Patient's troponin is elevated at 44.9 however this is thought to be due to his CKD as he is scheduled for dialysis tomorrow. Not thought to be due to ACS as the patient is not reporting any chest pain. Imaging shows no other traumatic injuries with the exception of the hip fracture. Patient will be admitted to the medicine team with orthopedics on consult. 1750: Dr. Wheeler and Rema's PA were made aware of the patient and they stated to keep the patient n.p.o. after midnight after reviewing his x-rays. 0: Did speak with Kg Wheatley working with Dr. Rosa and I did make her aware about the patient's new left bundle branch block but no reported chest pain. She is also aware of the patient's elevated blood pressures. Administered Medications Potassium Chloride (K Montez / Wtr) 10 meq in 100 mls @ 100 mls/hr IV Q1H JUAN JOSE Stop: 02/12/25 19:59 Last Admin: 02/12/25 18:24 Dose: 100 mls/hr Documented By: ALVIN Morphine Sulfate (Morphine Sulfate 4 Mg/Ml 1 Ml Carp\Vial) 4 mg IV Q1H PRN PRN Reason: Severe Pain (Rating 7,8,9,10) Stop: 02/26/25 17:24 Last Admin: 02/12/25 18:24 Dose: 4 mg Documented By: ALVIN Discontinued Medications Hydralazine HCl (Hydralazine Hcl 20 Mg/Ml Vial) 2.5 mg IV NOW ONE Stop: 02/12/25 18:26 Last Admin: 02/12/25 18:33 Dose: 2.5 mg Documented By: ALVIN Ioversol (Optiray 320 100ml) 94 ml IV ONCE ONE Stop: 02/12/25 16:37 Last Admin: 02/12/25 16:36 Dose: 94 ml Documented By: ALEK Morphine Sulfate (Morphine Sulfate 2 Mg/Ml Carp) 2 mg IV NOW STA Stop: 02/12/25 16:15 Last Admin: 02/12/25 17:28 Dose: Not Given Documented By: EMRE Morphine Sulfate (Morphine Sulfate 4 Mg/Ml 1 Ml Carp\Vial) 4 mg IV NOW STA Stop: 02/12/25 16:29 Last Admin: 02/12/25 16:39 Dose: 4 mg Documented By: MIRNA Ondansetron HCl (Ondansetron Inj 2 Mg/Ml 2 Ml Vial) 4 mg IV NOW STA Stop: 02/12/25 16:15 Last Admin: 02/12/25 16:39 Dose: 4 mg Documented By: MIRNA Potassium Chloride (Potassium Chloride Crtab 20 Meq Tabcr) 20 meq PO NOW STA Stop: 02/12/25 18:00 Last Admin: 02/12/25 18:24 Dose: 20 meq Documented By: ALVIN Medical Decision Making Laboratory Data Attestation: I reviewed the patient's lab results. 02/12/25 16:18 02/12/25 16:18 Lab Results 02/12/25 02/12/25 02/12/25 Range/Units 16:18 16:21 16:23 WBC 6.92 (4.8-10.8) K/ul RBC 3.82 L (4.70-6.10) M/uL Hgb 12.2 L (14.0-18.0) g/dl POC Hgb 13.3 L (14.0-18.0) g/dl Hct 38.0 L (42.0-52.0) % POC Hct 39 L (42-52) % MCV 99.5 (80.0-100.0) fL MCH 31.9 (25.0-34.0) pg MCHC 32.1 (32.0-36.0) g/dL RDW Std Deviation 65.0 H (36.4-46.3) fL RDW Coeff of Zev 17.7 H (11.5-14.5) % Plt Count 114 L (130-400) K/uL MPV 11.5 (9.4-12.4) fL Immature Gran % (Auto) 0.6 % Neut % (Auto) 80.0 % Lymph % (Auto) 11.6 % Charlton % (Auto) 6.5 % Eos % (Auto) 0.9 % Baso % (Auto) 0.4 % Neut # (Auto) 5.54 (1.40-6.50) K/uL Lymph # (Auto) 0.80 L (1.20-3.40) K/uL Charlton # (Auto) 0.45 (0.11-0.59) K/uL Eos # (Auto) 0.06 (0.00-0.50) K/uL Baso # (Auto) 0.03 (0.00-0.20) K/uL Immature Gran # (Auto) 0.04 (0.01-0.20) K/uL PT 10.3 (9.0-12.0) Seconds INR 0.9 (0.9-1.1) APTT 29 (21-31) Seconds PTT Ratio 1.1 POC Sodium 140 (135-144) mmol/L Sodium 141 (136-145) mmol/L POC Potassium 2.9 L (3.3-5.0) mmol/L Potassium 3.0 L (3.5-5.1) mmol/L POC Chloride 100 L (101-112) mmol/L Chloride 102 (98-107) mmol/L Carbon Dioxide 29 (21-32) mmol/L POC Total CO2 26 (24-31) mmol/L Anion Gap 10 (3-11) POC Anion Gap 18.0 (16-25) mmol/L POC BUN 26 H (7-18) mg/dl BUN 27 H (6-23) mg/dl Creatinine 4.80 H* (0.6-1.4) mg/dl POC Creatinine 4.8 H* (0.6-1.3) mg/dl Est Cr Clr Drug Dosing 9.9 ml/min eGFR 11.09 BUN/Creatinine Ratio 5.6 L (10-20) Glucose 141 H (70-99(Fasting)) mg/dl POC Glucose (other) 143 H (70-99) mg/dl Calcium 8.5 L (8.6-10.3) mg/dl POC Ioniz Calcium Misael 1.06 L (1.12-1.32) mmol/l Total Bilirubin 0.5 (0.2-1.0) mg/dl AST 25 (13-39) U/L ALT 11 (7-52) U/L Alkaline Phosphatase 50 (34-104) U/L Total Creatine Kinase 125 (30-223) U/L Troponin I High Sens 44.9 H (0-20) pg/ml Total Protein 7.0 (6.0-8.3) gm/dl Albumin 3.8 (3.4-5.0) gm/dl Globulin 3.2 (2.5-4.0) gm/dl Albumin/Globulin Ratio 1.2 (0.9-2) Lipase 31 (11-82) U/L Ethyl Alcohol mg/dL (<10.0) mg/dl Blood Type A Positive Antibody Screen NEGATIVE 02/12/25 02/12/25 Range/Units 16:43 18:00 WBC (4.8-10.8) K/ul RBC (4.70-6.10) M/uL Hgb (14.0-18.0) g/dl POC Hgb (14.0-18.0) g/dl Hct (42.0-52.0) % POC Hct (42-52) % MCV (80.0-100.0) fL MCH (25.0-34.0) pg MCHC (32.0-36.0) g/dL RDW Std Deviation (36.4-46.3) fL RDW Coeff of Zev (11.5-14.5) % Plt Count (130-400) K/uL MPV (9.4-12.4) fL Immature Gran % (Auto) % Neut % (Auto) % Lymph % (Auto) % Charlton % (Auto) % Eos % (Auto) % Baso % (Auto) % Neut # (Auto) (1.40-6.50) K/uL Lymph # (Auto) (1.20-3.40) K/uL Charlton # (Auto) (0.11-0.59) K/uL Eos # (Auto) (0.00-0.50) K/uL Baso # (Auto) (0.00-0.20) K/uL Immature Gran # (Auto) (0.01-0.20) K/uL PT (9.0-12.0) Seconds INR (0.9-1.1) APTT (21-31) Seconds PTT Ratio POC Sodium (135-144) mmol/L Sodium (136-145) mmol/L POC Potassium (3.3-5.0) mmol/L Potassium (3.5-5.1) mmol/L POC Chloride (101-112) mmol/L Chloride (98-107) mmol/L Carbon Dioxide (21-32) mmol/L POC Total CO2 (24-31) mmol/L Anion Gap (3-11) POC Anion Gap (16-25) mmol/L POC BUN (7-18) mg/dl BUN (6-23) mg/dl Creatinine (0.6-1.4) mg/dl POC Creatinine (0.6-1.3) mg/dl Est Cr Clr Drug Dosing ml/min eGFR BUN/Creatinine Ratio (10-20) Glucose (70-99(Fasting)) mg/dl POC Glucose (other) (70-99) mg/dl Calcium (8.6-10.3) mg/dl POC Ioniz Calcium Misael (1.12-1.32) mmol/l Total Bilirubin (0.2-1.0) mg/dl AST (13-39) U/L ALT (7-52) U/L Alkaline Phosphatase (34-104) U/L Total Creatine Kinase (30-223) U/L Troponin I High Sens 43.5 H (0-20) pg/ml Total Protein (6.0-8.3) gm/dl Albumin (3.4-5.0) gm/dl Globulin (2.5-4.0) gm/dl Albumin/Globulin Ratio (0.9-2) Lipase (11-82) U/L Ethyl Alcohol mg/dL < 10.0 (<10.0) mg/dl Blood Type Antibody Screen Imaging Data Attestation: I personally reviewed and interpreted this imaging study as follows: My Impression: Pelvis x-ray: Left hip fracture Chest x-ray: Chest x-ray negative. Airway clear. No pneumothorax. No consolidation. No cardiomegaly or cephalization.. No free air under the diaphragm. No fractures of the skeletal structures. Radiologist's Impression: Abdomen/Pelvis CT 02/12/25 16:09 CT ABDOMEN and PELVIS with INTRAVENOUS CONTRAST HISTORY: Abdominal pain TECHNIQUE: CT abdomen and pelvis with contrast. IV CONTRAST: 100 mL of OMNIPAQUE 300 ENTERIC CONTRAST: Not Given COMPARISON: FINDINGS: LOWER CHEST: Cardiomegaly. Trace pleural fluids. LIVER: No focal lesion identified. GALLBLADDER/BILIARY: Unremarkable gallbladder. Mildly distended biliary tree may be an expected finding following cholecystectomy and the accounting for patient's age SPLEEN: Unremarkable. PANCREAS: Unremarkable. ADRENALS: Unremarkable. KIDNEYS: Atrophic kidneys. Cortical cysts. No stones or hydronephrosis identified. PERITONEUM/RETROPERITONEUM. No lymphadenopathy by size criteria. No aortic aneurysm. Extensive atherosclerosis GASTROINTESTINAL: No obstruction. Postoperative changes of right hemicolectomy with ileocolic anastomosis. REPRODUCTIVE: Normal-sized prostate gland with coarse calcifications URINARY BLADDER: Inflammatory changes with wall thickening. BONES: Acute traumatic subcapital fracture of the left femur with impaction and varus angulation. IMPRESSION: Acute traumatic subcapital fracture of the left femur with impaction and varus angulation. Cystitis. Electronically signed by Drake Mckeon 02-12-2025 5:[address] 02/12/25 16:09 CT CERVICAL SPINE WITHOUT CONTRAST: HISTORY: TRAUMA TECHNIQUE: Noncontrast CT examination of the cervical spine is performed. Coronal and sagittal reformats were created. COMPARISON: None. FINDINGS: CERVICAL SPINE: There is no significant vertebral body height loss. No acute traumatic fracture identified. There is no significant spondylolisthesis. Multilevel degenerative changes characterized by disc osteophyte complex, bilateral facet and uncovertebral hypertrophy resulting and neural foraminal narrowing at multiple levels, worst at mid to lower spine. Visualized soft tissues of neck are unremarkable. Visualized lung apex is clear. IMPRESSION: No acute traumatic fracture of the cervical spine. Multilevel degenerative changes as above Electronically signed by Drake Mckeon 02-12-2025 5:23 PM Chest X-Ray 02/12/25 16:09 Clinical History: Trauma Technique: A frontal view of the chest was obtained Comparison is made to the prior examination dated 12/06/2024 Findings: There are no confluent pulmonary infiltrates. The heart size is within normal limits. No pleural effusion or pneumothorax is seen. There is a possible right apical nodule No fracture is noted. A right jugular central venous line is again seen with its tip in the mid SVC. There is a left subclavian vascular stent Impression: Possible right apical nodule. A follow-up chest CT could be considered ACT 112: Positive. There are findings on this exam that require communication between the performing entity and the patient following Patient Test Result Information Act ([place] ACT 112) guidelines. Electronically signed by Maurice Canales 02-12-2025 4:[address] 02/12/25 16:09 CT head without contrast History: Trauma Comparison: None Technique: Using multidetector thin collimation helical acquisition technique, axial, coronal and sagittal CT images from the skull base to the vertex were obtained without intravenous contrast. Dose reduction techniques were achieved by using automatic exposure control and/or adjustment of mA and/or kV according to patient size and/or use of iterative reconstruction technique. Findings: No intracranial hemorrhage, mass-effect, or midline shift. The ventricles are proportionate to the cerebral sulci. The barajas to white matter differentiation of the cerebral hemispheres is preserved. The basal cisterns are patent. Marked cerebral atrophy. The visualized paranasal sinuses are clear. Mastoid air cells are clear. Impression: No acute intracranial pathology. Electronically signed by Tarik Moya 02-12-2025 4:49 PM Pelvis X-Ray 02/12/25 16:09 Clinical History: Trauma One view of the pelvis is submitted for review. Findings: There is an acute mildly displaced subcapital fracture of the left femoral neck with some varus angulation. No subluxation or dislocation is seen. No significant arthritic changes are noted. No other osseous abnormality is identified. There are no radiopaque foreign bodies. Vascular calcifications are present Impression: Acute fracture of the left femoral neck ACT 112: Positive. There are findings on this exam that require communication between the performing entity and the patient following Patient Test Result Information Act ([place] ACT 112) guidelines. Electronically signed by Maurice Canales 02-12-2025 4:51 PM [facility] Narrative 1605: The patient was evaluated in room B4. A complete history and physical exam was performed Cardiac monitoring: An order was placed for continuous cardiac monitoring. The monitor shows a rate of 80 with sinus rhythm interpreted by oh Trauma alert activated. 1625: X-ray viewed by oh confirms left-sided hip fracture. Chest x-ray shows no pneumothorax. Patient be taken to CT scan. 1740: Vital signs show an elevated blood pressure. Patient does have a history of hypertension and the family at bedside states that the patient's systolic blood pressure usually runs in the 200s. She states that they do not give him any hypertensive medications because that is caused his blood pressure to bottom out in the past. Patient does have a new left bundle branch block on EKG however is not reporting any chest pain. Patient's troponin is elevated at 44.9 however this is thought to be due to his CKD as he is scheduled for dialysis tomorrow. Not thought to be due to ACS as the patient is not reporting any chest pain. Imaging shows no other traumatic injuries with the exception of the hip fracture. Patient will be admitted to the medicine team with orthopedics on consult. 1750: Dr. Wheeler and Rema's PA were made aware of the patient and they stated to keep the patient n.p.o. after midnight after reviewing his x-rays. 1820: Did speak with Kg Wheatley working with Dr. Rosa and I did make her aware about the patient's new left bundle branch block but no reported chest pain. She is also aware of the patient's elevated blood pressures. Impression & Plan Closed hip fracture, HTN (hypertension), End-stage renal disease (ESRD), Left bundle branch block Discharge Plan Visit Data Chief Complaint: Trauma ED Provider: Stefan Carrington Discharge Problem: Closed hip fracture, HTN (hypertension), End-stage renal disease (ESRD), Left bundle branch block Patient Disposition: Admitted As Inpatient Condition: Serious Discharge Problem: Closed hip fracture Qualifiers: Encounter type: initial encounter Laterality: left Qualified Code(s): S72.002A - Fracture of unspecified part of neck of left femur, initial encounter for closed fracture
[2025-02-12] MEDS: OPTIRAY 320 100ml IV ONE (16:36)
[2025-02-12 16:38] LABS: Hematocrit (blood only) 38.0 % (42.0-52.0); Hemoglobin 12.2 g/dl (14.0-18.0); Immature Granulocytes # (auto) 0.04 K/uL (0.01-0.20); Immature Granulocytes % (auto) 0.6 %; Mean Corpuscular Hemoglobin 31.9 pg (25.0-34.0); Mean Corpuscular Volume 99.5 fL (80.0-100.0); Platelet Count 114 K/uL (130-400); RDW Standard Deviation 65.0 fL (36.4-46.3); Red Blood Count 3.82 M/uL (4.70-6.10); White Blood Count 6.92 K/ul (4.8-10.8)
[2025-02-12] MEDS: MoRPHine SULFATE 4 MG/ML 1 ML CARP\\VIAL IV STA (16:39)
[2025-02-12] MEDS: ONDANSETRON INJ 2 MG/ML 2 ML VIAL IV STA (16:39)
--- NOTE | 2025-02-12 16:49 | CT Scan Report ---
CT head without contrast History: Trauma Comparison: None Technique: Using multidetector thin collimation helical acquisition technique, axial, coronal and sagittal CT images from the skull base to the vertex were obtained without intravenous contrast. Dose reduction techniques were achieved by using automatic exposure control and/or adjustment of mA and/or kV according to patient size and/or use of iterative reconstruction technique. Findings: No intracranial hemorrhage, mass-effect, or midline shift. The ventricles are proportionate to the cerebral sulci. The barajas to white matter differentiation of the cerebral hemispheres is preserved. The basal cisterns are patent. Marked cerebral atrophy. The visualized paranasal sinuses are clear. Mastoid air cells are clear. Impression: No acute intracranial pathology. Electronically signed by Tarik Moya 02-12-2025 4:49 PM
--- NOTE | 2025-02-12 16:52 | XRay Report ---
Clinical History: Trauma One view of the pelvis is submitted for review. Findings: There is an acute mildly displaced subcapital fracture of the left femoral neck with some varus angulation. No subluxation or dislocation is seen. No significant arthritic changes are noted. No other osseous abnormality is identified. There are no radiopaque foreign bodies. Vascular calcifications are present Impression: Acute fracture of the left femoral neck ACT 112: Positive. There are findings on this exam that require communication between the performing entity and the patient following Patient Test Result Information Act ([place] ACT 112) guidelines. Electronically signed by Maurice Canales 02-12-2025 4:51 PM
--- NOTE | 2025-02-12 16:54 | XRay Report ---
Clinical History: Trauma Technique: A frontal view of the chest was obtained Comparison is made to the prior examination dated 12/06/2024 Findings: There are no confluent pulmonary infiltrates. The heart size is within normal limits. No pleural effusion or pneumothorax is seen. There is a possible right apical nodule No fracture is noted. A right jugular central venous line is again seen with its tip in the mid SVC. There is a left subclavian vascular stent Impression: Possible right apical nodule. A follow-up chest CT could be considered ACT 112: Positive. There are findings on this exam that require communication between the performing entity and the patient following Patient Test Result Information Act ([place] ACT 112) guidelines. Electronically signed by Maurice Canales 02-12-2025 4:54 PM
[2025-02-12 17:02] LABS: Alanine Aminotransferase 11.0 U/L (7-52); Albumin Globulin Ratio 1.2 (0.9-2); Alkaline Phosphatase 50.0 U/L (34-104); Anion Gap 10.0 (3-11); Bilirubin,Total 0.5 mg/dl (0.2-1.0); Blood Urea Nitrogen 27.0 mg/dl (6-23); Calcium 8.5 mg/dl (8.6-10.3); Carbon Dioxide 29.0 mmol/L (21-32); Chloride 102.0 mmol/L (98-107); Creatine Kinase 125.0 U/L (30-223); Creatinine Clr Calc Pharmacy 9.9 ml/min; Globulin 3.2 gm/dl (2.5-4.0); Glucose 141.0 mg/dl (70-99(Fasting)); Lipase 31.0 U/L (11-82); Potassium 3.0 mmol/L (3.5-5.1); Sodium 141.0 mmol/L (136-145); Total Protein 7.0 gm/dl (6.0-8.3)
[2025-02-12 17:12] LABS: INR 0.9 (0.9-1.1); Partial Thromboplastin Time 29 Seconds (21-31); Prothrombin Time 10.3 Seconds (9.0-12.0)
--- NOTE | 2025-02-12 17:24 | CT Scan Report ---
CT CERVICAL SPINE WITHOUT CONTRAST: HISTORY: TRAUMA TECHNIQUE: Noncontrast CT examination of the cervical spine is performed. Coronal and sagittal reformats were created. COMPARISON: None. FINDINGS: CERVICAL SPINE: There is no significant vertebral body height loss. No acute traumatic fracture identified. There is no significant spondylolisthesis. Multilevel degenerative changes characterized by disc osteophyte complex, bilateral facet and uncovertebral hypertrophy resulting and neural foraminal narrowing at multiple levels, worst at mid to lower spine. Visualized soft tissues of neck are unremarkable. Visualized lung apex is clear. IMPRESSION: No acute traumatic fracture of the cervical spine. Multilevel degenerative changes as above Electronically signed by Drake Mckeon 02-12-2025 5:23 PM
[2025-02-12] MEDS ORDERED: MoRPHine SULFATE 2 MG/ML CARP IV PRN (17:25)
[2025-02-12] MEDS: MoRPHine SULFATE 2 MG/ML CARP IV STA (17:28)
--- NOTE | 2025-02-12 17:35 | CT Scan Report ---
CT ABDOMEN and PELVIS with INTRAVENOUS CONTRAST HISTORY: Abdominal pain TECHNIQUE: CT abdomen and pelvis with contrast. IV CONTRAST: 100 mL of OMNIPAQUE 300 ENTERIC CONTRAST: Not Given COMPARISON: FINDINGS: LOWER CHEST: Cardiomegaly. Trace pleural fluids. LIVER: No focal lesion identified. GALLBLADDER/BILIARY: Unremarkable gallbladder. Mildly distended biliary tree may be an expected finding following cholecystectomy and the accounting for patient's age SPLEEN: Unremarkable. PANCREAS: Unremarkable. ADRENALS: Unremarkable. KIDNEYS: Atrophic kidneys. Cortical cysts. No stones or hydronephrosis identified. PERITONEUM/RETROPERITONEUM. No lymphadenopathy by size criteria. No aortic aneurysm. Extensive atherosclerosis GASTROINTESTINAL: No obstruction. Postoperative changes of right hemicolectomy with ileocolic anastomosis. REPRODUCTIVE: Normal-sized prostate gland with coarse calcifications URINARY BLADDER: Inflammatory changes with wall thickening. BONES: Acute traumatic subcapital fracture of the left femur with impaction and varus angulation. IMPRESSION: Acute traumatic subcapital fracture of the left femur with impaction and varus angulation. Cystitis. Electronically signed by Drake Mckeon 02-12-2025 5:35 PM
--- NOTE | 2025-02-12 18:08 | History & Physical Report ---
Date of Service February 12, 2025 Assessment & Plan (1) Closed hip fracture: Plan: Patient is a 89 year old M with a past medical history of ESRD on HD 3day/week, HTN, CHF, BPH,dyslipidemia presenting with left leg pain. Patient reports falling today while using his walker at home on carpet. Immediate pain and swelling. Unable to ambulate. Arrived here via EMS. Fentanyl given via transport. Closed hip fracture * Admit to [facility] for further management * LLE tenderness, limited ROM, limited weight bearing * Pelvic Xray showing acute fracture of the left femoral neck * Cervical Spine CT with no acute traumatic fracture of the cervical spine. * Ortho consulted in ED- plan for OR tomorrow; NPO at [facility] * Exquisite pain in the ED requiring multiple doses of morphine, had fentanyl in enroute to the hospital. * Pain management while inpatient- Tylenol IV scheduled, Dilaudid as needed * NPO at [facility] for surgery * PT/OT when able Left Bundle Branch Block #Hypokalemia * EKG showing sinus rhythm with 1st degree A-V block, Left BBB, vent rate 83 bpm, QTc 526 * Asymptomatic, no CP * Echo ordered * Cardiology consult placed * Hypokalemia noted on labs K+3.0 and replaced with k-riders * Will trend with AM labs #ESRD #Hypertension * Receives HD , last treatment yesterday * Creatinine 4.8, eGFR 11 * Nephrology consult placed * BP elevated 220/104 while in ED, labetalol given 170's/70 post DVT Ppx: Scds Code status: Full code PCP: Dr. Kerwin Wynn Dispo: Admit Patient seen in collaboration with Dr. Rosa. Please see addendum.I spent a total of 60 minutes coordinating, documenting and providing care for this patient excluding time spent in the performance of separately billed services or time spent by another provider/QHP. (2) Left bundle branch block: (3) End-stage renal disease (ESRD): (4) HTN (hypertension): History of Present Illness Primary Care Provider: ANDREZ Portillo Patient is a 89 year old M with a past medical history of ESRD on HD 3day/week, HTN, CHF, BPH,dyslipidemia presenting with left leg pain. Patient reports falling today while using his walker at home on carpet. Immediate pain and swelling. Unable to ambulate. Arrived here via EMS. Fentanyl given via transport. Denies fever, chills, weight loss, weakness, headache, cognitive changes, vision/hearing changes, chest pain, SOB, swelling, difficulty breathing, urinary concerns, N/V/D, skin rashes, lesions, bleeding, bruising. In the emergency department, patient was hypertensive with BP 200's/120's, asymptomatic. Possibly related to pain, but has a history of ESRD and on dialysis. Labetalol given in the ED with gradual decrease in BP. No signs of infection. Pelvis Xray showing acute mildly displaced subcapital fracture of the left femoral neck with some varus angulation. Morphine given for pain with some relief. Ortho consulted in the ED. Hypokalemia on labs with K+ 3.0. EKG showing sinus rhythm with 1st degree A-V block, Left BBB, vent rate 83 bpm, QTc 526. No chest pain. Renal functioning poor, although the patient reports still urinating fair amount daily. Creatinine 4.8, eGFR 11. Patient received HD 3 days/week, last treatment yesterday. History obtained primarily from the patient and via hospitalization record. The patient's family was at the bedside and assisted with history of present illness and medication history. Allergies Allergy/AdvReac Type Severity Reaction Status Date / Time No Known Allergies Allergy Verified 02/12/25 16:53 Home Medications Medication Instructions Recorded Confirmed Type rosuvastatin 20 mg tablet (Crestor) 10 mg PO HS 02/26/19 02/12/25 History acetaminophen 500 mg tablet 500 mg PO TID PRN Pain 09/09/20 02/12/25 History (Tylenol Extra Strength) protein supplement 1 oz PO 3XWK ##0 09/18/23 02/12/25 History vitamin B complex-vitamin C-folic 1 tab PO DAILY 02/12/25 02/12/25 History acid 0.8 mg tablet (Carol Ann-Sonido) Past Med/Surg History Problem List Left bundle branch block (Acute) End-stage renal disease (ESRD) (Acute) HTN (hypertension) (Acute) Closed hip fracture (Acute) Asymptomatic bacteriuria Transient weakness of right lower extremity Bleeding at insertion site (Acute) Dialysis AV fistula malfunction BPH (benign prostatic hyperplasia) Urinary retention Malagon catheter in place Acute kidney injury superimposed on chronic kidney disease Volume overload Hypertensive urgency CHF (congestive heart failure) (Acute) Renal failure (Acute) Hypertension (Acute) Weakness (Acute) Ventricular ectopic complex Palliative care patient Palliative care encounter Complications, dialysis, catheter, mechanical Thrombocytopenia ESRD (end stage renal disease) on dialysis (Acute) FP (false passage in the urethra) Bladder mass Transitional cell bladder cancer Encounter for pre-operative examination Central venous catheter in place Jaundice Encounter for pre-operative examination Choledocholithiasis Dialysis AV fistula malfunction Arteriovenous fistula thrombosis Anemia of chronic disease Dyslipidemia Urinary retention CKD (chronic kidney disease), stage IV Follows with Dr. Ramya Gudino Hyperlipemia Medical History Acute hyperkalemia Chronic back pain ARTHRITIS Pulmonary hypertension AVF (arteriovenous fistula) LUE Kidney stones Umbilical hernia present since colectomy DVT (deep venous thrombosis) RLE (3 yrs ago), unknown etiology, previously on AC (since discontinued) CHF (congestive heart failure) Bladder cancer Hypertension Intolerant to previously trialed meds (dizzy) BPH (benign prostatic hyperplasia) [facility] [place] [facility]Th[facility]Sat Colon cancer 2012 > colectomy Surgical History Hx laparoscopic cholecystectomy Lap cholecystectomy (11/28/21): Grade 1 view, Ferrer #2, ETT 7.5 at [facility]. No issues noted per post-op anesthesia progress note. History of ERCP with stent to bile duct History of cystoscopy History of colonoscopy History of cataract surgery bilat History of tooth extraction History of vascular access device removed October 10, 2021 Hx of tonsillectomy S/P right colectomy no colostomy Family History Mother Colorectal cancer Other Kidney disease Social History Smoking Status: Former smoker Tobacco Type: Cigarettes Second Hand Exposure: No; Do You Dip or Chew Tobacco: No; Tobacco Cessation Education Requested by Patient: No Hx Alcohol Use: No Hx Substance Use: No Preferred Language: Swedish Communication Ability: Effective Hearing Ability: Use of Hearing Aid [employer] Research [employer] Required: No Beliefs That Will Affect Care: None marital status: / Current Living Situation: Alone and Family Current Living Situation Comment: daughter and son frequently visit current occupational status: retired Other Information That Helps Us Care for You: No Feels Safe at Home: Yes Safety Concerns: Feels Safe At This Time Assistive Devices: Denture - Upper, Denture - Lower, Glasses and Walker Review of Systems Review of Systems: All systems reviewed & are unremarkable except as noted in HPI & below Physical Exam Physical Exam: VITALS: Reviewed. WEIGHT/BMI reviewed. GEN: Healthy appearing, well-developed, NAD. PSYCH: Good Judgment. AOx3. Normal memory, mood, and affect. HEENT -Head: NC/AT; -Eyes: PERRL, EOMI. No discharge or redn ess; -Ears: External ears are normal. -Nose: Normal nares. -Mouth and throat: MMM. Normal gums, muc shivam, palate,. Good dentition. NECK: Supple, with no masses. CV: RRR, no m/r/g. LUNGS: CTAB, no w/r/c. ABD: Soft, NT/ND, NBS, no masses or organomegaly. : N/A SKIN: Warm, well perfused. No skin rashes or abnormal lesions. MSK: Left hip to mid-thigh tender with swelling EXT: No clubbing, cyanosis, or edema. NEURO: CN II-XII grossly intact, No focal deficits. Results & Data Results & Data Vital Signs (Past 12 Hours) Vital Signs Temp Pulse Pulse Resp BP BP Pulse Ox 02/12/25 17:25 89 16 232/103 H 93 02/12/25 16:48 81 02/12/25 16:41 96 02/12/25 16:19 36.9 C 81 18 245/114 H 96 02/12/25 16:08 36.9 C 81 18 245/114 H 96 02/12/25 16:04 36.9 C 81 18 245/114 H 96 O2 Del Method O2 Flow Rate 02/12/25 17:25 Room Air 02/12/25 16:48 02/12/25 16:41 Room Air 02/12/25 16:19 Room Air 02/12/25 16:08 Room Air 0 02/12/25 16:04 Room Air Laboratory Results Short CBC 02/12/25 Range/Units 16:18 WBC 6.92 (4.8-10.8) K/ul Hgb 12.2 L (14.0-18.0) g/dl Hct 38.0 L (42.0-52.0) % Plt Count 114 L (130-400) K/uL BMP 02/12/25 16:18 Sodium 141 Potassium 3.0 L Chloride 102 Carbon Dioxide 29 BUN 27 H Creatinine 4.80 H* Glucose 141 H Calcium 8.5 L Cardiac Enzymes 02/12/25 Range/Units 16:18 Total Creatine Kinase 125 (30-223) U/L Liver Function 02/12/25 Range/Units 16:18 Total Bilirubin 0.5 (0.2-1.0) mg/dl AST 25 (13-39) U/L ALT 11 (7-52) U/L Alkaline Phosphatase 50 (34-104) U/L Albumin 3.8 (3.4-5.0) gm/dl Diagnostic Findings Abdomen/Pelvis CT 02/12/25 16:09 CT ABDOMEN and PELVIS with INTRAVENOUS CONTRAST HISTORY: Abdominal pain TECHNIQUE: CT abdomen and pelvis with contrast. IV CONTRAST: 100 mL of OMNIPAQUE 300 ENTERIC CONTRAST: Not Given COMPARISON: FINDINGS: LOWER CHEST: Cardiomegaly. Trace pleural fluids. LIVER: No focal lesion identified. GALLBLADDER/BILIARY: Unremarkable gallbladder. Mildly distended biliary tree may be an expected finding following cholecystectomy and the accounting for patient's age SPLEEN: Unremarkable. PANCREAS: Unremarkable. ADRENALS: Unremarkable. KIDNEYS: Atrophic kidneys. Cortical cysts. No stones or hydronephrosis identified. PERITONEUM/RETROPERITONEUM. No lymphadenopathy by size criteria. No aortic aneurysm. Extensive atherosclerosis GASTROINTESTINAL: No obstruction. Postoperative changes of right hemicolectomy with ileocolic anastomosis. REPRODUCTIVE: Normal-sized prostate gland with coarse calcifications URINARY BLADDER: Inflammatory changes with wall thickening. BONES: Acute traumatic subcapital fracture of the left femur with impaction and varus angulation. IMPRESSION: Acute traumatic subcapital fracture of the left femur with impaction and varus angulation. Cystitis. Electronically signed by Drake Mckeon 02-12-2025 5:[address] 02/12/25 16:09 CT CERVICAL SPINE WITHOUT CONTRAST: HISTORY: TRAUMA TECHNIQUE: Noncontrast CT examination of the cervical spine is performed. Coronal and sagittal reformats were created. COMPARISON: None. FINDINGS: CERVICAL SPINE: There is no significant vertebral body height loss. No acute traumatic fracture identified. There is no significant spondylolisthesis. Multilevel degenerative changes characterized by disc osteophyte complex, bilateral facet and uncovertebral hypertrophy resulting and neural foraminal narrowing at multiple levels, worst at mid to lower spine. Visualized soft tissues of neck are unremarkable. Visualized lung apex is clear. IMPRESSION: No acute traumatic fracture of the cervical spine. Multilevel degenerative changes as above Electronically signed by Drake Mckeon 02-12-2025 5:23 PM Chest X-Ray 02/12/25 16:09 Clinical History: Trauma Technique: A frontal view of the chest was obtained Comparison is made to the prior examination dated 12/06/2024 Findings: There are no confluent pulmonary infiltrates. The heart size is within normal limits. No pleural effusion or pneumothorax is seen. There is a possible right apical nodule No fracture is noted. A right jugular central venous line is again seen with its tip in the mid SVC. There is a left subclavian vascular stent Impression: Possible right apical nodule. A follow-up chest CT could be considered ACT 112: Positive. There are findings on this exam that require communication between the performing entity and the patient following Patient Test Result Information Act ([place] ACT 112) guidelines. Electronically signed by Maurice Canales 02-12-2025 4:[address] 02/12/25 16:09 CT head without contrast History: Trauma Comparison: None Technique: Using multidetector thin collimation helical acquisition technique, axial, coronal and sagittal CT images from the skull base to the vertex were obtained without intravenous contrast. Dose reduction techniques were achieved by using automatic exposure control and/or adjustment of mA and/or kV according to patient size and/or use of iterative reconstruction technique. Findings: No intracranial hemorrhage, mass-effect, or midline shift. The ventricles are proportionate to the cerebral sulci. The barajas to white matter differentiation of the cerebral hemispheres is preserved. The basal cisterns are patent. Marked cerebral atrophy. The visualized paranasal sinuses are clear. Mastoid air cells are clear. Impression: No acute intracranial pathology. Electronically signed by Tarik Moya 02-12-2025 4:49 PM Pelvis X-Ray 02/12/25 16:09 Clinical History: Trauma One view of the pelvis is submitted for review. Findings: There is an acute mildly displaced subcapital fracture of the left femoral neck with some varus angulation. No subluxation or dislocation is seen. No significant arthritic changes are noted. No other osseous abnormality is identified. There are no radiopaque foreign bodies. Vascular calcifications are present Impression: Acute fracture of the left femoral neck ACT 112: Positive. There are findings on this exam that require communication between the performing entity and the patient following Patient Test Result Information Act ([place] ACT 112) guidelines. Electronically signed by Maurice Canales 02-12-2025 4:51 PM Supervising Physician Co-Signing Physician Notes I have seen and discussed the case with the collaborating advanced practitioner. I agree with the above H&P. I have reviewed and confirmed the patients medical history, the findings on physical examination, and the patients diagnosis and treatment plan with Arthur MAGUIRE and agree with the information documented. In short, Mr. Iverson is an 89 yo gentleman with history of prior DVT, HTN, BPH, HLD, ESRD and anemia of chronic disease admitted due to left femoral neck fracture Patient states he was in usual state of health when he tripped over rug and fell. He reports his pressures at baseline are in 190s-200s but also in notable pain. Patient without chest pain or palpitations Last dialysis yesterday, MWF schedule via right permacath EKG with asymptomatic lbbb, trop mild elevation in 40s Exam with RRR, no murmur appreciated +gallop noted, lungs CTABL, no edema of BLE, left leg shortened and abducted #Acute left femoral neck fracture Ortho consulted NPO at midnight schedule tylenol IV dilaudid prn for severe #Liable HTN #Hypertensive Urgency #New asymptomatic LBBB Trop mildly elevated at 40s x 2 No chest pain, diaphoresis likely 2/2 elevated pressures--reports of liable pressures with baseline in 190s-200 per patient, op documentation and his daughter Given LBBB and higher than baseline pressure, start labetolol IV Nephrology consulted for HD trend trop Cards consulted for clearance purposes, high risk patient NPO midnight #ESRD Nephrology consult #Hypokalemia replace prn rest of plan as above I spent a total of 35 minutes coordinating, documenting, and providing care for this patient excluding time spent in the performance of separately billed services. All of the aforementioned completed outside of collaborating with the assigned advanced practitioner for a full treatment plan. I have reviewed the advanced practitioner's documentation, and I agree with, and take responsibility for the plan of care (1) Closed hip fracture Encounter type: initial encounter Laterality: left Qualified Code(s): S72.002A - Fracture of unspecified part of neck of left femur, initial encounter for closed fracture
[2025-02-12] MEDS: POTASSIUM CHLORIDE / WTR 10 MEQ/100 ML PLCT IV SCH (18:24)
[2025-02-12] MEDS: POTASSIUM CHLORIDE CRTAB 20 MEQ TABCR PO STA (18:24)
[2025-02-12] MEDS: MoRPHine SULFATE 4 MG/ML 1 ML CARP\\VIAL IV PRN (18:24)
[2025-02-12] MEDS ORDERED: LABETALOL HCL IV 5 MG/ML 20ML IV PRN (19:17)
[2025-02-12] MEDS: LABETALOL HCL IV 5 MG/ML 20ML IV STA (19:35)
[2025-02-12] MEDS ORDERED: ACETAMINOPHEN 1,000 MG/100 ML VIAL IV PRN (21:02)
[2025-02-12] MEDS ORDERED: ONDANSETRON INJ 2 MG/ML 2 ML VIAL IV PRN (21:02)
[2025-02-12] MEDS ORDERED: MAGNESIUM HYDROXIDE SUSP 30 ML UDC PO PRN (21:02)
[2025-02-12] MEDS ORDERED: NALOXONE HCL 0.4 MG/1 ML VIAL/CARP IV PRN (21:02)
[2025-02-12] MEDS: ROSUVASTATIN CALCIUM 10 MG TAB PO SCH (22:31)
--- NOTE | 2025-02-13 00:32 | Communication Note ---
Date of Service: February 13, 2025 Made aware by RN of uncontrolled blood pressure. SBP 1 70-2 40s since confinement. Patient currently sleeping. AP Hypertensive urgency History of hypertension not on maintenance medications due to history postural hypotension as per records. Stable outpatient BP on review of records (documented SBP 1 90-212 last December 2024) Initiate amlodipine for BP control.
[2025-02-13 00:56] LABS: Base Excess VBG 2.0 mEq/L; HCO3 VBG 28 mmol/L; Oxygen Saturation VBG 85.4 %; PCO2 VBG 47 mmHg (38-50); PO2 VBG 53 mmHg; pH VBG 7.38 (7.36-7.41)
[2025-02-13 00:58] LABS: Magnesium 2.0 mg/dl (1.7-2.4)
[2025-02-13 01:32] LABS: Partial Thromboplastin Time 31 Seconds (21-31)
--- NOTE | 2025-02-13 02:38 | XRay Report ---
EXAM: XR chest 1V portable CLINICAL HISTORY: low o2 TECHNIQUE: An X-ray image of the chest is obtained in AP projection. COMPARISON: 02/12/2025, CR Chest. FINDINGS: Pulmonary Parenchyma: Patient is rotated. Chest leads are identified. Interval stable central venous catheter, with tip is identified at the cavoatrial junction. Haziness seen in right lung lower zone. Prominent vessels seen in both hilar and perihilar region likely due to vascular congestion. No evidence of consolidation, collapse. No pulmonary nodules are identified. No evidence of pleural effusion or pleural thickening. Elevated right hemidiaphragm seen. Possible tube projecting over the right hemithorax. Needs clinical correlation Heart and Mediastinum: Heart size is mildly enlarged; however, this is AP projection and also patient's rotation is seen. No mediastinal widening or masses. No hilar or mediastinal lymphadenopathy. Bony Thorax: Bony thorax appears intact without fractures or deformities. Soft Tissues: Soft tissues overlying the chest wall are unremarkable. Linear densities are identified overlying right lower zone and right side of abdomen, likely postinterventional IMPRESSION: 1. Interval stable central venous catheter. 2. Haziness in right lung lower zone, showing mild interval progression since last examination, may be due to prominent vessels; however possibility of infiltrates cannot be excluded. Clinical and lab correlation is advised. 3. No other significant interval change is seen. Electronically signed by William Francisco 02-13-2025 02:38 AM
[2025-02-13] MEDS: NYSTATIN POWDER 15GM BTL EXT SCH (02:51)
[2025-02-13 04:49] LABS: Hematocrit (blood only) 33.1 % (42.0-52.0); Hemoglobin 10.4 g/dl (14.0-18.0); Mean Corpuscular Hemoglobin 31.7 pg (25.0-34.0); Mean Corpuscular Volume 100.9 fL (80.0-100.0); Platelet Count 105 K/uL (130-400); RDW Standard Deviation 66.0 fL (36.4-46.3); Red Blood Count 3.28 M/uL (4.70-6.10); White Blood Count 5.95 K/ul (4.8-10.8)
[2025-02-13 05:19] LABS: Anion Gap 9.0 (3-11); Blood Urea Nitrogen 29.0 mg/dl (6-23); Calcium 7.8 mg/dl (8.6-10.3); Carbon Dioxide 27.0 mmol/L (21-32); Chloride 103.0 mmol/L (98-107); Creatinine Clr Calc Pharmacy 8.5 ml/min; Glucose 114.0 mg/dl (70-99(Fasting)); Magnesium 2.1 mg/dl (1.7-2.4); Potassium 3.4 mmol/L (3.5-5.1); Sodium 139.0 mmol/L (136-145)
[2025-02-13] MEDS: NEPHROCAPS PO SCH (07:59)
[2025-02-13] MEDS: POTASSIUM CHLORIDE CRTAB 20 MEQ TABCR PO STA (08:00)
--- NOTE | 2025-02-13 08:20 | Electrocardiogram Report ---
Test Reason : Blood Pressure : */* mmHG Vent. Rate : 83 BPM Atrial Rate : 83 BPM P-R Int : 228 ms QRS Dur : 158 ms QT Int : 448 ms P-R-T Axes : -15 82 98 degrees QTcB Int : 526 ms Sinus rhythm with 1st degree A-V block Left bundle branch block Abnormal ECG When compared with ECG of 12-Feb-2025 16:40, (unconfirmed) Premature ventricular complexes are no longer Present T wave inversion more evident in Inferior leads Confirmed by Tarik Martins ([id number]) on 02/13/2025 8:20:18 AM Referred By: REFERRED SELF Confirmed By: Tarik Martins
--- NOTE | 2025-02-13 08:24 | Electrocardiogram Report ---
Test Reason : Blood Pressure : */* mmHG Vent. Rate : 81 BPM Atrial Rate : 81 BPM P-R Int : 216 ms QRS Dur : 164 ms QT Int : 464 ms P-R-T Axes : 72 111 222 degrees QTcB Int : 539 ms Sinus rhythm with 1st degree A-V block with occasional Premature ventricular complexes Right axis deviation Left bundle branch block Abnormal ECG When compared with ECG of 06-Dec-2024 09:42, Premature ventricular complexes are now Present Premature atrial complexes are no longer Present MN interval has increased Left bundle branch block is now Present Confirmed by Tarik Martins ([id number]) on 02/13/2025 8:24:04 AM Referred By: REFERRED SELF Confirmed By: Tarik Martins
--- NOTE | 2025-02-13 08:37 | Cardiology Consultation ---
Date of Consultation February 13, 2025 Assessment & Plan (1) Left bundle branch block: (2) HTN (hypertension): (3) Closed hip fracture: (4) Stroke-like symptoms: (5) Elevated troponin: Plan Patient is an 89 year old male who was admitted after a mechanical resulting in left hip fracture. On admission, patient incidentally found to have new LBBB on EKG. (Not present in November 2024) He had no symptoms of angina upon admission. Patient was also significantly hypertensive on arrival with BP > 240/110, treated with IV labetalol and IV hydralazine. Also started on low dose amlodipine. Minimally elevated troponin noted since admission ranging 40-55, likely secondary to type II demand ischemia in setting of hypertensive urgency and elevated creatinine with ESRD. Elevated troponin not indicative of ACS. Echo revealed normal LVEF at 50%, septal motion consistent with LBBB otherwise no regional wall motion abnormalities. BP improved this morning. TIA/CVA like symptoms this morning. Hospitalist called to bedside. Repeat head CT was negative for acute findings. Its possible these symptoms were related his BP dropping from > 200/100 to 150's/70's over the last 6 hours. ? Hypoperfusion Avoid additional IV antihypertensives. Allow permissive hypertension at this time. symptoms also possibly related to his recent morphine dose. No progressive focal deficits Currently patient has no cardiac symptoms. He has no angina and appears euvolemic. BP acceptable. Given his comorbidities and age, patient is considered at least moderate risk for perioperative cardiac complications in regards to orthopedic surgery. At this time, I would not recommend any further cardiac testing, as this would not reduce or improve his surgical risks. Acceptable to proceed with surgery. Case discussed with hospitalist, Dr. Harris. Case discussed with Dr. Hutton. I spent a total of 70 minutes on the date of service in preparation, delivery, and documentation of the care provided to this patient, excluding any time spent in the performance of separately billed services. Karolyn Ladd PA-C Department of Cardiology, [facility] This chart was completed in part utilizing Speech Voice Recognition Software. Grammatical errors, random word insertions, pronoun errors, and incomplete sentences are an occasional consequence of this system due to software limitations, ambient noise, and hardware issues. Any formal questions or concerns about the content, text, or information contained within the body of this dictation should be directly addressed to the provider for clarification. Supervising Physician Co-Signing Physician Notes Attending attestation: Case reviewed with the advanced practitioner. I have personally performed a history and physical examination on the patient. I have reviewed the advanced practitioner's documentation on the date of service referenced in note, and I agree with, and take responsibility for the plan of care. Subjective: Patient seen by the undersigned while in dialysis. During my assessment. The previously noted facial droop had resolved. Patient without complaints. Described having presented with a mechanical fall and subsequent hip injury. Telemetry revealed sinus rhythm with left bundle branch block without tachycardia or significant bradycardia. Exam: Cardiovascular regular rhythm, no murmurs, no edema Data: EKG performed 02/12/2025 revealed sinus rhythm with first-degree AV block, left bundle branch block, QRS duration of 158 ms. Compared to previous tracings, left bundle branch block was new compared to Nov, 2024 Impression/ Plan: Patient presents with mechanical fall and left femoral neck fracture. High sensitive troponins minimally elevated, flat trend, without any symptoms suggestive of congestive heart failure decompensation, unstable arrhythmia, or acute coronary syndrome. Echocardiogram reveals abnormal septal motion consistent with left bundle branch block and low normal LVEF. Repeat CT brain performed today for evaluation of facial droop revealed no acute changes. Patient is of course feels to be at increased risk for perioperative cardiac and noncardiac complication given underlying age, frailty, and history of end-stage renal disease. He is however hemodynamically stable and I do not see any unstable cardiac conditions that would need to be addressed would delay surgery. Would recommend proceeding without further cardiac workup. I spent a total of 30 minutes coordinating, documenting, and providing care for this patient excluding time spent in the performance of separately billed services or time spent by another provider. Nawaf Hutton, History of Present Illness Reason for Consultation: New LBBB; HTN urgency; Hip Fracture Requesting Physician: Kg Murphy Attending Physician: Dr. Hutton History of Present Illness Patient is a 89-year-old male who presented to [facility] after a mechanical fall with left hip pain. Diagnosed with left hip fracture. Upon admission, patient denied acute cardiac complaints. No recent chest pain or unusual shortness of breath. No dizziness or lightheadedness. No syncope or near syncope. Patient denies history of cardiovascular problems. On arrival, EKG demonstrated normal sinus rhythm with left bundle branch block which was new compared to prior EKG in 2024. Patient had no symptoms to suggest ACS. HS troponin minimally elevated ranging 44-52 since admission. Creatinine elevated at 4-5 consistent with ESRD. Potassium was low on admission and supplemented. Improving this morning but remains lower than goal. Head CT was negative on admission At time of evaluation patient had mild left sided facial droop. Daughter reported this was "new'. Nurse reports she did not note this abnormality this morning. As we were talking the left sided facial droop slowly improved. Patient also had just received IV morphine for the pain. I called hospitalist to bedside for evaluation and consider stroke alert. we discussed that given his need for surgery, likely would not be a candidate for TPA, therefore we would not call stroke alert but repeat head CT. Repeat head CT was also without acute findings. No other focal deficits found. Daughter reports that patient often has slurred speech and mild confusion, particularly after dialysis sessions. he was admitted for confusion and right s ided weakness in November 2024 and stroke work up was negative at that time with negative head CT. History includes: 1. 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 HTN with symptomatic orthostatic hypotension/autonomic dysfunction 3. Dyslipidemia Allergies Allergy/AdvReac Type Severity Reaction Status Date / Time No Known Allergies Allergy Verified 02/12/25 16:53 Home Medications Medication Instructions Recorded Confirmed Type rosuvastatin 20 mg tablet (Crestor) 10 mg PO HS 02/26/19 02/12/25 History acetaminophen 500 mg tablet 500 mg PO TID PRN Pain 09/09/20 02/12/25 History (Tylenol Extra Strength) protein supplement 1 oz PO 3XWK ##0 09/18/23 02/12/25 History vitamin B complex-vitamin C-folic 1 tab PO DAILY 02/12/25 02/12/25 History acid 0.8 mg tablet (Carol Ann-Sonido) midodrine 5 mg tablet 5 mg PO TID PRN On Dialysis days 02/13/25 02/13/25 History Patient History Medical History Acute hyperkalemia Chronic back pain ARTHRITIS Pulmonary hypertension AVF (arteriovenous fistula) LUE Kidney stones Umbilical hernia present since colectomy DVT (deep venous thrombosis) RLE (3 yrs ago), unknown etiology, previously on AC (since discontinued) CHF (congestive heart failure) Bladder cancer Hypertension Intolerant to previously trialed meds (dizzy) BPH (benign prostatic hyperplasia) Dialysis patient [facility] in [place] Tues/Thurs/Sat Colon cancer 2012 > colectomy Surgical History Hx laparoscopic cholecystectomy Lap cholecystectomy (11/28/21): Grade 1 view, Ferrer #2, ETT 7.5 at [facility]. No issues noted per post-op anesthesia progress note. History of ERCP with stent to bile duct History of cystoscopy History of colonoscopy History of cataract surgery bilat History of tooth extraction History of vascular access device removed October 10, 2021 Hx of tonsillectomy S/P right colectomy no colostomy Family History Mother Colorectal cancer Other Kidney disease Social History Smoking Status: Former smoker Tobacco Type: Cigarettes Second Hand Exposure: No; Do You Dip or Chew Tobacco: No; Tobacco Cessation Education Requested by Patient: No Hx Alcohol Use: No Hx Substance Use: No Preferred Language: Polish Communication Ability: Effective Hearing Ability: Use of Hearing Aid Asset Management Coordinator Required: No Beliefs That Will Affect Care: None marital status: / Current Living Situation: Alone and Family Current Living Situation Comment: daughter and son frequently visit current occupational status: retired Other Information That Helps Us Care for You: No Feels Safe at Home: Yes Safety Concerns: Feels Safe At This Time Assistive Devices: Cane and Walker Review of Systems Review of Systems: All systems reviewed & are unremarkable except as noted in HPI & below Physical Exam Constitutional: WD/WN, vitals as above Neck: trachea midline, no thyromegaly Respiratory: normal respiratory effort, lungs clear to auscultation Cardiovascular: Rate/Rhythm: regular rate and regular rhythm Heart Sounds: normal S1 and normal S2; no murmur Vessels: no JVD Extremities: no edema Gastrointestinal (Abdomen): normal bowel sounds, soft, nontender, no hepatosplenomegaly Musculoskeletal: Extremities: + lower extremity abnormal to inspection Left (left lower extremity externally rotated) Neurologic: not confused mild left sided facial droop Results & Data Vital Signs (Past 12 Hours) Vital Signs Temp Pulse Pulse Resp BP BP Pulse Ox 02/13/25 08:00 02/13/25 02:00 02/13/25 01:12 176/74 H 02/13/25 01:01 14 183/78 H 97 02/12/25 23:11 37 C 73 12 171/71 H 89 L 02/12/25 22:29 78 198/91 H 02/12/25 22:00 02/12/25 21:45 79 02/12/25 21:03 36.7 C 78 18 198/91 H 92 02/12/25 21:02 02/12/25 20:55 77 Pulse Ox O2 Del Method O2 Del Method O2 Flow Rate O2 Flow Rate 02/13/25 08:00 Room Air 02/13/25 02:00 96 Nasal Cannula 2 02/13/25 01:12 02/13/25 01:01 Nasal Cannula 2 02/12/25 23:11 Room Air 02/12/25 22:29 02/12/25 22:00 95 Nasal Cannula 2 02/12/25 21:45 02/12/25 21:03 Room Air 02/12/25 21:02 Room Air 02/12/25 20:55 Laboratory Results Cardiac Enzymes 02/12/25 02/12/25 02/12/25 Range/Units 16:18 18:00 23:12 AST 25 (13-39) U/L Troponin I High Sens 44.9 H 43.5 H 50.9 H* (0-20) pg/ml 02/13/25 Range/Units 04:22 AST (13-39) U/L Troponin I High Sens 52.3 H* (0-20) pg/ml Coagulation 02/12/25 02/13/25 Range/Units 16:18 00:34 PT 10.3 (9.0-12.0) Seconds APTT 29 31 (21-31) Seconds CBC 02/12/25 02/13/25 Range/Units 16:18 04:22 WBC 6.92 5.95 (4.8-10.8) K/ul RBC 3.82 L 3.28 L (4.70-6.10) M/uL Hgb 12.2 L 10.4 L (14.0-18.0) g/dl Hct 38.0 L 33.1 L (42.0-52.0) % Plt Count 114 L 105 L (130-400) K/uL Neut # (Auto) 5.54 (1.40-6.50) K/uL Lymph # (Auto) 0.80 L (1.20-3.40) K/uL Sioux # (Auto) 0.45 (0.11-0.59) K/uL Eos # (Auto) 0.06 (0.00-0.50) K/uL Baso # (Auto) 0.03 (0.00-0.20) K/uL Comprehensive Metabolic Panel 02/12/25 02/13/25 Range/Units 16:18 04:22 Sodium 141 139 (136-145) mmol/L Potassium 3.0 L 3.4 L (3.5-5.1) mmol/L Chloride 102 103 (98-107) mmol/L Carbon Dioxide 29 27 (21-32) mmol/L BUN 27 H 29 H (6-23) mg/dl Creatinine 4.80 H* 5.53 H* D (0.6-1.4) mg/dl Glucose 141 H 114 H (70-99(Fasting)) mg/dl Calcium 8.5 L 7.8 L (8.6-10.3) mg/dl AST 25 (13-39) U/L ALT 11 (7-52) U/L Alkaline Phosphatase 50 (34-104) U/L Total Protein 7.0 (6.0-8.3) gm/dl Albumin 3.8 (3.4-5.0) gm/dl Intake and Output 02/12/25 02/13/25 02/13/25 22:59 06:59 14:59 Intake Total 300 / 300 Balance 300 / 300 Intake: IV 200 / 200 Potassium Chloride / Wtr 10 meq 200 / 200 In 100 ml @ 100 mls/hr IV Q1H JUAN JOSE Rx#:[id number] Oral 100 / 100 Other: Weight 63.8 kg Weight Measurement Method Built in [facility] Diagnostic Findings Telemetry reviewed: NSR with conduction delay consistent with LBBB. No arrhythmias. HR ranging 60-80s EKG reviewed from admission: NSR with PVC and 1st degree AV block LBBB RAD Compared with prior EKG in November 2024 - LBBB is new. Repeat EKG reviewed from 02/12/25: NSR with 1st degree AV block LBBB T wave inversion noted in inferior leads Echo report reviewed: Mild concentric LVH Septal motion is consistent with LBBB LV regional wall motion is normal Low normal LVEF at 50% RV is normal in size and function Trace MR Pulm artery systolic pressure is estimated at 40 mgHg - mildly elevated Grade I diastolic dysfunction Abdomen/Pelvis CT 02/12/25 16:09 IMPRESSION: Acute traumatic subcapital fracture of the left femur with impaction and varus angulation. Cystitis. Electronically signed by Drake Mckeon 02-12-2025 5:[address] 02/12/25 16:09 IMPRESSION: No acute traumatic fracture of the cervical spine. Multilevel degenerative changes as above Pelvis X-Ray 02/12/25 16:09 Impression: Acute fracture of the left femoral neck Chest X-Ray 02/13/25 00:18 IMPRESSION: 1. Interval stable central venous catheter. 2. Haziness in right lung lower zone, showing mild interval progression since last examination, may be due to prominent vessels; however possibility of infiltrates cannot be excluded. Clinical and lab correlation is advised. 3. No other significant interval change is seen. Electronically signed by William Francisco 02-13-2025 02:[address] 02/13/25 09:35 CT SCAN OF THE BRAIN WITHOUT IV CONTRAST CLINICAL HISTORY: Possible stroke. COMPARISON STUDY: Head CTs December 06, 2024 and February 12, 2025. TECHNIQUE: Unenhanced axial CT scan of the brain was performed from the vertex to the skull base. A dose lowering technique was utilized adhering to the principles of ALARA. CT DOSE: 625.8 mGy.cm FINDINGS: Incidental note is made of intravascular contrast from recent contrast-enhanced CT. No acute intracranial hemorrhage is identified. Basal cisterns are patent. There are no extra-axial collections. Moderate atrophy accounts for ventricular dilatation. This is unchanged. White matter hypodensities are suggestive of small vessel disease. There are no findings to suggest acute dural sinus thrombosis or acute territorial infarct. There are no calvarial fractures. IMPRESSION: No acute intracranial findings. No change in appearance of the brain. ACT 112: Negative or not required by law. Electronically signed by: Armando Fernandez M.D. 02/13/2025 10:11 AM Prior outpatient data: Echo report reviewed dated October 2019 Interpretation Summary The examination is adequate to evaluate the referral indication. The left ventricular cavity size is normal. The LV wall thickness is moderately increased (concentric). The left ventricular wall motion is normal. The qualitative LV ejection fraction is 60-64% (normal). The left ventricular diastolic function is mildly abnormal (grade I). There is no significant valvular disease Normal IVC size and collapsability with sniff indicates a normal right atrial pressure of 3 mmHg. There is no evidence of pulmonary hypertension. A small right lateral loculated pericardial effusion is present . There is no hemodynamic significance Cardiac tamponade is absent. EKG reviewed form November 2021: Normal sinus rhythm Nonspecific ST and T wave abnormality Abnormal ECG When compared with ECG of 21-OCT-2019 13:29, No significant change was found Medications Administered Current Inpatient Medications Amlodipine Besylate (Amlodipine Besylate 5 Mg Tab) 2.5 mg PO QAM [facility] Stop: 03/15/25 01:19 Last Admin: 02/13/25 02:21 Dose: 2.5 mg Bisacodyl (Bisacodyl 10 Mg Supp) 10 mg NE DAILY PRN PRN Reason: Constipation Stop: 03/14/25 21:01 Hydromorphone HCl (Hydromorphone Inj 1 Mg/Ml Syringe) 1 mg IV Q4H PRN PRN Reason: Pain Stop: 02/26/25 21:01 Acetaminophen (Ofirmev) 1,000 mg in 100 mls @ 400 mls/hr IV Q8H PRN PRN Reason: Pain Stop: 02/15/25 21:01 Labetalol HCl (Labetalol Hcl Iv 5 Mg/Ml 20ml) 5 mg IV Q6H PRN PRN Reason: SBP >195 Stop: 03/14/25 19:29 Magnesium Hydroxide (Magnesium Hydroxide Susp 30 Ml Udc) 30 ml PO DAILY PRN PRN Reason: Constipation Stop: 03/14/25 21:01 Morphine Sulfate (Morphine Sulfate 2 Mg/Ml Carp) 2 mg IV Q1H PRN PRN Reason: Moderate Pain (Rating 3,4,5,6) Stop: 02/26/25 17:24 Morphine Sulfate (Morphine Sulfate 4 Mg/Ml 1 Ml Carp\\Vial) 4 mg IV Q1H PRN PRN Reason: Severe Pain (Rating 7,8,9,10) Stop: 02/26/25 17:24 Last Admin: 02/12/25 18:24 Dose: 4 mg Naloxone HCl (Naloxone Hcl 0.4 Mg/1 Ml Vial/Carp) 0.1 mg IV UD PRN PRN Reason: Opiate Overdose Stop: 03/14/25 21:01 Ondansetron HCl (Ondansetron Inj 2 Mg/Ml 2 Ml Vial) 4 mg IV Q6H PRN PRN Reason: Nausea And Vomiting Stop: 03/14/25 21:01 Rosuvastatin Calcium (Rosuvastatin Calcium 10 Mg Tab) 10 mg PO HS JUAN JOSE Stop: 03/14/25 20:59 Last Admin: 02/12/25 22:31 Dose: 10 mg Vitamin B Complex/Folic Acid (Nephrocaps) 1 cap PO DAILY JUAN JOSE Stop: 03/15/25 08:59 Last Admin: 02/13/25 07:59 Dose: 1 cap PG Care Time/CCT Total # of Minutes Spent Total Time Spent with Patient: Total time spent is greater than 50% in coordination of care (as documented) at patient's floor/unit and/or counseling patient: 70 Coding Level of Care Code 07233 INT INP/OBS CARE 3/75MIN Diagnoses Left bundle branch block I44.7 HTN (hypertension) I10 Closed hip fracture S72.002A Encounter type: initial encounter Laterality: left Stroke-like symptoms R29.90 Elevated troponin R79.89 Time Spent (min) 100 Comment 70 minutes were spent by GABRIELLE Angelo, [address] Hutton (3) Closed hip fracture Encounter type: initial encounter Laterality: left Qualified Code(s): S72 .002A - Fracture of unspecified part of neck of left femur, initial encounter for closed fracture
[2025-02-13] MEDS ORDERED: SODIUM CHLORIDE 0.9% 1,000 ML IV PRN ×2 (08:53→11:18)
--- NOTE | 2025-02-13 10:13 | CT Scan Report ---
CT SCAN OF THE BRAIN WITHOUT IV CONTRAST CLINICAL HISTORY: Possible stroke. COMPARISON STUDY: Head CTs December 06, 2024 and February 12, 2025. TECHNIQUE: Unenhanced axial CT scan of the brain was performed from the vertex to the skull base. A dose lowering technique was utilized adhering to the principles of ALARA. CT DOSE: 625.8 mGy.cm FINDINGS: Incidental note is made of intravascular contrast from recent contrast-enhanced CT. No acut e intracranial hemorrhage is identified. Basal cisterns are patent. There are no extra-axial collecti ons. Moderate atrophy accounts for ventricular dilatation. This is unchanged. White matter hypodensit ies are suggestive of small vessel disease. There are no findings to suggest acute dural sinus thromb osis or acute territorial infarct. There are no calvarial fractures. IMPRESSION: No acute intracranial findings. No change in appearance of the brain. ACT 112: Negative or not required by law. Electronically signed by: Armando Fernandez M.D. 02/13/2025 10:11 AM
--- NOTE | 2025-02-13 11:50 | Orthopedic Consultation ---
Date of Service February 13, 2025 Assessment & Plan (1) Fracture of femoral neck, left: * Case/imaging reviewed and discussed with Dr Gonzalez * Recommend OR for left hip hemiarthroplasty * Tentative OR today pending medical clearance * Cardiology consult/clearance pending * Maintain n.p.o. * Bedrest/nonweightbearing LLE * Disposition: TBD * Daily treatment: Physical Therapy/ Occupational Therapy per protocol * Pain control * Remainder care per primary team History of Present Illness Reason for Consultation: Left hip pain Requesting Physician: . Attending Physician: Stacy Harris MD Patient is a 89-year-old male with left hip pain. PMH including left bundle branch block, ESRD, HTN thrombocytopenia, bladder cancer, HLD. Presents to hospital with left hip pain after a fall. Per patient he was ambulating with his walker when he tripped and fell landing his left side. Immediate left hip pain, deformity. Unable to ambulate or bear weight following the injury. Brought to ED for evaluation. Current workup including x-ray left hip/pelvis demonstrating femoral neck fracture. Admitted to hospital medicine team. Orthopedics consulted for management recommendations. At time of exam patient lying comfortably bed, no acute distress. Endorses moderate pain in left hip at rest that increases with attempted use. Denies tingling numbness of the left lower extremity. Uses a walker at baseline. Allergies Allergy/AdvReac Type Severity Reaction Status Date / Time No Known Allergies Allergy Verified 02/12/25 16:53 Home Medications Medication Instructions Recorded Confirmed Type rosuvastatin 20 mg tablet (Crestor) 10 mg PO HS 02/26/19 02/12/25 History acetaminophen 500 mg tablet 500 mg PO TID PRN Pain 09/09/20 02/12/25 History (Tylenol Extra Strength) protein supplement 1 oz PO 3XWK ##0 09/18/23 02/12/25 History vitamin B complex-vitamin C-folic 1 tab PO DAILY 02/12/25 02/12/25 History acid 0.8 mg tablet (Carol Ann-Sonido) midodrine 5 mg tablet 5 mg PO TID PRN On Dialysis days 02/13/25 02/13/25 History Past Med/Surg History Problem List (Updated 02/13/25 @ 12:01 by Karolyn Ladd PA-C) Elevated troponin Stroke-like symptoms Fracture of femoral neck, left Left bundle branch block (Acute) End-stage renal disease (ESRD) (Acute) HTN (hypertension) (Acute) Closed hip fracture (Acute) Asymptomatic bacteriuria Transient weakness of right lower extremity Bleeding at insertion site (Acute) Dialysis AV fistula malfunction BPH (benign prostatic hyperplasia) Urinary retention Malagon catheter in place Acute kidney injury superimposed on chronic kidney disease Volume overload Hypertensive urgency CHF (congestive heart failure) (Acute) Renal failure (Acute) Hypertension (Acute) Weakness (Acute) Ventricular ectopic complex Palliative care patient Palliative care encounter Complications, dialysis, catheter, mechanical Thrombocytopenia ESRD (end stage renal disease) on dialysis (Acute) FP (false passage in the urethra) Bladder mass Transitional cell bladder cancer Encounter for pre-operative examination Central venous catheter in place Jaundice Encounter for pre-operative examination Choledocholithiasis Dialysis AV fistula malfunction Arteriovenous fistula thrombosis Anemia of chronic disease Dyslipidemia Urinary retention CKD (chronic kidney disease), stage IV Follows with Dr. Ramya Gudino Hyperlipemia Medical History Acute hyperkalemia Chronic back pain ARTHRITIS Pulmonary hypertension AVF (arteriovenous fistula) LUE Kidney stones Umbilical hernia present since colectomy DVT (deep venous thrombosis) RLE (3 yrs ago), unknown etiology, previously on AC (since discontinued) CHF (congestive heart failure) Bladder cancer Hypertension Intolerant to previously trialed meds (dizzy) BPH (benign prostatic hyperplasia) Dialysis patient [facility] in [place] Tu/Th/Sat Colon cancer 2012 > colectomy Surgical History Hx laparoscopic cholecystectomy Lap cholecystectomy (11/28/21): Grade 1 view, Ferrer #2, ETT 7.5 at [facility]. No issues noted per post-op anesthesia progress note. History of ERCP with stent to bile duct History of cystoscopy History of colonoscopy History of cataract surgery bilat History of tooth extraction History of vascular access device removed October 10, 2021 Hx of tonsillectomy S/P right colectomy no colostomy Family History Mother Colorectal cancer Other Kidney disease Social History Smoking Status: Former smoker Tobacco Type: Cigarettes Second Hand Exposure: No; Do You Dip or Chew Tobacco: No; Tobacco Cessation Education Requested by Patient: No Hx Alcohol Use: No Hx Substance Use: No Preferred Language: Danish Communication Ability: Effective Hearing Ability: Use of Hearing Aid Water Purification Chemist Required: No Beliefs That Will Affect Care: None marital status: / Current Living Situation: Alone and Family Current Living Situation Comment: daughter and son frequently visit current occupational status: retired Other Information That Helps Us Care for You: No Feels Safe at Home: Yes Safety Concerns: Feels Safe At This Time Assistive Devices: Cane and Walker Review of Systems All systems reviewed & are unremarkable except as noted in HPI & below. Physical Exam . * General: Alert and oriented, no acute distress * Constitutional: well-developed, well-nourished. * Respiratory: Normal respiratory effort, no distress * Gastrointestinal: No tenderness to palpation, no rigidity or guarding. * Skin: No rash or lesion. * Neurologic: Grossly normal * Musculoskeletal: Left lower extremity shortened and externally rotated. Otherwise no obvious deformity or overlying skin changes to the left leg. TTP proximal thigh and anterior hip region. Otherwise no specific tenderness of the distal thigh, knee, lower leg, foot/ankle. Pain with logroll, otherwise ROM hip not assessed. AROM foot/ankle intact. Sensation intact plantar/dorsal foot. Brisk capillary refill. Results & Data Results & Data Laboratory Results . Diagnostic Findings . Abdomen/Pelvis CT 02/12/25 16:09 CT ABDOMEN and PELVIS with INTRAVENOUS CONTRAST HISTORY: Abdominal pain TECHNIQUE: CT abdomen and pelvis with contrast. IV CONTRAST: 100 mL of OMNIPAQUE 300 ENTERIC CONTRAST: Not Given COMPARISON: FINDINGS: LOWER CHEST: Cardiomegaly. Trace pleural fluids. LIVER: No focal lesion identified. GALLBLADDER/BILIARY: Unremarkable gallbladder. Mildly distended biliary tree may be an expected finding following cholecystectomy and the accounting for patient's age SPLEEN: Unremarkable. PANCREAS: Unremarkable. ADRENALS: Unremarkable. KIDNEYS: Atrophic kidneys. Cortical cysts. No stones or hydronephrosis identified. PERITONEUM/RETROPERITONEUM. No lymphadenopathy by size criteria. No aortic aneurysm. Extensive atherosclerosis GASTROINTESTINAL: No obstruction. Postoperative changes of right hemicolectomy with ileocolic anastomosis. REPRODUCTIVE: Normal-sized prostate gland with coarse calcifications URINARY BLADDER: Inflammatory changes with wall thickening. BONES: Acute traumatic subcapital fracture of the left femur with impaction and varus angulation. IMPRESSION: Acute traumatic subcapital fracture of the left femur with impaction and varus angulation. Cystitis. Electronically signed by Drake Mckeon 02-12-2025 5:[address] 02/12/25 16:09 CT CERVICAL SPINE WITHOUT CONTRAST: HISTORY: TRAUMA TECHNIQUE: Noncontrast CT examination of the cervical spine is performed. Coronal and sagittal reformats were created. COMPARISON: None. FINDINGS: CERVICAL SPINE: There is no significant vertebral body height loss. No acute traumatic fracture identified. There is no significant spondylolisthesis. Multilevel degenerative changes characterized by disc osteophyte complex, bilateral facet and uncovertebral hypertrophy resulting and neural foraminal narrowing at multiple levels, worst at mid to lower spine. Visualized soft tissues of neck are unremarkable. Visualized lung apex is clear. IMPRESSION: No acute traumatic fracture of the cervical spine. Multilevel degenerative changes as above Electronically signed by Drake Mckeon 02-12-2025 5:23 PM Chest X-Ray 02/12/25 16:09 Clinical History: Trauma Technique: A frontal view of the chest was obtained Comparison is made to the prior examination dated 12/06/2024 Findings: There are no confluent pulmonary infiltrates. The heart size is within normal limits. No pleural effusion or pneumothorax is seen. There is a possible right apical nodule No fracture is noted. A right jugular central venous line is again seen with its tip in the mid SVC. There is a left subclavian vascular stent Impression: Possible right apical nodule. A follow-up chest CT could be considered ACT 112: Positive. There are findings on this exam that require communication between the performing entity and the patient following Patient Test Result Information Act ([place] ACT 112) guidelines. Electronically signed by Maurice Canales 02-12-2025 4:[address] 02/12/25 16:09 CT head without contrast History: Trauma Comparison: None Technique: Using multidetector thin collimation helical acquisition technique, axial, coronal and sagittal CT images from the skull base to the vertex were obtained without intravenous contrast. Dose reduction techniques were achieved by using automatic exposure control and/or adjustment of mA and/or kV according to patient size and/or use of iterative reconstruction technique. Findings: No intracranial hemorrhage, mass-effect, or midline shift. The ventricles are proportionate to the cerebral sulci. The barajas to white matter differentiation of the cerebral hemispheres is preserved. The basal cisterns are patent. Marked cerebral atrophy. The visualized paranasal sinuses are clear. Mastoid air cells are clear. Impression: No acute intracranial pathology. Electronically signed by Tarik Moya 02-12-2025 4:49 PM Pelvis X-Ray 02/12/25 16:09 Clinical History: Trauma One view of the pelvis is submitted for review. Findings: There is an acute mildly displaced subcapital fracture of the left femoral neck with some varus angulation. No subluxation or dislocation is seen. No significant arthritic changes are noted. No other osseous abnormality is identified. There are no radiopaque foreign bodies. Vascular calcifications are present Impression: Acute fracture of the left femoral neck ACT 112: Positive. There are findings on this exam that require communication between the performing entity and the patient following Patient Test Result Information Act ([place] ACT 112) guidelines. Electronically signed by Maurice Canales 02-12-2025 4:51 PM Chest X-Ray 02/13/25 00:18 EXAM: XR chest 1V portable CLINICAL HISTORY: low o2 TECHNIQUE: An X-ray image of the chest is obtained in AP projection. COMPARISON: 02/12/2025, CR Chest. FINDINGS: Pulmonary Parenchyma: Patient is rotated. Chest leads are identified. Interval stable central venous catheter, with tip is identified at the cavoatrial junction. Haziness seen in right lung lower zone. Prominent vessels seen in both hilar and perihilar region likely due to vascular congestion. No evidence of consolidation, collapse. No pulmonary nodules are identified. No evidence of pleural effusion or pleural thickening. Elevated right hemidiaphragm seen. Possible tube projecting over the right hemithorax. Needs clinical correlation Heart and Mediastinum: Heart size is mildly enlarged; however, this is AP projection and also patient's rotation is seen. No mediastinal widening or masses. No hilar or mediastinal lymphadenopathy. Bony Thorax: Bony thorax appears intact without fractures or deformities. Soft Tissues: Soft tissues overlying the chest wall are unremarkable. Linear densities are identified overlying right lower zone and right side of abdomen, likely postinterventional IMPRESSION: 1. Interval stable central venous catheter. 2. Haziness in right lung lower zone, showing mild interval progression since last examination, may be due to prominent vessels; however possibility of infiltrates cannot be excluded. Clinical and lab correlation is advised. 3. No other significant interval change is seen. Electronically signed by William Francisco 02-13-2025 02:[address] 02/13/25 09:35 CT SCAN OF THE BRAIN WITHOUT IV CONTRAST CLINICAL HISTORY: Possible stroke. COMPARISON STUDY: Head CTs December 06, 2024 and February 12, 2025. TECHNIQUE: Unenhanced axial CT scan of the brain was performed from the vertex to the skull base. A dose lowering technique was utilized adhering to the principles of ALARA. CT DOSE: 625.8 mGy.cm FINDINGS: Incidental note is made of intravascular contrast from recent contrast-enhanced CT. No acute intracranial hemorrhage is identified. Basal cisterns are patent. There are no extra-axial collections. Moderate atrophy accounts for ventricular dilatation. This is unchanged. White matter hypodensities are suggestive of small vessel disease. There are no findings to suggest acute dural sinus thrombosis or acute territorial infarct. There are no calvarial fractures. IMPRESSION: No acute intracranial findings. No change in appearance of the brain. ACT 112: Negative or not required by law. Electronically signed by: Armando Fernandez M.D. 02/13/2025 10:11 AM PG Care Time/CCT Total # of Minutes Spent Total Time Spent with Patient: Total time spent is greater than 50% in coordination of care (as documented) at patient's floor/unit and/or counseling patient: [place] [address] IN/OBS CONSULT LVL 5,80M Patient Type New Medical Decision Making High Complexity Diagnoses Fracture of femoral neck, left S72.002A
[2025-02-13 12:26] LABS: Hep B Surface Ag with confirm Negative (Negative)
--- NOTE | 2025-02-13 12:43 | Nephrology Consultation ---
Date of Consultation February 13, 2025 Assessment & Plan (1) End-stage renal disease (ESRD): 1) ESRD (end stage renal disease) on dialysis: last dialysis was Sunday - For dilaysis today, We will yrty to optimize his fluid status and electrolyte. - BP was high , but has improved with small dose of labetolol, thIS generally improved with UF. -Ok to continue with PRN labetalol/ hydralzine PRN to keep this @ 140/90 (2) Fracture of femoral neck, left: As per primary/ Orthopedics-- likely surgery today History of Present Illness Reason for Consultation: ESRD [place] (MWF)who was admitted with mechanical fall. Attending Physician: Stacy Harris MD History of Present Illness 89 yo gentleman with history of prior DVT, HTN, BPH, HLD, ESRD on HD MWF and anemia of chronic disease admitted due to left femoral neck fracture He was last dialysed on sunday,via right permacath He has labile BP,which improves with UF.he is not on any hypertensives and requires Midodrine PRN on Dialysis. He is due for OR today for Left hip arthroplasty, awaiting cardiac clearance. Allergies Allergy/AdvReac Type Severity Reaction Status Date / Time No Known Allergies Allergy Verified 02/12/25 16:53 Home Medications Medication Instructions Recorded Confirmed Type rosuvastatin 20 mg tablet (Crestor) 10 mg PO HS 02/26/19 02/12/25 History acetaminophen 500 mg tablet 500 mg PO TID PRN Pain 09/09/20 02/12/25 History (Tylenol Extra Strength) protein supplement 1 oz PO 3XWK ##0 09/18/23 02/12/25 History vitamin B complex-vitamin C-folic 1 tab PO DAILY 02/12/25 02/12/25 History acid 0.8 mg tablet (Carol Ann-Sonido) midodrine 5 mg tablet 5 mg PO TID PRN On Dialysis days 02/13/25 02/13/25 History Patient History Medical History Acute hyperkalemia Chronic back pain ARTHRITIS Pulmonary hypertension AVF (arteriovenous fistula) LUE Kidney stones Umbilical hernia present since colectomy DVT (deep venous thrombosis) RLE (3 yrs ago), unknown etiology, previously on AC (since discontinued) CHF (congestive heart failure) Bladder cancer Hypertension Intolerant to previously trialed meds (dizzy) BPH (benign prostatic hyperplasia) Dialysis patient [facility] in [place] Tues/Thurs/Sat Colon cancer 2012 > colectomy Surgical History Hx laparoscopic cholecystectomy Lap cholecystectomy (11/28/21): Grade 1 view, Ferrer #2, ETT 7.5 at [facility]. No i ssues noted per post-op anesthesia progress note. History of ERCP with stent to bile duct History of cystoscopy History of colonoscopy History of cataract surgery bilat History of tooth extraction History of vascular access device removed October 10, 2021 Hx of tonsillectomy S/P right colectomy no colostomy Family History Mother Colorectal cancer Other Kidney disease Social History Smoking Status: Former smoker Tobacco Type: Cigarettes Second Hand Exposure: No; Do You Dip or Chew Tobacco: No; Tobacco Cessation Education Requested by Patient: No Hx Alcohol Use: No Hx Substance Use: No Preferred Language: Greenlandic Communication Ability: Effective Hearing Ability: Use of Hearing Aid Rodent Exterminator Required: No Beliefs That Will Affect Care: None marital status: / Current Living Situation: Alone and Family Current Living Situation Comment: daughter and son frequently visit current occupational status: retired Other Information That Helps Us Care for You: No Feels Safe at Home: Yes Safety Concerns: Feels Safe At This Time Assistive Devices: Cane and Walker Review of Systems Review of Systems: All systems reviewed & are unremarkable except as noted in HPI & below Physical Exam Physical Exam: Alert and oriented Left lower extremity shortened and externally rotated Results & Data Vital Signs (Past 12 Hours) Vital Signs Temp Pulse Pulse Pulse Resp BP BP 02/13/25 12:30 67 143/69 H 02/13/25 12:00 66 167/73 H 02/13/25 11:30 67 155/78 H 02/13/25 11:00 67 167/74 H 02/13/25 10:50 73 171/73 H 02/13/25 10:45 36.7 C 72 02/13/25 08:00 72 02/13/25 08:00 36.7 C 71 14 157/65 H 02/13/25 08:00 02/13/25 02:00 02/13/25 01:12 176/74 H 02/13/25 01:01 14 183/78 H Pulse Ox Pulse Ox O2 Del Method O2 Del Method O2 Flow Rate O2 Flow Rate 02/13/25 12:30 02/13/25 12:00 02/13/25 11:30 02/13/25 11:00 02/13/25 10:50 02/13/25 10:45 02/13/25 08:00 02/13/25 08:00 94 Room Air 02/13/25 08:00 Room Air 02/13/25 02:00 96 Nasal Cannula 2 02/13/25 01:12 02/13/25 01:01 97 Nasal Cannula 2
--- NOTE | 2025-02-13 13:02 | Hospitalist Progress Note ---
Date of Service February 13, 2025 Assessment & Plan (1) Closed hip fracture: Plan: 89 year old M with a past medical history of ESRD on HD 3day/week, HTN, CHF, BPH,dyslipidemia presenting with left leg pain. Patient reports falling while using his walker at home on carpet. Immediate pain and swelling. Unable to ambulate. Arrived here via EMS. Fentanyl given via transport. Closed hip fracture Mechanical Fall * Pelvic Xray showing acute fracture of the left femoral neck * Cervical Spine CT with no acute traumatic fracture of the cervical spine. CTH wnl * Ortho on board, plan for OR today. Cardio cleared for Sx. Resume diet after sx. * PT/OT and chemo DVT Px when cleared from ortho. * Pain management while inpatient- Tylenol IV scheduled, Dilaudid as needed * Bowel regimen while on pain meds. Left Bundle Branch Block Hypokalemia * EKG showing sinus rhythm with 1st degree A-V block, Left BBB, vent rate 83 bpm, QTc 526 * Asymptomatic, no CP * Echo w/ EF of 50%, mild concentric LVH, septal motion c/w LBBB. RWM is nl. Gr I diastolic dysfunction. * Cardiology on board, appreciate recs * Cautious repletion of K give hemodialysis patient. * Will trend with AM labs #Hypertensive Urgency/ho labile HTN: BP elevated to high level at presentation, likely 2/2 acute pain from hip fracture. target BP around 170/90 mmHg for today, will avoid abrupt drop today. prn labetalol on board. #Likely Demand ischemia: iso acute stress, trop flat trend, pt w/ no chest pain. ekg w/ new LBBB, cardio evaluating. #ESRD * Receives HD * Nephrology to help w/ HD. DVT Ppx: Scds Code status: Full code PCP: Dr. Kerwin Wynn Dispo: Admit (2) Left bundle branch block: (3) End-stage renal disease (ESRD): (4) HTN (hypertension): Admission and Anticipated Discharge Date Admission Date: February 12, 2025 Subjective Patient was seen and examined at bedside. Patient was lying in bed, on room air, NAD. There were concern of left facial droop during bedside exam. It appears that patient has some chronic mild left-sided facial droop which especially becomes prominent when pt is tired or after hemodialysis. Per RN and per pt's dtr at bedside, no new concerns/issues w/ speech during bedside exam. Patient denies any febrile illness or flulike illness in the recent past. Patient reports pain under control when not moving at lt hip. Pt denies any pain or burning while passing urine. Pt denies any numbness or ti ngling or focal weakness at bedside exam. No slurring of speech noted on exam. Physical Exam Physical Exam: GEN: Healthy appearing, well-developed, NAD. PSYCH: Good Judgment. AOx3. Normal memory, mood, and affect. HEENT -Head: NC/AT; -Eyes: PERRL, EOMI. No discharge or redn ess; -Ears: External ears are normal. -Nose: Normal nares. -Mouth and throat: MMM. Normal gums, muc shivam, palate,. Good dentition. NECK: Supple, with no masses. CV: RRR, no m/r/g. LUNGS: CTAB, no w/r/c. ABD: Soft, NT/ND, NBS, no masses or organomegaly. : N/A SKIN: Warm, well perfused. No skin rashes or abnormal lesions. MSK: LLE externally rotated and shortened. Tender to palpation at left hip. No open wound noted. EXT: No clubbing, cyanosis, or edema. NEURO: CN II-XII grossly intact, No focal deficits. Results & Data Results & Data Vital Signs (Past 12 Hours) Vital Signs Temp Pulse Pulse Pulse Resp BP BP 02/13/25 12:30 67 143/69 H 02/13/25 12:00 66 167/73 H 02/13/25 11:30 67 155/78 H 02/13/25 11:00 67 167/74 H 02/13/25 10:50 73 171/73 H 02/13/25 10:45 36.7 C 72 02/13/25 08:00 72 02/13/25 08:00 36.7 C 71 14 157/65 H 02/13/25 08:00 02/13/25 02:00 02/13/25 01:12 176/74 H 02/13/25 01:01 14 183/78 H Pulse Ox Pulse Ox O2 Del Method O2 Del Method O2 Flow Rate O2 Flow Rate 02/13/25 12:30 02/13/25 12:00 02/13/25 11:30 02/13/25 11:00 02/13/25 10:50 02/13/25 10:45 02/13/25 08:00 02/13/25 08:00 94 Room Air 02/13/25 08:00 Room Air 02/13/25 02:00 96 Nasal Cannula 2 02/13/25 01:12 02/13/25 01:01 97 Nasal Cannula 2 (1) Closed hip fracture Encounter type: initial encounter Laterality: left Qualified Code(s): S72.002A - Fracture of unspecified part of neck of left femur, initial encounter for closed fracture
[2025-02-13] MEDS ORDERED: PROPOFOL IV EMULSION 10 MG/ML 20 ML VIAL IV ONE ×2 (14:07→14:08)
[2025-02-13] MEDS ORDERED: LIDOCAINE 2% 20 MG/ML 5 ML SYR IV ONE (14:07)
[2025-02-13] MEDS ORDERED: ROCURONIUM BROMIDE 10 MG/ML 5 ML VIAL IV ONE (14:07)
[2025-02-13] MEDS ORDERED: SUGAMMADEX SODIUM 200 MG/2 ML VIAL IV ONE (14:08)
[2025-02-13] MEDS: SODIUM CHLORIDE 0.9% 1,000 ML IV SCH (14:36)
[2025-02-13] MEDS ORDERED: ATROPINE SULFATE 0.1 MG/ML 10ML SYR IV PRN (14:42)
[2025-02-13] MEDS ORDERED: HYDROmorphone INJ 1 MG/ML SYRINGE IV PRN (14:42)
[2025-02-13] MEDS ORDERED: PROMETHAZINE HCL 6.25 MG in SODIUM CHLORIDE 0.9% 50 ML IV PRN (14:42)
--- NOTE | 2025-02-13 14:42 | Anesthesiology Consultation ---
Date of Service February 13, 2025 Assessment & Plan Consults Requested Pt seen by Cardiology with mod risk; no further interventions or testing requested beyond echocardiogram that was done today. Pt seen by Nephrology and dialyzed today under their supervision. ASA ASA3 Proposed Anesthesia Anesthesia Type: General Risk / Benefits Reviewed With: PT / POA / Parent / Guardian, Accepts Plan and Informed Consent Obtained History Surgery Operation Date: 02/13/25 07:55 Proposed Procedures p Left Cemented Hemiarthroplasty - Vini Gonzalez, Height/Weight Height: 5 ft 7 in Weight: 63.8 kg Allergies Allergy/AdvReac Type Severity Reaction Status Date / Time No Known Allergies Allergy Verified 02/12/25 16:53 Medications Home Medications Medication Instructions Recorded Confirmed Last Taken rosuvastatin 20 mg tablet (Crestor) 10 mg PO HS 02/26/19 02/12/25 09/17/23 20:00 acetaminophen 500 mg tablet 500 mg PO TID PRN Pain 09/09/20 02/12/25 09/17/23 20:00 (Tylenol Extra Strength) protein supplement 1 oz PO 3XWK ##0 09/18/23 02/12/25 02/11/25 vitamin B complex-vitamin C-folic 1 tab PO DAILY 02/12/25 02/12/25 02/12/25 acid 0.8 mg tablet (Carol Ann-Sonido) midodrine 5 mg tablet 5 mg PO TID PRN On Dialysis days 02/13/25 02/13/25 Unknown Active Medications Generic Name Dose Route Start Last Admin Trade Name Freq PRN Reason Stop Dose Admin Amlodipine Besylate 2.5 mg 02/13/25 01:20 02/13/25 02:21 Amlodipine Besylate 5 Mg Tab PO 03/15/25 01:19 2.5 mg QAM JUAN JOSE Administration Sodium Chloride 1,000 mls @ 10 mls/hr 02/13/25 14:30 02/13/25 14:36 Nss IV 02/16/25 14:29 10 mls/hr .Q24H JUAN JOSE Administration Morphine Sulfate 4 mg 02/12/25 17:25 02/13/25 08:47 Morphine Sulfate 4 Mg/Ml 1 Ml Carp\Vial IV 02/26/25 17:24 4 mg Q1H PRN Administration Severe Pain (Rating 7,8,9,10) Rosuvastatin Calcium 10 mg 02/12/25 21:00 02/12/25 22:31 Rosuvastatin Calcium 10 Mg Tab PO 03/14/25 20:59 10 mg HS JUAN JOSE Administration Vitamin B Complex/Folic Acid 1 cap 02/13/25 09:00 02/13/25 07:59 Nephrocaps PO 03/15/25 08:59 1 cap DAILY JUAN JOSE Administration NPO Date Last Intake of Fluids: 02/12/25 Time Last Intake of Fluids: 23:59 Last Intake of Fluids Comment: before [place] Date Last Intake of Solids: 02/12/25 Time Last Intake of Solids: 23:59 Last Intake of Solids Comment: before [place] Past Medical History Medical History Acute hyperkalemia Chronic back pain ARTHRITIS Pulmonary hypertension AVF (arteriovenous fistula) LUE Kidney stones Umbilical hernia present since colectomy DVT (deep venous thrombosis) RLE (3 yrs ago), unknown etiology, previously on AC (since discontinued) CHF (congestive heart failure) Bladder cancer Hypertension Intolerant to previously trialed meds (dizzy) BPH (benign prostatic hyperplasia) Dialysis patient [facility] in [place] Tues/Thurs/Sat Colon cancer 2012 > colectomy Exercise / Class Metabolic Activity II 4-5 Yardwork/Stairs/Walk up hill Past Family History Family History Mother Colorectal cancer Other Kidney disease Past Surgical History Surgical History Hx laparoscopic cholecystectomy Lap cholecystectomy (11/28/21): Grade 1 view, Ferrer #2, ETT 7.5 at [facility]. No issues noted per post-op anesthesia progress note. History of ERCP with stent to bile duct History of cystoscopy History of colonoscopy History of cataract surgery bilat History of tooth extraction History of vascular access device removed October 10, 2021 Hx of tonsillectomy S/P right colectomy no colostomy Past Anesthesia History No Hx of Anesthesia Complications and No Family Hx of Anesthesia Complications History of PONV No Hx of PONV and No Hx of Motion Sickness Social History Smoking Status: Former smoker Do You Dip or Chew Tobacco: No Hx Alcohol Use: No Alcohol type: beer alcohol intake frequency: holidays/special occasions only Hx Substance Use: No substance use type: does not use Physical Exam Vital Signs Last Vital Signs Temp 36.9 C 02/13/25 14:35 Pulse 74 02/13/25 14:22 Resp 16 02/13/25 14:22 BP 164/72 H 02/13/25 14:22 Pulse Ox 93 02/13/25 14:35 O2 Del Method Room Air 02/13/25 14:35 O2 Flow Rate 2 02/13/25 02:00 Constitutional no acute distress ENMT Mouth: + dentures and + edentulous; no dentition abnormality Thyromental Distance: > or= 3.5 Finger Breadths Mallampati Class: II Neck normal visual inspection Respiratory normal respiratory effort; no respiratory distress Auscultation: lungs clear to auscultation bilaterally Cardiovascular Rate/Rhythm: regular rate and regular rhythm Heart Sounds: no murmur Musculoskeletal Spine: normal cervical ROM Psychiatric Orientation: alert and oriented x 3 Testing Laboratory Results 02/13/25 04:22 02/13/25 04:22 PT 10.3 Seconds (9.0-12.0) 02/12/25 16:18 INR 0.9 (0.9-1.1) 02/12/25 16:18 APTT 31 Seconds (21-31) 02/13/25 00:34 Blood Type A Positive 02/12/25 16:21 Antibody Screen NEGATIVE 02/12/25 16:21 Echocardiogram Date: 02/13/25 EF: 50% Valvular Disease: + MR (mild) Day of Procedure Evaluation. Date of Surgery February 13, 2025 Height/Weight Height: 5 ft 7 in Weight: 63.8 kg Vital Signs Last Vital Signs Temp 36.9 C 02/13/25 14:35 Pulse 74 02/13/25 14:22 Resp 16 02/13/25 14:22 BP 164/72 H 02/13/25 14:22 Pulse Ox 93 02/13/25 14:35 O2 Del Method Room Air 02/13/25 14:35 O2 Flow Rate 2 02/13/25 02:00 Allergies Allergy/AdvReac Type Severity Reaction Status Date / Time No Known Allergies Allergy Verified 02/12/25 16:53 Medications Home Medications Medication Instructions Recorded Confirmed Last Taken rosuvastatin 20 mg tablet (Crestor) 10 mg PO HS 02/26/19 02/12/25 09/17/23 20:00 acetaminophen 500 mg tablet 500 mg PO TID PRN Pain 09/09/20 02/12/25 09/17/23 20:00 (Tylenol Extra Strength) protein supplement 1 oz PO 3XWK ##0 09/18/23 02/12/25 02/11/25 vitamin B complex-vitamin C-folic 1 tab PO DAILY 02/12/25 02/12/25 02/12/25 acid 0.8 mg tablet (Carol Ann-Sonido) midodrine 5 mg tablet 5 mg PO TID PRN On Dialysis days 02/13/25 02/13/25 Unknown Active Medications Generic Name Dose Route Start Last Admin Trade Name Freq PRN Reason Stop Dose Admin Amlodipine Besylate 2.5 mg 02/13/25 01:20 02/13/25 02:21 Amlodipine Besylate 5 Mg Tab PO 03/15/25 01:19 2.5 mg QAM JUAN JOSE Administration Sodium Chloride 1,000 mls @ 10 mls/hr 02/13/25 14:30 02/13/25 14:36 Nss IV 02/16/25 14:29 10 mls/hr .Q24H JUAN JOSE Administration Morphine Sulfate 4 mg 02/12/25 17:25 02/13/25 08:47 Morphine Sulfate 4 Mg/Ml 1 Ml Carp\Vial IV 02/26/25 17:24 4 mg Q1H PRN Administration Severe Pain (Rating 7,8,9,10) Rosuvastatin Calcium 10 mg 02/12/25 21:00 02/12/25 22:31 Rosuvastatin Calcium 10 Mg Tab PO 03/14/25 20:59 10 mg HS JUAN JOSE Administration Vitamin B Complex/Folic Acid 1 cap 02/13/25 09:00 02/13/25 07:59 Nephrocaps PO 03/15/25 08:59 1 cap DAILY JUAN JOSE Administration Past Anesthesia History No Hx of Anesthesia Complications and No Family Hx of Anesthesia Complications History of PONV No Hx of PONV and No Hx of Motion Sickness NPO Date Last Intake of Fluids: 02/12/25 Time Last Intake of Fluids: 23:59 Last Intake of Fluids Comment: before [place] Date Last Intake of Solids: 02/12/25 Time Last Intake of Solids: 23:59 Last Intake of Solids Comment: before [place] Home Medications Home Medications Medication Instructions Recorded Confirmed Last Taken rosuvastatin 20 mg tablet (Crestor) 10 mg PO HS 02/26/19 02/12/25 09/17/23 20:00 acetaminophen 500 mg tablet 500 mg PO TID PRN Pain 09/09/20 02/12/25 09/17/23 20:00 (Tylenol Extra Strength) protein supplement 1 oz PO 3XWK ##0 09/18/23 02/12/25 02/11/25 vitamin B complex-vitamin C-folic 1 tab PO DAILY 02/12/25 02/12/25 02/12/25 acid 0.8 mg tablet (Carol Ann-Sonido) midodrine 5 mg tablet 5 mg PO TID PRN On Dialysis days 02/13/25 02/13/25 Unknown Active Medications Generic Name Dose Route Start Last Admin Trade Name Freq PRN Reason Stop Dose Admin Amlodipine Besylate 2.5 mg 02/13/25 01:20 02/13/25 02:21 Amlodipine Besylate 5 Mg Tab PO 03/15/25 01:19 2.5 mg QAM JUAN JOSE Administration Sodium Chloride 1,000 mls @ 10 mls/hr 02/13/25 14:30 02/13/25 14:36 Nss IV 02/16/25 14:29 10 mls/hr .Q24H JUAN JOSE Administration Morphine Sulfate 4 mg 02/12/25 17:25 02/13/25 08:47 Morphine Sulfate 4 Mg/Ml 1 Ml Carp\Vial IV 02/26/25 17:24 4 mg Q1H PRN Administration Severe Pain (Rating 7,8,9,10) Rosuvastatin Calcium 10 mg 02/12/25 21:00 02/12/25 22:31 Rosuvastatin Calcium 10 Mg Tab PO 03/14/25 20:59 10 mg HS JUAN JOSE Administration Vitamin B Complex/Folic Acid 1 cap 02/13/25 09:00 02/13/25 07:59 Nephrocaps PO 03/15/25 08:59 1 cap DAILY JUAN JOSE Administration Exercise / Class Metabolic Activity Metabolic Activity: II 4-5 Yardwork/Stairs/Walk up hill Physical Exam Constitutional: no acute distress Mouth: + dentures and + edentulous; no dentition abnormality Thyromental Distance: > or= 3.5 Finger Breadths Mallampati Class: II Neck: + visual inspection normal Respiratory: + respiratory effort normal and + clear to auscultation bilaterally; no respiratory distress Cardiovascular: + regular rate and + regular rhythm; no murmur Musculoskeletal: no limited cervical ROM Psychiatric: + alert and + oriented x 3 ASA ASA3 Proposed Anesthesia Proposed Anesthesia: General Risk / Benefits Reviewed With: PT / POA / Parent / Guardian, Accepts Plan and Informed Consent Obtained
[2025-02-13] MEDS: ROPIVACAINE 0.5% HCL/PF 246 MG, Ketorolac (*for OR use only*) 30 MG, EPINEPHrine 30MG/3... INFIL SCH (15:28)
[2025-02-13] MEDS: TRANEXAMIC ACID / 0.7% NACL 1,000 MG/100 ML BAG IV ONE ×2 (15:53→19:37)
--- NOTE | 2025-02-13 16:03 | Operative Report ---
PG Post Operative Report Pre & Post Diagnosis Operation Date: 02/13/25 07:55 Pre-Op Diagnosis: Fracture of left femoral neck. Post-Op Diagnosis: Fracture of left femoral neck. I identified the patient and participated in the time-out.: Yes Procedure Operation Date: 02/13/25 07:55 Actual Procedures p Left Cemented Hemiarthroplasty(Left) - Vini Gonzalez DO Surgeon Vini Gonzalez DO Vacuum Metalizer Operator Mauricio Gudino PA-C Estimated Blood Loss 150 Findings Consistent with Post-Op Diagnosis Specimens Left femoral head Description of Procedure On February 13, 2025 Bang was brought down from his hospital room to the preoperative holding area. The operative extremity identified and signed. He was given a preoperative antibiotic. He was taken back the operating room and put under general anesthesia on the hospital bed. He was then transferred to the operating room table. The left leg was brought out to a Purist leg positioner. The left hip was then prepped and draped sterile fashion. A timeout was done. The patient and the operative extremity was properly identified. An anterior approach was used. Dissection was taken down through the fascia. The rectus was retracted medially and the tensor muscle belly was retracted laterally. The capsule was exposed. The capsule was then incised and tagged for later repair. The humeral neck fracture was then evaluated and the hemarthrosis was evacuated. The femoral neck was then resected and the neck was removed. The femoral head was then removed. The femoral head measured to be 50 mm. A 50 mm trial was placed in the acetabular vault and it seemed to be the best fit. The proximal femur was then exposed. Sequential broaching up to a size 11 broach was done. A standard femoral neck, a 28 mm head with a 0 neck and a 50 mm bipolar shell were then trialed. The hip was reduced. Fluoroscopic images showed anatomic alignment. The hip was then dislocated and trials were removed. A 9 mm Yana echo stem was then cemented into place. Once cement had hardened a 28 mm head with a 0 neck and a 50 mm bipolar shell were then attached to the femoral stem. The hip was reduced. Final fluoroscopic images showed anatomic alignment. The capsule was closed with #1 Vicryl. A 3-minute Betadine lavage was done. Surrounding soft tissues were injected with 100 cc of an orthopedic pain control cocktail. The fascia was then closed with #0 PDS suture. Skin was closed with 2-0 Vicryl, 3-0 Vicryl, and a [place] zip line. He was then placed in a Silverlon dressing. She was then extubated and transferred back to the hospital bed. He was taken to the postanesthesia care unit in stable condition. He tolerated the procedure well. Mauricio Gudino PA-C, was present for the entire procedure. He was critical for patient positioning, prepping, draping, retraction exposure, wound closure and application of sterile dressing. I attest to the content of the Intraoperative Record and any orders documented therein. Any exceptions are noted below.
[2025-02-13] MEDS: LABETALOL HCL IV 5 MG/ML 20ML IV STA (16:52)
--- NOTE | 2025-02-13 17:21 | Anesthesiology Progress Note ---
Date of Service February 13, 2025 Anesthesia Post Procedure Vital Signs Vital Signs: Temp Pulse Pulse Pulse Pulse Resp BP 02/13/25 17:05 36.9 C 68 15 02/13/25 16:55 64 15 02/13/25 16:52 78 180/73 H 02/13/25 16:45 75 19 02/13/25 16:35 75 17 02/13/25 16:25 73 17 02/13/25 16:18 37.2 C 78 17 02/13/25 14:35 36.9 C 02/13/25 14:22 74 16 02/13/25 13:58 36.7 C 72 02/13/25 13:30 64 129/66 02/13/25 13:00 64 132/69 02/13/25 12:30 67 143/69 H 02/13/25 12:00 66 167/73 H 02/13/25 11:30 67 155/78 H 02/13/25 11:00 67 167/74 H 02/13/25 10:50 73 171/73 H 02/13/25 10:45 36.7 C 72 02/13/25 08:00 72 02/13/25 08:00 36.7 C 71 14 02/13/25 08:00 02/13/25 02:00 02/13/25 01:12 02/13/25 01:01 14 02/12/25 23:11 37 C 73 12 02/12/25 22:29 78 198/91 H 02/12/25 22:00 02/12/25 21:45 79 02/12/25 21:03 36.7 C 78 18 02/12/25 21:02 02/12/25 20:55 77 02/12/25 20:00 72 18 02/12/25 19:35 82 215/98 H 02/12/25 19:00 64 18 02/12/25 18:43 83 16 02/12/25 18:42 83 26 H 02/12/25 18:30 85 8 L 02/12/25 18:30 229/93 H 02/12/25 18:30 229/93 H 02/12/25 18:30 229/93 H 02/12/25 18:29 18 02/12/25 18:29 86 16 02/12/25 18:28 221/104 H 02/12/25 18:27 87 7 L 02/12/25 18:03 87 17 02/12/25 17:57 85 19 02/12/25 17:45 86 7 L 02/12/25 17:33 88 14 02/12/25 17:30 232/103 H 02/12/25 17:30 232/103 H 02/12/25 17:25 89 16 02/12/25 17:21 217/95 H BP Pulse Ox Pulse Ox O2 Del Method O2 Del Method O2 Flow Rate O2 Flow Rate 02/13/25 17:05 152/83 H 96 Nasal Cannula 4 02/13/25 16:55 141/73 H 94 Nasal Cannula 4 02/13/25 16:52 02/13/25 16:45 180/73 H 97 Nasal Cannula 4 02/13/25 16:35 167/81 H 97 Oxymask 5 02/13/25 16:25 163/69 H 96 Oxymask 5 02/13/25 16:18 182/68 H 98 Oxymask 5 02/13/25 14:35 93 Room Air 02/13/25 14:22 164/72 H 02/13/25 13:58 162/82 H 02/13/25 13:30 02/13/25 13:00 02/13/25 12:30 02/13/25 12:00 02/13/25 11:30 02/13/25 11:00 02/13/25 10:50 02/13/25 10:45 02/13/25 08:00 02/13/25 08:00 157/65 H 94 Room Air 02/13/25 08:00 Room Air 02/13/25 02:00 96 Nasal Cannula 2 02/13/25 01:12 176/74 H 02/13/25 01:01 183/78 H 97 Nasal Cannula 2 02/12/25 23:11 171/71 H 89 L Room Air 02/12/25 22:29 02/12/25 22:00 95 Nasal Cannula 2 02/12/25 21:45 02/12/25 21:03 198/91 H 92 Room Air 02/12/25 21:02 Room Air 02/12/25 20:55 02/12/25 20:00 203/98 H 96 Nasal Cannula 2 02/12/25 19:35 02/12/25 19:00 217/93 H 94 Nasal Cannula 2 02/12/25 18:43 02/12/25 18:42 91 02/12/25 18:30 89 L 02/12/25 18:30 02/12/25 18:30 02/12/25 18:30 02/12/25 18:29 02/12/25 18:29 221/104 H 92 Room Air 02/12/25 18:28 02/12/25 18:27 95 02/12/25 18:03 94 02/12/25 17:57 88 L 02/12/25 17:45 92 02/12/25 17:33 92 02/12/25 17:30 02/12/25 17:30 02/12/25 17:25 232/103 H 93 Room Air 02/12/25 17:21 Pain Intensity Left Hip: Pain Intensity: 3 Transfer of Care Handoff Completed per policy Notes Mental Status: alert / awake / arousable Patient Amnestic to Procedure: Yes Nausea / Vomiting: adequately controlled Pain: adequately controlled Airway Patency, RR, SpO2: stable & adequate BP & HR: stable & adequate Hydration State: stable & adequate Anesthetic Complications: no major complications apparent
--- NOTE | 2025-02-13 18:25 | XRay Report ---
2 views of the left hip are submitted for review. Findings: No fracture is seen. There is a left hip bipolar hemiarthroplasty in expected position. No other osseous abnormality is identified. There are no radiopaque foreign bodies. Vascular calcifications are present. There is excreted contrast within the urinary bladder Impression: Left hip replacement Electronically signed by Maurice Canales 02-13-2025 6:23 PM
[2025-02-13] MEDS: DOCUSATE SODIUM 100 MG CAP PO SCH (20:39)
[2025-02-13] MEDS: ASPIRIN 81 MG ECTAB PO SCH (20:39)
[2025-02-14 06:17] LABS: Hematocrit (blood only) 33.0 % (42.0-52.0); Hemoglobin 10.9 g/dl (14.0-18.0); Mean Corpuscular Hemoglobin 33.1 pg (25.0-34.0); Mean Corpuscular Volume 100.3 fL (80.0-100.0); Platelet Count 123 K/uL (130-400); RDW Standard Deviation 64.7 fL (36.4-46.3); Red Blood Count 3.29 M/uL (4.70-6.10); White Blood Count 6.62 K/ul (4.8-10.8)
[2025-02-14 07:16] LABS: Anion Gap 11.0 (3-11); Blood Urea Nitrogen 23.0 mg/dl (6-23); Calcium 7.6 mg/dl (8.6-10.3); Carbon Dioxide 25.0 mmol/L (21-32); Chloride 102.0 mmol/L (98-107); Creatinine Clr Calc Pharmacy 8.7 ml/min; Glucose 120.0 mg/dl (70-99(Fasting)); Magnesium 1.9 mg/dl (1.7-2.4); Potassium 3.9 mmol/L (3.5-5.1); Sodium 138.0 mmol/L (136-145)
--- NOTE | 2025-02-14 07:20 | Fluoroscopy Report ---
FL hip LT 1V CLINICAL HISTORY: LT CEMENTED SEMI-ARTHROPLASTYleft hip arthroplasty COMPARISON STUDY: CT abdomen and pelvis 02/12/2025 FLUOROSCOPY TIME: 4.4 seconds FLUOROSCOPY IMAGES: 1 EXPOSURE DOSE: 0.3966 mGy FINDINGS: Left hip arthroplasty demonstrates satisfactory alignment. No acute fracture or unexpected opaque foreign body. IMPRESSION: Fluoroscopic assistance was above. ACT 112: Negative or not required by law. Electronically signed by: Severo Valderrama M.D. 02/14/2025 7:19 AM
--- NOTE | 2025-02-14 08:52 | Orthopedic Progress Note ---
Date of Service February 14, 2025 Assessment & Plan (1) Status post hemiarthroplasty of right hip: Overall he is doing fairly well. He is not having much pain in the left hip. He has already been standing with the nursing staff. He will be seen by physical therapy for ambulation and range of motion exercises. He is on aspirin for DVT prophylaxis. He is orthopedically stable for discharge when medically ready. Full orthopedic discharge instructions were placed in the discharge summary. Prescriptions were already called in for aspirin 81 mg twice a day for 6 weeks as well as cefadroxil for 10 days for antimicrobial prophylaxis. I will rely on the medical team to send him home with pain medications. He will follow-up with orthopedics in 2 weeks. Jonel Cuenca was seen and examined at bedside this morning. Overall is doing very well. He is not having much pain in the left hip. He has been standing with the nursing staff. He has no other complaints.. Review of Systems All systems reviewed & are unremarkable except as noted in HPI & below. Physical Exam On physical exam of the left hip, the dressing is clean and dry. His leg is out full extension. He has active dorsiflexion plantarflexion of his left ankle.. Results & Data Results & Data Laboratory Results . Diagnostic Findings Postoperative x-rays of the left hip show the prosthesis to be in anatomic alignment without any evidence of fracture, dislocation, or loosening.. PG Care Time/CCT Total # of Minutes Spent Total Time Spent with Patient: Total time spent is greater than 50% in coordination of care (as documented) at patient's floor/unit and/or counseling patient: Coding Level of Care Code 30603 Post Operative Follow-Up Diagnoses Status post hemiarthroplasty of right hip Z96.641
--- NOTE | 2025-02-14 15:15 | Hospitalist Progress Note ---
Date of Service February 14, 2025 Assessment & Plan (1) Closed hip fracture: Plan: 89 year old M with a past medical history of ESRD on HD 3day/week, HTN, CHF, BPH,dyslipidemia presenting with left leg pain. Patient reports falling while using his walker at home on carpet. Immediate pain and swelling. Unable to ambulate. Arrived here via EMS. Fentanyl given via transport. Closed hip fracture Mechanical Fall * Pelvic Xray showing acute fracture of the left femoral neck * Cervical Spine CT with no acute traumatic fracture of the cervical spine. CTH wnl * Ortho evaled, s/p Left Cemented Hemiarthroplasty 02/13, recs are aspirin bid for 6 wks for dvt px and cefadroxil for 10 days for antimicrobial prophylaxis. f/u w/ ortho in 2 weeks. * PT/OT and possibly rehab. * Pain management while inpatient- Tylenol IV scheduled, Dilaudid as needed * Bowel regimen while on pain meds. Left Bundle Branch Block Hypokalemia * EKG showing sinus rhythm with 1st degree A-V block, Left BBB, vent rate 83 bpm, QTc 526 * Asymptomatic, no CP * Echo w/ EF of 50%, mild concentric LVH, septal motion c/w LBBB. RWM is nl. Gr I diastolic dysfunction. * Cardiology evaled, appreciate recs * K level stable. * Will trend with AM labs #Hypertensive Urgency/ho labile HTN: BP high at presentation, likely 2/2 acute pain from hip fracture. small dose amlod started this admission, continue, m onitor. #Likely Demand ischemia: iso acute stress, trop flat trend, pt w/ no chest pain. ekg w/ new LBBB, cardio evaluating. #ESRD * Receives HD -W- * Nephrology to help w/ HD. DVT Ppx: Scds Code status: Full code PCP: Dr. Kerwin Wynn Dispo: await pt/ot eval, likely will need rehab, to med/surg till then. (2) Left bundle branch block: (3) End-stage renal disease (ESRD): (4) HTN (hypertension): Admission and Anticipated Discharge Date Admission Date: February 12, 2025 Subjective Patient was seen and examined at bedside. Patient was lying in bed, on room air, NAD. Per RN, patient was delirious in AM. At bedside exam, patient awake and alert, oriented x 2. Patient reports operative site pain under control. Patient is eating okay, has not moved her bowel. Is moving gas. Physical Exam Physical Exam: GEN: Healthy appearing, well-developed, NAD. PSYCH: Good Judgment. AOx3. Normal memory, mood, and affect. HEENT -Head: NC/AT; -Eyes: PERRL, EOMI. No discharge or redn ess; -Ears: External ears are normal. -Nose: Normal nares. -Mouth and throat: MMM. Normal gums, muc shivam, palate,. Good dentition. NECK: Supple, with no masses. CV: RRR, no m/r/g. LUNGS: CTAB, no w/r/c. ABD: Soft, NT/ND, NBS, no masses or organomegaly. : N/A SKIN: Warm, well perfused. No skin rashes or abnormal lesions. MSK: Lt hip dressing c/d/i. EXT: No clubbing, cyanosis, or edema. NEURO: CN II-XII grossly intact, No focal deficits. Results & Data Results & Data Vital Signs (Past 12 Hours) Vital Signs Temp Pulse Pulse Resp BP Pulse Ox O2 Del Method 02/14/25 13:52 94 H 02/14/25 12:00 76 16 159/73 H 94 Room Air 02/14/25 08:00 36.8 C 81 18 171/71 H 94 Room Air (1) Closed hip fracture Encounter type: initial encounter Laterality: left Qualified Code(s): S72.002A - Fracture of unspecified part of neck of left femur, initial encounter for closed fracture
[2025-02-14] MEDS: hydrALAZINE 10 MG TAB PO STA (19:07)
[2025-02-14] MEDS: MELATONIN 3 MG TAB PO PRN (20:56)
[2025-02-14] MEDS: ACETAMINOPHEN 325 MG TAB PO PRN (20:57)
[2025-02-15 07:41] LABS: Hematocrit (blood only) 32.2 % (42.0-52.0); Hemoglobin 10.1 g/dl (14.0-18.0); Mean Corpuscular Hemoglobin 31.6 pg (25.0-34.0); Mean Corpuscular Volume 100.6 fL (80.0-100.0); Platelet Count 108 K/uL (130-400); RDW Standard Deviation 64.1 fL (36.4-46.3); Red Blood Count 3.20 M/uL (4.70-6.10); White Blood Count 5.56 K/ul (4.8-10.8)
[2025-02-15 08:34] LABS: Anion Gap 10.0 (3-11); Blood Urea Nitrogen 40.0 mg/dl (6-23); Calcium 7.4 mg/dl (8.6-10.3); Carbon Dioxide 24.0 mmol/L (21-32); Chloride 100.0 mmol/L (98-107); Creatinine Clr Calc Pharmacy 6.9 ml/min; Glucose 88.0 mg/dl (70-99(Fasting)); Potassium 3.9 mmol/L (3.5-5.1); Sodium 134.0 mmol/L (136-145)
--- NOTE | 2025-02-15 12:21 | Nephrology Progress Note ---
Date of Service February 15, 2025 Assessment & Plan (1) End-stage renal disease (ESRD): Plan: 1) ESRD (end stage renal disease) on dialysis: last dialysis was sunday - For HD tomorow - We will try to optimize his fluid status and electrolyte. - BP is variable as per previous records, thIS generally improved with UF. -Ok to continue with PRN labetalol/ hydralzine PRN to keep this @ 140/90 (2) Fracture of femoral neck, left: Plan: As per primary/ Orthopedics--he had surgery on 02/13 Admission and Anticipated Discharge Date Admission Date: February 12, 2025 Subjective Patient was seen and examined at bedside. Patient was lying in bed, on room air, NAD. At bedside exam, patient awake and alert, oriented x 2. Patient reports operative site pain under control. Physical Exam 2 Physical Exam: Alert and oriented Left lower extremity in Bandage Results & Data Vital Signs (Past 12 Hours) Vital Signs Temp Pulse Resp BP Pulse Ox O2 Del Method 02/15/25 08:35 67 127/75 Room Air 02/15/25 07:55 36.7 C 68 20 190/74 H 99 Room Air 02/15/25 07:30 Room Air Laboratory Results 02/15/25 07:13 02/15/25 07:13
--- NOTE | 2025-02-15 15:24 | Hospitalist Progress Note ---
Date of Service February 15, 2025 Assessment & Plan (1) Closed hip fracture: Plan: 89 year old M with a past medical history of ESRD on HD 3day/week, HTN, CHF, BPH,dyslipidemia presenting with left leg pain. Patient reports falling while using his walker at home on carpet. Immediate pain and swelling. Unable to ambulate. Arrived here via EMS. Fentanyl given via transport. Closed hip fracture Mechanical Fall * Pelvic Xray showing acute fracture of the left femoral neck * Cervical Spine CT with no acute traumatic fracture of the cervical spine. CTH wnl * Ortho evaled, s/p Left Cemented Hemiarthroplasty 02/13, recs are aspirin bid for 6 wks for dvt px and cefadroxil for 10 days for antimicrobial prophylaxis. f/u w/ ortho in 2 weeks. * PT/OT and possibly rehab. * Pain management while inpatient- Tylenol IV scheduled, Dilaudid as needed * Bowel regimen while on pain meds. Patient put on cefadroxil 02/14, dose adjusted for renal function. Left Bundle Branch Block Hypokalemia * EKG showing sinus rhythm with 1st degree A-V block, Left BBB, vent rate 83 bpm, QTc 526 * Asymptomatic, no CP * Echo w/ EF of 50%, mild concentric LVH, septal motion c/w LBBB. RWM is nl. Gr I diastolic dysfunction. * Cardiology evaled, appreciate recs * K level stable. * Will trend with AM labs #Hypertensive Urgency/ho labile HTN: BP high at presentation, likely 2/2 acute pain from hip fracture. small dose amlod started this admission, continue, monitor. #Likely Demand ischemia: iso acute stress, trop flat trend, pt w/ no chest pain. ekg w/ new LBBB, cardio evaluating. #ESRD * Receives HD -W- * Nephrology to help w/ HD. DVT Ppx: Scds Code status: Full code PCP: Dr. Kerwin Wynn Dispo: can dc to rehab. (2) Left bundle branch block: (3) End-stage renal disease (ESRD): (4) HTN (hypertension): Admission and Anticipated Discharge Date Admission Date: February 12, 2025 Subjective Patient was seen and examined at bedside. Patient was lying in bed, on room air, NAD. At bedside exam, patient awake and alert, oriented x 2. Patient reports operative site pain under control. Patient is eating okay, has not moved her bowel. Is moving gas. denies abdominal pain. Physical Exam Physical Exam: GEN: Healthy appearing, well-developed, NAD. PSYCH: Good Judgment. AOx3. Normal memory, mood, and affect. HEENT -Head: NC/AT; -Eyes: PERRL, EOMI. No discharge or redn ess; -Ears: External ears are normal. -Nose: Normal nares. -Mouth and throat: MMM. Normal gums, muc shivam, palate,. Good dentition. NECK: Supple, with no masses. CV: RRR, no m/r/g. LUNGS: CTAB, no w/r/c. ABD: Soft, NT/ND, NBS, no masses or organomegaly. : N/A SKIN: Warm, well perfused. No skin rashes or abnormal lesions. MSK: Lt hip dressing c/d/i. EXT: No clubbing, cyanosis, or edema. NEURO: CN II-XII grossly intact, No focal deficits. Results & Data Results & Data Vital Signs (Past 12 Hours) Vital Signs Temp Pulse Resp BP Pulse Ox O2 Del Method 02/15/25 08:35 67 127/75 Room Air 02/15/25 07:55 36.7 C 68 20 190/74 H 99 Room Air 02/15/25 07:30 Room Air (1) Closed hip fracture Encounter type: initial encounter Laterality: left Qualified Code(s): S72.002A - Fracture of unspecified part of neck of left femur, initial encounter for closed fracture
[2025-02-15] MEDS: HYDROmorphone INJ 1 MG/ML SYRINGE IV PRN (17:06)
[2025-02-16] MEDS ORDERED: SODIUM CHLORIDE 0.9% 1,000 ML IV PRN (07:00)
--- NOTE | 2025-02-16 07:39 | Orthopedic Progress Note ---
Date of Service February 16, 2025 Assessment & Plan (1) Fracture of femoral neck, left: * Continue Current Treatment * Disposition: TBD * Daily treatment: Physical Therapy/ Occupational Therapy per protocol * Weight bearing status: WBAT, no precautions * Continue to monitor for ABLA * Pain control * DVT prophylaxis, ASA 81mg BID x6 weeks * Office/hospital f/u 2 weeks for progress check and staple/suture removal * Remainder care per primary team Subjective Active Problems: S/p left hip hemiarthroplasty POD 3 89 y/o male s/p left hip hemiarthroplasty. Doing well overall, pain managed and improved function. Denies fever/chills, chest pain/SOB, nausea/vomiting. Oth erwise no complaints. Review of Systems All systems reviewed & are unremarkable except as noted in HPI & below. Physical Exam . * General: Alert and oriented, no acute distress * Constitutional: well-developed, well-nourished. * Respiratory: Normal respiratory effort, no distress * Gastrointestinal: No tenderness to palpation, no rigidity or guarding. * Skin: No rash or lesion. * Neurologic: Grossly normal * Musculoskeletal: Left hip surgical dressing CDI, not removed for exam. Otherwise no obvious deformity or overlying skin changes. Diffuse TTP proximal thigh and hip region. Otherwise no specific tenderness of distal thigh, lower leg, foot/ankle. AROM hip flexion intact. AROM foot/ankle intact. Sensation intact plantar/dorsal foot. Brisk capillary refill. Results & Data Results & Data Laboratory Results . Diagnostic Findings . PG Care Time/CCT Total # of Minutes Spent Total Time Spent with Patient: Total time spent is greater than 50% in coordination of care (as documented) at patient's floor/unit and/or counseling patient: Coding Level of Care Code 32452 Post Operative Follow-Up Diagnoses Fracture of femoral neck, left S72.002A
[2025-02-16 08:49] LABS: Hematocrit (blood only) 32.0 % (42.0-52.0); Hemoglobin 10.5 g/dl (14.0-18.0); Mean Corpuscular Hemoglobin 31.8 pg (25.0-34.0); Mean Corpuscular Volume 97.0 fL (80.0-100.0); Platelet Count 113 K/uL (130-400); RDW Standard Deviation 59.4 fL (36.4-46.3); Red Blood Count 3.30 M/uL (4.70-6.10); White Blood Count 3.78 K/ul (4.8-10.8)
[2025-02-16 09:17] LABS: Anion Gap 12.0 (3-11); Blood Urea Nitrogen 55.0 mg/dl (6-23); Calcium 7.6 mg/dl (8.6-10.3); Carbon Dioxide 20.0 mmol/L (21-32); Chloride 100.0 mmol/L (98-107); Creatinine Clr Calc Pharmacy 6.1 ml/min; Glucose 81.0 mg/dl (70-99(Fasting)); Potassium 4.4 mmol/L (3.5-5.1); Sodium 132.0 mmol/L (136-145)
--- NOTE | 2025-02-16 16:23 | Hospitalist Progress Note ---
Date of Service February 16, 2025 Assessment & Plan (1) Closed hip fracture: Plan: 89 year old M with a past medical history of ESRD on HD 3day/week, HTN, CHF, BPH,dyslipidemia presenting with left leg pain. Patient reports falling while using his walker at home on carpet. Immediate pain and swelling. Unable to ambulate. Arrived here via EMS. Fentanyl given via transport. Closed hip fracture Mechanical Fall * Pelvic Xray showing acute fracture of the left femoral neck * Cervical Spine CT with no acute traumatic fracture of the cervical spine. CTH wnl * Ortho evaled, s/p Left Cemented Hemiarthroplasty 02/13, recs are aspirin bid for 6 wks for dvt px and cefadroxil for 10 days for antimicrobial prophylaxis. f/u w/ ortho in 2 weeks. * PT/OT and possibly rehab. * Pain management while inpatient- Tylenol IV scheduled, Dilaudid as needed * Bowel regimen while on pain meds. Patient put on cefadroxil 02/14, dose adjusted for renal function. Left Bundle Branch Block Hypokalemia * EKG showing sinus rhythm with 1st degree A-V block, Left BBB, vent rate 83 bpm, QTc 526 * Asymptomatic, no CP * Echo w/ EF of 50%, mild concentric LVH, septal motion c/w LBBB. RWM is nl. Gr I diastolic dysfunction. * Cardiology evaled, appreciate recs * K level stable. #Hypertensive Urgency/ho labile HTN: BP high at presentation, likely 2/2 acute pain from hip fracture. small dose amlod started this admission, continue, monitor. #Likely Demand ischemia: iso acute stress, trop flat trend, pt w/ no chest pain. ekg w/ new LBBB, cardio evaluating. #ESRD * Receives HD -W- * Nephrology to help w/ HD. DVT Ppx: Scds Code status: Full code PCP: Dr. Kerwin Wynn Dispo: can dc to snf. P2P done today, declined for [facility]. (2) Left bundle branch block: (3) End-stage renal disease (ESRD): (4) HTN (hypertension): Admission and Anticipated Discharge Date Admission Date: February 12, 2025 Subjective Patient was seen and examined at bedside. Patient was lying in bed, on room air, NAD. At bedside exam, patient awake and alert, oriented x 2. Patient reports operative site pain under control. Patient is eating okay, has not moved her bowel. Is moving gas. denies abdominal pain. reports feeling tired today, was undergoing dialysis at the time of my exam. Physical Exam Physical Exam: GEN: Healthy appearing, well-developed, NAD. PSYCH: Good Judgment. AOx3. Normal memory, mood, and affect. HEENT -Head: NC/AT; -Eyes: PERRL, EOMI. No discharge or redn ess; -Ears: External ears are normal. -Nose: Normal nares. -Mouth and throat: MMM. Normal gums, muc shivam, palate,. Good dentition. NECK: Supple, with no masses. CV: RRR, no m/r/g. LUNGS: CTAB, no w/r/c. ABD: Soft, NT/ND, NBS, no masses or organomegaly. : N/A SKIN: Warm, well perfused. No skin rashes or abnormal lesions. MSK: Lt hip dressing c/d/i. EXT: No clubbing, cyanosis, or edema. NEURO: CN II-XII grossly intact, No focal deficits. Results & Data Results & Data Vital Signs (Past 12 Hours) Vital Signs Temp Pulse Pulse Pulse Pulse Resp BP 02/16/25 14:30 36.6 C 87 16 02/16/25 12:10 36.8 C 61 02/16/25 12:00 80 112/77 02/16/25 11:30 80 124/75 02/16/25 11:00 47 L 90/48 L 02/16/25 10:30 45 L 146/58 H 02/16/25 10:00 76 120/64 02/16/25 09:30 48 L 143/58 H 02/16/25 09:05 70 151/85 H 02/16/25 08:56 36.8 C 77 02/16/25 07:20 36.8 C 80 15 BP Pulse Ox O2 Del Method 02/16/25 14:30 170/67 H 94 Room Air 02/16/25 12:10 155/65 H 02/16/25 12:00 02/16/25 11:30 02/16/25 11:00 02/16/25 10:30 02/16/25 10:00 02/16/25 09:30 02/16/25 09:05 02/16/25 08:56 02/16/25 07:20 195/94 H 97 Room Air (1) Closed hip fracture Encounter type: initial encounter Laterality: left Qualified Code(s): S72.002A - Fracture of unspecified part of neck of left femur, initial encounter for closed fracture
[2025-02-16] MEDS: POLYETHYLENE (MIRALAX) 17 GM PACK PO SCH (17:22)
--- NOTE | 2025-02-16 19:49 | Nephrology Progress Note ---
Date of Service February 16, 2025 Assessment & Plan (1) End-stage renal disease (ESRD): Plan: ESRD (end stage renal disease) on hemodialysis: last dialysis was today 02/16 - For HD 02/18 - reasonably acceptable fluid status and electrolytes. - BP is variable as per previous records -Ok to continue with PRN labetalol/ hydralzine PRN to keep this under 150/90 (2) Fracture of femoral neck, left: Plan: As per primary/ Orthopedics--he had surgery on 02/13 (3) Orthostatic hypotension: Plan: not uncommon as OP for sbp to drop 40-70 points w/ standing >> keep in mind as he starts rehab Admission and Anticipated Discharge Date Admission Date: February 12, 2025 Subjective no interval events. tolerated hd well today. states hip pain controlled. no sob. no n/v Review of Systems 2 Review of Systems: All systems reviewed & are unremarkable except as noted in Subjective Physical Exam 2 Constitutional: well developed and well nourished Eyes: EOM intact bilaterally ENMT: Mouth: + dry oral mucous membranes Respiratory: normal respiratory effort Auscultation: + diminished lung sounds Cardiovascular: Rate/Rhythm: regular rate and regular rhythm no edema Gastrointestinal (Abdomen): Inspection/Auscultation: normal bowel sounds P ercussion/Palpation: abdomen soft; abdomen nontender Musculoskeletal: Extremities: strength 5/5 throughout Skin: no rashes, warm and dry Neurologic: fernandez, fluent speech, no tremor Results & Data Vital Signs (Past 12 Hours) Vital Signs Temp Pulse Pulse Pulse Resp BP BP 02/16/25 14:30 36.6 C 87 16 170/67 H 02/16/25 12:10 36.8 C 61 155/65 H 02/16/25 12:00 80 112/77 02/16/25 11:30 80 124/75 02/16/25 11:00 47 L 90/48 L 02/16/25 10:30 45 L 146/58 H 02/16/25 10:00 76 120/64 02/16/25 09:30 48 L 143/58 H 02/16/25 09:05 70 151/85 H 02/16/25 08:56 36.8 C 77 Pulse Ox O2 Del Method 02/16/25 14:30 94 Room Air 02/16/25 12:10 02/16/25 12:00 02/16/25 11:30 02/16/25 11:00 02/16/25 10:30 02/16/25 10:00 02/16/25 09:30 02/16/25 09:05 02/16/25 08:56 Laboratory Results 02/16/25 07:32 02/16/25 07:32
[2025-02-17 08:46] LABS: Anion Gap 10.0 (3-11); Blood Urea Nitrogen 49.0 mg/dl (6-23); Calcium 7.6 mg/dl (8.6-10.3); Carbon Dioxide 25.0 mmol/L (21-32); Chloride 102.0 mmol/L (98-107); Creatinine Clr Calc Pharmacy 7.4 ml/min; Glucose 97.0 mg/dl (70-99(Fasting)); Potassium 4.0 mmol/L (3.5-5.1); Sodium 137.0 mmol/L (136-145)
--- NOTE | 2025-02-17 13:29 | Nephrology Progress Note ---
Date of Service February 17, 2025 Assessment & Plan (1) End-stage renal disease (ESRD): Plan: ESRD (end stage renal disease) on hemodialysis: last dialysis was today 02/16 - For HD 02/18 > orders in for routine tx - reasonably acceptable fluid status and electrolytes. - BP is variable as per previous records -Ok to continue with PRN labetalol/ hydralzine PRN to keep this under 150/90 [facility] unfortunately will no longer be offering on site HD; CM aware. (2) Fracture of femoral neck, left: Plan: As per primary/ Orthopedics--he had surgery on 02/13 (3) Orthostatic hypotension: Plan: not uncommon as OP for sbp to drop 40-70 points w/ standing >> keep in mind as he starts rehab >ordered orthostatic VS Admission and Anticipated Discharge Date Admission Date: February 12, 2025 Subjective no interval acute events. used commode for first time/ambulating w/ walker (and PT). denies pain or sob or N Review of Systems 2 Review of Systems: All systems reviewed & are unremarkable except as noted in Subjective Physical Exam 2 Constitutional: well developed, average body habitus and cooperative; no acute distress Eyes: EOM intact bilaterally ENMT: Mouth: + dry oral mucous membranes Respiratory: normal respiratory effort Auscultation: + diminished lung sounds Cardiovascular: Rate/Rhythm: regular rate and regular rhythm Gastrointestinal (Abdomen): Inspection/Auscultation: normal bowel sounds P ercussion/Palpation: abdomen soft; abdomen nontender Musculoskeletal: Extremities: strength 5/5 throughout Skin: no rashes, warm and dry Results & Data Vital Signs (Past 12 Hours) Vital Signs Temp Pulse Resp BP Pulse Ox O2 Del Method 02/17/25 12:08 36.3 C L 81 20 174/68 H 95 Room Air 02/17/25 07:46 36.9 C 79 17 183/74 H 96 Room Air Laboratory Results 02/16/25 07:32 02/17/25 07:36
--- NOTE | 2025-02-17 14:14 | Hospitalist Progress Note ---
Date of Service February 17, 2025 Assessment & Plan (1) Closed hip fracture: Plan: 89 year old M with a past medical history of ESRD on HD 3day/week, HTN, CHF, BPH,dyslipidemia presenting with left leg pain. Patient reports falling while using his walker at home on carpet. Immediate pain and swelling. Unable to ambulate. Arrived here via EMS. Fentanyl given via transport. Closed hip fracture Mechanical Fall * Pelvic Xray showing acute fracture of the left femoral neck * Cervical Spine CT with no acute traumatic fracture of the cervical spine. CTH wnl * Ortho evaled, s/p Left Cemented Hemiarthroplasty 02/13, recs are aspirin bid for 6 wks for dvt px and cefadroxil for 10 days for antimicrobial prophylaxis. f/u w/ ortho in 2 weeks. * PT/OT and possibly rehab. * Pain management while inpatient- Tylenol prn, Dilaudid as needed * Bowel regimen while on pain meds. Patient put on cefadroxil 02/14, dose adjusted for renal function. Left Bundle Branch Block Hypokalemia * EKG showing sinus rhythm with 1st degree A-V block, Left BBB, vent rate 83 bpm, QTc 526 * Asymptomatic, no CP * Echo w/ EF of 50%, mild concentric LVH, septal motion c/w LBBB. RWM is nl. Gr I diastolic dysfunction. * Cardiology evaled, appreciate recs * K level stable. #Hypertensive Urgency/ho labile HTN: BP high at presentation, likely 2/2 acute pain from hip fracture. small dose amlod started this admission, continue, monitor. #Likely Demand ischemia: iso acute stress, trop flat trend, pt w/ no chest pain. ekg w/ new LBBB, cardio evaluating. #HFpEF: stable, euvolemic, continue to monitor. #ESRD * Receives HD M-W- * Nephrology to help w/ HD. DVT Ppx: Scds Code status: Full code PCP: Dr. Kerwin Wynn Dispo: can dc to snf. P2P done 02/16, declined for [facility]. (2) Left bundle branch block: (3) End-stage renal disease (ESRD): (4) HTN (hypertension): Admission and Anticipated Discharge Date Admission Date: February 12, 2025 Subjective Patient was seen and examined at bedside. Patient was lying in bed, on room air, NAD. At bedside exam, patient awake and alert, oriented x 2. Patient reports operative site pain under control. Patient is eating okay, has not moved her bowel. Is moving gas. denies abdominal pain. c/w bowel regimen Physical Exam Physical Exam: GEN: Healthy appearing, well-developed, NAD. PSYCH: Good Judgment. AOx3. Normal memory, mood, and affect. HEENT -Head: NC/AT; -Eyes: PERRL, EOMI. No discharge or redn ess; -Ears: External ears are normal. -Nose: Normal nares. -Mouth and throat: MMM. Normal gums, muc shivam, palate,. Good dentition. NECK: Supple, with no masses. CV: RRR, no m/r/g. LUNGS: CTAB, no w/r/c. ABD: Soft, NT/ND, NBS, no masses or organomegaly. : N/A SKIN: Warm, well perfused. No skin rashes or abnormal lesions. MSK: Lt hip dressing c/d/i. EXT: No clubbing, cyanosis, or edema. NEURO: CN II-XII grossly intact, No focal deficits. Results & Data Results & Data Vital Signs (Past 12 Hours) Vital Signs Temp Pulse Resp BP Pulse Ox O2 Del Method 02/17/25 14:05 36.9 C 87 17 167/71 H 96 Room Air 02/17/25 12:08 36.3 C L 81 20 174/68 H 95 Room Air 02/17/25 07:46 36.9 C 79 17 183/74 H 96 Room Air (1) Closed hip fracture Encounter type: initial encounter Laterality: left Qualified Code(s): S72.002A - Fracture of unspecified part of neck of left femur, initial encounter for closed fracture
[2025-02-17 16:03] LABS: Appearance Urine Cloudy (Clear); Bacteria Urine Automated 4+ (None Seen); Epithelial Cell Urine Auto 0-2 /hpf (0-2); Glucose Urine UA Negative (Negative); RBC Urine Automated >20 /hpf (0-2); WBC Urine Automated >50 /hpf (0-5)
[2025-02-18] MEDS ORDERED: SODIUM CHLORIDE 0.9% 1,000 ML IV PRN (07:00)
[2025-02-18] MEDS: HEPARIN SOD (PORCINE) 1000 UNIT/ML IV SCH (10:00)
[2025-02-18] MEDS: HEPARIN SOD (PORCINE) 1000 UNIT/ML IV ONE (10:00)
--- NOTE | 2025-02-18 11:54 | Dialysis Progress Note ---
Date of Service February 18, 2025 Assessment & Plan (1) End-stage renal disease (ESRD): Plan: ESRD (end stage renal disease) on hemodialysis: last dialysis was 02/16 - For HD 02/18 toda tolerating treatment welly > orders in for routine tx - acceptable fluid status and electrolytes. - BP is extremely variable as an outpatient particularly with position change -Ok to continue with PRN labetalol/ hydralzine PRN to keep this under 150/90 Awaiting acceptance from [facility] versus [facility] (2) Orthostatic hypotension: Plan: not uncommon as OP for sbp to drop 40-70 points w/ standing >> keep in mind as he starts rehab >ordered orthostatic VS to be done when feasible (3) Fracture of femoral neck, left: Plan: As per primary/ Orthopedics--he had surgery on 02/13 Admission and Anticipated Discharge Date Admission Date: February 12, 2025 Subjective Seen on dialysis. No complaints of uncontrolled hip pain, shortness of breath, edema, nausea vomiting, fatigue. Review of Systems 2 Review of Systems: All systems reviewed & are unremarkable except as noted in Subjective Physical Exam 2 Constitutional: well developed, well nourished, average body habitus and cooperative; no acute distress Eyes: EOM intact bilaterally ENMT: Mouth: + dry oral mucous membranes Respiratory: normal respiratory effort Auscultation: + diminished lung sounds Cardiovascular: Rate/Rhythm: regular rate and regular rhythm Gastrointestinal (Abdomen): Inspection/Auscultation: normal bowel sounds P ercussion/Palpation: abdomen soft; abdomen nontender Musculoskeletal: Extremities: strength 5/5 throughout Skin: no rashes, warm and dry Results & Data Vital Signs (Past 12 Hours) Vital Signs Temp Pulse Pulse Pulse Resp BP BP 02/18/25 11:30 75 159/88 H 02/18/25 11:00 75 118/70 02/18/25 10:30 75 118/75 02/18/25 10:00 75 128/71 02/18/25 09:30 93 H 155/75 H 02/18/25 09:14 80 169/82 H 02/18/25 09:04 36.6 C 85 02/18/25 07:50 36.7 C 73 18 180/75 H Pulse Ox O2 Del Method 02/18/25 11:30 02/18/25 11:00 02/18/25 10:30 02/18/25 10:00 02/18/25 09:30 02/18/25 09:14 02/18/25 09:04 02/18/25 07:50 96 Room Air Laboratory Results 02/16/25 07:32 02/17/25 07:36
--- NOTE | 2025-02-18 12:03 | Hospitalist Progress Note ---
Date of Service February 18, 2025 Assessment & Plan (1) Closed hip fracture: Plan: 89 year old M with a past medical history of ESRD on HD 3day/week, HTN, CHF, BPH,dyslipidemia presenting with left leg pain. Patient reports falling while using his walker at home on carpet. Immediate pain and swelling. Unable to ambulate. Arrived here via EMS. Fentanyl given via transport. Closed hip fracture Mechanical Fall * Pelvic Xray showing acute fracture of the left femoral neck * Cervical Spine CT with no acute traumatic fracture of the cervical spine. CTH wnl * Ortho evaled, s/p Left Cemented Hemiarthroplasty 02/13, recs are aspirin bid for 6 wks for dvt px and cefadroxil for 10 days for antimicrobial prophylaxis. f/u w/ ortho in 2 weeks. * PT/OT and possibly rehab. * Pain management while inpatient- Tylenol prn, Dilaudid as needed * Bowel regimen while on pain meds. Patient put on cefadroxil 02/14, dose adjusted for renal function. Left Bundle Branch Block Hypokalemia * EKG showing sinus rhythm with 1st degree A-V block, Left BBB, vent rate 83 bpm, QTc 526 * Asymptomatic, no CP * Echo w/ EF of 50%, mild concentric LVH, septal motion c/w LBBB. RWM is nl. Gr I diastolic dysfunction. * Cardiology evaled, appreciate recs * K level stable. #Hypertensive Urgency/ho labile HTN: BP high at presentation, likely 2/2 acute pain from hip fracture. small dose amlod started this admission, continue, monitor. #Likely Demand ischemia: iso acute stress, trop flat trend, pt w/ no chest pain. ekg w/ new LBBB, cardio evaluating. #HFpEF: stable, euvolemic, continue to monitor. #ESRD * Receives HD M-W- * Nephrology to help w/ HD. DVT Ppx: Scds Code status: Full code PCP: Dr. Kerwin Wynn Dispo: can dc to snf. P2P done 02/16, declined for [facility]. (2) Left bundle branch block: (3) End-stage renal disease (ESRD): (4) HTN (hypertension): Admission and Anticipated Discharge Date Admission Date: February 12, 2025 Subjective Patient was seen and examined at bedside. Patient was lying in bed, on room air, NAD. At bedside exam, patient awake and alert Patient reports operative site pain under control. Patient is eating okay, has moved bowel. c/w bowel regimen prn and w/ pain meds Physical Exam Physical Exam: GEN: Healthy appearing, well-developed, NAD. PSYCH: Good Judgment. AOx3. Normal memory, mood, and affect. HEENT -Head: NC/AT; -Eyes: PERRL, EOMI. No discharge or redn ess; -Ears: External ears are normal. -Nose: Normal nares. -Mouth and throat: MMM. Normal gums, muc shivam, palate,. Good dentition. NECK: Supple, with no masses. CV: RRR, no m/r/g. LUNGS: CTAB, no w/r/c. ABD: Soft, NT/ND, NBS, no masses or organomegaly. : N/A SKIN: Warm, well perfused. No skin rashes or abnormal lesions. MSK: Lt hip dressing c/d/i. EXT: No clubbing, cyanosis, or edema. NEURO: CN II-XII grossly intact, No focal deficits. Results & Data Results & Data Vital Signs (Past 12 Hours) Vital Signs Temp Pulse Pulse Pulse Resp BP BP 02/18/25 11:30 75 159/88 H 02/18/25 11:00 75 118/70 02/18/25 10:30 75 118/75 02/18/25 10:00 75 128/71 02/18/25 09:30 93 H 155/75 H 02/18/25 09:14 80 169/82 H 02/18/25 09:04 36.6 C 85 02/18/25 07:50 36.7 C 73 18 180/75 H Pulse Ox O2 Del Method 02/18/25 11:30 02/18/25 11:00 02/18/25 10:30 02/18/25 10:00 02/18/25 09:30 02/18/25 09:14 02/18/25 09:04 02/18/25 07:50 96 Room Air (1) Closed hip fracture Encounter type: initial encounter Laterality: left Qualified Code(s): S72.002A - Fracture of unspecified part of neck of left femur, initial encounter for closed fracture
[2025-02-18 22:50] VITALS: RESP 16
[2025-02-19 07:20] VITALS: BP 172/72; PULSE 68; TEMP 98.1; O2SAT 96
--- NOTE | 2025-02-19 11:16 | Hospitalist Progress Note ---
Date of Service February 19, 2025 Assessment & Plan (1) Closed hip fracture: Plan: 89 year old M with a past medical history of ESRD on HD 3day/week, HTN, CHF, BPH,dyslipidemia presenting with left leg pain. Patient reports falling while using his walker at home on carpet. Immediate pain and swelling. Unable to ambulate. Arrived here via EMS. F Closed hip fracture Mechanical Fall * Pelvic Xray showing acute fracture of the left femoral neck * Cervical Spine CT with no acute traumatic fracture of the cervical spine. CTH wnl * Ortho evaled, s/p Left Cemented Hemiarthroplasty 02/13, recs are aspirin bid for 6 wks for dvt px and cefadroxil for 10 days for antimicrobial prophylaxis. f/u w/ ortho in 2 weeks. * PT/OT and possibly rehab. * Pain management while inpatient- Tylenol prn, Dilaudid as needed * Bowel regimen while on pain meds. Patient put on cefadroxil 02/14, dose adjusted for renal function. Left Bundle Branch Block Hypokalemia * EKG showing sinus rhythm with 1st degree A-V block, Left BBB, vent rate 83 bpm, QTc 526 * Asymptomatic, no CP * Echo w/ EF of 50%, mild concentric LVH, septal motion c/w LBBB. RWM is nl. Gr I diastolic dysfunction. #Hypertensive Urgency/ho labile HTN: BP high at presentation, likely 2/2 acute pain from hip fracture. small dose amlod started this admission, continue, monitor. #Likely Demand ischemia: iso acute stress, trop flat trend, pt w/ no chest pain. ekg w/ new LBBB, cardio evaluating. #HFpEF: stable, euvolemic, continue to monitor. #ESRD * Receives HD M-W- * Nephrology to help w/ HD. DVT Ppx: aspirin Code status: Full code PCP: Dr. Kerwin Wynn Dispo: can dc to snf. P2P done 02/16, declined for [facility]. Please note the above document was generated using voice recognition software. It may contain grammatical, syntax or spelling errors. Any formal questions or concerns about the content, text or information contained within the body of this dictation should be directly addressed to the provider for clarification (2) Left bundle branch block: (3) End-stage renal disease (ESRD): (4) HTN (hypertension): Admission and Anticipated Discharge Date Admission Date: February 12, 2025 Subjective Patient seen and examined at bedside. He is working with physical therapy; denies any pain or discomfort. No significant events overnight Review of Systems Review of Systems: All systems reviewed & are unremarkable except as noted in Subjective Physical Exam Physical Exam: Constitutional: WD/WN, vitals as above, NAD, sitting up in bed, pleasant, conversing easily Respiratory: normal respiratory effort, lungs clear to auscultation, no wheeze, rales, rhonchi. Normal insp/exp effort, no accessory muscle use Cardiovascular: RRR, no murmur, no edema Vessels: no JVD or carotid bruit Chest: normal inspection of chest Abdomen: normal bowel sounds, soft, nontender, no hepatosplenomegaly Musculoskeletal: Left hip with dressing intact; clean and dry Neurologic: PERRL, EOMI, accommodation nl, no face palsy, no dysarthria CN's II- XI intact bilaterally and moves all extremities Results & Data Results & Data Vital Signs (Past 12 Hours) Vital Signs Temp Pulse Resp BP Pulse Ox O2 Del Method 02/19/25 07:19 36.7 C 68 16 172/72 H 96 Room Air (1) Closed hip fracture Encounter type: initial encounter Laterality: left Qualified Code(s): S72.002A - Fracture of unspecified part of neck of left femur, initial encounter for closed fracture
--- NOTE | 2025-02-19 11:18 | Nephrology Progress Note ---
Date of Service February 19, 2025 Assessment & Plan (1) End-stage renal disease (ESRD): Plan: ESRD (end stage renal disease) on hemodialysis: last dialysis was 02/18 - For HD 02/20 > orders in for routine tx - acceptable fluid status and electrolytes. - BP is extremely variable as an outpatient particularly with position change -Ok to continue with PRN labetalol/ hydralazine PRN to keep this under 150/[address] [facility] versus ?likelier Mairarandi Demarcus (2) Orthostatic hypotension: Plan: not uncommon as OP for sbp to drop 40-70 points w/ standing >> keep in mind as he starts rehab >ordered orthostatic VS to be done when feasible (3) Fracture of femoral neck, left: Plan: As per primary/ Orthopedics--he had surgery on 02/13 Admission and Anticipated Discharge Date Admission Date: February 12, 2025 Subjective azalea duffy admission in process still; no sob, no uncontrolled pain Review of Systems 2 Review of Systems: All systems reviewed & are unremarkable except as noted in Subjective Physical Exam 2 Constitutional: well developed (sitting up in chair today), well nourished, average body habitus and cooperative; no acute distress Eyes: EOM intact bilaterally ENMT: Mouth: + dry oral mucous membranes Respiratory: normal respiratory effort Auscultation: + diminished lung sounds Cardiovascular: Rate/Rhythm: regular rate and regular rhythm Gastrointestinal (Abdomen): Inspection/Auscultation: normal bowel sounds P ercussion/Palpation: abdomen soft; abdomen nontender Musculoskeletal: Extremities: strength 5/5 throughout Skin: no rashes, warm and dry Results & Data Vital Signs (Past 12 Hours) Vital Signs Temp Pulse Resp BP Pulse Ox O2 Del Method 02/19/25 07:19 36.7 C 68 16 172/72 H 96 Room Air Laboratory Results 02/16/25 07:32 02/17/25 07:36
--- NOTE | 2025-02-19 13:45 | Discharge Summary ---
Date of Service February 19, 2025 Admission HPI Per Admitting Provider Patient is a 89 year old M with a past medical history of ESRD on HD 3day/week, HTN, CHF, BPH,dyslipidemia presenting with left leg pain. Patient reports falling today while using his walker at home on carpet. Immediate pain and swelling. Unable to ambulate. Arrived here via EMS. Fentanyl given via transport. Denies fever, chills, weight loss, weakness, headache, cognitive changes, vision/hearing changes, chest pain, SOB, swelling, difficulty breathing, urinary concerns, N/V/D, skin rashes, lesions, bleeding, bruising. In the emergency department, patient was hypertensive with BP 200's/120's, asymptomatic. Possibly related to pain, but has a history of ESRD and on dialysis. Labetalol given in the ED with gradual decrease in BP. No signs of infection. Pelvis Xray showing acute mildly displaced subcapital fracture of the left femoral neck with some varus angulation. Morphine given for pain with some relief. Ortho consulted in the ED. Hypokalemia on labs with K+ 3.0. EKG showing sinus rhythm with 1st degree A-V block, Left BBB, vent rate 83 bpm, QTc 526. No chest pain. Renal functioning poor, although the patient reports still urinating fair amount daily. Creatinine 4.8, eGFR 11. Patient received HD 3 days/week, last treatment yesterday. History obtained primarily from the patient and via hospitalization record. The patient's family was at the bedside and assisted with history of present illness and medication history. Admission Exam Per Admitting Provider ITALS: Reviewed. WEIGHT/BMI reviewed. GEN: Healthy appearing, well-developed, NAD. PSYCH: Good Judgment. AOx3. Normal memory, mood, and affect. HEENT -Head: NC/AT; -Eyes: PERRL, EOMI. No discharge or redness; -Ears: External ears are normal. -Nose: Normal nares. -Mouth and throat: MMM. Normal gums, mucosa, palate,. Good dentition. NECK: Supple, with no masses. CV: RRR, no m/r/g. LUNGS: CTAB, no w/r/c. ABD: Soft, NT/ND, NBS, no masses or organomegaly. : N/A SKIN: Warm, well perfused. No skin rashes or abnormal lesions. MSK: Left hip to mid-thigh tender with swelling EXT: No clubbing, cyanosis, or edema. NEURO: CN II-XII grossly intact, No focal deficits. Principal Diagnosis Closed hip fracture s/p Left Cemented Hemiarthroplasty 02/13 Mechanical Fall Discharge Exam Constitutional: WD/WN, vitals as above, NAD, sitting up in bed, pleasant, conversing easily Respiratory: normal respiratory effort, lungs clear to auscultation, no wheeze, rales, rhonchi. Normal insp/exp effort, no accessory muscle use Cardiovascular: RRR, no murmur, no edema Vessels: no JVD or carotid bruit Chest: normal inspection of chest Abdomen: normal bowel sounds, soft, nontender, no hepatosplenomegaly Musculoskeletal: Left hip with dressing intact; clean and dry Neurologic: PERRL, EOMI, accommodation nl, no face palsy, no dysarthria CN's II- XI intact bilaterally and moves all extremities Discharge Data Allergies Allergy/AdvReac Type Severity Reaction Status Date / Time No Known Allergies Allergy Verified 02/12/25 16:53 Consultations 02/12/25 17:40 ED Decision to Admit Stat 02/12/25 17:41 Consult Orthopedic Surgery Stat 02/12/25 18:24 Consult Cardiology Routine 02/12/25 18:26 Consult Nephrology Routine 02/12/25 21:02 Consult Anesthesiology Routine Consult Orthopedic Surgery Routine Procedures Performed Operation Date: 02/13/25 07:55 Actual Procedures p Left Cemented Hemiarthroplasty(Left) - Vini Gonzalez DO Ordered Studies 02/12/25 16:09 CT abd pelvis IV con only Stat CT cervical spine wo con Stat CT head/brain wo con Stat 02/13/25 09:35 CT head/brain wo con Stat 02/13/25 14:30 FL hip LT 1V Routine Hospital Course (1) Closed hip fracture: 89 year old M with a past medical history of ESRD on HD 3day/week, HTN, CHF, B PH,dyslipidemia presenting with left leg pain. Patient reports falling while using his walker at home on carpet. Immediate pain and swelling. Unable to ambulate. Closed hip fracture Mechanical Fall * Pelvic Xray showing acute fracture of the left femoral neck * Cervical Spine CT with no acute traumatic fracture of the cervical spine. CTH wnl * Ortho evaled, s/p Left Cemented Hemiarthroplasty 02/13, recs are aspirin bid for 6 wks for dvt px and cefadroxil for 10 days for antimicrobial prophylaxis. f/u w/ ortho in 2 weeks. Patient underwent PT OT evaluation; was recommended rehab. Patient pain was well-controlled on Tylenol at the time of the discharge. He was able to ambulate with the help of a walker. He was discharged to rehab with prescription for aspirin twice daily for DVT prophylaxis and cefadroxil as recommended by orthopedics. Left Bundle Branch Block Hypokalemia * EKG showing sinus rhythm with 1st degree A-V block, Left BBB, vent rate 83 bpm, QTc 526 * Asymptomatic, no CP * Echo w/ EF of 50%, mild concentric LVH, septal motion c/w LBBB. RWM is nl. Gr I diastolic dysfunction. #Hypertensive Urgency/ho labile HTN: BP high at presentation, likely 2/2 acute pain from hip fracture. Amlodipine was given during the hospitalization; discontinued at discharge given patient's labile blood pressure. Please note the above document was generated using voice recognition software. It may contain grammatical, syntax or spelling errors. Any formal questions or concerns about the content, text or information contained within the body of this dictation should be directly addressed to the provider for clarification (2) Left bundle branch block: (3) End-stage renal disease (ESRD): (4) HTN (hypertension): Total Time Total Time Spent Total Time Spent (In Minutes): 45 Total Time Includes: Examination of the Patient, Discharge Planning, Medication Reconciliation, Communication With Other Providers and Other Discharge Plan Discharge Items Patient Disposition: Transfer Halfway Fac Reason For Visit: HIP FRACTURE Discharge Diagnosis: Closed hip fracture Mechanical Fall s/p surgery Condition on Discharge: Fair Activity: Per Instructions section Non-emergency contact: Surgeon Call non-emergency contact if: your symptoms worsen, your temperature is above 101.5, your wound has increased redness and your wound has increased drainage Follow-up/Referrals: PCP,NO [Physician] - Diet: Regular Addtl Attending Provider Instructions: Activity and Therapy Recommendations: * If you are using [facility] then therapy will be provided at your home until they feel you have accomplished all of your goals. * If you are using [facility] then Physical Therapy will be provided until they feel you are ready to start Outpatient Physical Therapy. * If you are not using home therapy then Outpatient Physical Therapy should start about 3-5 days from your day of surgery. Therapy will last about 6-10 weeks * You were shown a series of exercises in the hospital. Do these exercises three times each day including the exercises you were shown in physical therapy. * Get up and walk several times each day.~ For the first four weeks, try not to stand or walk for more than one hour at a time. If you do stand or walk for more than one hour, you will not hurt anything, but your leg will likely swell.~~ * As you feel comfortable, you may change from the walker or crutches to a cane and~then to independent walking. Medications: * Cefadroxil -take the antibiotic every other day for 10 days to help prevent infection. * Aspirin Most patients will be required to take Aspirin 81mg twice a day for 6 weeks after surgery. This is obtained [id number] and a prescription is not necessary. * Other medications may be prescribed for specific circumstances. If you have any questions, please call the office at . * Resume previous home medications unless otherwise instructed TEDs/Elastic Stockings: The white elastic stockings help limit swelling and prevent blood clots from forming in your legs. The more you wear them, the more they work. Wear them for 2 weeks. Dressing Care: Leave the Silverlon dressing in place for 7 days. After 7 days you may remove the dressing. Do not remove the Vilas zip closure. If the incision is not draining then you may leave the Vilas zip closure open to air. If there is a little bit of drainage or if the Becky zip closure is getting stuck on your clothing then cover the incision with a dry dressing. The Vilas zip closure will be removed at your 2 week follow-up appointment. Showering: You may shower with the Silverlon dressing in place. Do not let the shower spray hit the dressing directly. Pat the Silverlon dressing dry. If the dressing becomes wet underneath, then simply remove the dressing. Keep the incision dry until you are 7 days out from the day of surgery. After 7 days you may remove the Silverlon dressing and shower with the Vilas zip closure exposed. Let soapy water run over the Vilas zip closure and pat them dry. Do not scrub or soak the incision. Diet: You may resume your previous diet. Things To Watch For: * Drainage from the incision site that occurs more than one week after your surgery. * Increased redness at the incision site. * Fever above 102 degrees Fahrenheit. * Unusual chest pain or shortness of breath. * Call [facility] at with any of the above problems Follow-Up Visit: Follow-up with Dr. Gonzalez's office 2-3 weeks after your day of surgery. We will remove your alberto and answer any questions. If you have any additional questions or concerns, Dr Gonzalez is usually in the office at the same time and will be available Please call the office to set up an appointment for time that works for you. Office Instructions: More detailed instructions as well as Frequently Asked Questions were provided in a folder by our office when you signed-up for surgery. Please review these instructions when you get home. If you have any further questions or concerns, please feel free to call the office at [phone] Pending Studies at Discharge: No Stand-Alone Forms: My [facility] Skilled Items Patient informed of condition?: Yes DNR: No Discharge Level of Care: Skilled Communicable Disease: No Discharge Prognosis: Stable Lines: None Urinary Catheter: No Medications and DC Order Prescriptions: New cefadroxil 500 mg Capsule 500 mg PO Q48H 7 Days Qty: 4 0RF polyethylene glycol 3350 [Miralax] 17 gram Powder In Packet 17 g PO DAILY PRN (Reason: constipation) 30 Days Qty: 30 0RF aspirin 81 mg Tablet,Delayed Release (Dr/Ec) 81 mg PO BID 30 Days Qty: 60 0RF docusate sodium 100 mg Capsule 100 mg PO BID 30 Days Qty: 60 0RF Continued Carol Ann-Sonido 0.8 mg tablet 1 tab PO DAILY midodrine 5 mg Tablet 5 mg PO TID PRN (Reason: On Dialysis days) Qty: 90 0RF Rx Instructions: do not give last dose of day after 6PM or within 4 hrs of bedtime acetaminophen [Tylenol Extra Strength] 500 mg Tablet 500 mg PO TID PRN (Reason: Pain) Qty: 30 0RF rosuvastatin [Crestor] 20 mg Tablet 10 mg PO HS Qty: 30 0RF Discontinued Liquacel Liquid 1 oz PO 3XWK Qty: 0 Rx Instructions: MON, WED, & FRI AT DIALYSIS Discharge Orders: Discharge Order (Routine); Ordered 02/19/25 Ordered By: Ru Muñoz Admission Data Admit Date/Time: 02/12/25 18:22 Attending Provider: Ru Muñoz Admit Provider: Heike Rosa Primary Care Provider: Kerwin Wynn Other Providers: Mauricio Wheeler; Heike Rosa; Bryce Betts; Morales Prescott; [facility]; [facility]
== END 2025-02-19 15:47 | DRG 521 ==
LOC: ED 16:03 → OR 17:51 → 2E 18:22 → SUATTDRO 18:22 → 2E 20:45 → 3N 02-14 21:59